=== PATIENT | female | born 1935 | race Two or more races ===

== ENCOUNTER 2019-03-02 20:02 | Inpatient (IN) | payer OTHER ==
[~2019-03-02] VITALS: Ht 157.5 cm; Wt 65.3 kg
[2019-03-02 20:02] VITALS: BP 165/82
--- NOTE | 2019-03-02 20:02 | NUR ---
ED Nurse Note: PT ARRIVED WITH RA 26 FROM HOME DUE ADBDOMINAL PAIN X 3 DAYS ACCOMPANIED WITH NAUSEA AND VOMITNG. PT PLACED IN GOWN AND CARIDAC MONITOR, BED AT LOWEST POSITION; X 2 SIDERAILS. IV LINE HAS BEEN ESTABLISHED AND BLOOD SPECIMEN SENT TO LAB.
[2019-03-02] MEDS ORDERED: Omnipaque-300 100ml vial INJ PRN (20:30)
--- NOTE | 2019-03-02 20:53 | NUR ---
ED Nurse Note: XRAY AT BEDSIDE
[2019-03-02 21:04] LABS: HEMATOCRIT 34.6 % (37.0-47.0); HEMOGLOBIN 11.9 G/DL (12.0-16.0); MEAN CORPUSCULAR VOLUME 94 FL (80-99); PLATELET COUNT 62 K/UL (150-450); RED BLOOD COUNT 3.68 M/UL (4.20-5.40); RED CELL DISTRIBUTION WIDTH 12.2 % (11.6-14.8); WHITE BLOOD COUNT 8.2 K/UL (4.8-10.8)
[2019-03-02 21:07] LABS: ANION GAP 8 mmol/L (5-15); BLOOD UREA NITROGEN 13 mg/dL (7-18); CALCIUM 8.4 MG/DL (8.5-10.1); CARBON DIOXIDE 26 MMOL/L (21-32); CHLORIDE 99 MMOL/L (98-107); CREATININE 1.1 MG/DL (0.55-1.30); INR 1.3 (0.9-1.1); POTASSIUM 3.6 MMOL/L (3.5-5.1); SODIUM 133 MMOL/L (136-145)
--- NOTE | 2019-03-02 21:16 | NUR ---
ED Nurse Note: PT TAKEN TO CT
[2019-03-02 21:20] LABS: ALANINE AMINOTRANSFERASE 18 U/L (12-78); ALBUMIN 2.5 G/DL (3.4-5.0); ALKALINE PHOSPHATASE 122 U/L (46-116); ASPARTATE AMINO TRANSFERASE 38 U/L (15-37); BILIRUBIN,TOTAL 2.9 MG/DL (0.2-1.0)
--- NOTE | 2019-03-02 21:31 | Emergency Room Report ---
History of Present Illness General Chief Complaint: Abdominal Pain Source: EMS Present Illness HPI 84-year-old female presents with generalized abdominal pain, x 3 days, no known aggravating relieving factors, severity is moderate, constant, with nausea and vomiting, she endorses a sharp ache patient denies any fevers chills chest pain shortness of breath, she denies any diarrhea Allergies: Coded Allergies: No Known Allergies (Unverified , 03/02/19) Patient History Past Medical History: see triage record Reviewed Nursing Documentation: PMH: Agreed; PSxH: Agreed Nursing Documentation-PMH Hx Hypertension: Yes Hx Diabetes: Yes Review of Systems All Other Systems: negative except mentioned in HPI Physical Exam Vital Signs Date Time Temp Pulse Resp B/P (MAP) Pulse Ox O2 Delivery O2 Flow Rate FiO2 03/02/19 19:58 98.6 86 14 230/106 (147) 97 Room Air Sp02 EP Interpretation: reviewed, normal General Appearance: well appearing, no apparent distress, alert Head: normocephalic, atraumatic Eyes: bilateral eye PERRL, bilateral eye EOMI ENT: uvula midline, dry mucus membranes Neck: supple, thyroid normal, supple/symm/no masses Respiratory: lungs clear, no respiratory distress, no retraction, no accessory muscle use Cardiovascular #1: normal peripheral pulses, regular rate, rhythm, no edema, no gallop, no murmur Gastrointestinal: soft, no guarding, no rebound, tenderness - generalized tenderness without rebound or guarding Musculoskeletal: normal inspection Neurologic: alert, oriented x3 Psychiatric: mood/affect normal Skin: no rash, warm/dry Medical Decision Making Diagnostic Impression: Primary Impression: Abdominal pain Qualified Codes: R10.84 - Generalized abdominal pain Additional Impressions: Thickening of wall of gallbladder with pericholecystic fluid UTI (urinary tract infection) Qualified Codes: N30.00 - Acute cystitis without hematuria ER Course 84-year-old female presents with generalized abdominal pain, as well as epigastric pain, differential diagnosis includes cholecystitis SBP, diverticulitis Patient found to have thickened gallbladder, patient with ascites, with pericholecystic fluid however pain is well controlled with morphine patient has no fever no white count Ultrasound is equivocal. Patient will be admitted for serial abdominal exams, IV antibiotics for UTI Admitted to Dr. Burr Laboratory Tests Test 03/02/19 20:17 03/02/19 22:06 White Blood Count 8.2 K/UL (4.8-10.8) Red Blood Count 3.68 M/UL (4.20-5.40) L Hemoglobin 11.9 G/DL (12.0-16.0) L Hematocrit 34.6 % (37.0-47.0) L Mean Corpuscular Volume 94 FL (80-99) Mean Corpuscular Hemoglobin 32.4 PG (27.0-31.0) H Mean Corpuscular Hemoglobin Concent 34.4 G/DL (32.0-36.0) Red Cell Distribution Width 12.2 % (11.6-14.8) Platelet Count 62 K/UL (150-450) L Mean Platelet Volume 7.4 FL (6.5-10.1) Neutrophils (%) (Auto) % (45.0-75.0) Lymphocytes (%) (Auto) % (20.0-45.0) Monocytes (%) (Auto) % (1.0-10.0) Eosinophils (%) (Auto) % (0.0-3.0) Basophils (%) (Auto) % (0.0-2.0) Differential Total Cells Counted 100 Neutrophils % (Manual) 85 % (45-75) H Lymphocytes % (Manual) 7 % (20-45) L Monocytes % (Manual) 7 % (1-10) Eosinophils % (Manual) 0 % (0-3) Basophils % (Manual) 0 % (0-2) Band Neutrophils 1 % (0-8) Platelet Estimate Decreased L Platelet Morphology Normal Red Blood Cell Morphology Normal Prothrombin Time 14.0 SEC (9.30-11.50) H Prothrombin Time INR 1.3 (0.9-1.1) H PTT 34 SEC (23-33) H Sodium Level 133 MMOL/L (136-145) L Potassium Level 3.6 MMOL/L (3.5-5.1) Chloride Level 99 MMOL/L (98-107) Carbon Dioxide Level 26 MMOL/L (21-32) Anion Gap 8 mmol/L (5-15) Blood Urea Nitrogen 13 mg/dL (7-18) Creatinine 1.1 MG/DL (0.55-1.30) Estimate Glomerular Filtration Rate mL/min (>60) Glucose Level 170 MG/DL (74-106) H Calcium Level 8.4 MG/DL (8.5-10.1) L Total Bilirubin 2.9 MG/DL (0.2-1.0) H Direct Bilirubin 1.3 MG/DL (0.0-0.3) H Aspartate Amino Transferase (AST) 38 U/L (15-37) H Alanine Aminotransferase (ALT) 18 U/L (12-78) Alkaline Phosphatase 122 U/L (46-116) H Troponin I 0.000 ng/mL (0.000-0.056) Total Protein 7.5 G/DL (6.4-8.2) Albumin 2.5 G/DL (3.4-5.0) L Globulin 5.0 g/dL Albumin/Globulin Ratio 0.5 (1.0-2.7) L Lipase 198 U/L (73-393) Urine Color Yellow Urine Appearance Clear Urine pH 8 (4.5-8.0) Urine Specific [place] 1.010 (1.005-1.035) Urine Protein Negative (NEGATIVE) Urine Glucose (UA) Negative (NEGATIVE) Urine Ketones Negative (NEGATIVE) Urine Blood Negative (NEGATIVE) Urine Nitrite Negative (NEGATIVE) Urine Bilirubin Negative (NEGATIVE) Urine Urobilinogen 4 MG/DL (0.0-1.0) H Urine Leukocyte Esterase 1+ (NEGATIVE) H Urine RBC 0-2 /HPF (0 - 2) Urine WBC 10-15 /HPF (0 - 2) H Urine Squamous Epithelial Cells Few /LPF (NONE/OCC) Urine Bacteria Moderate /HPF (NONE) H EKG Diagnostic Results EKG Time: 20:39 EP Interpretation: NSR, rate 81, QTc 448, no acute ST elevations, normal axis Rhythm Strip Diag. Results Rhythm Strip Time: 00:20 EP Interpretation: yes Rate: 91 Rhythm: NSR, no PVC's, no ectopy Chest X-Ray Diagnostic Results Chest X-Ray Diagnostic Results : Chest X-Ray Ordered: Yes # of Views/Limited/Complete: 1 View Indication: Other - abdominal pain EP Interpretation: Yes Interpretation: no consolidation, no effusion, no pneumothorax, no acute cardiopulmonary disease Impression: No acute disease Electronically Signed by: Jorge A Sidhu MD CT/MRI/US Diagnostic Results CT/MRI/US Diagnostic Results : Impression Preliminary Findings Only See Final Report For Complete Findings CT ABDOMEN & PELVIS With Contrast: Evidence of portal hypertension as demonstrated by cirrhosis with splenomegaly and severe ascites. There is diffuse soft tissue stranding consistent with anasarca. Portal vein is patent. No convincing liver mass. The gallbladder is severely distended with mild wall thickening. No definite stone is identified. Wall thickening may be related to liver disease, but the gallbladder is severely distended more than expected. No hydronephrosis. No bowel obstruction. Thickened ascending colon is likely due to portal colopathy. The stomach wall is thickened, correlate with gastritis. Nonspecific 3.6 cm calcified lesion in the right lower quadrant, possibly a calcified lymph node. Radiologist: Sheila Munson MD Study ready at 21:57 and initial results transmitted at 22:03 Last Vital Signs Date Time Temp Pulse Resp B/P (MAP) Pulse Ox O2 Delivery O2 Flow Rate FiO2 03/02/19 20:02 98.6 78 17 165/82 100 Room Air Disposition: ADMITTED INPATIENT Condition: Stable Jorge A Sidhu MD Mar 02, 2019 21:31
--- NOTE | 2019-03-02 21:40 | NUR ---
ED Nurse Note: PT RETURNED FROM CT; CT COMPLETED
[2019-03-02] MEDS ORDERED: Morphine Sulfate 4mg/ml Inj (IV USE ONLY) IVP ONE (21:45)
[2019-03-02 21:47] LABS: ALBUMIN/GLOBULIN RATIO 0.5 (1.0-2.7); BILIRUBIN,DIRECT 1.3 MG/DL (0.0-0.3)
[2019-03-02 21:59] VITALS: BP 127/93
--- NOTE | 2019-03-02 22:00 | NUR ---
ED Nurse Note: URINE SPECIMEN COLLECTED; SENT TO LAB
--- NOTE | 2019-03-02 22:03 | Diagnostic Imaging Report ---
Clinical Indication: Abdominal pain, nausea, vomiting Technique: No oral contrast utilized, per emergency room physician request IV administration nonionic contrast. Venous phase spiral acquisition obtained through the abdomen and pelvis. Multiplanar reconstructions were generated. Total dose length product 1704 mGycm. CTDIvol(s) 30 mGy. Dose reduction achieved using automated exposure control Comparison: none Findings: There is a moderate amount of ascites fluid. The appendix is not definitely identified, but no findings to suggest acute appendicitis are evident. No evidence of colonic diverticulosis or diverticulitis. There is a small sliding-type hiatal hernia. There is edema of the gastric wall and prominence of the rugal folds. Several proximal small bowel loops also appear somewhat edematous with prominent mucosal enhancement. The liver is markedly atrophic with marked surface nodularity. The gallbladder is massively distended. The wall is mildly thickened and enhancing. There is a small calculus within the gallbladder neck. No biliary ductal dilatation is demonstrated. The pancreas is unremarkable. The spleen is enlarged, measuring 14.5 cm long axis dimension. 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 The adrenals and kidneys are unremarkable. No retroperitoneal or mesenteric mass or adenopathy. There is enlargement of the left ovarian vein and left paraovarian varices. There is prominent enhancement of the uterine myometrium. No pelvic mass or adenopathy. There is a large eggshell calcification in the right side of the pelvis. This does not appear to relate any specific organs. The included lung bases demonstrate mild interstitial congestive changes. The bones demonstrate degenerative spondylosis changes. There is generalized edema of the subcutaneous fat as well as to the abdominal fat. There is marked congestion of the mesenteric vessels. Impression: Gallbladder neck stone. Gallbladder distention and mild gallbladder wall thickening raises possibility of acute cholecystitis. Consider hepatobiliary nuclear scan if clinically indicated for further evaluation. Evidence of hepatic cirrhosis Moderate ascites, presumably related to the above Other stigmata of portal hypertension as well, including splenomegaly, periesophageal varices, and congestion of the mesentery Other findings of anasarca, including diffuse edema of the abdominal, pelvic, and subcutaneous fat Edema of the small bowel wall, likely a manifestation of anasarca, but the possibility of enteritis should also be considered Distention of the left ovarian vein, left paraovarian varices, suspicious for ovarian vein reflux. Correlate with any clinical history of pelvic congestion syndrome Technique show calcination in the right-sided pelvis, probably postinflammatory in nature Basilar pulmonary interstitial congestive changes Other findings as noted, including small sliding-type hiatal hernia, degenerative spondylosis The gallbladder neck stone is not described in the [facility] overnight preliminary report. Dr. Acosta was notified of this at the time of interpretation and [facility] was notified by their website. Other findings are in agreement with the preliminary report. The CT scanner at [facility] is accredited by the [employer] and the scans are performed using protocols designed to limit radiation exposure to as low as reasonably achievable to attain images of sufficient resolution adequate for diagnostic evaluation.
--- NOTE | 2019-03-02 22:15 | NUR ---
ED Nurse Note: US WAS PAGEDL AWAITING FOR ARRIVAL
[2019-03-02 22:43] LABS: APPEARANCE,URINE CLEAR; BILIRUBIN, URINE NEGATIVE (NEGATIVE); COLOR,URINE YELLOW; GLUCOSE, URINE (UA) NEGATIVE (NEGATIVE); KETONES,URINE NEGATIVE (NEGATIVE); LEUKOCYTE ESTERASE ,URINE 1+ (NEGATIVE); NITRITE,URINE NEGATIVE (NEGATIVE); PH,URINE 8 (4.5-8.0); PROTEIN,URINE NEGATIVE (NEGATIVE); UROBILINOGEN,URINE 4 MG/DL (0.0-1.0)
--- NOTE | 2019-03-02 22:44 | NUR ---
ED Nurse Note: US AT BEDSIDE
[2019-03-03] VITALS (8 sets, daily range): BP systolic 122–177; BP diastolic 48–72
--- NOTE | 2019-03-03 | NUR ---
ED Nurse Note: INFORMED ERMD ABOUT PT HIGH BP, WILL AWAIT FURTHER ORDERS AND MONITOR PT.
[2019-03-03] MEDS ORDERED: cefTRIAXone 1 GM in NS 55 ML IVPB ONE (00:30)
[2019-03-03] MEDS ORDERED: UNOBMED (00:47)
--- NOTE | 2019-03-03 00:49 | NUR ---
ED Nurse Note: TELEPHONE REPORT GIVEN TO DEBBIE ANDREWS FOR CONTINUITY OF CARE
--- NOTE | 2019-03-03 01:05 | NUR ---
TRANSFER TO FLOOR: Patient transferred to [facility] as ordered, per ERMD. Report given to DEBBIE ANDREWS. Belongings GIVEN TO PT. Family informed of transfer.
--- NOTE | 2019-03-03 01:45 | NUR ---
NURSE NOTES: Received report from DEBBIE Melgar in ED at 0059. Patient arrived on the unit at 0122 via a gurney. Patient a/a/o x 3, speaking brit[place] islander only, breathing unlabored without distress, discomfort, or sob on a room air. Discomfort around the abdominal area but denies pain. Skin tears and discoloration noted on bilateral upper arm, otherwise skin intact. IV noted on right upper arm intact and patent with dry and clean dressing. Belongings noted: clothing, shoes, flip [employer] phone, a pair of Rx glasses, One $10 dollar bill, Five medications in medication bag ( Carvedilol, Metformin, ferrous sulfate, + Detox supplement, and Aspirin). Informed patient that these medications need to be stored in pharmacy. Patient was okay with RN taking the medication to store in pharmacy. Patient also verbalized and confirmed multiple times that these were the only medications that she's taking at home. Dr. Burr reached at 0131 to receive admission orders. Was not able to reach Dr. Burr at this time. Will attempt to reach Dr. Burr again. Patient oriented to the unit and room. Call light placed within reach. Will continue to monitor.
[2019-03-03] MEDS ORDERED: METFORMIN HCL1000 M1 ORAL (02:20)
[2019-03-03] MEDS ORDERED: ASPIRIN-LOW81 MG ORAL (02:20)
[2019-03-03] MEDS ORDERED: FERROUS SULFAT325 MG ORAL (02:20)
[2019-03-03] MEDS ORDERED: NKM (02:20)
[2019-03-03] MEDS ORDERED: COREG25 MG ORAL (02:20)
--- NOTE | 2019-03-03 02:29 | NUR ---
NURSE NOTES: Patient's BP running high, reading 194/88. Reached Dr. Burr again regards to BP reading and admission orders. Was not able to reach Dr. Burr at this time. Will follow up and attempt again. Patient currently sleeping. Will continue to monitor.
--- NOTE | 2019-03-03 03:16 | NUR ---
NURSE NOTES: Reached Dr. Burr again regarding patient's admission order and high blood pressure reading. Was not able to reach Dr. Burr at this time. Will follow up appropriately and continue to monitor patient.
--- NOTE | 2019-03-03 04:15 | NUR ---
NURSE NOTES: Received callback from Dr. Burr regarding patient's admission order and high blood pressure reading. Orders given as followed: code status (as patient wishes) full code, DVT ppx SCDs after performing venous duplex, CBC/ CMP, DC home medications, Amlodipine PO 5 mg daily starting from 9 am, Clonidine .1 mg Q 6hrs PRN for SBP greater than 170, NPO, Q 6hr accucheck with no sliding scale, give one amp of D50 for blood sugar less than 70 and inform MD if blood sugar is greater than 350 or less than 70, and no IV fluids at this time. said Dr. Biggs is on the case and nurse should contact Dr. Biggs for blood pressure and IV fluids in the morning. Dr. Burr made aware of UTI. Dr. Yomi Callejas will come to see the patient. Will carry out the order as given and continue to monitor patient.
[2019-03-03 06:51] LABS: HEMATOCRIT 32.4 % (37.0-47.0); HEMOGLOBIN 11.3 G/DL (12.0-16.0); MEAN CORPUSCULAR VOLUME 94 FL (80-99); PLATELET COUNT 62 K/UL (150-450); RED BLOOD COUNT 3.44 M/UL (4.20-5.40); RED CELL DISTRIBUTION WIDTH 13.2 % (11.6-14.8); WHITE BLOOD COUNT 10.2 K/UL (4.8-10.8)
[2019-03-03 07:29] LABS: ALANINE AMINOTRANSFERASE 15 U/L (12-78); ALBUMIN/GLOBULIN RATIO 0.5 (1.0-2.7); ALKALINE PHOSPHATASE 107 U/L (46-116); ANION GAP 9 mmol/L (5-15); ASPARTATE AMINO TRANSFERASE 34 U/L (15-37); BILIRUBIN,TOTAL 2.3 MG/DL (0.2-1.0); BLOOD UREA NITROGEN 14 mg/dL (7-18); CALCIUM 7.9 MG/DL (8.5-10.1); CARBON DIOXIDE 24 MMOL/L (21-32); CHLORIDE 102 MMOL/L (98-107); POTASSIUM 3.6 MMOL/L (3.5-5.1); SODIUM 135 MMOL/L (136-145)
[2019-03-03 07:30] LABS: BILIRUBIN,DIRECT 1.1 MG/DL (0.0-0.3)
--- NOTE | 2019-03-03 07:59 | NUR ---
HAND-OFF: Report given to DEBBIE Saul.
--- NOTE | 2019-03-03 08:50 | NUR ---
NURSE NOTES: Patient is awake and alert,respiration unlabored.patient receiving Venous duplex scan at this time,call light within reach,will follow up.
--- NOTE | 2019-03-03 12:18 | GI Initial Consult Note ---
History of Present Illness General Date patient seen: Mar 03, 2019 Time patient seen: 12:08 Reason for Hospitalization: Abdominal Pain Referring physician: ARTEMIO MOISE Reason for Consultation: ABDOMINAL PAIN Present Illness HPI 84-year-old female presents with generalized abdominal pain, x 3 days, no known aggravating relieving factors, severity is moderate, constant, with nausea and vomiting, she endorses a sharp ache patient denies any fevers chills chest pain shortness of breath, she denies any diarrhea. GI consulted for abdominal pain. Pt seen, awake A&Ox4 NAD with no active s/sx of N/V/D or constipation. Family at bedside. Patient had c/o of abdominal pain accompanied with emesis x 3 days. She denied any hematemesis or coffee grounds. Denies any dietary changes, recent travels. Denies any ETOH, tobacco or drug use. Abdominal Pelvis CT was performed noted the patient had [id number] of hepatic cirrhosis with portal hypertension as well as periesophageal varices. In addition, CT also noted gallbladder distention and wall thickening. Her abdomen is distended, soft, non tympanic. No pedal edema noted. Patient has no history of endoscopy or colonoscopy. Home Meds Reported Medications No Known Medications* (NKM - No Known Medications*) ., 0 ., 0 Refills 03/03/19 Ferrous Sulfate* (FERROUS SULFATE*) 325 Mg Tablet, 325 MG ORAL DAILY, #30 TAB 0 Refills 03/03/19 Metformin Hcl* (METFORMIN HCL*) 1,000 Mg Tablet, 1000 MG ORAL TWICE A DAY, TAB 03/03/19 Carvedilol (Coreg) 25 Mg Tablet, 25 MG ORAL EVERY 12 HOURS, TAB 03/03/19 Aspirin (Aspirin EC) 81 Mg Tablet.dr, 81 MG ORAL DAILY, TAB 03/03/19 Unable to Obtain Medications (UNABLE TO OBTAIN MEDS) 1 Ea Ea 03/03/19 Med list reviewed/reconciled: Yes Allergies: Coded Allergies: No Known Allergies (Unverified , 03/02/19) Patient History History Provided By: Patient, Medical Record PMH Narrative Past Medical History: see triage record Reviewed Nursing Documentation: PMH: Agreed; PSxH: Agreed Nursing Documentation-PMH Hx Hypertension: Yes Hx Diabetes: Yes Social History: Denies: smoking, alcohol use, drug use, other Review of Systems All Other Systems: limited Physical Exam Vital Signs Date Time Temp Pulse Resp B/P (MAP) Pulse Ox O2 Delivery O2 Flow Rate FiO2 03/02/19 19:58 98.6 86 14 230/106 (147) 97 Room Air Sp02 EP Interpretation: reviewed, normal Labs Laboratory Tests Test 03/02/19 20:17 03/02/19 22:06 03/03/19 05:09 White Blood Count 8.2 K/UL (4.8-10.8) 10.2 K/UL (4.8-10.8) Red Blood Count 3.68 M/UL (4.20-5.40) L 3.44 M/UL (4.20-5.40) L Hemoglobin 11.9 G/DL (12.0-16.0) L 11.3 G/DL (12.0-16.0) L Hematocrit 34.6 % (37.0-47.0) L 32.4 % (37.0-47.0) L Mean Corpuscular Volume 94 FL (80-99) 94 FL (80-99) Mean Corpuscular Hemoglobin 32.4 PG (27.0-31.0) H 32.7 PG (27.0-31.0) H Mean Corpuscular Hemoglobin Concent 34.4 G/DL (32.0-36.0) 34.8 G/DL (32.0-36.0) Red Cell Distribution Width 12.2 % (11.6-14.8) 13.2 % (11.6-14.8) Platelet Count 62 K/UL (150-450) L 62 K/UL (150-450) L Mean Platelet Volume 7.4 FL (6.5-10.1) 7.1 FL (6.5-10.1) Neutrophils (%) (Auto) % (45.0-75.0) % (45.0-75.0) Lymphocytes (%) (Auto) % (20.0-45.0) % (20.0-45.0) Monocytes (%) (Auto) % (1.0-10.0) % (1.0-10.0) Eosinophils (%) (Auto) % (0.0-3.0) % (0.0-3.0) Basophils (%) (Auto) % (0.0-2.0) % (0.0-2.0) Differential Total Cells Counted 100 100 Neutrophils % (Manual) 85 % (45-75) H 93 % (45-75) H Lymphocytes % (Manual) 7 % (20-45) L 4 % (20-45) L Monocytes % (Manual) 7 % (1-10) 3 % (1-10) Eosinophils % (Manual) 0 % (0-3) 0 % (0-3) Basophils % (Manual) 0 % (0-2) 0 % (0-2) Band Neutrophils 1 % (0-8) 0 % (0-8) Platelet Estimate Decreased L Decreased L Platelet Morphology Normal Normal Red Blood Cell Morphology Normal Prothrombin Time 14.0 SEC (9.30-11.50) H Prothromb Time International Ratio 1.3 (0.9-1.1) H Activated Partial Thromboplast Time 34 SEC (23-33) H Sodium Level 133 MMOL/L (136-145) L 135 MMOL/L (136-145) L Potassium Level 3.6 MMOL/L (3.5-5.1) 3.6 MMOL/L (3.5-5.1) Chloride Level 99 MMOL/L (98-107) 102 MMOL/L (98-107) Carbon Dioxide Level 26 MMOL/L (21-32) 24 MMOL/L (21-32) Anion Gap 8 mmol/L (5-15) 9 mmol/L (5-15) Blood Urea Nitrogen 13 mg/dL (7-18) 14 mg/dL (7-18) Creatinine 1.1 MG/DL (0.55-1.30) 1.0 MG/DL (0.55-1.30) Estimat Glomerular Filtration Rate mL/min (>60) mL/min (>60) Glucose Level 170 MG/DL (74-106) H 141 MG/DL (74-106) H Calcium Level 8.4 MG/DL (8.5-10.1) L 7.9 MG/DL (8.5-10.1) L Total Bilirubin 2.9 MG/DL (0.2-1.0) H 2.3 MG/DL (0.2-1.0) H Direct Bilirubin 1.3 MG/DL (0.0-0.3) H 1.1 MG/DL (0.0-0.3) H Aspartate Amino Transf (AST/SGOT) 38 U/L (15-37) H 34 U/L (15-37) Alanine Aminotransferase (ALT/SGPT) 18 U/L (12-78) 15 U/L (12-78) Alkaline Phosphatase 122 U/L (46-116) H 107 U/L (46-116) Troponin I 0.000 ng/mL (0.000-0.056) Total Protein 7.5 G/DL (6.4-8.2) 6.4 G/DL (6.4-8.2) Albumin 2.5 G/DL (3.4-5.0) L 2.0 G/DL (3.4-5.0) L Globulin 5.0 g/dL 4.4 g/dL Albumin/Globulin Ratio 0.5 (1.0-2.7) L 0.5 (1.0-2.7) L Lipase 198 U/L (73-393) Urine Color Yellow Urine Appearance Clear Urine pH 8 (4.5-8.0) Urine Specific [place] 1.010 (1.005-1.035) Urine Protein Negative (NEGATIVE) Urine Glucose (UA) Negative (NEGATIVE) Urine Ketones Negative (NEGATIVE) Urine Blood Negative (NEGATIVE) Urine Nitrite Negative (NEGATIVE) Urine Bilirubin Negative (NEGATIVE) Urine Urobilinogen 4 MG/DL (0.0-1.0) H Urine Leukocyte Esterase 1+ (NEGATIVE) H Urine RBC 0-2 /HPF (0 - 2) Urine WBC 10-15 /HPF (0 - 2) H Urine Squamous Epithelial Cells Few /LPF (NONE/OCC) Urine Bacteria Moderate /HPF (NONE) H General Appearance: well appearing, no apparent distress, alert Head: normocephalic EENT: PERRL/EOMI, normal ENT inspection Neck: supple Respiratory: normal breath sounds, no respiratory distress Cardiovascular: normal rate Gastrointestinal: normal inspection, non tender, soft, normal bowel sounds, non -distended Rectal: deferred Genitourinary: no CVA tenderness Musculoskeletal: normal inspection, back normal Neurologic: normal inspection, alert, oriented x3, responsive Psychiatric: normal inspection, judgement/insight normal, memory normal Skin: normal inspection, normal color, no rash, warm/dry, palpation normal, well hydrated Lymphatic: normal inspection, no adenopathy Current Medications Current Medications Medications (Trade) Dose Ordered Sig/Robe Route PRN Reason Start Time Stop Time Status Last Admin Dose Admin Amlodipine Besylate (Norvasc) 5 mg DAILY ORAL 03/03/19 09:00 04/02/19 08:59 03/03/19 10:31 Clonidine HCl (Catapres Tab) 0.1 mg EVERY 6 HOURS PRN ORAL SBP > 170 03/03/19 04:30 04/02/19 04:29 Dextrose (Dextrose 50%) 50 ml STAT PRN IV Blood Sugar < 70 mg/dl 03/03/19 08:00 04/02/19 07:59 Iohexol (OMNIPAQUE-300 100ml) 100 ml NOW PRN INJ Radiology Procedure 03/02/19 20:30 03/04/19 20:29 Piperacillin Sod/ Tazobactam Sod 3.375 gm/Sodium Chloride 110 ml @ 27.5 mls/hr EVERY 8 HOURS IVPB 03/03/19 14:00 03/08/19 13:59 UNV GI: Plan Problems: (1) Cirrhosis (2) Thickening of wall of gallbladder with pericholecystic fluid (3) Abdominal pain (4) UTI (urinary tract infection) (5) Cholecystitis Plan This is a 84 year old female patient presented with abdominal pain found on CT to have liver cirrhosis. 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 plan for EGD tomorrow given anemia, portal gastropathy, evidence of periesophageal varices obtain abdominal US paracentesis ordered clear liquid diet after paracentesis, NPO @ MN. hold all blood thinners anemia work up OB stool r/o GI bleed monitor H&H, prn transfusions bowel regimen ppi fu labs, hepatitis panel, AFP Discussed with Dr. Briceño. Thank you for this patient referral, we will follow. The patient was seen and examined at bedside and all new and available data was reviewed in the patients chart. I agree with the above findings, impression and plan. (Patient seen earlier today. Signature stamp does not reflect patient encounter time.). - MD Angelique Leong,Radha-Ashok AL[employer]IN[employer] P[employer]ER Mar 03, 2019 12:18
--- NOTE | 2019-03-03 12:29 | Diagnostic Imaging Report ---
APPROVED REPORT CPT Code: 34816 Present Symptoms Lower Extremity Pain: Bilateral Lower Extremity Edema: Bilateral BILATERAL: Imaging reveals a patent deep venous system bilaterally. There is no evidence of thrombus within the femoral, popliteal or tibial segments. The greater saphenous veins are also within normal limits. Doppler indicates normal spontaneous flow within these segments.
[2019-03-03] MEDS ORDERED: Morphine Sulfate 2mg/ml Inj(IV/IM USE ONLY) IVP SCH (13:00)
--- NOTE | 2019-03-03 13:40 | NUR ---
*-* INSURANCE *-* ALL AVAILABLE CLINICALS HAVE BEEN FAXED TO: LEEANNA MUÑOZ CM #[id number] FAX#[phone] REVIEWS/CLINICALS Addendum: 03/05/19 at 1016 by DOMONIQUE GALLEGOS CM LEEANNA GUAJARDO:ARMAND P: [phone] F: [phone]
[2019-03-03] MEDS ORDERED: Piperacillin/Tazobactam 3.375 GM in NS 110 ML IVPB SCH ×2 (14:00→17:00)
--- NOTE | 2019-03-03 14:51 | Cardiology Report ---
APPROVED REPORT EKG Measurement Heart [id number] HI [id number] Normal sinus rhythm Nonspecific ST abnormality Abnormal ECG
--- NOTE | 2019-03-03 14:59 | Consultation ---
Consult Note Consult Note Asked to eval for fluid management 84-year-old female presents with generalized abdominal pain, x 3 days, no known aggravating relieving factors, severity is moderate, constant, with nausea and vomiting, she endorses a sharp ache patient denies any fevers chills chest pain shortness of breath, she denies any diarrhea No Known Allergies (Unverified , 03/02/19) Hx Hypertension: Yes Hx Diabetes: Yes examined data reviewed . Assessment/Plan UTI Cirrhosis / Abd pain cholecystitis DM HTN Anemia HypoAlbuminemia NS IV fluids Per GI Bao Biggs MD Mar 03, 2019 14:59
--- NOTE | 2019-03-03 16:26 | Diagnostic Imaging Report ---
Indication: Right upper quadrant pain, abnormal gallbladder on recent CT scan, evaluation for stone disease Technique: Grayscale and duplex images of the gallbladder Comparison: Reference made to CT scan performed one hour earlier Findings: The gallbladder is distended. The wall is thickened, measuring 7 mm thick. The small gallbladder neck stone demonstrated on recent CT scan is not visible on sonogram. The common bile duct measures 3 mm diameter. Limited images of the liver demonstrate coarse in echogenicity and surface nodularity. There is a moderate amount of ascites fluid present. Impression: Small gallbladder neck stone demonstrated on CT scan performed one hour earlier is sonographically occult Gallbladder wall thickening. This could be a manifestation of acute cholecystitis, but could also be due to hemodynamic gradient related to hepatocellular disease Evidence of hepatic cirrhosis Ascites
--- NOTE | 2019-03-03 17:15 | Diagnostic Imaging Report ---
Indication: Chest pain Technique: One view of the chest Comparison: none Findings: The heart is enlarged. Lungs and pleural spaces are clear. The aorta is tortuous and calcified Impression: Cardiomegaly. No acute process
--- NOTE | 2019-03-03 18:00 | Consultation ---
DATE OF CONSULTATION: 03/03/2019 INFECTIOUS DISEASE CONSULTATION CONSULTING PHYSICIAN: Reji Callejas M.D. PRIMARY ATTENDING PHYSICIAN: Steve Burr M.D. REASON FOR CONSULT: Cholelithiasis and cholecystitis. HISTORY OF PRESENT ILLNESS: This is an 84-year-old female admitted today from home complaining of diffuse abdominal pain with nausea and vomiting. The patient has history of liver problem and has distention of abdomen for the past couple of months. PAST MEDICAL HISTORY: Diabetes mellitus, hypertension, and liver disease. ALLERGIES: No known drug allergies. MEDICATIONS: Getting amlodipine and clonidine. Got a dose of ceftriaxone Zofran, and morphine. SOCIAL HISTORY: Single. No history of alcohol, drug abuse, or smoking. She lives at home. REVIEW OF SYSTEMS: No fever. No chills. No coughing. No shortness of breath. No abdominal pain, has decreased appetite and abdominal distention. The patient had no problem passing urine. PHYSICAL EXAMINATION: VITAL SIGNS: Temperature 97.9, pulse 83, and blood pressure 131/61. HEAD AND NECK: Reed conjunctivae. Has dentures. HEART: Normal rate. LUNGS: Clear. ABDOMEN: Distended with ascites. EXTREMITIES: No edema. NEUROLOGIC: She is awake, alert, and oriented x3. LABORATORY AND DIAGNOSTIC DATA: WBC 10.2, hemoglobin 11.3, hematocrit 32.4, and platelets 62,000. Sodium 135, potassium 3.6, chloride 102, bicarbonate 24, BUN 14, creatinine 1, and glucose 141. Bilirubin is 2.3. Albumin is 2. CT scan of the abdomen and pelvis showed moderate ascites, gallbladder neck stone, gallbladder distention and mild gallbladder wall thickening, raises the possibility of acute cholecystitis, cirrhosis, ascites, and portal hypertension. IMPRESSION: Cholelithiasis and cholecystitis. The patient also has cirrhosis with ascites and has diabetes mellitus, hypertension, and thrombocytopenia. RECOMMENDATION: The patient will be started on Zosyn. We will order a HIDA scan to rule out cholecystitis. At the end of my exam, I thank Dr. Burr for involving me in the care of this patient. Reji Callejas M.D. DR: TOM Turner: 03/03/2019 12:11 JOB#: [id number] CC:
--- NOTE | 2019-03-03 18:14 | Diagnostic Imaging Report ---
Indications: Abdominal pain, abnormal recent imaging studies Technique: IV administration mCi 99 M technetium Choletec. Serial images obtained over the abdomen for 2 hrs . 2 mg of morphine injection IV at 2 hours (requested at one hour per the technologist note), with additional images taken for 30 minutes Comparison: None Findings: Somewhat slow tracer uptake within the liver. Extrahepatic bile ducts are seen at 19 minutes. Excretion into the duodenum demonstrated at 25 minutes. The gallbladder is never visualized Impression: Nonvisualized gallbladder. This is concerning for acute cholecystitis Patent common bile duct Dr. Briceño notified of the findings at the time of interpretation
--- NOTE | 2019-03-03 18:45 | History and Physical Report ---
DATE OF ADMISSION: 03/03/2019 HISTORY OF PRESENT ILLNESS: The patient comes with abdominal pain for x2 days associated with nausea. No vomiting. No constipation. Abdominal pain comes and goes. Denies chills. Denies cough. Denies orthopnea. Denies chest pain. PAST MEDICAL HISTORY: Significant for iron-deficiency anemia, hypertension, NIDDM. ALLERGIES: No known allergies. MEDICATIONS: Coreg, aspirin, ferrous sulfate , metformin. FAMILY HISTORY: Does have history of diabetes, hypertension. SOCIAL HISTORY: Denies history of smoking, alcohol, or illicit drugs. PAST SURGICAL HISTORY: Neck surgery, endarterectomy, and had some kind of cardiac surgery that she is not clear. REVIEW OF SYSTEMS: HEENT: Denies headaches. RESPIRATORY: Denies shortness of breath. Denies cough. CARDIOVASCULAR: Denies chest pain, orthopnea. GASTROINTESTINAL: Reports abdominal pain and nausea for two days. No vomiting. No constipation. EXTREMITIES: Denies pain in lower extremities. CENTRAL NERVOUS SYSTEM: Denies change in speech pattern. PHYSICAL EXAMINATION: VITAL SIGNS: Temperature is 98.6, pulse is 93, blood pressure is 159/55. HEENT: PERRLA. NECK: Supple. No lymphadenopathy. CHEST: Clear to auscultation. CARDIOVASCULAR: Regular rate and rhythm. No murmurs or extra sounds. GASTROINTESTINAL: Soft, nontender, and nondistended. No organomegaly. No organomegaly. EXTREMITIES: No edema. Moves all four extremities. Sensory intact to light touch. Reflexes equal on both sides. LABORATORY DATA: WBC of 8.2, hemoglobin 11.9, and platelets 162. Sodium 133, potassium 3.6, BUN of 13, creatinine 1.1, and glucose of 170, albumin of 2.9, AST of 38, ALT of 18, alkaline phosphatase 122, lipase 198. ASSESSMENT AND PLAN: 1. Electrolyte imbalance. 2. Abdominal pain. 3. Hypertension. 4. Cholecystitis. 5. Possible urinary tract infection. 6. Abdominal pain 7. Also on the report called by the radiologist, there is a gallstone in the gallbladder neck that they did not the initial CT report. For those issues, I have consulted Dr. Reyes, Dr. Reji Callejas, Dr. Biggs, Dr. Briceño to help with the management and treatment. Antibiotics per Dr. Reji Callejas. He is afebrile at this point. He is not in acute distress. Steve Burr M.D. DR: Felipe JOB#: [id number] CC:
--- NOTE | 2019-03-03 19:00 | NUR ---
NURSE NOTES: Patient resting,no complaint of pain,call light within reach.
--- NOTE | 2019-03-03 19:36 | NUR ---
HAND-OFF: Report given MINSU RN.
--- NOTE | 2019-03-03 19:45 | NUR ---
NURSE NOTES: Received report from DEBBIE Saul. Patient a/a/o x 4, speaks Moroccan only, breathing unlabored without distress, discomfort, or sob on room air. Denies pain at this time. Iv noted on the MYLES running fluid as ordered. Bed placed at the lowest with alarm, brake, and siderails up for safety. Call light placed within reach. Will continue to monitor and provide care as ordered.
--- NOTE | 2019-03-03 20:11 | NUR ---
CASE MANAGEMENT: REVIEW 84Y/FEMALE PRESENTED TO ED FROM HOME CC: ABD PAIN SI: CHOLECYSTITIS T 98.6 HR 86 RR 14 BP 230/106 SAT 97% ROOM AIR H/H 11.9/34.6 NA 133 AST 38 ALK PHOS 122 IS: ZOFRAN IV X1 MORPHINE IV X1 ROCEPHIN IV X1 NORVASC PO X1 NS IVF BOLUS X1 PATIENT ADMITTED TO MED/SURG UNIT 03/02/2019 DCP: PATIENT IS FROM HOME PLAN: GI CONSULT
--- NOTE | 2019-03-03 21:54 | Consultation ---
History of Present Illness General Date patient seen: Mar 03, 2019 Reason for Hospitalization: Abdominal Pain Present Illness HPI 84F with abdominal pain, nausea, emesis for 3 days. In ED noted to have abnormal LFT's. CT noted. US ordered. HIDA noted. Surgery called to evaluate. Allergies: Coded Allergies: No Known Allergies (Unverified , 03/02/19) Medication History Scheduled Aspirin (Aspirin EC), 81 MG ORAL DAILY, (Reported) Carvedilol (Coreg), 25 MG ORAL EVERY 12 HOURS, (Reported) Ferrous Sulfate* (Ferrous Sulfate*), 325 MG ORAL DAILY, (Reported) Metformin Hcl* (Metformin Hcl*), 1,000 MG ORAL TWICE A DAY, (Reported) No Known Medications* (NKM - No Known Medications*), 0 ., (Reported) Miscellaneous Medications Unable to Obtain Medications (Unable To Obtain Meds), (Reported) Patient History Limited by: medical condition History Provided By: Patient, Medical Record, PMD Healthcare decision maker Resuscitation status Advanced Directive on File Past Medical/Surgical History Past Medical/Surgical History: (1) UTI (urinary tract infection) (2) Abdominal pain (3) Thickening of wall of gallbladder with pericholecystic fluid (4) Cholecystitis (5) Cirrhosis (6) Thrombocytopenia Review of Systems Review of Symptoms General ROS: no weight loss or fever Psychological ROS: no depression or mood changes, no memory loss Ophthalmic ROS: no visual changes or eye irritation ENT ROS: no nasal congestion, hearing loss, dizziness Allergy and Immunology ROS: no allergic symptoms or urticaria Hematological and Lymphatic ROS: no swollen glands, unusual bleeding or bruising Endocrine ROS: no polyuria, polydipsia, weight changes, temperature intolerance Respiratory ROS: no cough, shortness of breath, or wheezing Cardiovascular ROS: no chest pain or dyspnea on exertion Gastrointestinal ROS: abdominal pain, no bright red blood in stool. Musculoskeletal ROS: no myalgias or arthralgias Neurological ROS: no TIA or stroke symptoms Dermatological ROS: no new or changing skin lesions, rashes or pruritis Physical Exam Physical Exam General appearance: alert, cooperative, no distress, appears stated age Head: Normocephalic, without obvious abnormality, atraumatic Eyes: conjunctivae/corneas clear. PERRL, EOM's intact. Fundi benign Throat: Lips, mucosa, and tongue normal. Teeth and gums normal Neck: supple, symmetrical, trachea midline, no adenopathy, thyroid: not enlarged, symmetric, no tenderness/mass/nodules, no carotid bruit and no JVD Lungs: clear to auscultation bilaterally Heart: regular rate and rhythm, S1, S2 normal, no murmur, click, rub or gallop Abdomen: soft, non-tender. Bowel sounds normal. No masses, no organomegaly Extremities: extremities normal, atraumatic, no cyanosis or edema Pulses: 2+ and symmetric Skin: Skin color, texture, turgor normal. No rashes or lesions Neurologic: Grossly normal Last 24 Hour Vital Signs Date Time Temp Pulse Resp B/P (MAP) Pulse Ox O2 Delivery O2 Flow Rate FiO2 03/03/19 16:00 98.2 20 150/72 (98) 95 03/03/19 12:00 98.2 20 150/72 (98) 96 03/03/19 10:31 83 131/61 03/03/19 10:23 83 131/61 (84) 03/03/19 09:00 Room Air 03/03/19 08:00 97.9 76 17 136/48 (77) 97 03/03/19 04:00 97.9 89 16 158/68 (98) 95 03/03/19 03:33 Room Air 03/03/19 01:14 98.6 93 23 159/55 98 Room Air 03/03/19 00:48 98.4 91 20 159/55 97 Room Air 03/03/19 00:02 98.4 91 15 177/53 100 Room Air 03/02/19 22:26 98.5 03/02/19 21:59 98.5 81 18 127/93 100 Room Air Intake and Output 03/02/19 03/03/19 19:00 07:00 Intake Total 55 ml Output Total 0 ml Balance 55 ml Intake Oral 0 ml IV Total 55 ml Output Urine Total 0 ml Laboratory Tests Test 03/02/19 22:06 03/03/19 05:09 Urine Color Yellow Urine Appearance Clear Urine pH 8 (4.5-8.0) Urine Specific [place] 1.010 (1.005-1.035) Urine Protein Negative (NEGATIVE) Urine Glucose (UA) Negative (NEGATIVE) Urine Ketones Negative (NEGATIVE) Urine Blood Negative (NEGATIVE) Urine Nitrite Negative (NEGATIVE) Urine Bilirubin Negative (NEGATIVE) Urine Urobilinogen 4 MG/DL (0.0-1.0) H Urine Leukocyte Esterase 1+ (NEGATIVE) H Urine RBC 0-2 /HPF (0 - 2) Urine WBC 10-15 /HPF (0 - 2) H Urine Squamous Epithelial Cells Few /LPF (NONE/OCC) Urine Bacteria Moderate /HPF (NONE) H White Blood Count 10.2 K/UL (4.8-10.8) Red Blood Count 3.44 M/UL (4.20-5.40) L Hemoglobin 11.3 G/DL (12.0-16.0) L Hematocrit 32.4 % (37.0-47.0) L Mean Corpuscular Volume 94 FL (80-99) Mean Corpuscular Hemoglobin 32.7 PG (27.0-31.0) H Mean Corpuscular Hemoglobin Concent 34.8 G/DL (32.0-36.0) Red Cell Distribution Width 13.2 % (11.6-14.8) Platelet Count 62 K/UL (150-450) L Mean Platelet Volume 7.1 FL (6.5-10.1) Neutrophils (%) (Auto) % (45.0-75.0) Lymphocytes (%) (Auto) % (20.0-45.0) Monocytes (%) (Auto) % (1.0-10.0) Eosinophils (%) (Auto) % (0.0-3.0) Basophils (%) (Auto) % (0.0-2.0) Differential Total Cells Counted 100 Neutrophils % (Manual) 93 % (45-75) H Lymphocytes % (Manual) 4 % (20-45) L Monocytes % (Manual) 3 % (1-10) Eosinophils % (Manual) 0 % (0-3) Basophils % (Manual) 0 % (0-2) Band Neutrophils 0 % (0-8) Platelet Estimate Decreased L Platelet Morphology Normal Sodium Level 135 MMOL/L (136-145) L Potassium Level 3.6 MMOL/L (3.5-5.1) Chloride Level 102 MMOL/L (98-107) Carbon Dioxide Level 24 MMOL/L (21-32) Anion Gap 9 mmol/L (5-15) Blood Urea Nitrogen 14 mg/dL (7-18) Creatinine 1.0 MG/DL (0.55-1.30) Estimat Glomerular Filtration Rate mL/min (>60) Glucose Level 141 MG/DL (74-106) H Calcium Level 7.9 MG/DL (8.5-10.1) L Total Bilirubin 2.3 MG/DL (0.2-1.0) H Direct Bilirubin 1.1 MG/DL (0.0-0.3) H Aspartate Amino Transf (AST/SGOT) 34 U/L (15-37) Alanine Aminotransferase (ALT/SGPT) 15 U/L (12-78) Alkaline Phosphatase 107 U/L (46-116) Total Protein 6.4 G/DL (6.4-8.2) Albumin 2.0 G/DL (3.4-5.0) L Globulin 4.4 g/dL Albumin/Globulin Ratio 0.5 (1.0-2.7) L Microbiology Date/Time Source Procedure Growth Status 03/02/19 22:06 Urine,Clean Catch Urine Culture - Preliminary NO GROWTH Resulted Height (Feet): 5 Height (Inches): 2.00 Weight (Pounds): 143 Medications Current Medications Medications (Trade) Dose Ordered Sig/Robe Route PRN Reason Start Time Stop Time Status Last Admin Dose Admin Amlodipine Besylate (Norvasc) 5 mg DAILY ORAL 03/04/19 09:00 04/02/19 08:59 Clonidine HCl (Catapres Tab) 0.1 mg EVERY 6 HOURS PRN ORAL SBP > 170 03/03/19 04:30 04/02/19 04:29 Dextrose (Dextrose 50%) 50 ml STAT PRN IV Blood Sugar < 70 mg/dl 03/03/19 08:00 04/02/19 07:59 Iohexol (OMNIPAQUE-300 100ml) 100 ml NOW PRN INJ Radiology Procedure 03/02/19 20:30 03/04/19 20:29 Morphine Sulfate (Morphine Sulfate) 2 mg ONCE IVP 03/03/19 13:00 03/04/19 23:59 03/03/19 14:21 Pantoprazole (Protonix) 40 mg EVERY 12 HOURS IVP 03/03/19 21:00 04/02/19 20:59 Piperacillin Sod/ Tazobactam Sod 3.375 gm/Sodium Chloride 110 ml @ 27.5 mls/hr Q8H IVPB 03/03/19 17:00 03/08/19 16:59 9/25/19 18:07 Sodium Chloride 1,000 ml @ 75 mls/hr [id number] IV 03/03/19 15:00 04/02/19 14:59 03/03/19 18:07 Assessment/Plan Problem List: (1) Thickening of wall of gallbladder with pericholecystic fluid Assessment & Plan: Impression: Gallbladder neck stone. Gallbladder distention and mild gallbladder wall thickening raises possibility of acute cholecystitis. Consider hepatobiliary nuclear scan if clinically indicated for further evaluation. Evidence of hepatic cirrhosis Moderate ascites, presumably related to the above Other stigmata of portal hypertension as well, including splenomegaly, periesophageal varices, and congestion of the mesentery Other findings of anasarca, including diffuse edema of the abdominal, pelvic, and subcutaneous fat Edema of the small bowel wall, likely a manifestation of anasarca, but the possibility of enteritis should also be considered Distention of the left ovarian vein, left paraovarian varices, suspicious for ovarian vein reflux. Correlate with any clinical history of pelvic congestion syndrome ICD Codes: K82.8 - Other specified diseases of gallbladder SNOMED: 865759159 (2) Abdominal pain Assessment & Plan: Will need to discuss with GI and medical team given cirrhosis high risk for surgery ? cholecystostomy tube trend labs IV abx will follow with recs thank you ICD Codes: R10.9 - Unspecified abdominal pain SNOMED: 34641322 Qualifiers: Qualified Codes: R10.84 - Generalized abdominal pain (3) Cholecystitis Assessment & Plan: Impression: Nonvisualized gallbladder. This is concerning for acute cholecystitis Patent common bile duct ICD Codes: K81.9 - Cholecystitis, unspecified SNOMED: 46560990 (4) Cirrhosis Assessment & Plan: Impression: Small gallbladder neck stone demonstrated on CT scan performed one hour earlier is sonographically occult Gallbladder wall thickening. This could be a manifestation of acute cholecystitis, but could also be due to hemodynamic gradient related to hepatocellular disease Evidence of hepatic cirrhosis Ascites ICD Codes: K74.60 - Unspecified cirrhosis of liver SNOMED: [id number] Vini Reyes Mar 03, 2019 21:54
[2019-03-03] MEDS: Pantoprazole Inj IVP SCH (22:07)
[2019-03-04] VITALS (9 sets, daily range): BP systolic 112–149; BP diastolic 47–87
--- NOTE | 2019-03-04 01:08 | NUR ---
NURSE NOTES: Zosyn scheduled 1hr earlier on eMAR than prescribed time frame. Called pipeline, confirmed with Wen to push the Zosyn due at 0100 to 0200, to meet the ordered Q8HR.
[2019-03-04] MEDS: Piperacillin/Tazobactam 3.375 GM in NS 110 ML IVPB SCH ×3 (02:09→18:30)
[2019-03-04 05:25] LABS: HEMATOCRIT 30.2 % (37.0-47.0); HEMOGLOBIN 10.2 G/DL (12.0-16.0); MEAN CORPUSCULAR VOLUME 95 FL (80-99); PLATELET COUNT 67 K/UL (150-450); RED BLOOD COUNT 3.19 M/UL (4.20-5.40); RED CELL DISTRIBUTION WIDTH 14.1 % (11.6-14.8); WHITE BLOOD COUNT 13.9 K/UL (4.8-10.8)
[2019-03-04 05:50] LABS: INR 1.5 (0.9-1.1)
[2019-03-04 06:02] LABS: % IRON SATURATION 20 % (15-50); IRON 33 ug/dL (50-175); TOTAL IRON BINDING CAPACITY 164 ug/dL (250-450)
[2019-03-04 06:05] LABS: CHOLESTEROL 107 MG/DL (< 200); HDL CHOLESTEROL 16 MG/DL (40-60); TRIGLYCERIDES 76 MG/DL (30-150)
[2019-03-04 06:09] LABS: ALANINE AMINOTRANSFERASE 13 U/L (12-78); ALBUMIN 1.8 G/DL (3.4-5.0); ALBUMIN/GLOBULIN RATIO 0.4 (1.0-2.7); ALKALINE PHOSPHATASE 90 U/L (46-116); ANION GAP 9 mmol/L (5-15); ASPARTATE AMINO TRANSFERASE 30 U/L (15-37); BLOOD UREA NITROGEN 20 mg/dL (7-18); CALCIUM 7.9 MG/DL (8.5-10.1); CARBON DIOXIDE 24 MMOL/L (21-32); CHLORIDE 102 MMOL/L (98-107); CREATININE 1.3 MG/DL (0.55-1.30); FERRITIN 103 NG/ML (8-388); POTASSIUM 3.8 MMOL/L (3.5-5.1); SODIUM 135 MMOL/L (136-145)
[2019-03-04 06:15] LABS: BILIRUBIN,DIRECT 1.1 MG/DL (0.0-0.3)
--- NOTE | 2019-03-04 06:31 | Hematology/Onc Progress Note ---
Assessment/Plan Assessment/Plan # Pancytopenia is likely due to underlying cirrhosis, splenomegaly, paraesophageal varices, portal HTN --> at this time, imaging of liver reviewed, no e/o malignancy --> obtain hepatitis panel and hiv --> AFP has been ordered as well --> smear has been reviewed, r/o schistocytes --> neupogen on prn basis --> plts as needed presurg, goal >50k if procedure --> 03/04: PLAN FOR EGD --> paracentesis on prn basis # Anemia of chronic disease --> no evidence of iron deficiency --> less of a role for iron and epogen # Thickening of wall of gallbladder with pericholecystic fluid --> as per surg primo vizcaino # UTI (urinary tract infection) # Cholecystitis # Liver cirrhosis Greatly appreciate consultation. Subjective Constitutional: Denies: no symptoms, chills, fever, malaise, weakness, other HEENT: Denies: no symptoms, eye pain, blurred vision, tearing, double vision, ear pain, ear discharge, nose pain, nose congestion, throat pain, throat swelling, mouth pain, mouth swelling, other Cardiovascular: Denies: no symptoms, chest pain, edema, irregular heart rate, lightheadedness, palpitations, syncope, other Respiratory: Denies: no symptoms, cough, shortness of breath, SOB with excertion, SOB at rest, sputum, wheezing, other Gastrointestinal/Abdominal: Denies: no symptoms, abdomen distended, abdominal pain, black stools, tarry stools, blood in stool, constipated, diarrhea, difficulty swallowing, nausea, poor appetite, poor fluid intake, rectal bleeding , vomiting, other Genitourinary: Denies: no symptoms, burning, discharge, frequency, flank pain, hematuria, incontinence, pain, urgency, other Neurologic/Psychiatric: Denies: no symptoms, anxiety, depressed, emotional problems, headache, numbness, paresthesia, pre-existing deficit, seizure, tingling, tremors, weakness, other Endocrine: Denies: no symptoms, excessive sweating, flushing, intolerance to cold, intolerance to heat, increased hunger, increased thirst, increased urine, unexplained weight gain, unexplained weight loss, other Allergies: Coded Allergies: No Known Allergies (Unverified , 03/02/19) Subjective 03/04: abd pain better, pending scan, gi/surg input, labs noted, pending hiv/hep Objective Objective Current Medications Medications (Trade) Dose Ordered Sig/Robe Route PRN Reason Start Time Stop Time Status Last Admin Dose Admin Amlodipine Besylate (Norvasc) 5 mg DAILY ORAL 03/04/19 09:00 04/02/19 08:59 Clonidine HCl (Catapres Tab) 0.1 mg EVERY 6 HOURS PRN ORAL SBP > 170 03/03/19 04:30 04/02/19 04:29 Dextrose (Dextrose 50%) 50 ml STAT PRN IV Blood Sugar < 70 mg/dl 03/03/19 08:00 04/02/19 07:59 Iohexol (OMNIPAQUE-300 100ml) 100 ml NOW PRN INJ Radiology Procedure 03/02/19 20:30 03/04/19 20:29 Morphine Sulfate (Morphine Sulfate) 2 mg ONCE IVP 03/03/19 13:00 03/04/19 23:59 03/03/19 14:21 Pantoprazole (Protonix) 40 mg EVERY 12 HOURS IVP 03/03/19 21:00 04/02/19 20:59 03/03/19 22:07 Piperacillin Sod/ Tazobactam Sod 3.375 gm/Sodium Chloride 110 ml @ 27.5 mls/hr Q8H IVPB 03/04/19 02:00 03/08/19 01:59 03/04/19 02:09 Sodium Chloride 1,000 ml @ 75 mls/hr [id number] IV 03/03/19 15:00 04/02/19 14:59 03/03/19 18:07 Last 24 Hour Vital Signs Date Time Temp Pulse Resp B/P (MAP) Pulse Ox O2 Delivery O2 Flow Rate FiO2 03/04/19 04:00 98.7 87 20 133/54 (80) 97 03/04/19 00:00 98.4 18 133/51 (78) 97 03/03/19 21:00 Room Air 03/03/19 20:00 98.5 20 122/50 (74) 95 03/03/19 16:00 98.2 20 150/72 (98) 95 03/03/19 12:00 98.2 20 150/72 (98) 96 03/03/19 10:31 83 131/61 03/03/19 10:23 83 131/61 (84) 03/03/19 09:00 Room Air 03/03/19 08:00 97.9 76 17 136/48 (77) 97 03/03/19 04:00 97.9 89 16 158/68 (98) 95 03/03/19 03:33 Room Air 03/03/19 01:14 98.6 93 23 159/55 98 Room Air 03/03/19 00:48 98.4 91 20 159/55 97 Room Air 03/03/19 00:02 98.4 91 15 177/53 100 Room Air 03/02/19 22:26 98.5 03/02/19 21:59 98.5 81 18 127/93 100 Room Air 03/02/19 20:02 98.6 78 17 165/82 100 Room Air 03/02/19 20:02 78 17 03/02/19 19:58 98.6 86 14 230/106 (147) 97 Room Air Intake and Output 03/03/19 03/04/19 18:59 06:59 Intake Total 710.0 ml Balance 710.0 ml Intake Oral 0 ml IV Total 710.0 ml # Voids 1 Labs Test 03/02/19 20:17 03/02/19 22:06 03/03/19 05:09 03/04/19 05:15 White Blood Count 8.2 K/UL (4.8-10.8) 10.2 K/UL (4.8-10.8) 13.9 K/UL (4.8-10.8) Red Blood Count 3.68 M/UL (4.20-5.40) 3.44 M/UL (4.20-5.40) 3.19 M/UL (4.20-5.40) Hemoglobin 11.9 G/DL (12.0-16.0) 11.3 G/DL (12.0-16.0) 10.2 G/DL (12.0-16.0) Hematocrit 34.6 % (37.0-47.0) 32.4 % (37.0-47.0) 30.2 % (37.0-47.0) Mean Corpuscular Volume 94 FL (80-99) 94 FL (80-99) 95 FL (80-99) Mean Corpuscular Hemoglobin 32.4 PG (27.0-31.0) 32.7 PG (27.0-31.0) 32.1 PG (27.0-31.0) Mean Corpuscular Hemoglobin Concent 34.4 G/DL (32.0-36.0) 34.8 G/DL (32.0-36.0) 33.9 G/DL (32.0-36.0) Red Cell Distribution Width 12.2 % (11.6-14.8) 13.2 % (11.6-14.8) 14.1 % (11.6-14.8) Platelet Count 62 K/UL (150-450) 62 K/UL (150-450) 67 K/UL (150-450) Mean Platelet Volume 7.4 FL (6.5-10.1) 7.1 FL (6.5-10.1) 6.3 FL (6.5-10.1) Neutrophils (%) (Auto) % (45.0-75.0) % (45.0-75.0) % (45.0-75.0) Lymphocytes (%) (Auto) % (20.0-45.0) % (20.0-45.0) % (20.0-45.0) Monocytes (%) (Auto) % (1.0-10.0) % (1.0-10.0) % (1.0-10.0) Eosinophils (%) (Auto) % (0.0-3.0) % (0.0-3.0) % (0.0-3.0) Basophils (%) (Auto) % (0.0-2.0) % (0.0-2.0) % (0.0-2.0) Differential Total Cells Counted 100 100 Neutrophils % (Manual) 85 % (45-75) 93 % (45-75) Lymphocytes % (Manual) 7 % (20-45) 4 % (20-45) Monocytes % (Manual) 7 % (1-10) 3 % (1-10) Eosinophils % (Manual) 0 % (0-3) 0 % (0-3) Basophils % (Manual) 0 % (0-2) 0 % (0-2) Band Neutrophils 1 % (0-8) 0 % (0-8) Platelet Estimate Decreased Decreased Platelet Morphology Normal Normal Red Blood Cell Morphology Normal Prothrombin Time 14.0 SEC (9.30-11.50) 15.9 SEC (9.30-11.50) Prothromb Time International Ratio 1.3 (0.9-1.1) 1.5 (0.9-1.1) Activated Partial Thromboplast Time 34 SEC (23-33) 42 SEC (23-33) Sodium Level 133 MMOL/L (136-145) 135 MMOL/L (136-145) 135 MMOL/L (136-145) Potassium Level 3.6 MMOL/L (3.5-5.1) 3.6 MMOL/L (3.5-5.1) 3.8 MMOL/L (3.5-5.1) Chloride Level 99 MMOL/L (98-107) 102 MMOL/L (98-107) 102 MMOL/L (98-107) Carbon Dioxide Level 26 MMOL/L (21-32) 24 MMOL/L (21-32) 24 MMOL/L (21-32) Anion Gap 8 mmol/L (5-15) 9 mmol/L (5-15) 9 mmol/L (5-15) Blood Urea Nitrogen 13 mg/dL (7-18) 14 mg/dL (7-18) 20 mg/dL (7-18) Creatinine 1.1 MG/DL (0.55-1.30) 1.0 MG/DL (0.55-1.30) 1.3 MG/DL (0.55-1.30) Estimat Glomerular Filtration Rate mL/min (>60) mL/min (>60) mL/min (>60) Glucose Level 170 MG/DL (74-106) 141 MG/DL (74-106) 109 MG/DL (74-106) Calcium Level 8.4 MG/DL (8.5-10.1) 7.9 MG/DL (8.5-10.1) 7.9 MG/DL (8.5-10.1) Total Bilirubin 2.9 MG/DL (0.2-1.0) 2.3 MG/DL (0.2-1.0) 2.0 MG/DL (0.2-1.0) Direct Bilirubin 1.3 MG/DL (0.0-0.3) 1.1 MG/DL (0.0-0.3) 1.1 MG/DL (0.0-0.3) Aspartate Amino Transf (AST/SGOT) 38 U/L (15-37) 34 U/L (15-37) 30 U/L (15-37) Alanine Aminotransferase (ALT/SGPT) 18 U/L (12-78) 15 U/L (12-78) 13 U/L (12-78) Alkaline Phosphatase 122 U/L (46-116) 107 U/L (46-116) 90 U/L (46-116) Troponin I 0.000 ng/mL (0.000-0.056) 0.000 ng/mL (0.000-0.056) Total Protein 7.5 G/DL (6.4-8.2) 6.4 G/DL (6.4-8.2) 6.0 G/DL (6.4-8.2) Albumin 2.5 G/DL (3.4-5.0) 2.0 G/DL (3.4-5.0) 1.8 G/DL (3.4-5.0) Globulin 5.0 g/dL 4.4 g/dL 4.2 g/dL Albumin/Globulin Ratio 0.5 (1.0-2.7) 0.5 (1.0-2.7) 0.4 (1.0-2.7) Lipase 198 U/L (73-393) Urine Color Yellow Urine Appearance Clear Urine pH 8 (4.5-8.0) Urine Specific [place] 1.010 (1.005-1.035) Urine Protein Negative (NEGATIVE) Urine Glucose (UA) Negative (NEGATIVE) Urine Ketones Negative (NEGATIVE) Urine Blood Negative (NEGATIVE) Urine Nitrite Negative (NEGATIVE) Urine Bilirubin Negative (NEGATIVE) Urine Urobilinogen 4 MG/DL (0.0-1.0) Urine Leukocyte Esterase 1+ (NEGATIVE) Urine RBC 0-2 /HPF (0 - 2) Urine WBC 10-15 /HPF (0 - 2) Urine Squamous Epithelial Cells Few /LPF (NONE/OCC) Urine Bacteria Moderate /HPF (NONE) Hemoglobin A1c 6.8 % (4.3-6.0) Uric Acid 3.2 MG/DL (2.6-7.2) Phosphorus Level 4.0 MG/DL (2.5-4.9) Magnesium Level 1.7 MG/DL (1.8-2.4) Iron Level 33 ug/dL (50-175) Total Iron Binding Capacity 164 ug/dL (250-450) Percent Iron Saturation 20 % (15-50) Unsaturated Iron Binding 131 ug/dL (112-346) Ferritin 103 NG/ML (8-388) Gamma Glutamyl Transpeptidase 64 U/L (5-85) Ammonia 35 umol/L (11-32) C-Reactive Protein, Quantitative 12.8 mg/dL (0.00-0.90) Pro-B-Type Natriuretic Peptide 1973 pg/mL (0-125) Triglycerides Level 76 MG/DL (30-150) Cholesterol Level 107 MG/DL (< 200) LDL Cholesterol 59 mg/dL (<100) HDL Cholesterol 16 MG/DL (40-60) Cholesterol/HDL Ratio 6.7 (3.3-4.4) Thyroid Stimulating Hormone (TSH) 1.299 uiU/mL (0.358-3.740) Free Thyroxine 1.36 NG/DL (0.76-1.46) Height (Feet): 5 Height (Inches): 2.00 Weight (Pounds): 143 Objective Gen: NAD Pulm: CTAB, no cwr CV: RRR, no mgr Abd: soft, nt, nd Ext: no cce Jose Antonio Zhang MD Mar 04, 2019 06:31
--- NOTE | 2019-03-04 07:34 | NUR ---
HAND-OFF: Report given to DEBBIE Saul.
--- NOTE | 2019-03-04 07:45 | NUR ---
NURSE NOTES: Patient is awake and alert,IV fluids infusing as ordere dPatient is NPO for schedule procedure today.Call light within reach.
[2019-03-04] MEDS ORDERED: DiphenhydrAMINE 50mg/ml Inj IVP PRN (08:45)
[2019-03-04] MEDS ORDERED: fentaNYL 100 mcg/2 mL IV PRN (08:45)
[2019-03-04] MEDS ORDERED: Midazolam 2mg/2ml Inj IVP PRN (08:45)
[2019-03-04] MEDS ORDERED: Atropine Inj 1mg/10ml Syr IV PRN (08:45)
--- NOTE | 2019-03-04 08:45 | Anethesia Preoperative Eval ---
Anesthesia Pre-op PMH/ROS General Date of Evaluation: Mar 04, 2019 Time of Evaluation: 08:42 Anesthesiologist: shamika ASA Score: ASA 4 Mallampati Score Class I : Soft palate, uvula, fauces, pillars visible Class II: Soft palate, uvula, fauces visible Class III: Soft palate, base of uvula visible Class IV: Only hard plate visible Mallampati Classification: Class II Surgeon: anastasiya Diagnosis: abdominal pain, cholecystitis Surgical Procedure: egd Anesthesia History: none Social History: smoking - nonsmoker Family History: no anesthesia problems Allergies: Coded Allergies: No Known Allergies (Unverified , 03/02/19) Medications: see eMAR Patient NPO?: Yes Past Medical History Cardiovascular: Reports: HTN Gastrointestinal/Genitourinary: Reports: other - cholecystitis, cirrhosis, abdominal pain, uti Endocrine: Reports: DM Hematology/Immune: Reports: anemia, other - thrombocytopenia Anesthesia Pre-op Phys. Exam Physician Exam Last Vital Signs Date Time Temp Pulse Resp B/P (MAP) Pulse Ox O2 Delivery O2 Flow Rate FiO2 03/04/19 04:00 98.7 87 20 133/54 (80) 97 03/03/19 21:00 Room Air Constitutional: NAD Neurologic: CN 2-12 intact Cardiovascular: RRR Respiratory: CTA Gastrointestinal: S/NT/ND Airway Exam Mallampati Score: Class II MO: limited Neck: flexible TMD: fb ROM: limited Teeth: missing Anesthesia Pre-op A/P Labs Hematology Test 03/04/19 05:15 White Blood Count 13.9 K/UL (4.8-10.8) H Red Blood Count 3.19 M/UL (4.20-5.40) L Hemoglobin 10.2 G/DL (12.0-16.0) L Hematocrit 30.2 % (37.0-47.0) L Mean Corpuscular Volume 95 FL (80-99) Mean Corpuscular Hemoglobin 32.1 PG (27.0-31.0) H Mean Corpuscular Hemoglobin Concent 33.9 G/DL (32.0-36.0) Red Cell Distribution Width 14.1 % (11.6-14.8) Platelet Count 67 K/UL (150-450) L Mean Platelet Volume 6.3 FL (6.5-10.1) L Neutrophils (%) (Auto) % (45.0-75.0) Lymphocytes (%) (Auto) % (20.0-45.0) Monocytes (%) (Auto) % (1.0-10.0) Eosinophils (%) (Auto) % (0.0-3.0) Basophils (%) (Auto) % (0.0-2.0) Differential Total Cells Counted 100 Neutrophils % (Manual) 71 % (45-75) Lymphocytes % (Manual) 11 % (20-45) L Monocytes % (Manual) 16 % (1-10) H Eosinophils % (Manual) 1 % (0-3) Basophils % (Manual) 1 % (0-2) Band Neutrophils 0 % (0-8) Platelet Estimate Decreased L Platelet Morphology Normal Hypochromasia 1+ Anisocytosis 1+ Reticulocyte Count Pending Coagulation Test 03/04/19 05:15 Prothrombin Time 15.9 SEC (9.30-11.50) H Prothromb Time International Ratio 1.5 (0.9-1.1) H Activated Partial Thromboplast Time 42 SEC (23-33) H Chemistry Test 03/04/19 05:15 Sodium Level 135 MMOL/L (136-145) L Potassium Level 3.8 MMOL/L (3.5-5.1) Chloride Level 102 MMOL/L (98-107) Carbon Dioxide Level 24 MMOL/L (21-32) Anion Gap 9 mmol/L (5-15) Blood Urea Nitrogen 20 mg/dL (7-18) H Creatinine 1.3 MG/DL (0.55-1.30) Estimat Glomerular Filtration Rate mL/min (>60) Glucose Level 109 MG/DL (74-106) H Hemoglobin A1c 6.8 % (4.3-6.0) H Uric Acid 3.2 MG/DL (2.6-7.2) Calcium Level 7.9 MG/DL (8.5-10.1) L Phosphorus Level 4.0 MG/DL (2.5-4.9) Magnesium Level 1.7 MG/DL (1.8-2.4) L Iron Level 33 ug/dL (50-175) L Total Iron Binding Capacity 164 ug/dL (250-450) L Percent Iron Saturation 20 % (15-50) Unsaturated Iron Binding 131 ug/dL (112-346) Ferritin 103 NG/ML (8-388) Total Bilirubin 2.0 MG/DL (0.2-1.0) H Direct Bilirubin 1.1 MG/DL (0.0-0.3) H Gamma Glutamyl Transpeptidase 64 U/L (5-85) Aspartate Amino Transf (AST/SGOT) 30 U/L (15-37) Alanine Aminotransferase (ALT/SGPT) 13 U/L (12-78) Alkaline Phosphatase 90 U/L (46-116) Ammonia 35 umol/L (11-32) H Troponin I 0.000 ng/mL (0.000-0.056) C-Reactive Protein, Quantitative 12.8 mg/dL (0.00-0.90) H Pro-B-Type Natriuretic Peptide 1973 pg/mL (0-125) H Total Protein 6.0 G/DL (6.4-8.2) L Albumin 1.8 G/DL (3.4-5.0) L Globulin 4.2 g/dL Albumin/Globulin Ratio 0.4 (1.0-2.7) L Triglycerides Level 76 MG/DL (30-150) Cholesterol Level 107 MG/DL (< 200) LDL Cholesterol 59 mg/dL (<100) HDL Cholesterol 16 MG/DL (40-60) L Cholesterol/HDL Ratio 6.7 (3.3-4.4) H Alpha Fetoprotein Pending Vitamin B12 Level 1922 PG/ML (193-986) H Folate 11.1 NG/ML (8.6-58.9) Thyroid Stimulating Hormone (TSH) 1.299 uiU/mL (0.358-3.740) Free Thyroxine 1.36 NG/DL (0.76-1.46) Risk Assessment & Plan Assessment: asa4 Plan: mac Status Change Before Surgery: No Pre-Antibiotics Drug: Talia Cortes MD Mar 04, 2019 08:44
[2019-03-04] MEDS: Pantoprazole Inj IVP SCH (10:17)
[2019-03-04] MEDS ORDERED: Propofol 200mg/20ml IV ONE (11:00)
[2019-03-04] MEDS ORDERED: Lidocaine 1% MPF 10mg/ml 5ml ONE (11:00)
[2019-03-04] MEDS ORDERED: NS 500ML IVPB ONE (11:40)
--- NOTE | 2019-03-04 11:40 | Pre-Procedure Note/Attestation ---
Pre-Procedure Note/Attestation Complete Prior to Procedure Planned Procedure: not applicable Procedure Narrative: egd Indications for Procedure Pre-Operative Diagnosis: cirrhosis Attestation I attest that I discussed the nature of the procedure; its benefits; risks and complications; and alternatives (and the risks and benefits of such alternatives ), prior to the procedure, with the patient (or the patient's legal licensing representative). I attest that, if there was a reasonable possibility of needing a blood transfusion, the patient (or the patient's legal licensing representative) was given the [facility] standardized written summary, pursuant to the [place] Blood Safety Act ([place] Health and Safety Code # 1645, as amended). I attest that I re-evaluated the patient just prior to the surgery and that there has been no change in the patient's H&P, except as documented below: Jorge Briceño MD Mar 04, 2019 11:40
--- NOTE | 2019-03-04 12:18 | Endoscopy Procedure Note ---
Endoscopy Procedure Note General Indication for Procedure: cirrhosis Procedures Performed: EGD Operative Findings/Diagnosis: gastritis Specimen: yes Pt Tolerated Procedure Well: Yes Estimated Blood Loss: none Anesthesia Anesthesiologist: armand Anesthesia: MAC Inserted Devices Implant(s) used?: No GI Core Measures 50 yrs or older w/o bx or poly: Not Applicable 10yrs. F/U recommended: Not Applicable Jorge Briceño MD Mar 04, 2019 12:18
--- NOTE | 2019-03-04 12:39 | Immediate Post-Op Evaluation ---
Immediate Post-Op Evalulation Immediate Post-Op Evalulation Procedure: egd w/bx Date of Evaluation: Mar 04, 2019 Time of Evaluation: 12:38 IV Fluids: 100ml 0.9ns Blood Products: none Estimated Blood Loss: negligible Blood Pressure Systolic: 139 Blood Pressure Diastolic: 50 Pulse Rate: 85 Respiratory Rate: 18 O2 Sat by Pulse Oximetry: 100 Temperature (Fahrenheit): 97.9 Pain Score (1-10): 0 Nausea: No Vomiting: No Complications none Patient Status: awake, reacts, patent Hydration Status: adequate Drug: Talia Cortes MD Mar 04, 2019 12:39
--- NOTE | 2019-03-04 12:40 | 48 Hour Post Anesthesia Eval ---
Post Anesthesia Evaluation Procedure: egd w/bx Date of Evaluation: Mar 04, 2019 Time of Evaluation: 12:40 Blood Pressure Systolic: 135 0: 53 Pulse Rate: 81 Respiratory Rate: 18 Temperature (Fahrenheit): 97.9 O2 Sat by Pulse Oximetry: 99 Airway: patent Nausea: No Vomiting: No Pain Intensity: 0 Hydration Status: adequate Cardiopulmonary Status: stable Mental Status/LOC: patient returned to baseline Post-Anesthesia Complications: none Follow-up care needed: N/A Talia Kaur MD Mar 04, 2019 12:40
--- NOTE | 2019-03-04 12:55 | NUR ---
NURSE NOTES: Received patient from GI lab,awake and oriented,will monitor.
--- NOTE | 2019-03-04 14:08 | Nephrology Progress Note ---
Assessment/Plan Problem List: (1) UTI (urinary tract infection) (2) Cirrhosis (3) Abdominal pain (4) Diabetes mellitus (5) HTN (hypertension) Assessment UTI Cirrhosis / Abd pain cholecystitis DM HTN Anemia HypoAlbuminemia Plan NS IV fluids Per GI start lactulose Subjective ROS Limited/Unobtainable: No Constitutional: Reports: malaise Objective Objective Last 24 Hour Vital Signs Date Time Temp Pulse Resp B/P (MAP) Pulse Ox O2 Delivery O2 Flow Rate FiO2 03/04/19 12:42 97.6 83 20 136/54 98 Room Air 03/04/19 12:40 81 18 99 03/04/19 12:39 85 18 100 03/04/19 12:35 87 22 115/87 96 Room Air 03/04/19 12:30 85 24 138/47 98 Room Air 03/04/19 12:25 97.9 83 21 139/50 100 Nasal Cannula 3 03/04/19 09:00 Room Air 03/04/19 08:00 98.5 79 18 112/78 (89) 97 03/04/19 04:00 98.7 87 20 133/54 (80) 97 03/04/19 00:00 98.4 18 133/51 (78) 97 03/03/19 21:00 Room Air 03/03/19 20:00 98.5 20 122/50 (74) 95 03/03/19 16:00 98.2 20 150/72 (98) 95 Intake and Output 03/03/19 03/04/19 19:00 07:00 Intake Total 710.0 ml Balance 710.0 ml Intake Oral 0 ml IV Total 710.0 ml # Voids 1 Laboratory Tests 03/04/19 05:15: White Blood Count 13.9H, Red Blood Count 3.19L, Hemoglobin 10.2L, Hematocrit 30.2L, Mean Corpuscular Volume 95, Mean Corpuscular Hemoglobin 32.1H, Mean Corpuscular Hemoglobin Concent 33.9, Red Cell Distribution Width 14.1, Platelet Count 67L, Mean Platelet Volume 6.3L, Neutrophils (%) (Auto) , Lymphocytes (%) ( Auto) , Monocytes (%) (Auto) , Eosinophils (%) (Auto) , Basophils (%) (Auto) , Differential Total Cells Counted 100, Neutrophils % (Manual) 71, Lymphocytes % ( Manual) 11L, Monocytes % (Manual) 16H, Eosinophils % (Manual) 1, Basophils % ( Manual) 1, Band Neutrophils 0, Platelet Estimate DecreasedL, Platelet Morphology Normal, Hypochromasia 1+, Anisocytosis 1+, Reticulocyte Count 2.9H, Prothrombin Time 15.9H, Prothromb Time International Ratio 1.5H, Activated Partial Thromboplast Time 42H, Sodium Level 135L, Potassium Level 3.8, Chloride Level 102, Carbon Dioxide Level 24, Anion Gap 9, Blood Urea Nitrogen 20H, Creatinine 1.3, Estimat Glomerular Filtration Rate , Glucose Level 109H, Hemoglobin A1c 6.8H, Uric Acid 3.2, Calcium Level 7.9L, Phosphorus Level 4.0, Magnesium Level 1.7L, Iron Level 33L, Total Iron Binding Capacity 164L, Percent Iron Saturation 20, Unsaturated Iron Binding 131, Ferritin 103, Total Bilirubin 2.0H, Direct Bilirubin 1.1H, Gamma Glutamyl Transpeptidase 64, Aspartate Amino Transf (AST/SGOT) 30, Alanine Aminotransferase (ALT/SGPT) 13, Alkaline Phosphatase 90, Ammonia 35H, Troponin I 0.000, C-Reactive Protein, Quantitative 12.8H, Pro-B-Type Natriuretic Peptide 1973H, Total Protein 6.0L, Albumin 1.8L, Globulin 4.2, Albumin/Globulin Ratio 0.4L, Triglycerides Level 76, Cholesterol Level 107, LDL Cholesterol 59, HDL Cholesterol 16L, Cholesterol/HDL Ratio 6.7H, Alpha Fetoprotein [Pending], Vitamin B12 Level 1922H, Folate 11.1, Thyroid Stimulating Hormone (TSH) 1.299, Free Thyroxine 1.36, Hepatitis A IgM Antibody [ Pending], Hepatitis B Surface Antigen [Pending], Hepatitis B Core IgM Antibody [ Pending], Hepatitis C Antibody [Pending], HIV (1&2) Antibody Rapid Negative Height (Feet): 5 Height (Inches): 2.00 Weight (Pounds): 143 General Appearance: no apparent distress Objective no change Bao Biggs MD Mar 04, 2019 14:08
--- NOTE | 2019-03-04 17:00 | Procedure Note ---
DATE OF PROCEDURE: 03/04/2019 SURGEON: Jorge Briceño M.D. REFERRING PHYSICIAN: Steve Burr M.D. PROCEDURE: Upper endoscopy with biopsy. ANESTHESIA: Per Dr. Bolivar. INSTRUMENT: Olympus adult flexible upper endoscope. INDICATIONS: 1. Cirrhosis. 2. Question of esophageal varices. REASON FOR PROCEDURE: The procedure, risks, benefits, and possible consequences, including hemorrhage, aspiration, perforation and infection, and alternative treatments, were explained to the patient/legal guardian by Dr. Jorge Briceño and the patient/legal guardian understood and accepted these risks. PROCEDURE IN DETAIL: After informed consent was obtained and the patient was adequately sedated, Olympus upper endoscope was advanced from mouth into the second portion of the duodenum and retroflexion was performed in the stomach. The patient has evidence of diffuse atrophic gastritis. Random biopsy from antrum was obtained to rule out H. pylori infection. No evidence of any esophageal nor gastric varices. At this time, the upper endoscope was retrieved and procedure was terminated. SUMMARY OF FINDINGS: 1. Atrophic gastritis, status post biopsy. 2. No obvious evidence of any esophageal nor gastric varices. RECOMMENDATIONS: Follow up biopsy results and treat accordingly. I want to thank Dr. Steve Burr for this kind referral. Jorge Briceño M.D. DR: KRISTIE JOB#: [id number] CC:
[2019-03-04] MEDS: Lactulose 20gm/30ml UDC ORAL SCH (18:29)
--- NOTE | 2019-03-04 18:30 | NUR ---
NURSE NOTES: patient awake ,visiting with family member.Call light within reach.
--- NOTE | 2019-03-04 19:29 | NUR ---
HAND-OFF: Report given to Sharon LEWIS.
--- NOTE | 2019-03-04 20:00 | NUR ---
NURSE NOTES: Received patient in bed, awake, alert, oriented, able to make her needs known, speaks Lithuanian, no acute distress noted, IV site is clean dry and intact. Call light is within reach, bed is lowered, locked, alarm is on. Will continue to monitor for comfort and safety.
--- NOTE | 2019-03-04 21:43 | General Progress Note ---
Assessment/Plan Problem List: (1) UTI (urinary tract infection) ICD Codes: N39.0 - Urinary tract infection, site not specified SNOMED: 97908467 Qualifiers: Qualified Codes: N30.00 - Acute cystitis without hematuria (2) Abdominal pain ICD Codes: R10.9 - Unspecified abdominal pain SNOMED: 32400716 Qualifiers: Qualified Codes: R10.84 - Generalized abdominal pain (3) Cholecystitis ICD Codes: K81.9 - Cholecystitis, unspecified SNOMED: 38693024 (4) Thrombocytopenia ICD Codes: D69.6 - Thrombocytopenia, unspecified SNOMED: 453839671 (5) Diabetes mellitus ICD Codes: E11.9 - Type 2 diabetes mellitus without complications SNOMED: 91284877 (6) HTN (hypertension) ICD Codes: I10 - Essential (primary) hypertension SNOMED: 00542652 Status: progressing Assessment/Plan: abdominal pain improving afebrile choyecystitis low platelt niddm reviewed chart and labs Subjective Gastrointestinal/Abdominal: Reports: abdominal pain Allergies: Coded Allergies: No Known Allergies (Unverified , 03/02/19) Objective Last 24 Hour Vital Signs Date Time Temp Pulse Resp B/P (MAP) Pulse Ox O2 Delivery O2 Flow Rate FiO2 03/04/19 21:10 Room Air 03/04/19 20:00 98.6 88 18 143/63 (89) 03/04/19 16:01 90 149/59 03/04/19 16:00 98.4 90 19 149/59 (89) 100 03/04/19 12:42 97.6 83 20 136/54 98 Room Air 03/04/19 12:40 81 18 99 03/04/19 12:39 85 18 100 03/04/19 12:35 87 22 115/87 96 Room Air 03/04/19 12:30 85 24 138/47 98 Room Air 03/04/19 12:25 97.9 83 21 139/50 100 Nasal Cannula 3 03/04/19 09:00 Room Air 03/04/19 08:00 98.5 79 18 112/78 (89) 97 03/04/19 04:00 98.7 87 20 133/54 (80) 97 03/04/19 00:00 98.4 18 133/51 (78) 97 Intake and Output 03/03/19 03/04/19 19:00 07:00 Intake Total 710.0 ml Balance 710.0 ml Intake Oral 0 ml IV Total 710.0 ml # Voids 1 Laboratory Tests 03/04/19 05:15: White Blood Count 13.9H, Red Blood Count 3.19L, Hemoglobin 10.2L, Hematocrit 30.2L, Mean Corpuscular Volume 95, Mean Corpuscular Hemoglobin 32.1H, Mean Corpuscular Hemoglobin Concent 33.9, Red Cell Distribution Width 14.1, Platelet Count 67L, Mean Platelet Volume 6.3L, Neutrophils (%) (Auto) , Lymphocytes (%) ( Auto) , Monocytes (%) (Auto) , Eosinophils (%) (Auto) , Basophils (%) (Auto) , Differential Total Cells Counted 100, Neutrophils % (Manual) 71, Lymphocytes % ( Manual) 11L, Monocytes % (Manual) 16H, Eosinophils % (Manual) 1, Basophils % ( Manual) 1, Band Neutrophils 0, Platelet Estimate DecreasedL, Platelet Morphology Normal, Hypochromasia 1+, Anisocytosis 1+, Reticulocyte Count 2.9H, Prothrombin Time 15.9H, Prothromb Time International Ratio 1.5H, Activated Partial Thromboplast Time 42H, Sodium Level 135L, Potassium Level 3.8, Chloride Level 102, Carbon Dioxide Level 24, Anion Gap 9, Blood Urea Nitrogen 20H, Creatinine 1.3, Estimat Glomerular Filtration Rate , Glucose Level 109H, Hemoglobin A1c 6.8H, Uric Acid 3.2, Calcium Level 7.9L, Phosphorus Level 4.0, Magnesium Level 1.7L, Iron Level 33L, Total Iron Binding Capacity 164L, Percent Iron Saturation 20, Unsaturated Iron Binding 131, Ferritin 103, Total Bilirubin 2.0H, Direct Bilirubin 1.1H, Gamma Glutamyl Transpeptidase 64, Aspartate Amino Transf (AST/SGOT) 30, Alanine Aminotransferase (ALT/SGPT) 13, Alkaline Phosphatase 90, Ammonia 35H, Troponin I 0.000, C-Reactive Protein, Quantitative 12.8H, Pro-B-Type Natriuretic Peptide 1973H, Total Protein 6.0L, Albumin 1.8L, Globulin 4.2, Albumin/Globulin Ratio 0.4L, Triglycerides Level 76, Cholesterol Level 107, LDL Cholesterol 59, HDL Cholesterol 16L, Cholesterol/HDL Ratio 6.7H, Alpha Fetoprotein [Pending], Vitamin B12 Level 1922H, Folate 11.1, Thyroid Stimulating Hormone (TSH) 1.299, Free Thyroxine 1.36, Hepatitis A IgM Antibody [ Pending], Hepatitis B Surface Antigen [Pending], Hepatitis B Core IgM Antibody [ Pending], Hepatitis C Antibody [Pending], HIV (1&2) Antibody Rapid Negative Height (Feet): 5 Height (Inches): 2.00 Weight (Pounds): 143 Cardiovascular: regular rhythm Respiratory/Chest: lungs clear Abdomen: tender Steve Burr MD Mar 04, 2019 21:43
--- NOTE | 2019-03-04 22:44 | Surgery Progress Note ---
Surgery Progress Note Subjective Additional Comments had egd today with findings of gastritis lft's t bili improved leukocytosis pain improving no n/v/f/c. Objective Last 24 Hour Vital Signs Date Time Temp Pulse Resp B/P (MAP) Pulse Ox O2 Delivery O2 Flow Rate FiO2 03/04/19 21:10 Room Air 03/04/19 20:00 98.6 88 18 143/63 (89) 03/04/19 16:01 90 149/59 03/04/19 16:00 98.4 90 19 149/59 (89) 100 03/04/19 12:42 97.6 83 20 136/54 98 Room Air 03/04/19 12:40 81 18 99 03/04/19 12:39 85 18 100 03/04/19 12:35 87 22 115/87 96 Room Air 03/04/19 12:30 85 24 138/47 98 Room Air 03/04/19 12:25 97.9 83 21 139/50 100 Nasal Cannula 3 03/04/19 09:00 Room Air 03/04/19 08:00 98.5 79 18 112/78 (89) 97 03/04/19 04:00 98.7 87 20 133/54 (80) 97 03/04/19 00:00 98.4 18 133/51 (78) 97 I&O Intake and Output 03/03/19 03/04/19 19:00 07:00 Intake Total 710.0 ml Balance 710.0 ml Intake Oral 0 ml IV Total 710.0 ml # Voids 1 Cardiovascular: RSR Respiratory: clear Abdomen: soft, flat, non-tender, present bowel sounds, non-distended Extremities: no tenderness, no cyanosis Laboratory Tests Test 03/04/19 05:15 White Blood Count 13.9 K/UL (4.8-10.8) H Red Blood Count 3.19 M/UL (4.20-5.40) L Hemoglobin 10.2 G/DL (12.0-16.0) L Hematocrit 30.2 % (37.0-47.0) L Mean Corpuscular Volume 95 FL (80-99) Mean Corpuscular Hemoglobin 32.1 PG (27.0-31.0) H Mean Corpuscular Hemoglobin Concent 33.9 G/DL (32.0-36.0) Red Cell Distribution Width 14.1 % (11.6-14.8) Platelet Count 67 K/UL (150-450) L Mean Platelet Volume 6.3 FL (6.5-10.1) L Neutrophils (%) (Auto) % (45.0-75.0) Lymphocytes (%) (Auto) % (20.0-45.0) Monocytes (%) (Auto) % (1.0-10.0) Eosinophils (%) (Auto) % (0.0-3.0) Basophils (%) (Auto) % (0.0-2.0) Differential Total Cells Counted 100 Neutrophils % (Manual) 71 % (45-75) Lymphocytes % (Manual) 11 % (20-45) L Monocytes % (Manual) 16 % (1-10) H Eosinophils % (Manual) 1 % (0-3) Basophils % (Manual) 1 % (0-2) Band Neutrophils 0 % (0-8) Platelet Estimate Decreased L Platelet Morphology Normal Hypochromasia 1+ Anisocytosis 1+ Reticulocyte Count 2.9 % (0.5-2.0) H Prothrombin Time 15.9 SEC (9.30-11.50) H Prothromb Time International Ratio 1.5 (0.9-1.1) H Activated Partial Thromboplast Time 42 SEC (23-33) H Sodium Level 135 MMOL/L (136-145) L Potassium Level 3.8 MMOL/L (3.5-5.1) Chloride Level 102 MMOL/L (98-107) Carbon Dioxide Level 24 MMOL/L (21-32) Anion Gap 9 mmol/L (5-15) Blood Urea Nitrogen 20 mg/dL (7-18) H Creatinine 1.3 MG/DL (0.55-1.30) Estimat Glomerular Filtration Rate mL/min (>60) Glucose Level 109 MG/DL (74-106) H Hemoglobin A1c 6.8 % (4.3-6.0) H Uric Acid 3.2 MG/DL (2.6-7.2) Calcium Level 7.9 MG/DL (8.5-10.1) L Phosphorus Level 4.0 MG/DL (2.5-4.9) Magnesium Level 1.7 MG/DL (1.8-2.4) L Iron Level 33 ug/dL (50-175) L Total Iron Binding Capacity 164 ug/dL (250-450) L Percent Iron Saturation 20 % (15-50) Unsaturated Iron Binding 131 ug/dL (112-346) Ferritin 103 NG/ML (8-388) Total Bilirubin 2.0 MG/DL (0.2-1.0) H Direct Bilirubin 1.1 MG/DL (0.0-0.3) H Gamma Glutamyl Transpeptidase 64 U/L (5-85) Aspartate Amino Transf (AST/SGOT) 30 U/L (15-37) Alanine Aminotransferase (ALT/SGPT) 13 U/L (12-78) Alkaline Phosphatase 90 U/L (46-116) Ammonia 35 umol/L (11-32) H Troponin I 0.000 ng/mL (0.000-0.056) C-Reactive Protein, Quantitative 12.8 mg/dL (0.00-0.90) H Pro-B-Type Natriuretic Peptide 1973 pg/mL (0-125) H Total Protein 6.0 G/DL (6.4-8.2) L Albumin 1.8 G/DL (3.4-5.0) L Globulin 4.2 g/dL Albumin/Globulin Ratio 0.4 (1.0-2.7) L Triglycerides Level 76 MG/DL (30-150) Cholesterol Level 107 MG/DL (< 200) LDL Cholesterol 59 mg/dL (<100) HDL Cholesterol 16 MG/DL (40-60) L Cholesterol/HDL Ratio 6.7 (3.3-4.4) H Alpha Fetoprotein Pending Vitamin B12 Level 1922 PG/ML (193-986) H Folate 11.1 NG/ML (8.6-58.9) Thyroid Stimulating Hormone (TSH) 1.299 uiU/mL (0.358-3.740) Free Thyroxine 1.36 NG/DL (0.76-1.46) Hepatitis A IgM Antibody Pending Hepatitis B Surface Antigen Pending Hepatitis B Core IgM Antibody Pending Hepatitis C Antibody Pending HIV (1&2) Antibody Rapid Negative (NEGATIVE) Plan Problems: (1) Thickening of wall of gallbladder with pericholecystic fluid Assessment & Plan: Impression: Gallbladder neck stone. Gallbladder distention and mild gallbladder wall thickening raises possibility of acute cholecystitis. Consider hepatobiliary nuclear scan if clinically indicated for further evaluation. Evidence of hepatic cirrhosis Moderate ascites, presumably related to the above Other stigmata of portal hypertension as well, including splenomegaly, periesophageal varices, and congestion of the mesentery Other findings of anasarca, including diffuse edema of the abdominal, pelvic, and subcutaneous fat Edema of the small bowel wall, likely a manifestation of anasarca, but the possibility of enteritis should also be considered Distention of the left ovarian vein, left paraovarian varices, suspicious for ovarian vein reflux. Correlate with any clinical history of pelvic congestion syndrome (2) Abdominal pain Assessment & Plan: discussed with GI and medical team given cirrhosis high risk for surgery improving will hold on cholecystostomy tube trend labs IV abx will follow with recs thank you (3) Cholecystitis Assessment & Plan: Impression: Nonvisualized gallbladder. This is concerning for acute cholecystitis Patent common bile duct (4) Cirrhosis Assessment & Plan: Impression: Small gallbladder neck stone demonstrated on CT scan performed one hour earlier is sonographically occult Gallbladder wall thickening. This could be a manifestation of acute cholecystitis, but could also be due to hemodynamic gradient related to hepatocellular disease Evidence of hepatic cirrhosis Ascites Vini Reyes Mar 04, 2019 22:44
[2019-03-05] VITALS (8 sets, daily range): BP systolic 120–161; BP diastolic 54–84
[2019-03-05] MEDS: Piperacillin/Tazobactam 3.375 GM in NS 110 ML IVPB SCH ×2 (02:45→10:27)
[2019-03-05 06:40] LABS: HEMATOCRIT 27.3 % (37.0-47.0); HEMOGLOBIN 9.3 G/DL (12.0-16.0); MEAN CORPUSCULAR VOLUME 95 FL (80-99); PLATELET COUNT 58 K/UL (150-450); RED BLOOD COUNT 2.87 M/UL (4.20-5.40); RED CELL DISTRIBUTION WIDTH 13.9 % (11.6-14.8); WHITE BLOOD COUNT 9.3 K/UL (4.8-10.8)
--- NOTE | 2019-03-05 07:12 | NUR ---
HAND-OFF: Report given to Tere WELLS.
[2019-03-05 07:21] LABS: ALANINE AMINOTRANSFERASE 11 U/L (12-78); ALBUMIN 1.7 G/DL (3.4-5.0); ALBUMIN/GLOBULIN RATIO 0.4 (1.0-2.7); ALKALINE PHOSPHATASE 82 U/L (46-116); ANION GAP 9 mmol/L (5-15); ASPARTATE AMINO TRANSFERASE 32 U/L (15-37); BILIRUBIN,TOTAL 2.1 MG/DL (0.2-1.0); BLOOD UREA NITROGEN 26 mg/dL (7-18); CALCIUM 7.7 MG/DL (8.5-10.1); CARBON DIOXIDE 23 MMOL/L (21-32); CHLORIDE 104 MMOL/L (98-107); CREATININE 1.3 MG/DL (0.55-1.30); POTASSIUM 3.5 MMOL/L (3.5-5.1); SODIUM 136 MMOL/L (136-145)
[2019-03-05 07:22] LABS: BILIRUBIN,DIRECT 1.3 MG/DL (0.0-0.3)
--- NOTE | 2019-03-05 07:40 | NUR ---
NURSE NOTES: Received patient in bed, awake, alert, oriented x2, able to make her needs known, speaks [place]ian, no acute distress noted, NPO for procedure. IV site is clean, patent, dry and intact. Call light is within reach, bed is lowered, locked, alarm is on. Will continue to monitor for comfort and safety.
[2019-03-05] MEDS: Lactulose 20gm/30ml UDC ORAL SCH ×2 (08:36→17:13)
--- NOTE | 2019-03-05 10:03 | Hematology/Onc Progress Note ---
Assessment/Plan Assessment/Plan # Pancytopenia is likely due to underlying cirrhosis, splenomegaly, paraesophageal varices, portal HTN --> at this time, imaging of liver reviewed, no e/o malignancy --> hepatitis panel and hiv are both negative --> plt trend: 58 --> AFP has been ordered as well --> smear has been reviewed, r/o schistocytes --> neupogen on prn basis --> plts as needed presurg, goal >50k if procedure --> 03/04: PLAN FOR EGD --> paracentesis on prn basis # Anemia of chronic disease --> no evidence of iron deficiency --> hgb goal >7, transfuse prn --> less of a role for iron and epogen --> hgb trend: 9.3 # Thickening of wall of gallbladder with pericholecystic fluid --> as per surg eval, hida # UTI (urinary tract infection) # Cholecystitis # Liver cirrhosis Greatly appreciate consultation. Subjective Allergies: Coded Allergies: No Known Allergies (Unverified , 03/02/19) Subjective 03/04: abd pain better, pending scan, gi/surg input, labs noted, pending hiv/hep 03/05: awake and alert, no acute events, hiv negative, on piper/tazo Objective Objective Current Medications Medications (Trade) Dose Ordered Sig/Robe Route PRN Reason Start Time Stop Time Status Last Admin Dose Admin Amlodipine Besylate (Norvasc) 5 mg DAILY ORAL 03/04/19 09:00 04/02/19 08:59 03/04/19 16:01 Clonidine HCl (Catapres Tab) 0.1 mg EVERY 6 HOURS PRN ORAL SBP > 170 03/03/19 04:30 04/02/19 04:29 Dextrose (Dextrose 50%) 50 ml STAT PRN IV Blood Sugar < 70 mg/dl 03/03/19 08:00 04/02/19 07:59 Lactulose (Cephulac) 20 gm BID ORAL 03/04/19 18:00 04/03/19 17:59 03/04/19 18:29 Pantoprazole (Protonix) 40 mg EVERY 12 HOURS ORAL 03/04/19 21:00 04/03/19 20:59 03/04/19 20:29 Piperacillin Sod/ Tazobactam Sod 3.375 gm/Sodium Chloride 110 ml @ 27.5 mls/hr Q8H IVPB 03/04/19 02:00 03/08/19 01:59 03/05/19 02:45 Sodium Chloride 1,000 ml @ 50 mls/hr Q20H IV 03/04/19 13:57 04/03/19 13:56 03/05/19 08:40 Last 24 Hour Vital Signs Date Time Temp Pulse Resp B/P (MAP) Pulse Ox O2 Delivery O2 Flow Rate FiO2 03/05/19 08:36 80 130/76 03/05/19 08:02 97.9 80 18 130/76 (94) 97 03/05/19 04:00 98.4 84 18 120/55 (76) 03/05/19 00:11 98.6 88 18 125/60 (81) 03/04/19 21:10 Room Air 03/04/19 20:00 98.6 88 18 143/63 (89) 03/04/19 16:01 90 149/59 03/04/19 16:00 98.4 90 19 149/59 (89) 100 03/04/19 12:42 97.6 83 20 136/54 98 Room Air 03/04/19 12:40 81 18 99 03/04/19 12:39 85 18 100 03/04/19 12:35 87 22 115/87 96 Room Air 03/04/19 12:30 85 24 138/47 98 Room Air 03/04/19 12:25 97.9 83 21 139/50 100 Nasal Cannula 3 03/04/19 09:00 Room Air 03/04/19 08:00 98.5 79 18 112/78 (89) 97 03/04/19 04:00 98.7 87 20 133/54 (80) 97 03/04/19 00:00 98.4 18 133/51 (78) 97 03/03/19 21:00 Room Air 03/03/19 20:00 98.5 20 122/50 (74) 95 03/03/19 16:00 98.2 20 150/72 (98) 95 03/03/19 12:00 98.2 20 150/72 (98) 96 03/03/19 10:31 83 131/61 03/03/19 10:23 83 131/61 (84) Intake and Output 03/04/19 03/05/19 18:59 06:59 Intake Total 830 ml Output Total 0 ml Balance 830 ml Intake Oral 480 ml IV Total 350 ml Estimated Blood Loss 0 ml # Voids 2 3 Labs Test 03/02/19 20:17 03/02/19 22:06 03/03/19 05:09 03/04/19 05:15 White Blood Count 8.2 K/UL (4.8-10.8) 10.2 K/UL (4.8-10.8) 13.9 K/UL (4.8-10.8) Red Blood Count 3.68 M/UL (4.20-5.40) 3.44 M/UL (4.20-5.40) 3.19 M/UL (4.20-5.40) Hemoglobin 11.9 G/DL (12.0-16.0) 11.3 G/DL (12.0-16.0) 10.2 G/DL (12.0-16.0) Hematocrit 34.6 % (37.0-47.0) 32.4 % (37.0-47.0) 30.2 % (37.0-47.0) Mean Corpuscular Volume 94 FL (80-99) 94 FL (80-99) 95 FL (80-99) Mean Corpuscular Hemoglobin 32.4 PG (27.0-31.0) 32.7 PG (27.0-31.0) 32.1 PG (27.0-31.0) Mean Corpuscular Hemoglobin Concent 34.4 G/DL (32.0-36.0) 34.8 G/DL (32.0-36.0) 33.9 G/DL (32.0-36.0) Red Cell Distribution Width 12.2 % (11.6-14.8) 13.2 % (11.6-14.8) 14.1 % (11.6-14.8) Platelet Count 62 K/UL (150-450) 62 K/UL (150-450) 67 K/UL (150-450) Mean Platelet Volume 7.4 FL (6.5-10.1) 7.1 FL (6.5-10.1) 6.3 FL (6.5-10.1) Neutrophils (%) (Auto) % (45.0-75.0) % (45.0-75.0) % (45.0-75.0) Lymphocytes (%) (Auto) % (20.0-45.0) % (20.0-45.0) % (20.0-45.0) Monocytes (%) (Auto) % (1.0-10.0) % (1.0-10.0) % (1.0-10.0) Eosinophils (%) (Auto) % (0.0-3.0) % (0.0-3.0) % (0.0-3.0) Basophils (%) (Auto) % (0.0-2.0) % (0.0-2.0) % (0.0-2.0) Differential Total Cells Counted 100 100 100 Neutrophils % (Manual) 85 % (45-75) 93 % (45-75) 71 % (45-75) Lymphocytes % (Manual) 7 % (20-45) 4 % (20-45) 11 % (20-45) Monocytes % (Manual) 7 % (1-10) 3 % (1-10) 16 % (1-10) Eosinophils % (Manual) 0 % (0-3) 0 % (0-3) 1 % (0-3) Basophils % (Manual) 0 % (0-2) 0 % (0-2) 1 % (0-2) Band Neutrophils 1 % (0-8) 0 % (0-8) 0 % (0-8) Platelet Estimate Decreased Decreased Decreased Platelet Morphology Normal Normal Normal Red Blood Cell Morphology Normal Prothrombin Time 14.0 SEC (9.30-11.50) 15.9 SEC (9.30-11.50) Prothromb Time International Ratio 1.3 (0.9-1.1) 1.5 (0.9-1.1) Activated Partial Thromboplast Time 34 SEC (23-33) 42 SEC (23-33) Sodium Level 133 MMOL/L (136-145) 135 MMOL/L (136-145) 135 MMOL/L (136-145) Potassium Level 3.6 MMOL/L (3.5-5.1) 3.6 MMOL/L (3.5-5.1) 3.8 MMOL/L (3.5-5.1) Chloride Level 99 MMOL/L (98-107) 102 MMOL/L (98-107) 102 MMOL/L (98-107) Carbon Dioxide Level 26 MMOL/L (21-32) 24 MMOL/L (21-32) 24 MMOL/L (21-32) Anion Gap 8 mmol/L (5-15) 9 mmol/L (5-15) 9 mmol/L (5-15) Blood Urea Nitrogen 13 mg/dL (7-18) 14 mg/dL (7-18) 20 mg/dL (7-18) Creatinine 1.1 MG/DL (0.55-1.30) 1.0 MG/DL (0.55-1.30) 1.3 MG/DL (0.55-1.30) Estimat Glomerular Filtration Rate mL/min (>60) mL/min (>60) mL/min (>60) Glucose Level 170 MG/DL (74-106) 141 MG/DL (74-106) 109 MG/DL (74-106) Calcium Level 8.4 MG/DL (8.5-10.1) 7.9 MG/DL (8.5-10.1) 7.9 MG/DL (8.5-10.1) Total Bilirubin 2.9 MG/DL (0.2-1.0) 2.3 MG/DL (0.2-1.0) 2.0 MG/DL (0.2-1.0) Direct Bilirubin 1.3 MG/DL (0.0-0.3) 1.1 MG/DL (0.0-0.3) 1.1 MG/DL (0.0-0.3) Aspartate Amino Transf (AST/SGOT) 38 U/L (15-37) 34 U/L (15-37) 30 U/L (15-37) Alanine Aminotransferase (ALT/SGPT) 18 U/L (12-78) 15 U/L (12-78) 13 U/L (12-78) Alkaline Phosphatase 122 U/L (46-116) 107 U/L (46-116) 90 U/L (46-116) Troponin I 0.000 ng/mL (0.000-0.056) 0.000 ng/mL (0.000-0.056) Total Protein 7.5 G/DL (6.4-8.2) 6.4 G/DL (6.4-8.2) 6.0 G/DL (6.4-8.2) Albumin 2.5 G/DL (3.4-5.0) 2.0 G/DL (3.4-5.0) 1.8 G/DL (3.4-5.0) Globulin 5.0 g/dL 4.4 g/dL 4.2 g/dL Albumin/Globulin Ratio 0.5 (1.0-2.7) 0.5 (1.0-2.7) 0.4 (1.0-2.7) Lipase 198 U/L (73-393) Urine Color Yellow Urine Appearance Clear Urine pH 8 (4.5-8.0) Urine Specific [place] 1.010 (1.005-1.035) Urine Protein Negative (NEGATIVE) Urine Glucose (UA) Negative (NEGATIVE) Urine Ketones Negative (NEGATIVE) Urine Blood Negative (NEGATIVE) Urine Nitrite Negative (NEGATIVE) Urine Bilirubin Negative (NEGATIVE) Urine Urobilinogen 4 MG/DL (0.0-1.0) Urine Leukocyte Esterase 1+ (NEGATIVE) Urine RBC 0-2 /HPF (0 - 2) Urine WBC 10-15 /HPF (0 - 2) Urine Squamous Epithelial Cells Few /LPF (NONE/OCC) Urine Bacteria Moderate /HPF (NONE) Hypochromasia 1+ Anisocytosis 1+ Reticulocyte Count 2.9 % (0.5-2.0) Hemoglobin A1c 6.8 % (4.3-6.0) Uric Acid 3.2 MG/DL (2.6-7.2) Phosphorus Level 4.0 MG/DL (2.5-4.9) Magnesium Level 1.7 MG/DL (1.8-2.4) Iron Level 33 ug/dL (50-175) Total Iron Binding Capacity 164 ug/dL (250-450) Percent Iron Saturation 20 % (15-50) Unsaturated Iron Binding 131 ug/dL (112-346) Ferritin 103 NG/ML (8-388) Gamma Glutamyl Transpeptidase 64 U/L (5-85) Ammonia 35 umol/L (11-32) C-Reactive Protein, Quantitative 12.8 mg/dL (0.00-0.90) Pro-B-Type Natriuretic Peptide 1973 pg/mL (0-125) Triglycerides Level 76 MG/DL (30-150) Cholesterol Level 107 MG/DL (< 200) LDL Cholesterol 59 mg/dL (<100) HDL Cholesterol 16 MG/DL (40-60) Cholesterol/HDL Ratio 6.7 (3.3-4.4) Vitamin B12 Level 1922 PG/ML (193-986) Folate 11.1 NG/ML (8.6-58.9) Thyroid Stimulating Hormone (TSH) 1.299 uiU/mL (0.358-3.740) Free Thyroxine 1.36 NG/DL (0.76-1.46) Hepatitis A IgM Antibody Negative (Negative) Hepatitis B Surface Antigen Negative (Negative) Hepatitis B Core IgM Antibody Negative (Negative) Hepatitis C Antibody 0.3 s/co ratio (0.0-0.9) HIV (1&2) Antibody Rapid Negative (NEGATIVE) Test 03/05/19 05:45 White Blood Count 9.3 K/UL (4.8-10.8) Red Blood Count 2.87 M/UL (4.20-5.40) Hemoglobin 9.3 G/DL (12.0-16.0) Hematocrit 27.3 % (37.0-47.0) Mean Corpuscular Volume 95 FL (80-99) Mean Corpuscular Hemoglobin 32.3 PG (27.0-31.0) Mean Corpuscular Hemoglobin Concent 34.0 G/DL (32.0-36.0) Red Cell Distribution Width 13.9 % (11.6-14.8) Platelet Count 58 K/UL (150-450) Mean Platelet Volume 6.5 FL (6.5-10.1) Neutrophils (%) (Auto) % (45.0-75.0) Lymphocytes (%) (Auto) % (20.0-45.0) Monocytes (%) (Auto) % (1.0-10.0) Eosinophils (%) (Auto) % (0.0-3.0) Basophils (%) (Auto) % (0.0-2.0) Sodium Level 136 MMOL/L (136-145) Potassium Level 3.5 MMOL/L (3.5-5.1) Chloride Level 104 MMOL/L (98-107) Carbon Dioxide Level 23 MMOL/L (21-32) Anion Gap 9 mmol/L (5-15) Blood Urea Nitrogen 26 mg/dL (7-18) Creatinine 1.3 MG/DL (0.55-1.30) Estimat Glomerular Filtration Rate mL/min (>60) Glucose Level 97 MG/DL (74-106) Calcium Level 7.7 MG/DL (8.5-10.1) Total Bilirubin 2.1 MG/DL (0.2-1.0) Direct Bilirubin 1.3 MG/DL (0.0-0.3) Aspartate Amino Transf (AST/SGOT) 32 U/L (15-37) Alanine Aminotransferase (ALT/SGPT) 11 U/L (12-78) Alkaline Phosphatase 82 U/L (46-116) Total Protein 5.5 G/DL (6.4-8.2) Albumin 1.7 G/DL (3.4-5.0) Globulin 3.8 g/dL Albumin/Globulin Ratio 0.4 (1.0-2.7) Height (Feet): 5 Height (Inches): 2.00 Weight (Pounds): 143 Objective Gen: NAD Pulm: CTAB, no cwr CV: RRR, no mgr Abd: soft, nt, nd Ext: no cce Jose Antonio Zhang MD Mar 05, 2019 10:03
--- NOTE | 2019-03-05 10:44 | GI Progress Note ---
Assessment/Plan Problems: (1) Cirrhosis ICD Codes: K74.60 - Unspecified cirrhosis of liver SNOMED: 98543858 (2) Thickening of wall of gallbladder with pericholecystic fluid ICD Codes: K82.8 - Other specified diseases of gallbladder SNOMED: 620493424 (3) Abdominal pain ICD Codes: R10.9 - Unspecified abdominal pain SNOMED: 64653089 Qualifiers: Qualified Codes: R10.84 - Generalized abdominal pain (4) Cholecystitis ICD Codes: K81.9 - Cholecystitis, unspecified SNOMED: 91292584 Status: stable, unchanged Status Narrative Discussed with Dr. Briceño. Assessment/Plan This is a 84 year old female patient presented with abdominal pain found on CT to have liver cirrhosis. 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 hepatitis panel, negative. s/p EGD SUMMARY OF FINDINGS: 1. Atrophic gastritis, status post biopsy. 2. No obvious evidence of any esophageal nor gastric varices. paracentesis ordered monitor H&H, prn transfusions bowel regimen ppi fu labs, hepatitis panel, AFP advance diet as tolerated follow up biopsy results and treat accordingly. The patient was seen and examined at bedside and all new and available data was reviewed in the patients chart. I agree with the above findings, impression and plan. (Patient seen earlier today. Signature stamp does not reflect patient encounter time.). - Jorge Briceño MD Subjective Gastrointestinal/Abdominal: Reports: no symptoms Objective Last 24 Hour Vital Signs Date Time Temp Pulse Resp B/P (MAP) Pulse Ox O2 Delivery O2 Flow Rate FiO2 03/05/19 08:36 80 130/76 03/05/19 08:02 97.9 80 18 130/76 (94) 97 03/05/19 04:00 98.4 84 18 120/55 (76) 03/05/19 00:11 98.6 88 18 125/60 (81) 03/04/19 21:10 Room Air 03/04/19 20:00 98.6 88 18 143/63 (89) 03/04/19 16:01 90 149/59 03/04/19 16:00 98.4 90 19 149/59 (89) 100 03/04/19 12:42 97.6 83 20 136/54 98 Room Air 03/04/19 12:40 81 18 99 03/04/19 12:39 85 18 100 03/04/19 12:35 87 22 115/87 96 Room Air 03/04/19 12:30 85 24 138/47 98 Room Air 03/04/19 12:25 97.9 83 21 139/50 100 Nasal Cannula 3 Intake and Output 03/04/19 03/05/19 18:59 06:59 Intake Total 830 ml Output Total 0 ml Balance 830 ml Intake Oral 480 ml IV Total 350 ml Estimated Blood Loss 0 ml # Voids 2 3 Laboratory Tests Test 03/05/19 05:45 White Blood Count 9.3 K/UL (4.8-10.8) Red Blood Count 2.87 M/UL (4.20-5.40) L Hemoglobin 9.3 G/DL (12.0-16.0) L Hematocrit 27.3 % (37.0-47.0) L Mean Corpuscular Volume 95 FL (80-99) Mean Corpuscular Hemoglobin 32.3 PG (27.0-31.0) H Mean Corpuscular Hemoglobin Concent 34.0 G/DL (32.0-36.0) Red Cell Distribution Width 13.9 % (11.6-14.8) Platelet Count 58 K/UL (150-450) L Mean Platelet Volume 6.5 FL (6.5-10.1) Neutrophils (%) (Auto) % (45.0-75.0) Lymphocytes (%) (Auto) % (20.0-45.0) Monocytes (%) (Auto) % (1.0-10.0) Eosinophils (%) (Auto) % (0.0-3.0) Basophils (%) (Auto) % (0.0-2.0) Differential Total Cells Counted 100 Neutrophils % (Manual) 71 % (45-75) Lymphocytes % (Manual) 17 % (20-45) L Monocytes % (Manual) 9 % (1-10) Eosinophils % (Manual) 3 % (0-3) Basophils % (Manual) 0 % (0-2) Band Neutrophils 0 % (0-8) Platelet Estimate Decreased L Platelet Morphology Normal Hypochromasia 1+ Sodium Level 136 MMOL/L (136-145) Potassium Level 3.5 MMOL/L (3.5-5.1) Chloride Level 104 MMOL/L (98-107) Carbon Dioxide Level 23 MMOL/L (21-32) Anion Gap 9 mmol/L (5-15) Blood Urea Nitrogen 26 mg/dL (7-18) H Creatinine 1.3 MG/DL (0.55-1.30) Estimat Glomerular Filtration Rate mL/min (>60) Glucose Level 97 MG/DL (74-106) Calcium Level 7.7 MG/DL (8.5-10.1) L Total Bilirubin 2.1 MG/DL (0.2-1.0) H Direct Bilirubin 1.3 MG/DL (0.0-0.3) H Aspartate Amino Transf (AST/SGOT) 32 U/L (15-37) Alanine Aminotransferase (ALT/SGPT) 11 U/L (12-78) L Alkaline Phosphatase 82 U/L (46-116) Total Protein 5.5 G/DL (6.4-8.2) L Albumin 1.7 G/DL (3.4-5.0) L Globulin 3.8 g/dL Albumin/Globulin Ratio 0.4 (1.0-2.7) L Height (Feet): 5 Height (Inches): 2.00 Weight (Pounds): 143 General Appearance: no apparent distress Cardiovascular: normal rate Respiratory/Chest: normal breath sounds, no respiratory distress Abdominal Exam: normal bowel sounds, non tender, soft, ascites Extremities: non-tender Lani Merino [employer] DIPLOMAT Mar 05, 2019 10:44
--- NOTE | 2019-03-05 12:12 | Nephrology Progress Note ---
Assessment/Plan Problem List: (1) UTI (urinary tract infection) (2) Cirrhosis (3) Abdominal pain (4) Diabetes mellitus (5) HTN (hypertension) Assessment UTI Cirrhosis / Abd pain cholecystitis DM HTN Anemia HypoAlbuminemia Plan NS IV fluids Per GI start lactulose Subjective ROS Limited/Unobtainable: No Objective Objective Last 24 Hour Vital Signs Date Time Temp Pulse Resp B/P (MAP) Pulse Ox O2 Delivery O2 Flow Rate FiO2 03/05/19 09:00 Room Air 03/05/19 08:36 80 130/76 03/05/19 08:02 97.9 80 18 130/76 (94) 97 03/05/19 04:00 98.4 84 18 120/55 (76) 03/05/19 00:11 98.6 88 18 125/60 (81) 03/04/19 21:10 Room Air 03/04/19 20:00 98.6 88 18 143/63 (89) 03/04/19 16:01 90 149/59 03/04/19 16:00 98.4 90 19 149/59 (89) 100 03/04/19 12:42 97.6 83 20 136/54 98 Room Air 03/04/19 12:40 81 18 99 03/04/19 12:39 85 18 100 03/04/19 12:35 87 22 115/87 96 Room Air 03/04/19 12:30 85 24 138/47 98 Room Air 03/04/19 12:25 97.9 83 21 139/50 100 Nasal Cannula 3 Intake and Output 03/04/19 03/05/19 18:59 06:59 Intake Total 830 ml Output Total 0 ml Balance 830 ml Intake Oral 480 ml IV Total 350 ml Estimated Blood Loss 0 ml # Voids 2 3 Laboratory Tests 03/05/19 05:45: White Blood Count 9.3, Red Blood Count 2.87L, Hemoglobin 9.3L, Hematocrit 27.3L , Mean Corpuscular Volume 95, Mean Corpuscular Hemoglobin 32.3H, Mean Corpuscular Hemoglobin Concent 34.0, Red Cell Distribution Width 13.9, Platelet Count 58L, Mean Platelet Volume 6.5, Neutrophils (%) (Auto) , Lymphocytes (%) ( Auto) , Monocytes (%) (Auto) , Eosinophils (%) (Auto) , Basophils (%) (Auto) , Differential Total Cells Counted 100, Neutrophils % (Manual) 71, Lymphocytes % ( Manual) 17L, Monocytes % (Manual) 9, Eosinophils % (Manual) 3, Basophils % ( Manual) 0, Band Neutrophils 0, Platelet Estimate DecreasedL, Platelet Morphology Normal, Hypochromasia 1+, Sodium Level 136, Potassium Level 3.5, Chloride Level 104, Carbon Dioxide Level 23, Anion Gap 9, Blood Urea Nitrogen 26H, Creatinine 1.3, Estimat Glomerular Filtration Rate , Glucose Level 97, Calcium Level 7.7L, Total Bilirubin 2.1H, Direct Bilirubin 1.3H, Aspartate Amino Transf (AST/SGOT) 32, Alanine Aminotransferase (ALT/SGPT) 11L, Alkaline Phosphatase 82, Total Protein 5.5L, Albumin 1.7L, Globulin 3.8, Albumin/ Globulin Ratio 0.4L Height (Feet): 5 Height (Inches): 2.00 Weight (Pounds): 143 General Appearance: no apparent distress Cardiovascular: normal rate Respiratory/Chest: decreased breath sounds Abdomen: distended Objective no change Bao Biggs MD Mar 05, 2019 12:12
--- NOTE | 2019-03-05 12:28 | General Progress Note ---
Assessment/Plan Problem List: (1) UTI (urinary tract infection) ICD Codes: N39.0 - Urinary tract infection, site not specified SNOMED: 81647073 Qualifiers: Qualified Codes: N30.00 - Acute cystitis without hematuria (2) Abdominal pain ICD Codes: R10.9 - Unspecified abdominal pain SNOMED: 91651230 Qualifiers: Qualified Codes: R10.84 - Generalized abdominal pain (3) Cholecystitis ICD Codes: K81.9 - Cholecystitis, unspecified SNOMED: 55907049 (4) Thrombocytopenia ICD Codes: D69.6 - Thrombocytopenia, unspecified SNOMED: 173893269 (5) Diabetes mellitus ICD Codes: E11.9 - Type 2 diabetes mellitus without complications SNOMED: 63266434 (6) HTN (hypertension) ICD Codes: I10 - Essential (primary) hypertension SNOMED: 13215234 Status: stable, unchanged Assessment/Plan: abdominal pain improving afebrile choyecystitis niddm ascites scheduled for paracentesis htn abx per id Subjective ROS Limited/Unobtainable: Yes Allergies: Coded Allergies: No Known Allergies (Unverified , 03/02/19) Objective Last 24 Hour Vital Signs Date Time Temp Pulse Resp B/P (MAP) Pulse Ox O2 Delivery O2 Flow Rate FiO2 03/05/19 09:00 Room Air 03/05/19 08:36 80 130/76 03/05/19 08:02 97.9 80 18 130/76 (94) 97 03/05/19 04:00 98.4 84 18 120/55 (76) 03/05/19 00:11 98.6 88 18 125/60 (81) 03/04/19 21:10 Room Air 03/04/19 20:00 98.6 88 18 143/63 (89) 03/04/19 16:01 90 149/59 03/04/19 16:00 98.4 90 19 149/59 (89) 100 03/04/19 12:42 97.6 83 20 136/54 98 Room Air 03/04/19 12:40 81 18 99 03/04/19 12:39 85 18 100 03/04/19 12:35 87 22 115/87 96 Room Air 03/04/19 12:30 85 24 138/47 98 Room Air Intake and Output 9/26/19 9/27/19 18:59 06:59 Intake Total 830 ml Output Total 0 ml Balance 830 ml Intake Oral 480 ml IV Total 350 ml Estimated Blood Loss 0 ml # Voids 2 3 Laboratory Tests 03/05/19 05:45: White Blood Count 9.3, Red Blood Count 2.87L, Hemoglobin 9.3L, Hematocrit 27.3L , Mean Corpuscular Volume 95, Mean Corpuscular Hemoglobin 32.3H, Mean Corpuscular Hemoglobin Concent 34.0, Red Cell Distribution Width 13.9, Platelet Count 58L, Mean Platelet Volume 6.5, Neutrophils (%) (Auto) , Lymphocytes (%) ( Auto) , Monocytes (%) (Auto) , Eosinophils (%) (Auto) , Basophils (%) (Auto) , Differential Total Cells Counted 100, Neutrophils % (Manual) 71, Lymphocytes % ( Manual) 17L, Monocytes % (Manual) 9, Eosinophils % (Manual) 3, Basophils % ( Manual) 0, Band Neutrophils 0, Platelet Estimate DecreasedL, Platelet Morphology Normal, Hypochromasia 1+, Sodium Level 136, Potassium Level 3.5, Chloride Level 104, Carbon Dioxide Level 23, Anion Gap 9, Blood Urea Nitrogen 26H, Creatinine 1.3, Estimat Glomerular Filtration Rate , Glucose Level 97, Calcium Level 7.7L, Total Bilirubin 2.1H, Direct Bilirubin 1.3H, Aspartate Amino Transf (AST/SGOT) 32, Alanine Aminotransferase (ALT/SGPT) 11L, Alkaline Phosphatase 82, Total Protein 5.5L, Albumin 1.7L, Globulin 3.8, Albumin/ Globulin Ratio 0.4L Height (Feet): 5 Height (Inches): 2.00 Weight (Pounds): 143 Respiratory/Chest: lungs clear Abdomen: soft, tender Steve Burr MD Mar 05, 2019 12:28
--- NOTE | 2019-03-05 14:00 | NUR ---
NURSE NOTES: hand off done with Esequiel. out off unit.
--- NOTE | 2019-03-05 15:21 | NUR ---
NURSE NOTES: came back from Paracentesis. LLQ site dry and clean. V/S taken and recorded. A/A/O, micronesian speaking. call light is within reach. siderails are up x3. bed lock and alarm activated.
--- NOTE | 2019-03-05 15:30 | Diagnostic Imaging Report ---
Indications: Ascites Procedure: Informed consent obtained. Ultrasound used to localize optimal puncture site. Sterile prepping and draping over the optimum site. Local anesthesia with 1% lidocaine. Under real-time ultrasound guidance, puncture of the peritoneal space performed using paracentesis needle. Digital image was saved and archived. Stylet removed. Catheter placed to vacuum bottle suction. Fluid was aspirated. Patient tolerated procedure well, without immediate complication. Diagnostic paracentesis with fluid sent for several studies including cytology as requested. Findings: Followup sonography demonstrates complete resolution of peritoneal fluid Impression: Successful ultrasound-guided paracentesis, yielding 2.7 liters of fluid
--- NOTE | 2019-03-05 15:46 | NUR ---
*-* INSURANCE *-* ALL AVAILABLE CLINICALS HAVE BEEN FAXED TO: LEEANNA GUAJARDO:ARMAND P: [phone] F: [phone]
--- NOTE | 2019-03-05 16:20 | Infectious Diseases Prog Note ---
Assessment/Plan Assessment/Plan IMPRESSION: Cholelithiasis and cholecystitis UTI with strep Bovis cirrhosis with ascites diabetes mellitus, hypertension, thrombocytopenia. RECOMMENDATION: Continue Rocephin Subjective ROS Limited/Unobtainable: Yes Constitutional: Reports: other Gastrointestinal/Abdominal: Reports: other - had pracentesis & EGD; Denies: nausea, vomiting Genitourinary: Reports: no symptoms Allergies: Coded Allergies: No Known Allergies (Unverified , 03/02/19) Objective Vital Signs Last 24 Hour Vital Signs Date Time Temp Pulse Resp B/P (MAP) Pulse Ox O2 Delivery O2 Flow Rate FiO2 03/05/19 16:00 97.8 73 20 137/84 (101) 96 03/05/19 15:24 97.0 78 18 147/54 (85) 99 03/05/19 12:00 97.2 78 18 138/59 (85) 99 03/05/19 09:00 Room Air 03/05/19 08:36 80 130/76 03/05/19 08:02 97.9 80 18 130/76 (94) 97 03/05/19 04:00 98.4 84 18 120/55 (76) 03/05/19 00:11 98.6 88 18 125/60 (81) 03/04/19 21:10 Room Air 03/04/19 20:00 98.6 88 18 143/63 (89) Height (Feet): 5 Height (Inches): 2.00 Weight (Pounds): 143 HEENT: mucous membranes moist Respiratory/Chest: lungs clear Cardiovascular: normal rate Abdomen: soft, non tender, distended Extremities: no edema Neurologic/Psychiatric: alert, responsive Microbiology Date/Time Source Procedure Growth Status 03/02/19 22:06 Urine,Clean Catch Urine Culture - Preliminary Streptococcus Bovis Resulted Laboratory Tests Test 03/05/19 05:45 White Blood Count 9.3 K/UL (4.8-10.8) Red Blood Count 2.87 M/UL (4.20-5.40) L Hemoglobin 9.3 G/DL (12.0-16.0) L Hematocrit 27.3 % (37.0-47.0) L Mean Corpuscular Volume 95 FL (80-99) Mean Corpuscular Hemoglobin 32.3 PG (27.0-31.0) H Mean Corpuscular Hemoglobin Concent 34.0 G/DL (32.0-36.0) Red Cell Distribution Width 13.9 % (11.6-14.8) Platelet Count 58 K/UL (150-450) L Mean Platelet Volume 6.5 FL (6.5-10.1) Neutrophils (%) (Auto) % (45.0-75.0) Lymphocytes (%) (Auto) % (20.0-45.0) Monocytes (%) (Auto) % (1.0-10.0) Eosinophils (%) (Auto) % (0.0-3.0) Basophils (%) (Auto) % (0.0-2.0) Differential Total Cells Counted 100 Neutrophils % (Manual) 71 % (45-75) Lymphocytes % (Manual) 17 % (20-45) L Monocytes % (Manual) 9 % (1-10) Eosinophils % (Manual) 3 % (0-3) Basophils % (Manual) 0 % (0-2) Band Neutrophils 0 % (0-8) Platelet Estimate Decreased L Platelet Morphology Normal Hypochromasia 1+ Sodium Level 136 MMOL/L (136-145) Potassium Level 3.5 MMOL/L (3.5-5.1) Chloride Level 104 MMOL/L (98-107) Carbon Dioxide Level 23 MMOL/L (21-32) Anion Gap 9 mmol/L (5-15) Blood Urea Nitrogen 26 mg/dL (7-18) H Creatinine 1.3 MG/DL (0.55-1.30) Estimat Glomerular Filtration Rate mL/min (>60) Glucose Level 97 MG/DL (74-106) Calcium Level 7.7 MG/DL (8.5-10.1) L Total Bilirubin 2.1 MG/DL (0.2-1.0) H Direct Bilirubin 1.3 MG/DL (0.0-0.3) H Aspartate Amino Transf (AST/SGOT) 32 U/L (15-37) Alanine Aminotransferase (ALT/SGPT) 11 U/L (12-78) L Alkaline Phosphatase 82 U/L (46-116) Total Protein 5.5 G/DL (6.4-8.2) L Albumin 1.7 G/DL (3.4-5.0) L Globulin 3.8 g/dL Albumin/Globulin Ratio 0.4 (1.0-2.7) L Current Medications Medications (Trade) Dose Ordered Sig/Robe Route PRN Reason Start Time Stop Time Status Last Admin Dose Admin Amlodipine Besylate (Norvasc) 5 mg DAILY ORAL 03/04/19 09:00 04/02/19 08:59 03/04/19 16:01 Ceftriaxone Sodium 1 gm/ Dextrose 55 ml @ 110 mls/hr Q24H IVPB 03/05/19 21:00 03/12/19 20:59 Clonidine HCl (Catapres Tab) 0.1 mg EVERY 6 HOURS PRN ORAL SBP > 170 03/03/19 04:30 04/02/19 04:29 Dextrose (Dextrose 50%) 50 ml STAT PRN IV Blood Sugar < 70 mg/dl 03/03/19 08:00 04/02/19 07:59 Lactulose (Cephulac) 20 gm BID ORAL 03/04/19 18:00 04/03/19 17:59 03/04/19 18:29 Pantoprazole (Protonix) 40 mg EVERY 12 HOURS ORAL 03/04/19 21:00 04/03/19 20:59 03/04/19 20:29 Sodium Chloride 1,000 ml @ 50 mls/hr Q20H IV 03/04/19 13:57 04/03/19 13:56 03/05/19 08:40 Reji Callejas MD Mar 05, 2019 16:20
--- NOTE | 2019-03-05 17:23 | Surgery Progress Note ---
Surgery Progress Note Subjective Additional Comments no acute events comfortable labs noted exam stable Objective Last 24 Hour Vital Signs Date Time Temp Pulse Resp B/P (MAP) Pulse Ox O2 Delivery O2 Flow Rate FiO2 03/05/19 16:19 97.4 80 18 155/64 (94) 99 03/05/19 16:00 97.8 73 20 137/84 (101) 96 03/05/19 15:24 97.0 78 18 147/54 (85) 99 03/05/19 12:00 97.2 78 18 138/59 (85) 99 03/05/19 09:00 Room Air 03/05/19 08:36 80 130/76 03/05/19 08:02 97.9 80 18 130/76 (94) 97 03/05/19 04:00 98.4 84 18 120/55 (76) 03/05/19 00:11 98.6 88 18 125/60 (81) 03/04/19 21:10 Room Air 03/04/19 20:00 98.6 88 18 143/63 (89) I&O Intake and Output 03/04/19 03/05/19 19:00 07:00 Intake Total 830 ml 50 ml Output Total 0 ml Balance 830 ml 50 ml Intake Oral 480 ml IV Total 350 ml 50 ml Estimated Blood Loss 0 ml # Voids 2 3 Cardiovascular: RSR Respiratory: clear Abdomen: soft, flat, non-tender, present bowel sounds, non-distended Extremities: no cyanosis, other Laboratory Tests Test 03/05/19 05:45 03/05/19 14:50 White Blood Count 9.3 K/UL (4.8-10.8) Red Blood Count 2.87 M/UL (4.20-5.40) L Hemoglobin 9.3 G/DL (12.0-16.0) L Hematocrit 27.3 % (37.0-47.0) L Mean Corpuscular Volume 95 FL (80-99) Mean Corpuscular Hemoglobin 32.3 PG (27.0-31.0) H Mean Corpuscular Hemoglobin Concent 34.0 G/DL (32.0-36.0) Red Cell Distribution Width 13.9 % (11.6-14.8) Platelet Count 58 K/UL (150-450) L Mean Platelet Volume 6.5 FL (6.5-10.1) Neutrophils (%) (Auto) % (45.0-75.0) Lymphocytes (%) (Auto) % (20.0-45.0) Monocytes (%) (Auto) % (1.0-10.0) Eosinophils (%) (Auto) % (0.0-3.0) Basophils (%) (Auto) % (0.0-2.0) Differential Total Cells Counted 100 Neutrophils % (Manual) 71 % (45-75) Lymphocytes % (Manual) 17 % (20-45) L Monocytes % (Manual) 9 % (1-10) Eosinophils % (Manual) 3 % (0-3) Basophils % (Manual) 0 % (0-2) Band Neutrophils 0 % (0-8) Platelet Estimate Decreased L Platelet Morphology Normal Hypochromasia 1+ Sodium Level 136 MMOL/L (136-145) Potassium Level 3.5 MMOL/L (3.5-5.1) Chloride Level 104 MMOL/L (98-107) Carbon Dioxide Level 23 MMOL/L (21-32) Anion Gap 9 mmol/L (5-15) Blood Urea Nitrogen 26 mg/dL (7-18) H Creatinine 1.3 MG/DL (0.55-1.30) Estimat Glomerular Filtration Rate mL/min (>60) Glucose Level 97 MG/DL (74-106) Calcium Level 7.7 MG/DL (8.5-10.1) L Total Bilirubin 2.1 MG/DL (0.2-1.0) H Direct Bilirubin 1.3 MG/DL (0.0-0.3) H Aspartate Amino Transf (AST/SGOT) 32 U/L (15-37) Alanine Aminotransferase (ALT/SGPT) 11 U/L (12-78) L Alkaline Phosphatase 82 U/L (46-116) Total Protein 5.5 G/DL (6.4-8.2) L Albumin 1.7 G/DL (3.4-5.0) L Globulin 3.8 g/dL Albumin/Globulin Ratio 0.4 (1.0-2.7) L Body Fluid Source Pending Body Fluid Volume Pending Body Fluid Appearance Pending Body Fluid RBC Pending Body Fluid Total Nucleated Cells Pending Body Fluid Polynuclear WBCs (%) Pending Body Fluid Mononuclear WBCs (%) Pending Body Fluid Mesothelial Cells (%) Pending Body Fluid Albumin Pending Plan Problems: (1) Thickening of wall of gallbladder with pericholecystic fluid Assessment & Plan: Impression: Gallbladder neck stone. Gallbladder distention and mild gallbladder wall thickening raises possibility of acute cholecystitis. Consider hepatobiliary nuclear scan if clinically indicated for further evaluation. Evidence of hepatic cirrhosis Moderate ascites, presumably related to the above Other stigmata of portal hypertension as well, including splenomegaly, periesophageal varices, and congestion of the mesentery Other findings of anasarca, including diffuse edema of the abdominal, pelvic, and subcutaneous fat Edema of the small bowel wall, likely a manifestation of anasarca, but the possibility of enteritis should also be considered Distention of the left ovarian vein, left paraovarian varices, suspicious for ovarian vein reflux. Correlate with any clinical history of pelvic congestion syndrome (2) Abdominal pain Assessment & Plan: discussed with GI and medical team given cirrhosis high risk for surgery improving will hold on cholecystostomy tube trend labs IV abx will follow with recs thank you (3) Cholecystitis Assessment & Plan: Impression: Nonvisualized gallbladder. This is concerning for acute cholecystitis Patent common bile duct (4) Cirrhosis Assessment & Plan: Impression: Small gallbladder neck stone demonstrated on CT scan performed one hour earlier is sonographically occult Gallbladder wall thickening. This could be a manifestation of acute cholecystitis, but could also be due to hemodynamic gradient related to hepatocellular disease Evidence of hepatic cirrhosis Ascites Vini Reyes Mar 05, 2019 17:23
--- NOTE | 2019-03-05 19:03 | NUR ---
HAND-OFF: Report given to Jennifer.
--- NOTE | 2019-03-05 19:13 | NUR ---
CASE MANAGEMENT: REVIEW SI: CHOLECYSTITIS . HEPATIC CIRRHOSIS T 97.4 HR 80 RR 18 BP 155/64 SAT 99% ROOM AIR H/H 9.3/27.3 IS: CEFTRIAXONE IV Q24HR PROTONIX PO Q12HR LACTULOSE PO BID NS IVF @ 50ML/HR NORVASC PO QD MED/SURG STATUS DCP: PATIENT IS FROM HOME
--- NOTE | 2019-03-05 20:00 | NUR ---
NURSE NOTES: RECEIVED PATIENT LYING IN BED, AWAKE, ALERT/ORIENTED X3, VERBALLY RESPONSIVE/CITIZEN OF [place], DENIES PAIN, NO SIGNS AND SYMPTOMS OF ACUTE CARDIO RESPIRATORY DISTRESS/SHORTNESS OF BREATH, DENIES CHEST PAIN. S/P PARACENTESIS, ABDOMEN ROUND, BOWEL SOUNDS AUDIBLE, PATIENT DENIES ABDOMINAL PAIN. CONTINENT OF B/B, NO BM SINCE 03/04, LACTULOSE THERAPY ONGOING. SIDE RAILS UP X3/BED IN LOWEST POSITION FOR SAFETY, CALL LIGHT WITHIN REACH AT ALL TIMES. FREQUENT ROUNDS FOR SAFETY/NEEDS. NAD.
[2019-03-05] MEDS: cefTRIAXone 1gm/D5W 55ml IVPB SCH ×2 (21:08)
[2019-03-06] VITALS: BP 160/63
[2019-03-06 04:00] VITALS: BP 126/53
--- NOTE | 2019-03-06 05:52 | NUR ---
NURSE NOTES: RESTED WELL, NO SIGNIFICANT CHANGE OF CONDITION NOTED THROUGHOUT THE NIGHT. SAFETY MAINTAINED. NAD,.
--- NOTE | 2019-03-06 07:15 | NUR ---
NURSE NOTES: Received patient in bed, awake, alert, oriented x2, able to make her needs known, speaks Maltese, no acute distress noted, tolerating food intake well. IV access patent, dry and intact. IVF infusing well. s/p paracentesis site is clean and dry. Call light is within reach, bed is lowered, locked, alarm is on. Will continue to monitor for comfort and safety.
[2019-03-06 08:00] VITALS: BP 146/63
[2019-03-06 08:08] LABS: HEMATOCRIT 30.7 % (37.0-47.0); HEMOGLOBIN 10.3 G/DL (12.0-16.0); MEAN CORPUSCULAR VOLUME 96 FL (80-99); PLATELET COUNT 75 K/UL (150-450); RED BLOOD COUNT 3.21 M/UL (4.20-5.40); RED CELL DISTRIBUTION WIDTH 14.3 % (11.6-14.8)
[2019-03-06 08:39] LABS: ALANINE AMINOTRANSFERASE 9 U/L (12-78); ALBUMIN 1.7 G/DL (3.4-5.0); ALBUMIN/GLOBULIN RATIO 0.4 (1.0-2.7); ALKALINE PHOSPHATASE 93 U/L (46-116); ANION GAP 9 mmol/L (5-15); ASPARTATE AMINO TRANSFERASE 35 U/L (15-37); BILIRUBIN,TOTAL 1.8 MG/DL (0.2-1.0); BLOOD UREA NITROGEN 24 mg/dL (7-18); CALCIUM 7.7 MG/DL (8.5-10.1); CARBON DIOXIDE 23 MMOL/L (21-32); CHLORIDE 105 MMOL/L (98-107); CREATININE 1.2 MG/DL (0.55-1.30); POTASSIUM 3.3 MMOL/L (3.5-5.1); SODIUM 137 MMOL/L (136-145)
[2019-03-06] MEDS: Lactulose 20gm/30ml UDC ORAL SCH ×2 (08:46→17:35)
[2019-03-06 08:58] LABS: PHOSPHORUS 2.7 MG/DL (2.5-4.9)
--- NOTE | 2019-03-06 09:36 | Nephrology Progress Note ---
Assessment/Plan Problem List: (1) UTI (urinary tract infection) (2) Cirrhosis (3) Abdominal pain (4) Diabetes mellitus (5) HTN (hypertension) Assessment UTI Cirrhosis / Abd pain cholecystitis DM HTN Anemia HypoAlbuminemia Plan stop NS IV fluids Per GI start lactulose K supplement Subjective ROS Limited/Unobtainable: No Constitutional: Reports: malaise, weakness Objective Objective Last 24 Hour Vital Signs Date Time Temp Pulse Resp B/P (MAP) Pulse Ox O2 Delivery O2 Flow Rate FiO2 03/06/19 08:46 80 146/63 03/06/19 08:00 98.2 80 20 146/63 (90) 95 03/06/19 04:00 98.0 79 18 126/53 (77) 99 03/06/19 00:00 97.4 85 18 160/63 (95) 95 03/05/19 21:00 Room Air 03/05/19 20:00 98.1 77 19 161/73 (102) 98 03/05/19 16:19 97.4 80 18 155/64 (94) 99 03/05/19 16:00 97.8 73 20 137/84 (101) 96 03/05/19 15:24 97.0 78 18 147/54 (85) 99 03/05/19 12:00 97.2 78 18 138/59 (85) 99 Intake and Output 03/05/19 03/06/19 19:00 07:00 Intake Total 700.0 ml 745 ml Balance 700.0 ml 745 ml Intake Oral 240 ml 240 ml IV Total 460.0 ml 505 ml # Voids 1 2 Laboratory Tests 03/05/19 14:50: Body Fluid Source Paracentesis, Body Fluid Volume 24, Body Fluid Appearance Hazy , Body Fluid RBC 282, Body Fluid Total Nucleated Cells 172, Body Fluid Polynuclear WBCs (%) 21, Body Fluid Mononuclear WBCs (%) 77, Body Fluid Mesothelial Cells (%) 2, Body Fluid Albumin [Pending] 03/06/19 06:36: White Blood Count 7.0, Red Blood Count 3.21L, Hemoglobin 10.3L, Hematocrit 30.7L , Mean Corpuscular Volume 96, Mean Corpuscular Hemoglobin 31.9H, Mean Corpuscular Hemoglobin Concent 33.4, Red Cell Distribution Width 14.3, Platelet Count 75L, Mean Platelet Volume 6.7, Neutrophils (%) (Auto) , Lymphocytes (%) ( Auto) , Monocytes (%) (Auto) , Eosinophils (%) (Auto) , Basophils (%) (Auto) , Neutrophils % (Manual) [Pending], Lymphocytes % (Manual) [Pending], Platelet Estimate [Pending], Platelet Morphology [Pending], Sodium Level 137, Potassium Level 3.3L, Chloride Level 105, Carbon Dioxide Level 23, Anion Gap 9, Blood Urea Nitrogen 24H, Creatinine 1.2, Estimat Glomerular Filtration Rate , Glucose Level 132H, Uric Acid 3.4, Calcium Level 7.7L, Phosphorus Level 2.7, Magnesium Level 1.8, Total Bilirubin 1.8H, Direct Bilirubin 1.0H, Aspartate Amino Transf ( AST/SGOT) 35, Alanine Aminotransferase (ALT/SGPT) 9L, Alkaline Phosphatase 93, Ammonia 45H, Total Protein 5.7L, Albumin 1.7L, Globulin 4.0, Albumin/Globulin Ratio 0.4L Height (Feet): 5 Height (Inches): 2.00 Weight (Pounds): 143 General Appearance: no apparent distress Objective no change Bao Biggs MD Mar 06, 2019 09:36
[2019-03-06 12:00] VITALS: BP 107/67
--- NOTE | 2019-03-06 12:37 | Surgery Progress Note ---
Surgery Progress Note Subjective Symptoms: improved, tolerating diet, voiding well, passing flatus Objective Last 24 Hour Vital Signs Date Time Temp Pulse Resp B/P (MAP) Pulse Ox O2 Delivery O2 Flow Rate FiO2 03/06/19 12:00 97.6 79 18 107/67 (80) 95 03/06/19 09:00 Room Air 03/06/19 08:46 80 146/63 03/06/19 08:00 98.2 80 20 146/63 (90) 95 03/06/19 04:00 98.0 79 18 126/53 (77) 99 03/06/19 00:00 97.4 85 18 160/63 (95) 95 03/05/19 21:00 Room Air 03/05/19 20:00 98.1 77 19 161/73 (102) 98 03/05/19 16:19 97.4 80 18 155/64 (94) 99 03/05/19 16:00 97.8 73 20 137/84 (101) 96 03/05/19 15:24 97.0 78 18 147/54 (85) 99 I&O Intake and Output 03/05/19 03/06/19 18:59 06:59 Intake Total 750.0 ml 745 ml Balance 750.0 ml 745 ml Intake Oral 240 ml 240 ml IV Total 510.0 ml 505 ml # Voids 1 2 Cardiovascular: RSR Respiratory: clear Abdomen: soft, non-tender, present bowel sounds, decreased bowel sounds Extremities: no cyanosis Laboratory Tests Test 03/05/19 14:50 03/06/19 06:36 Body Fluid Source Paracentesis Body Fluid Volume 24 mL Body Fluid Appearance Hazy (Clear) Body Fluid RBC 282 /CUMM Body Fluid Total Nucleated Cells 172 /CUMM Body Fluid Polynuclear WBCs (%) 21 % Body Fluid Mononuclear WBCs (%) 77 % Body Fluid Mesothelial Cells (%) 2 % Body Fluid Albumin 0.4 g/dL (.) White Blood Count 7.0 K/UL (4.8-10.8) Red Blood Count 3.21 M/UL (4.20-5.40) L Hemoglobin 10.3 G/DL (12.0-16.0) L Hematocrit 30.7 % (37.0-47.0) L Mean Corpuscular Volume 96 FL (80-99) Mean Corpuscular Hemoglobin 31.9 PG (27.0-31.0) H Mean Corpuscular Hemoglobin Concent 33.4 G/DL (32.0-36.0) Red Cell Distribution Width 14.3 % (11.6-14.8) Platelet Count 75 K/UL (150-450) L Mean Platelet Volume 6.7 FL (6.5-10.1) Neutrophils (%) (Auto) % (45.0-75.0) Lymphocytes (%) (Auto) % (20.0-45.0) Monocytes (%) (Auto) % (1.0-10.0) Eosinophils (%) (Auto) % (0.0-3.0) Basophils (%) (Auto) % (0.0-2.0) Differential Total Cells Counted 100 Neutrophils % (Manual) 64 % (45-75) Lymphocytes % (Manual) 18 % (20-45) L Monocytes % (Manual) 12 % (1-10) H Eosinophils % (Manual) 5 % (0-3) H Basophils % (Manual) 1 % (0-2) Band Neutrophils 0 % (0-8) Platelet Estimate Decreased L Platelet Morphology Normal Hypochromasia 1+ Sodium Level 137 MMOL/L (136-145) Potassium Level 3.3 MMOL/L (3.5-5.1) L Chloride Level 105 MMOL/L (98-107) Carbon Dioxide Level 23 MMOL/L (21-32) Anion Gap 9 mmol/L (5-15) Blood Urea Nitrogen 24 mg/dL (7-18) H Creatinine 1.2 MG/DL (0.55-1.30) Estimat Glomerular Filtration Rate mL/min (>60) Glucose Level 132 MG/DL (74-106) H Uric Acid 3.4 MG/DL (2.6-7.2) Calcium Level 7.7 MG/DL (8.5-10.1) L Phosphorus Level 2.7 MG/DL (2.5-4.9) Magnesium Level 1.8 MG/DL (1.8-2.4) Total Bilirubin 1.8 MG/DL (0.2-1.0) H Direct Bilirubin 1.0 MG/DL (0.0-0.3) H Aspartate Amino Transf (AST/SGOT) 35 U/L (15-37) Alanine Aminotransferase (ALT/SGPT) 9 U/L (12-78) L Alkaline Phosphatase 93 U/L (46-116) Ammonia 45 umol/L (11-32) H Total Protein 5.7 G/DL (6.4-8.2) L Albumin 1.7 G/DL (3.4-5.0) L Globulin 4.0 g/dL Albumin/Globulin Ratio 0.4 (1.0-2.7) L Plan Problems: (1) Thickening of wall of gallbladder with pericholecystic fluid Assessment & Plan: Impression: Gallbladder neck stone. Gallbladder distention and mild gallbladder wall thickening raises possibility of acute cholecystitis. Consider hepatobiliary nuclear scan if clinically indicated for further evaluation. Evidence of hepatic cirrhosis Moderate ascites, presumably related to the above Other stigmata of portal hypertension as well, including splenomegaly, periesophageal varices, and congestion of the mesentery Other findings of anasarca, including diffuse edema of the abdominal, pelvic, and subcutaneous fat Edema of the small bowel wall, likely a manifestation of anasarca, but the possibility of enteritis should also be considered Distention of the left ovarian vein, left paraovarian varices, suspicious for ovarian vein reflux. Correlate with any clinical history of pelvic congestion syndrome (2) Abdominal pain Assessment & Plan: discussed with GI and medical team given cirrhosis high risk for surgery improving will hold on cholecystostomy tube trend labs IV abx will follow with recs thank you (3) Cholecystitis Assessment & Plan: Impression: Nonvisualized gallbladder. This is concerning for acute cholecystitis Patent common bile duct (4) Cirrhosis Assessment & Plan: Impression: Small gallbladder neck stone demonstrated on CT scan performed one hour earlier is sonographically occult Gallbladder wall thickening. This could be a manifestation of acute cholecystitis, but could also be due to hemodynamic gradient related to hepatocellular disease Evidence of hepatic cirrhosis Ascites Vini Reyes Mar 06, 2019 12:37
--- NOTE | 2019-03-06 13:26 | General Progress Note ---
Assessment/Plan Status: stable, unchanged Assessment/Plan: (1) Cirrhosis ICD Codes: K74.60 - Unspecified cirrhosis of liver SNOMED: 51881730 (2) Thickening of wall of gallbladder with pericholecystic fluid ICD Codes: K82.8 - Other specified diseases of gallbladder SNOMED: 368018792 (3) Abdominal pain ICD Codes: R10.9 - Unspecified abdominal pain SNOMED: 65584713 Qualifiers: Qualified Codes: R10.84 - Generalized abdominal pain (4) Cholecystitis ICD Codes: K81.9 - Cholecystitis, unspecified Assessment/Plan This is a 84 year old female patient presented with abdominal pain found on CT to have liver cirrhosis. 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 hepatitis panel, negative. s/p EGD SUMMARY OF FINDINGS: 1. Atrophic gastritis, status post biopsy. 2. No obvious evidence of any esophageal nor gastric varices. paracentesis prn monitor H&H, prn transfusions bowel regimen ppi fu labs, hepatitis panel>>>> neg follow up biopsy results and treat accordingly fu surg recs. Subjective Allergies: Coded Allergies: No Known Allergies (Unverified , 03/02/19) Objective Last 24 Hour Vital Signs Date Time Temp Pulse Resp B/P (MAP) Pulse Ox O2 Delivery O2 Flow Rate FiO2 03/06/19 12:00 97.6 79 18 107/67 (80) 95 03/06/19 09:00 Room Air 03/06/19 08:46 80 146/63 03/06/19 08:00 98.2 80 20 146/63 (90) 95 03/06/19 04:00 98.0 79 18 126/53 (77) 99 03/06/19 00:00 97.4 85 18 160/63 (95) 95 03/05/19 21:00 Room Air 03/05/19 20:00 98.1 77 19 161/73 (102) 98 03/05/19 16:19 97.4 80 18 155/64 (94) 99 03/05/19 16:00 97.8 73 20 137/84 (101) 96 03/05/19 15:24 97.0 78 18 147/54 (85) 99 Intake and Output 03/05/19 03/06/19 18:59 06:59 Intake Total 750.0 ml 745 ml Balance 750.0 ml 745 ml Intake Oral 240 ml 240 ml IV Total 510.0 ml 505 ml # Voids 1 2 Laboratory Tests 03/05/19 14:50: Body Fluid Source Paracentesis, Body Fluid Volume 24, Body Fluid Appearance Hazy , Body Fluid RBC 282, Body Fluid Total Nucleated Cells 172, Body Fluid Polynuclear WBCs (%) 21, Body Fluid Mononuclear WBCs (%) 77, Body Fluid Mesothelial Cells (%) 2, Body Fluid Albumin 0.4 03/06/19 06:36: White Blood Count 7.0, Red Blood Count 3.21L, Hemoglobin 10.3L, Hematocrit 30.7L , Mean Corpuscular Volume 96, Mean Corpuscular Hemoglobin 31.9H, Mean Corpuscular Hemoglobin Concent 33.4, Red Cell Distribution Width 14.3, Platelet Count 75L, Mean Platelet Volume 6.7, Neutrophils (%) (Auto) , Lymphocytes (%) ( Auto) , Monocytes (%) (Auto) , Eosinophils (%) (Auto) , Basophils (%) (Auto) , Differential Total Cells Counted 100, Neutrophils % (Manual) 64, Lymphocytes % ( Manual) 18L, Monocytes % (Manual) 12H, Eosinophils % (Manual) 5H, Basophils % ( Manual) 1, Band Neutrophils 0, Platelet Estimate DecreasedL, Platelet Morphology Normal, Hypochromasia 1+, Sodium Level 137, Potassium Level 3.3L, Chloride Level 105, Carbon Dioxide Level 23, Anion Gap 9, Blood Urea Nitrogen 24H, Creatinine 1.2, Estimat Glomerular Filtration Rate , Glucose Level 132H, Uric Acid 3.4, Calcium Level 7.7L, Phosphorus Level 2.7, Magnesium Level 1.8, Total Bilirubin 1.8H, Direct Bilirubin 1.0H, Aspartate Amino Transf (AST/SGOT) 35, Alanine Aminotransferase (ALT/SGPT) 9L, Alkaline Phosphatase 93, Ammonia 45H , Total Protein 5.7L, Albumin 1.7L, Globulin 4.0, Albumin/Globulin Ratio 0.4L Height (Feet): 5 Height (Inches): 2.00 Weight (Pounds): 143 General Appearance: no apparent distress EENT: normal ENT inspection Neck: supple Cardiovascular: normal rate Respiratory/Chest: decreased breath sounds Abdomen: normal bowel sounds, non tender, soft Extremities: non-tender Jorge Briceño MD Mar 06, 2019 13:26
--- NOTE | 2019-03-06 14:10 | Infectious Diseases Prog Note ---
Assessment/Plan Assessment/Plan IMPRESSION: Cholelithiasis and cholecystitis UTI with strep Bovis cirrhosis with ascites diabetes mellitus, hypertension, thrombocytopenia. RECOMMENDATION: Continue Rocephin Subjective ROS Limited/Unobtainable: Yes Respiratory: Reports: no symptoms Gastrointestinal/Abdominal: Reports: no symptoms Genitourinary: Reports: no symptoms Allergies: Coded Allergies: No Known Allergies (Unverified , 03/02/19) Objective Vital Signs Last 24 Hour Vital Signs Date Time Temp Pulse Resp B/P (MAP) Pulse Ox O2 Delivery O2 Flow Rate FiO2 03/06/19 12:00 97.6 79 18 107/67 (80) 95 03/06/19 09:00 Room Air 03/06/19 08:46 80 146/63 03/06/19 08:00 98.2 80 20 146/63 (90) 95 03/06/19 04:00 98.0 79 18 126/53 (77) 99 03/06/19 00:00 97.4 85 18 160/63 (95) 95 03/05/19 21:00 Room Air 03/05/19 20:00 98.1 77 19 161/73 (102) 98 03/05/19 16:19 97.4 80 18 155/64 (94) 99 03/05/19 16:00 97.8 73 20 137/84 (101) 96 03/05/19 15:24 97.0 78 18 147/54 (85) 99 Height (Feet): 5 Height (Inches): 2.00 Weight (Pounds): 143 General Appearance: no acute distress HEENT: mucous membranes moist Respiratory/Chest: lungs clear Cardiovascular: normal rate Abdomen: soft, non tender, distended Extremities: no edema Neurologic/Psychiatric: alert, responsive Laboratory Tests Test 03/05/19 14:50 03/06/19 06:36 Body Fluid Source Paracentesis Body Fluid Volume 24 mL Body Fluid Appearance Hazy (Clear) Body Fluid RBC 282 /CUMM Body Fluid Total Nucleated Cells 172 /CUMM Body Fluid Polynuclear WBCs (%) 21 % Body Fluid Mononuclear WBCs (%) 77 % Body Fluid Mesothelial Cells (%) 2 % Body Fluid Albumin 0.4 g/dL (.) White Blood Count 7.0 K/UL (4.8-10.8) Red Blood Count 3.21 M/UL (4.20-5.40) L Hemoglobin 10.3 G/DL (12.0-16.0) L Hematocrit 30.7 % (37.0-47.0) L Mean Corpuscular Volume 96 FL (80-99) Mean Corpuscular Hemoglobin 31.9 PG (27.0-31.0) H Mean Corpuscular Hemoglobin Concent 33.4 G/DL (32.0-36.0) Red Cell Distribution Width 14.3 % (11.6-14.8) Platelet Count 75 K/UL (150-450) L Mean Platelet Volume 6.7 FL (6.5-10.1) Neutrophils (%) (Auto) % (45.0-75.0) Lymphocytes (%) (Auto) % (20.0-45.0) Monocytes (%) (Auto) % (1.0-10.0) Eosinophils (%) (Auto) % (0.0-3.0) Basophils (%) (Auto) % (0.0-2.0) Differential Total Cells Counted 100 Neutrophils % (Manual) 64 % (45-75) Lymphocytes % (Manual) 18 % (20-45) L Monocytes % (Manual) 12 % (1-10) H Eosinophils % (Manual) 5 % (0-3) H Basophils % (Manual) 1 % (0-2) Band Neutrophils 0 % (0-8) Platelet Estimate Decreased L Platelet Morphology Normal Hypochromasia 1+ Sodium Level 137 MMOL/L (136-145) Potassium Level 3.3 MMOL/L (3.5-5.1) L Chloride Level 105 MMOL/L (98-107) Carbon Dioxide Level 23 MMOL/L (21-32) Anion Gap 9 mmol/L (5-15) Blood Urea Nitrogen 24 mg/dL (7-18) H Creatinine 1.2 MG/DL (0.55-1.30) Estimat Glomerular Filtration Rate mL/min (>60) Glucose Level 132 MG/DL (74-106) H Uric Acid 3.4 MG/DL (2.6-7.2) Calcium Level 7.7 MG/DL (8.5-10.1) L Phosphorus Level 2.7 MG/DL (2.5-4.9) Magnesium Level 1.8 MG/DL (1.8-2.4) Total Bilirubin 1.8 MG/DL (0.2-1.0) H Direct Bilirubin 1.0 MG/DL (0.0-0.3) H Aspartate Amino Transf (AST/SGOT) 35 U/L (15-37) Alanine Aminotransferase (ALT/SGPT) 9 U/L (12-78) L Alkaline Phosphatase 93 U/L (46-116) Ammonia 45 umol/L (11-32) H Total Protein 5.7 G/DL (6.4-8.2) L Albumin 1.7 G/DL (3.4-5.0) L Globulin 4.0 g/dL Albumin/Globulin Ratio 0.4 (1.0-2.7) L Current Medications Medications (Trade) Dose Ordered Sig/Robe Route PRN Reason Start Time Stop Time Status Last Admin Dose Admin Amlodipine Besylate (Norvasc) 5 mg DAILY ORAL 03/04/19 09:00 04/02/19 08:59 03/06/19 08:46 Ceftriaxone Sodium 1 gm/ Dextrose 55 ml @ 110 mls/hr Q24H IVPB 03/05/19 21:00 03/12/19 20:59 03/05/19 21:08 Clonidine HCl (Catapres Tab) 0.1 mg EVERY 6 HOURS PRN ORAL SBP > 170 03/03/19 04:30 04/02/19 04:29 Dextrose (Dextrose 50%) 50 ml STAT PRN IV Blood Sugar < 70 mg/dl 03/03/19 08:00 04/02/19 07:59 Lactulose (Cephulac) 20 gm BID ORAL 03/04/19 18:00 04/03/19 17:59 03/06/19 08:46 Pantoprazole (Protonix) 40 mg EVERY 12 HOURS ORAL 03/04/19 21:00 04/03/19 20:59 03/06/19 08:46 Reji Callejas MD Mar 06, 2019 14:10
[2019-03-06] MEDS ORDERED: Tubing IV Secondary IV ONE (14:41)
[2019-03-06 16:05] VITALS: BP 143/64
--- NOTE | 2019-03-06 16:58 | Hematology/Onc Progress Note ---
Assessment/Plan Assessment/Plan # Pancytopenia is likely due to underlying cirrhosis, splenomegaly, paraesophageal varices, portal HTN --> at this time, imaging of liver reviewed, no e/o malignancy --> hepatitis panel and hiv are both negative --> plt trend: 58-->75k --> AFP is 2.5 --> smear has been reviewed, r/o schistocytes --> neupogen on prn basis --> plts as needed presurg, goal >50k if procedure --> 03/04: PLAN FOR EGD--> atrophic gastritis noted --> paracentesis on prn basis # Anemia of chronic disease --> no evidence of iron deficiency --> hgb goal >7, transfuse prn --> less of a role for iron and epogen --> hgb trend: 9.3-->10.3 # Thickening of wall of gallbladder with pericholecystic fluid --> as per surg eval, hida # UTI (urinary tract infection) # Cholecystitis # Liver cirrhosis Greatly appreciate consultation. Subjective Constitutional: Denies: no symptoms, chills, fever, malaise, weakness, other Cardiovascular: Denies: no symptoms, chest pain, edema, irregular heart rate, lightheadedness, palpitations, syncope, other Respiratory: Denies: no symptoms, cough, shortness of breath, SOB with excertion, SOB at rest, sputum, wheezing, other Genitourinary: Denies: no symptoms, burning, discharge, frequency, flank pain, hematuria, incontinence, pain, urgency, other Neurologic/Psychiatric: Denies: no symptoms, anxiety, depressed, emotional problems, headache, numbness, paresthesia, pre-existing deficit, seizure, tingling, tremors, weakness, other Allergies: Coded Allergies: No Known Allergies (Unverified , 03/02/19) Subjective 03/04: abd pain better, pending scan, gi/surg input, labs noted, pending hiv/hep 03/05: awake and alert, no acute events, hiv negative, on piper/tazo 03/06: no events, on abx, no bleeding, labs noted, no f/c Objective Objective Current Medications Medications (Trade) Dose Ordered Sig/Robe Route PRN Reason Start Time Stop Time Status Last Admin Dose Admin Amlodipine Besylate (Norvasc) 5 mg DAILY ORAL 03/04/19 09:00 04/02/19 08:59 03/06/19 08:46 Ceftriaxone Sodium 1 gm/ Dextrose 55 ml @ 110 mls/hr Q24H IVPB 03/05/19 21:00 03/12/19 20:59 03/05/19 21:08 Clonidine HCl (Catapres Tab) 0.1 mg EVERY 6 HOURS PRN ORAL SBP > 170 03/03/19 04:30 04/02/19 04:29 Dextrose (Dextrose 50%) 50 ml STAT PRN IV Blood Sugar < 70 mg/dl 03/03/19 08:00 04/02/19 07:59 Lactulose (Cephulac) 20 gm BID ORAL 03/04/19 18:00 04/03/19 17:59 03/06/19 08:46 Pantoprazole (Protonix) 40 mg EVERY 12 HOURS ORAL 03/04/19 21:00 04/03/19 20:59 03/06/19 08:46 Last 24 Hour Vital Signs Date Time Temp Pulse Resp B/P (MAP) Pulse Ox O2 Delivery O2 Flow Rate FiO2 03/06/19 16:05 98.2 77 19 143/64 (90) 95 03/06/19 12:00 97.6 79 18 107/67 (80) 95 03/06/19 09:00 Room Air 03/06/19 08:46 80 146/63 03/06/19 08:00 98.2 80 20 146/63 (90) 95 03/06/19 04:00 98.0 79 18 126/53 (77) 99 03/06/19 00:00 97.4 85 18 160/63 (95) 95 03/05/19 21:00 Room Air 03/05/19 20:00 98.1 77 19 161/73 (102) 98 03/05/19 16:19 97.4 80 18 155/64 (94) 99 03/05/19 16:00 97.8 73 20 137/84 (101) 96 03/05/19 15:24 97.0 78 18 147/54 (85) 99 03/05/19 12:00 97.2 78 18 138/59 (85) 99 03/05/19 09:00 Room Air 03/05/19 08:36 80 130/76 03/05/19 08:02 97.9 80 18 130/76 (94) 97 03/05/19 04:00 98.4 84 18 120/55 (76) 03/05/19 00:11 98.6 88 18 125/60 (81) 03/04/19 21:10 Room Air 03/04/19 20:00 98.6 88 18 143/63 (89) Intake and Output 03/05/19 03/06/19 19:00 07:00 Intake Total 700.0 ml 745 ml Balance 700.0 ml 745 ml Intake Oral 240 ml 240 ml IV Total 460.0 ml 505 ml # Voids 1 2 Labs Test 03/04/19 05:15 03/05/19 05:45 03/05/19 14:50 03/06/19 06:36 White Blood Count 13.9 K/UL (4.8-10.8) 9.3 K/UL (4.8-10.8) 7.0 K/UL (4.8-10.8) Red Blood Count 3.19 M/UL (4.20-5.40) 2.87 M/UL (4.20-5.40) 3.21 M/UL (4.20-5.40) Hemoglobin 10.2 G/DL (12.0-16.0) 9.3 G/DL (12.0-16.0) 10.3 G/DL (12.0-16.0) Hematocrit 30.2 % (37.0-47.0) 27.3 % (37.0-47.0) 30.7 % (37.0-47.0) Mean Corpuscular Volume 95 FL (80-99) 95 FL (80-99) 96 FL (80-99) Mean Corpuscular Hemoglobin 32.1 PG (27.0-31.0) 32.3 PG (27.0-31.0) 31.9 PG (27.0-31.0) Mean Corpuscular Hemoglobin Concent 33.9 G/DL (32.0-36.0) 34.0 G/DL (32.0-36.0) 33.4 G/DL (32.0-36.0) Red Cell Distribution Width 14.1 % (11.6-14.8) 13.9 % (11.6-14.8) 14.3 % (11.6-14.8) Platelet Count 67 K/UL (150-450) 58 K/UL (150-450) 75 K/UL (150-450) Mean Platelet Volume 6.3 FL (6.5-10.1) 6.5 FL (6.5-10.1) 6.7 FL (6.5-10.1) Neutrophils (%) (Auto) % (45.0-75.0) % (45.0-75.0) % (45.0-75.0) Lymphocytes (%) (Auto) % (20.0-45.0) % (20.0-45.0) % (20.0-45.0) Monocytes (%) (Auto) % (1.0-10.0) % (1.0-10.0) % (1.0-10.0) Eosinophils (%) (Auto) % (0.0-3.0) % (0.0-3.0) % (0.0-3.0) Basophils (%) (Auto) % (0.0-2.0) % (0.0-2.0) % (0.0-2.0) Differential Total Cells Counted 100 100 100 Neutrophils % (Manual) 71 % (45-75) 71 % (45-75) 64 % (45-75) Lymphocytes % (Manual) 11 % (20-45) 17 % (20-45) 18 % (20-45) Monocytes % (Manual) 16 % (1-10) 9 % (1-10) 12 % (1-10) Eosinophils % (Manual) 1 % (0-3) 3 % (0-3) 5 % (0-3) Basophils % (Manual) 1 % (0-2) 0 % (0-2) 1 % (0-2) Band Neutrophils 0 % (0-8) 0 % (0-8) 0 % (0-8) Platelet Estimate Decreased Decreased Decreased Platelet Morphology Normal Normal Normal Hypochromasia 1+ 1+ 1+ Anisocytosis 1+ Reticulocyte Count 2.9 % (0.5-2.0) Prothrombin Time 15.9 SEC (9.30-11.50) Prothromb Time International Ratio 1.5 (0.9-1.1) Activated Partial Thromboplast Time 42 SEC (23-33) Sodium Level 135 MMOL/L (136-145) 136 MMOL/L (136-145) 137 MMOL/L (136-145) Potassium Level 3.8 MMOL/L (3.5-5.1) 3.5 MMOL/L (3.5-5.1) 3.3 MMOL/L (3.5-5.1) Chloride Level 102 MMOL/L (98-107) 104 MMOL/L (98-107) 105 MMOL/L (98-107) Carbon Dioxide Level 24 MMOL/L (21-32) 23 MMOL/L (21-32) 23 MMOL/L (21-32) Anion Gap 9 mmol/L (5-15) 9 mmol/L (5-15) 9 mmol/L (5-15) Blood Urea Nitrogen 20 mg/dL (7-18) 26 mg/dL (7-18) 24 mg/dL (7-18) Creatinine 1.3 MG/DL (0.55-1.30) 1.3 MG/DL (0.55-1.30) 1.2 MG/DL (0.55-1.30) Estimat Glomerular Filtration Rate mL/min (>60) mL/min (>60) mL/min (>60) Glucose Level 109 MG/DL (74-106) 97 MG/DL (74-106) 132 MG/DL (74-106) Hemoglobin A1c 6.8 % (4.3-6.0) Uric Acid 3.2 MG/DL (2.6-7.2) 3.4 MG/DL (2.6-7.2) Calcium Level 7.9 MG/DL (8.5-10.1) 7.7 MG/DL (8.5-10.1) 7.7 MG/DL (8.5-10.1) Phosphorus Level 4.0 MG/DL (2.5-4.9) 2.7 MG/DL (2.5-4.9) Magnesium Level 1.7 MG/DL (1.8-2.4) 1.8 MG/DL (1.8-2.4) Iron Level 33 ug/dL (50-175) Total Iron Binding Capacity 164 ug/dL (250-450) Percent Iron Saturation 20 % (15-50) Unsaturated Iron Binding 131 ug/dL (112-346) Ferritin 103 NG/ML (8-388) Total Bilirubin 2.0 MG/DL (0.2-1.0) 2.1 MG/DL (0.2-1.0) 1.8 MG/DL (0.2-1.0) Direct Bilirubin 1.1 MG/DL (0.0-0.3) 1.3 MG/DL (0.0-0.3) 1.0 MG/DL (0.0-0.3) Gamma Glutamyl Transpeptidase 64 U/L (5-85) Aspartate Amino Transf (AST/SGOT) 30 U/L (15-37) 32 U/L (15-37) 35 U/L (15-37) Alanine Aminotransferase (ALT/SGPT) 13 U/L (12-78) 11 U/L (12-78) 9 U/L (12-78) Alkaline Phosphatase 90 U/L (46-116) 82 U/L (46-116) 93 U/L (46-116) Ammonia 35 umol/L (11-32) 45 umol/L (11-32) Troponin I 0.000 ng/mL (0.000-0.056) C-Reactive Protein, Quantitative 12.8 mg/dL (0.00-0.90) Pro-B-Type Natriuretic Peptide 1973 pg/mL (0-125) Total Protein 6.0 G/DL (6.4-8.2) 5.5 G/DL (6.4-8.2) 5.7 G/DL (6.4-8.2) Albumin 1.8 G/DL (3.4-5.0) 1.7 G/DL (3.4-5.0) 1.7 G/DL (3.4-5.0) Globulin 4.2 g/dL 3.8 g/dL 4.0 g/dL Albumin/Globulin Ratio 0.4 (1.0-2.7) 0.4 (1.0-2.7) 0.4 (1.0-2.7) Triglycerides Level 76 MG/DL (30-150) Cholesterol Level 107 MG/DL (< 200) LDL Cholesterol 59 mg/dL (<100) HDL Cholesterol 16 MG/DL (40-60) Cholesterol/HDL Ratio 6.7 (3.3-4.4) Alpha Fetoprotein 2.5 ng/mL (0.0-8.3) Vitamin B12 Level 1922 PG/ML (193-986) Folate 11.1 NG/ML (8.6-58.9) Thyroid Stimulating Hormone (TSH) 1.299 uiU/mL (0.358-3.740) Free Thyroxine 1.36 NG/DL (0.76-1.46) Hepatitis A IgM Antibody Negative (Negative) Hepatitis B Surface Antigen Negative (Negative) Hepatitis B Core IgM Antibody Negative (Negative) Hepatitis C Antibody 0.3 s/co ratio (0.0-0.9) HIV (1&2) Antibody Rapid Negative (NEGATIVE) Body Fluid Source Paracentesis Body Fluid Volume 24 mL Body Fluid Appearance Hazy (Clear) Body Fluid RBC 282 /CUMM Body Fluid Total Nucleated Cells 172 /CUMM Body Fluid Polynuclear WBCs (%) 21 % Body Fluid Mononuclear WBCs (%) 77 % Body Fluid Mesothelial Cells (%) 2 % Body Fluid Albumin 0.4 g/dL (.) Height (Feet): 5 Height (Inches): 2.00 Weight (Pounds): 143 Objective Gen: NAD Pulm: CTAB, no cwr CV: RRR, no mgr Abd: soft, nt, nd Ext: no cce Jose Antonio Zhang MD Mar 06, 2019 16:58
--- NOTE | 2019-03-06 17:45 | General Progress Note ---
Assessment/Plan Problem List: (1) UTI (urinary tract infection) ICD Codes: N39.0 - Urinary tract infection, site not specified SNOMED: 97023625 Qualifiers: Qualified Codes: N30.00 - Acute cystitis without hematuria (2) Abdominal pain ICD Codes: R10.9 - Unspecified abdominal pain SNOMED: 85448051 Qualifiers: Qualified Codes: R10.84 - Generalized abdominal pain (3) Cholecystitis ICD Codes: K81.9 - Cholecystitis, unspecified SNOMED: 79836626 (4) Thrombocytopenia ICD Codes: D69.6 - Thrombocytopenia, unspecified SNOMED: 875538071 (5) Diabetes mellitus ICD Codes: E11.9 - Type 2 diabetes mellitus without complications SNOMED: 29495007 (6) HTN (hypertension) ICD Codes: I10 - Essential (primary) hypertension SNOMED: 47390026 Status: stable, progressing, unchanged Assessment/Plan: s/p paracentesis abdominal pain improving niddm ascites scheduled for paracentesis htn abx per id Subjective ROS Limited/Unobtainable: Yes Allergies: Coded Allergies: No Known Allergies (Unverified , 03/02/19) Objective Last 24 Hour Vital Signs Date Time Temp Pulse Resp B/P (MAP) Pulse Ox O2 Delivery O2 Flow Rate FiO2 03/06/19 16:05 98.2 77 19 143/64 (90) 95 03/06/19 12:00 97.6 79 18 107/67 (80) 95 03/06/19 09:00 Room Air 03/06/19 08:46 80 146/63 03/06/19 08:00 98.2 80 20 146/63 (90) 95 03/06/19 04:00 98.0 79 18 126/53 (77) 99 03/06/19 00:00 97.4 85 18 160/63 (95) 95 03/05/19 21:00 Room Air 03/05/19 20:00 98.1 77 19 161/73 (102) 98 Intake and Output 03/05/19 03/06/19 19:00 07:00 Intake Total 700.0 ml 745 ml Balance 700.0 ml 745 ml Intake Oral 240 ml 240 ml IV Total 460.0 ml 505 ml # Voids 1 2 Laboratory Tests 03/06/19 06:36: White Blood Count 7.0, Red Blood Count 3.21L, Hemoglobin 10.3L, Hematocrit 30.7L , Mean Corpuscular Volume 96, Mean Corpuscular Hemoglobin 31.9H, Mean Corpuscular Hemoglobin Concent 33.4, Red Cell Distribution Width 14.3, Platelet Count 75L, Mean Platelet Volume 6.7, Neutrophils (%) (Auto) , Lymphocytes (%) ( Auto) , Monocytes (%) (Auto) , Eosinophils (%) (Auto) , Basophils (%) (Auto) , Differential Total Cells Counted 100, Neutrophils % (Manual) 64, Lymphocytes % ( Manual) 18L, Monocytes % (Manual) 12H, Eosinophils % (Manual) 5H, Basophils % ( Manual) 1, Band Neutrophils 0, Platelet Estimate DecreasedL, Platelet Morphology Normal, Hypochromasia 1+, Sodium Level 137, Potassium Level 3.3L, Chloride Level 105, Carbon Dioxide Level 23, Anion Gap 9, Blood Urea Nitrogen 24H, Creatinine 1.2, Estimat Glomerular Filtration Rate , Glucose Level 132H, Uric Acid 3.4, Calcium Level 7.7L, Phosphorus Level 2.7, Magnesium Level 1.8, Total Bilirubin 1.8H, Direct Bilirubin 1.0H, Aspartate Amino Transf (AST/SGOT) 35, Alanine Aminotransferase (ALT/SGPT) 9L, Alkaline Phosphatase 93, Ammonia 45H , Total Protein 5.7L, Albumin 1.7L, Globulin 4.0, Albumin/Globulin Ratio 0.4L Height (Feet): 5 Height (Inches): 2.00 Weight (Pounds): 143 Respiratory/Chest: lungs clear Abdomen: soft Steve Burr MD Mar 06, 2019 17:45
--- NOTE | 2019-03-06 18:36 | NUR ---
NURSE NOTES: patient was up and about to the bathroom with assistance. no apparent distress noted. K+ IVPB given and completed by Audie TORIBIO for K+3.3. tolerated food intake well. will cont to monitor.
--- NOTE | 2019-03-06 19:02 | NUR ---
HAND-OFF: Report given to
--- NOTE | 2019-03-06 19:15 | NUR ---
NURSE NOTES: Received patient in bed, awake, alert, oriented x2, able to make needs known, speaks Tristanian, no acute distress noted. IV access patent, dry and intact (L hand 24 gauge). Call light is within reach, bed in lowest position, locked, side rails x2, bed alarm on. Will continue to monitor for comfort and safety.
[2019-03-06 20:00] VITALS: BP 149/77
[2019-03-06] MEDS: cefTRIAXone 1gm/D5W 55ml IVPB SCH ×2 (20:33)
--- NOTE | 2019-03-06 20:52 | NUR ---
NURSE NOTES: Had to remove a second dose of protonix as patient dropped it on the floor. Protonix that fell was discarded and other one given to patient.
[2019-03-07] VITALS (7 sets, daily range): BP systolic 106–160; BP diastolic 53–71
--- NOTE | 2019-03-07 07:22 | General Progress Note ---
Assessment/Plan Status: stable, progressing, unchanged Assessment/Plan: (1) Cirrhosis ICD Codes: K74.60 - Unspecified cirrhosis of liver SNOMED: 82442031 (2) Thickening of wall of gallbladder with pericholecystic fluid ICD Codes: K82.8 - Other specified diseases of gallbladder SNOMED: 649377250 (3) Abdominal pain ICD Codes: R10.9 - Unspecified abdominal pain SNOMED: 53397504 Qualifiers: Qualified Codes: R10.84 - Generalized abdominal pain (4) Cholecystitis ICD Codes: K81.9 - Cholecystitis, unspecified Assessment/Plan This is a 84 year old female patient presented with abdominal pain found on CT to have liver cirrhosis. 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 hepatitis panel, negative. s/p EGD SUMMARY OF FINDINGS: 1. Atrophic gastritis, status post biopsy. 2. No obvious evidence of any esophageal nor gastric varices. paracentesis prn monitor H&H, prn transfusions bowel regimen ppi fu labs, hepatitis panel>>>> neg follow up biopsy results and treat accordingly fu surg recs. Subjective ROS Limited/Unobtainable: Yes Allergies: Coded Allergies: No Known Allergies (Unverified , 03/02/19) Objective Last 24 Hour Vital Signs Date Time Temp Pulse Resp B/P (MAP) Pulse Ox O2 Delivery O2 Flow Rate FiO2 03/07/19 04:00 97.0 84 18 147/65 (92) 97 03/07/19 00:00 97.8 82 18 128/58 (81) 97 03/06/19 21:00 Room Air 03/06/19 20:00 97.7 82 18 149/77 (101) 97 03/06/19 16:05 98.2 77 19 143/64 (90) 95 03/06/19 12:00 97.6 79 18 107/67 (80) 95 03/06/19 09:00 Room Air 03/06/19 08:46 80 146/63 03/06/19 08:00 98.2 80 20 146/63 (90) 95 Intake and Output 03/06/19 03/07/19 19:00 07:00 Intake Total 760 ml 145 ml Output Total 0 ml Balance 760 ml 145 ml Intake Oral 360 ml 120 ml IV Total 400 ml 25 ml Output Urine Total 0 ml Estimated Blood Loss 0 ml # Voids 3 3 # Bowel Movements 2 2 Height (Feet): 5 Height (Inches): 2.00 Weight (Pounds): 143 General Appearance: alert EENT: normal ENT inspection Neck: supple Cardiovascular: normal rate Respiratory/Chest: decreased breath sounds Abdomen: normal bowel sounds, non tender, soft Extremities: non-tender Jorge Briceño MD Mar 07, 2019 07:22
--- NOTE | 2019-03-07 07:50 | NUR ---
HAND-OFF: Report given to RUSSELL Carranza.
[2019-03-07] MEDS: Lactulose 20gm/30ml UDC ORAL SCH ×2 (08:18→17:30)
--- NOTE | 2019-03-07 10:31 | Infectious Diseases Prog Note ---
Assessment/Plan Assessment/Plan IMPRESSION: Cholelithiasis and cholecystitis UTI with strep Bovis cirrhosis with ascites diabetes mellitus, hypertension, thrombocytopenia. RECOMMENDATION: Continue Rocephin Subjective ROS Limited/Unobtainable: Yes Respiratory: Reports: no symptoms Gastrointestinal/Abdominal: Reports: no symptoms Genitourinary: Reports: no symptoms Allergies: Coded Allergies: No Known Allergies (Unverified , 03/02/19) Objective Vital Signs Last 24 Hour Vital Signs Date Time Temp Pulse Resp B/P (MAP) Pulse Ox O2 Delivery O2 Flow Rate FiO2 03/07/19 08:18 83 138/71 03/07/19 08:00 98.6 83 20 138/71 (93) 96 03/07/19 07:58 Room Air 03/07/19 04:00 97.0 84 18 147/65 (92) 97 03/07/19 00:00 97.8 82 18 128/58 (81) 97 03/06/19 21:00 Room Air 03/06/19 20:00 97.7 82 18 149/77 (101) 97 03/06/19 16:05 98.2 77 19 143/64 (90) 95 03/06/19 12:00 97.6 79 18 107/67 (80) 95 Height (Feet): 5 Height (Inches): 2.00 Weight (Pounds): 143 General Appearance: no acute distress HEENT: mucous membranes moist Respiratory/Chest: lungs clear Cardiovascular: normal rate Abdomen: soft, non tender, distended Extremities: no edema Neurologic/Psychiatric: alert, responsive Musculoskeletal: atrophy Current Medications Medications (Trade) Dose Ordered Sig/Robe Route PRN Reason Start Time Stop Time Status Last Admin Dose Admin Amlodipine Besylate (Norvasc) 5 mg DAILY ORAL 03/04/19 09:00 04/02/19 08:59 03/07/19 08:18 Ceftriaxone Sodium 1 gm/ Dextrose 55 ml @ 110 mls/hr Q24H IVPB 03/05/19 21:00 03/12/19 20:59 03/06/19 20:33 Clonidine HCl (Catapres Tab) 0.1 mg EVERY 6 HOURS PRN ORAL SBP > 170 03/03/19 04:30 04/02/19 04:29 Dextrose (Dextrose 50%) 50 ml STAT PRN IV Blood Sugar < 70 mg/dl 9/25/19 08:00 04/02/19 07:59 Lactulose (Cephulac) 20 gm BID ORAL 03/04/19 18:00 04/03/19 17:59 03/06/19 17:35 Pantoprazole (Protonix) 40 mg EVERY 12 HOURS ORAL 03/04/19 21:00 04/03/19 20:59 03/07/19 08:18 Reji Callejas MD Mar 07, 2019 10:31
--- NOTE | 2019-03-07 14:35 | Nephrology Progress Note ---
Assessment/Plan Problem List: (1) UTI (urinary tract infection) (2) Cirrhosis (3) Abdominal pain (4) Diabetes mellitus (5) HTN (hypertension) Assessment UTI Cirrhosis / Abd pain cholecystitis DM HTN Anemia HypoAlbuminemia Plan check labs in am stop NS IV fluids Per GI start lactulose K supplement Subjective ROS Limited/Unobtainable: No Constitutional: Reports: malaise Objective Objective Last 24 Hour Vital Signs Date Time Temp Pulse Resp B/P (MAP) Pulse Ox O2 Delivery O2 Flow Rate FiO2 03/07/19 11:44 98.0 79 20 142/59 (86) 98 03/07/19 08:18 83 138/71 03/07/19 08:00 98.6 83 20 138/71 (93) 96 03/07/19 07:58 Room Air 03/07/19 04:00 97.0 84 18 147/65 (92) 97 03/07/19 00:00 97.8 82 18 128/58 (81) 97 03/06/19 21:00 Room Air 03/06/19 20:00 97.7 82 18 149/77 (101) 97 03/06/19 16:05 98.2 77 19 143/64 (90) 95 Intake and Output 03/06/19 03/07/19 19:00 07:00 Intake Total 760 ml 145 ml Output Total 0 ml Balance 760 ml 145 ml Intake Oral 360 ml 120 ml IV Total 400 ml 25 ml Output Urine Total 0 ml Estimated Blood Loss 0 ml # Voids 3 3 # Bowel Movements 2 2 Height (Feet): 5 Height (Inches): 2.00 Weight (Pounds): 143 General Appearance: no apparent distress Respiratory/Chest: decreased breath sounds Abdomen: distended Objective no change Bao Biggs MD Mar 07, 2019 14:35
[2019-03-07] MEDS: Spironolactone 25mg tab ORAL SCH (15:16)
--- NOTE | 2019-03-07 15:36 | General Progress Note ---
Assessment/Plan Problem List: (1) UTI (urinary tract infection) ICD Codes: N39.0 - Urinary tract infection, site not specified SNOMED: 47737169 Qualifiers: Qualified Codes: N30.00 - Acute cystitis without hematuria (2) Abdominal pain ICD Codes: R10.9 - Unspecified abdominal pain SNOMED: 73772884 Qualifiers: Qualified Codes: R10.84 - Generalized abdominal pain (3) Cholecystitis ICD Codes: K81.9 - Cholecystitis, unspecified SNOMED: 65430290 (4) Thrombocytopenia ICD Codes: D69.6 - Thrombocytopenia, unspecified SNOMED: 821897832 (5) Diabetes mellitus ICD Codes: E11.9 - Type 2 diabetes mellitus without complications SNOMED: 43087979 (6) HTN (hypertension) ICD Codes: I10 - Essential (primary) hypertension SNOMED: 59494224 Status: stable, progressing, unchanged Assessment/Plan: s/p paracentesis abdominal pain improving niddm ascites uti afebrile no acute events Subjective ROS Limited/Unobtainable: Yes Allergies: Coded Allergies: No Known Allergies (Unverified , 03/02/19) Objective Last 24 Hour Vital Signs Date Time Temp Pulse Resp B/P (MAP) Pulse Ox O2 Delivery O2 Flow Rate FiO2 03/07/19 15:16 84 160/59 (92) 03/07/19 11:44 98.0 79 20 142/59 (86) 98 03/07/19 08:18 83 138/71 03/07/19 08:00 98.6 83 20 138/71 (93) 96 03/07/19 07:58 Room Air 03/07/19 04:00 97.0 84 18 147/65 (92) 97 03/07/19 00:00 97.8 82 18 128/58 (81) 97 03/06/19 21:00 Room Air 03/06/19 20:00 97.7 82 18 149/77 (101) 97 03/06/19 16:05 98.2 77 19 143/64 (90) 95 Intake and Output 03/06/19 03/07/19 19:00 07:00 Intake Total 760 ml 145 ml Output Total 0 ml Balance 760 ml 145 ml Intake Oral 360 ml 120 ml IV Total 400 ml 25 ml Output Urine Total 0 ml Estimated Blood Loss 0 ml # Voids 3 3 # Bowel Movements 2 2 Height (Feet): 5 Height (Inches): 2.00 Weight (Pounds): 143 Neck: supple Cardiovascular: normal rate Respiratory/Chest: lungs clear Abdomen: soft Steve Burr MD Mar 07, 2019 15:36
[2019-03-07] MEDS ORDERED: Tubing IV Secondary IV ONE (15:37)
--- NOTE | 2019-03-07 15:51 | Surgery Progress Note ---
Surgery Progress Note Subjective Additional Comments No acute events. Tolerating diet. Family at bedside. No complaints. Well- appearing today smiling and waving Objective Last 24 Hour Vital Signs Date Time Temp Pulse Resp B/P (MAP) Pulse Ox O2 Delivery O2 Flow Rate FiO2 03/07/19 15:16 84 160/59 (92) 03/07/19 11:44 98.0 79 20 142/59 (86) 98 03/07/19 08:18 83 138/71 03/07/19 08:00 98.6 83 20 138/71 (93) 96 03/07/19 07:58 Room Air 03/07/19 04:00 97.0 84 18 147/65 (92) 97 03/07/19 00:00 97.8 82 18 128/58 (81) 97 03/06/19 21:00 Room Air 03/06/19 20:00 97.7 82 18 149/77 (101) 97 03/06/19 16:05 98.2 77 19 143/64 (90) 95 I&O Intake and Output 03/06/19 03/07/19 19:00 07:00 Intake Total 760 ml 145 ml Output Total 0 ml Balance 760 ml 145 ml Intake Oral 360 ml 120 ml IV Total 400 ml 25 ml Output Urine Total 0 ml Estimated Blood Loss 0 ml # Voids 3 3 # Bowel Movements 2 2 Cardiovascular: RSR Respiratory: clear Abdomen: soft, flat, non-tender, present bowel sounds Extremities: no tenderness, no cyanosis Plan Problems: (1) Thickening of wall of gallbladder with pericholecystic fluid Assessment & Plan: Impression: Gallbladder neck stone. Gallbladder distention and mild gallbladder wall thickening raises possibility of acute cholecystitis. Consider hepatobiliary nuclear scan if clinically indicated for further evaluation. Evidence of hepatic cirrhosis Moderate ascites, presumably related to the above Other stigmata of portal hypertension as well, including splenomegaly, periesophageal varices, and congestion of the mesentery Other findings of anasarca, including diffuse edema of the abdominal, pelvic, and subcutaneous fat Edema of the small bowel wall, likely a manifestation of anasarca, but the possibility of enteritis should also be considered Distention of the left ovarian vein, left paraovarian varices, suspicious for ovarian vein reflux. Correlate with any clinical history of pelvic congestion syndrome (2) Abdominal pain Assessment & Plan: discussed with GI and medical team given cirrhosis high risk for surgery improving will hold on cholecystostomy tube trend labs IV abx will follow with recs thank you (3) Cholecystitis Assessment & Plan: Impression: Nonvisualized gallbladder. This is concerning for acute cholecystitis Patent common bile duct (4) Cirrhosis Assessment & Plan: Impression: Small gallbladder neck stone demonstrated on CT scan performed one hour earlier is sonographically occult Gallbladder wall thickening. This could be a manifestation of acute cholecystitis, but could also be due to hemodynamic gradient related to hepatocellular disease Evidence of hepatic cirrhosis Ascites Vini Reyes Mar 07, 2019 15:50
--- NOTE | 2019-03-07 19:07 | NUR ---
HAND-OFF: Report given to Jennifer.
--- NOTE | 2019-03-07 20:00 | NUR ---
NURSE NOTES: RECEIVED PATIENT LYING IN BED, AWAKE, ALERT/ORIENTED X3, ROMANIAN SPEAKING, DENIES PAIN. ECCHYMOSIS NOTED TO BILATERAL UPPER EXTREMITIES. NO SIGNS AND SYSTEMS OF ACUTE CARDIO RESPIRATORY DISTRESS/SHORTNESS OF BREATH, DENIES CHEST PAIN, NO PERIPHERAL EDEMA NOTED. S/P PARACENTESES/2LITERS REMOVED - ABDOMEN ROUND/SOFT/BOWEL SOUNDS AUDIBLE IN ALL QUADRANTS. NO COMPLAINTS OF N/V/D, BATHROOM PRIVILEGES WITH ASSIST SECONDARY TO WEAKNESS. COMFORT CARE PROVIDED. SIDE RAILS UP X3/BED IN LOWEST POSITION FOR SAFETY. ENCOURAGED PATIENT TO UTILIZE CALL LIGHT FOR ASSISTANCE. BED ALARM ACTIVATED. NAD.
[2019-03-07] MEDS: cefTRIAXone 1gm/D5W 55ml IVPB SCH ×2 (20:41)
[2019-03-08] VITALS: BP 156/78
--- NOTE | 2019-03-08 02:33 | NUR ---
NURSE NOTES: RESTING WELL, NAD.
[2019-03-08 04:00] VITALS: BP 139/72
--- NOTE | 2019-03-08 06:34 | NUR ---
NURSE NOTES: RESTED WELL, NO SIGNIFICANT CHANGE OF CONDITION NOTED THROUGHOUT THE NIGHT. SAFETY MAINTAINED. NAD.
[2019-03-08 06:59] LABS: HEMATOCRIT 29.3 % (37.0-47.0); MEAN CORPUSCULAR VOLUME 94 FL (80-99); PLATELET COUNT 67 K/UL (150-450); RED BLOOD COUNT 3.11 M/UL (4.20-5.40); RED CELL DISTRIBUTION WIDTH 13.9 % (11.6-14.8); WHITE BLOOD COUNT 5.2 K/UL (4.8-10.8)
[2019-03-08 07:28] LABS: ALANINE AMINOTRANSFERASE 10 U/L (12-78); ALBUMIN 1.7 G/DL (3.4-5.0); ALBUMIN/GLOBULIN RATIO 0.4 (1.0-2.7); ALKALINE PHOSPHATASE 111 U/L (46-116); ANION GAP 8 mmol/L (5-15); ASPARTATE AMINO TRANSFERASE 42 U/L (15-37); BILIRUBIN,TOTAL 1.5 MG/DL (0.2-1.0); BLOOD UREA NITROGEN 17 mg/dL (7-18); CALCIUM 7.9 MG/DL (8.5-10.1); CARBON DIOXIDE 23 MMOL/L (21-32); CHLORIDE 108 MMOL/L (98-107); CREATININE 1.2 MG/DL (0.55-1.30); POTASSIUM 3.8 MMOL/L (3.5-5.1); SODIUM 139 MMOL/L (136-145)
[2019-03-08 07:31] LABS: BILIRUBIN,DIRECT 0.8 MG/DL (0.0-0.3)
[2019-03-08 07:36] LABS: PHOSPHORUS 2.4 MG/DL (2.5-4.9)
--- NOTE | 2019-03-08 07:38 | NUR ---
HAND-OFF: Report given to marilyn de la o.
[2019-03-08 08:00] VITALS: BP 137/70
[2019-03-08] MEDS: Lactulose 20gm/30ml UDC ORAL SCH ×2 (09:00→09:21)
[2019-03-08 09:21] VITALS: BP 137/70
[2019-03-08] MEDS: Spironolactone 25mg tab ORAL SCH (09:21)
--- NOTE | 2019-03-08 11:09 | NUR ---
NURSE NOTES: Patient received from RUSSELL Rodriguez this AM. Patient is alert and oriented. NO reports of pain or discomfort. Side rails upx2, bed locked, in lowest position, and call light within reach. Will continue to monitor.
--- NOTE | 2019-03-08 11:15 | Infectious Diseases Prog Note ---
Assessment/Plan Assessment/Plan antibiotics : ceftriaxone A 1. acute cholecystitis 1. streptococcus bovis UTI 3. leucocytosis resolved 4. cirrhosis 5. diabetes mellitus 6. hypertension 7. thrombocytopenia P 1. d/c ceftriaxone 2. start and continue po levoquin 4 days 3. will follow up Subjective Constitutional: Denies: fever, chills Respiratory: Denies: shortness of breath, dry cough Gastrointestinal/Abdominal: Denies: nausea, vomiting, diarrhea Musculoskeletal: Denies: pain Allergies: Coded Allergies: No Known Allergies (Unverified , 03/02/19) Objective Vital Signs Last 24 Hour Vital Signs Date Time Temp Pulse Resp B/P (MAP) Pulse Ox O2 Delivery O2 Flow Rate FiO2 03/08/19 09:21 85 137/70 03/08/19 08:15 Room Air 03/08/19 08:00 98.1 85 18 137/70 (92) 100 03/08/19 04:00 97.5 85 18 139/72 (94) 96 03/08/19 00:00 97.9 72 18 156/78 (104) 96 03/07/19 21:00 Room Air 03/07/19 20:00 98.6 79 18 106/68 (81) 97 03/07/19 16:00 98.0 84 16 143/53 (83) 95 03/07/19 15:16 84 160/59 (92) 03/07/19 11:44 98.0 79 20 142/59 (86) 98 Height (Feet): 5 Height (Inches): 2.00 Weight (Pounds): 143 Respiratory/Chest: lungs clear Cardiovascular: normal rate, regular rhythm, no gallop/murmur Abdomen: soft, non tender Extremities: no edema Laboratory Tests Test 03/08/19 05:40 White Blood Count 5.2 K/UL (4.8-10.8) Red Blood Count 3.11 M/UL (4.20-5.40) L Hemoglobin 10.0 G/DL (12.0-16.0) L Hematocrit 29.3 % (37.0-47.0) L Mean Corpuscular Volume 94 FL (80-99) Mean Corpuscular Hemoglobin 32.2 PG (27.0-31.0) H Mean Corpuscular Hemoglobin Concent 34.2 G/DL (32.0-36.0) Red Cell Distribution Width 13.9 % (11.6-14.8) Platelet Count 67 K/UL (150-450) L Mean Platelet Volume 7.1 FL (6.5-10.1) Neutrophils (%) (Auto) % (45.0-75.0) Lymphocytes (%) (Auto) % (20.0-45.0) Monocytes (%) (Auto) % (1.0-10.0) Eosinophils (%) (Auto) % (0.0-3.0) Basophils (%) (Auto) % (0.0-2.0) Differential Total Cells Counted 100 Neutrophils % (Manual) 64 % (45-75) Lymphocytes % (Manual) 27 % (20-45) Monocytes % (Manual) 5 % (1-10) Eosinophils % (Manual) 4 % (0-3) H Basophils % (Manual) 0 % (0-2) Band Neutrophils 0 % (0-8) Platelet Estimate Decreased L Platelet Morphology Normal Sodium Level 139 MMOL/L (136-145) Potassium Level 3.8 MMOL/L (3.5-5.1) Chloride Level 108 MMOL/L (98-107) H Carbon Dioxide Level 23 MMOL/L (21-32) Anion Gap 8 mmol/L (5-15) Blood Urea Nitrogen 17 mg/dL (7-18) Creatinine 1.2 MG/DL (0.55-1.30) Estimat Glomerular Filtration Rate mL/min (>60) Glucose Level 119 MG/DL (74-106) H Calcium Level 7.9 MG/DL (8.5-10.1) L Phosphorus Level 2.4 MG/DL (2.5-4.9) L Magnesium Level 1.9 MG/DL (1.8-2.4) Total Bilirubin 1.5 MG/DL (0.2-1.0) H Direct Bilirubin 0.8 MG/DL (0.0-0.3) H Aspartate Amino Transf (AST/SGOT) 42 U/L (15-37) H Alanine Aminotransferase (ALT/SGPT) 10 U/L (12-78) L Alkaline Phosphatase 111 U/L (46-116) Ammonia 199 umol/L (11-32) H Total Protein 5.9 G/DL (6.4-8.2) L Albumin 1.7 G/DL (3.4-5.0) L Globulin 4.2 g/dL Albumin/Globulin Ratio 0.4 (1.0-2.7) L Current Medications Medications (Trade) Dose Ordered Sig/Robe Route PRN Reason Start Time Stop Time Status Last Admin Dose Admin Amlodipine Besylate (Norvasc) 5 mg DAILY ORAL 03/04/19 09:00 04/02/19 08:59 03/08/19 09:21 Ceftriaxone Sodium 1 gm/ Dextrose 55 ml @ 110 mls/hr Q24H IVPB 03/05/19 21:00 03/12/19 20:59 03/07/19 20:41 Clonidine HCl (Catapres Tab) 0.1 mg EVERY 6 HOURS PRN ORAL SBP > 170 03/03/19 04:30 04/02/19 04:29 Dextrose (Dextrose 50%) 50 ml STAT PRN IV Blood Sugar < 70 mg/dl 03/03/19 08:00 04/02/19 07:59 Lactulose (Cephulac) 20 gm BID ORAL 03/04/19 18:00 04/03/19 17:59 03/07/19 17:30 Pantoprazole (Protonix) 40 mg EVERY 12 HOURS ORAL 03/04/19 21:00 04/03/19 20:59 03/08/19 09:21 Spironolactone (Aldactone) 25 mg DAILY ORAL 03/07/19 14:45 04/06/19 14:44 03/08/19 09:21 Jose Tse MD Mar 08, 2019 11:15
--- NOTE | 2019-03-08 11:43 | GI Progress Note ---
Assessment/Plan Problems: (1) Cirrhosis ICD Codes: K74.60 - Unspecified cirrhosis of liver SNOMED: 12912720 (2) Thickening of wall of gallbladder with pericholecystic fluid ICD Codes: K82.8 - Other specified diseases of gallbladder SNOMED: 393007613 (3) Abdominal pain ICD Codes: R10.9 - Unspecified abdominal pain SNOMED: 72821727 Qualifiers: Qualified Codes: R10.84 - Generalized abdominal pain (4) Cholecystitis ICD Codes: K81.9 - Cholecystitis, unspecified SNOMED: 07070165 Status: stable Status Narrative Discussed with Dr. Briceño. Assessment/Plan This is a 84 year old female patient presented with abdominal pain found on CT to have liver cirrhosis. 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 hepatitis panel, negative. s/p paracentesis s/p EGD SUMMARY OF FINDINGS: 1. Atrophic gastritis, status post biopsy. 2. No obvious evidence of any esophageal nor gastric varices. advance diet monitor H&H, prn transfusions bowel regimen ppi fu labs, hepatitis panel>>>> neg follow up biopsy results and treat accordingly fu surg recs. dc planning The patient was seen and examined at bedside and all new and available data was reviewed in the patients chart. I agree with the above findings, impression and plan. (Patient seen earlier today. Signature stamp does not reflect patient encounter time.). - Jorge Briceño MD Subjective Gastrointestinal/Abdominal: Reports: no symptoms Objective Last 24 Hour Vital Signs Date Time Temp Pulse Resp B/P (MAP) Pulse Ox O2 Delivery O2 Flow Rate FiO2 03/08/19 09:21 85 137/70 03/08/19 08:15 Room Air 03/08/19 08:00 98.1 85 18 137/70 (92) 100 03/08/19 04:00 97.5 85 18 139/72 (94) 96 03/08/19 00:00 97.9 72 18 156/78 (104) 96 03/07/19 21:00 Room Air 03/07/19 20:00 98.6 79 18 106/68 (81) 97 03/07/19 16:00 98.0 84 16 143/53 (83) 95 03/07/19 15:16 84 160/59 (92) 03/07/19 11:44 98.0 79 20 142/59 (86) 98 Intake and Output 03/07/19 03/08/19 19:00 07:00 Intake Total 355 ml Balance 355 ml Intake Oral 300 ml IV Total 55 ml # Voids 3 3 Laboratory Tests Test 03/08/19 05:40 White Blood Count 5.2 K/UL (4.8-10.8) Red Blood Count 3.11 M/UL (4.20-5.40) L Hemoglobin 10.0 G/DL (12.0-16.0) L Hematocrit 29.3 % (37.0-47.0) L Mean Corpuscular Volume 94 FL (80-99) Mean Corpuscular Hemoglobin 32.2 PG (27.0-31.0) H Mean Corpuscular Hemoglobin Concent 34.2 G/DL (32.0-36.0) Red Cell Distribution Width 13.9 % (11.6-14.8) Platelet Count 67 K/UL (150-450) L Mean Platelet Volume 7.1 FL (6.5-10.1) Neutrophils (%) (Auto) % (45.0-75.0) Lymphocytes (%) (Auto) % (20.0-45.0) Monocytes (%) (Auto) % (1.0-10.0) Eosinophils (%) (Auto) % (0.0-3.0) Basophils (%) (Auto) % (0.0-2.0) Differential Total Cells Counted 100 Neutrophils % (Manual) 64 % (45-75) Lymphocytes % (Manual) 27 % (20-45) Monocytes % (Manual) 5 % (1-10) Eosinophils % (Manual) 4 % (0-3) H Basophils % (Manual) 0 % (0-2) Band Neutrophils 0 % (0-8) Platelet Estimate Decreased L Platelet Morphology Normal Sodium Level 139 MMOL/L (136-145) Potassium Level 3.8 MMOL/L (3.5-5.1) Chloride Level 108 MMOL/L (98-107) H Carbon Dioxide Level 23 MMOL/L (21-32) Anion Gap 8 mmol/L (5-15) Blood Urea Nitrogen 17 mg/dL (7-18) Creatinine 1.2 MG/DL (0.55-1.30) Estimat Glomerular Filtration Rate mL/min (>60) Glucose Level 119 MG/DL (74-106) H Calcium Level 7.9 MG/DL (8.5-10.1) L Phosphorus Level 2.4 MG/DL (2.5-4.9) L Magnesium Level 1.9 MG/DL (1.8-2.4) Total Bilirubin 1.5 MG/DL (0.2-1.0) H Direct Bilirubin 0.8 MG/DL (0.0-0.3) H Aspartate Amino Transf (AST/SGOT) 42 U/L (15-37) H Alanine Aminotransferase (ALT/SGPT) 10 U/L (12-78) L Alkaline Phosphatase 111 U/L (46-116) Ammonia 199 umol/L (11-32) H Total Protein 5.9 G/DL (6.4-8.2) L Albumin 1.7 G/DL (3.4-5.0) L Globulin 4.2 g/dL Albumin/Globulin Ratio 0.4 (1.0-2.7) L Height (Feet): 5 Height (Inches): 2.00 Weight (Pounds): 143 General Appearance: WD/WN, no apparent distress, alert Cardiovascular: normal rate Respiratory/Chest: normal breath sounds, no respiratory distress Abdominal Exam: normal bowel sounds, non tender, soft Extremities: non-tender Lani Merino [employer] Mar 08, 2019 11:43
[2019-03-08] MEDS ORDERED: LEVAQUIN500 MG ORAL (11:46)
[2019-03-08] MEDS ORDERED: LACTULOSE10 GM/155 PO (11:48)
[2019-03-08] MEDS ORDERED: Levofloxacin 500mg tab ORAL SCH (12:00)
--- NOTE | 2019-03-08 12:56 | Nephrology Progress Note ---
Assessment/Plan Problem List: (1) UTI (urinary tract infection) (2) Cirrhosis (3) Abdominal pain (4) Diabetes mellitus (5) HTN (hypertension) Assessment UTI Cirrhosis / Abd pain high [place] cholecystitis DM HTN Anemia HypoAlbuminemia Plan check labs stop NS IV fluids Per GI on lactulose K supplement Subjective ROS Limited/Unobtainable: No Constitutional: Reports: malaise, weakness Objective Objective Last 24 Hour Vital Signs Date Time Temp Pulse Resp B/P (MAP) Pulse Ox O2 Delivery O2 Flow Rate FiO2 03/08/19 09:21 85 137/70 03/08/19 08:15 Room Air 03/08/19 08:00 98.1 85 18 137/70 (92) 100 03/08/19 04:00 97.5 85 18 139/72 (94) 96 03/08/19 00:00 97.9 72 18 156/78 (104) 96 03/07/19 21:00 Room Air 03/07/19 20:00 98.6 79 18 106/68 (81) 97 03/07/19 16:00 98.0 84 16 143/53 (83) 95 03/07/19 15:16 84 160/59 (92) Intake and Output 03/07/19 03/08/19 19:00 07:00 Intake Total 355 ml Balance 355 ml Intake Oral 300 ml IV Total 55 ml # Voids 3 3 Laboratory Tests 03/08/19 05:40: White Blood Count 5.2, Red Blood Count 3.11L, Hemoglobin 10.0L, Hematocrit 29.3L , Mean Corpuscular Volume 94, Mean Corpuscular Hemoglobin 32.2H, Mean Corpuscular Hemoglobin Concent 34.2, Red Cell Distribution Width 13.9, Platelet Count 67L, Mean Platelet Volume 7.1, Neutrophils (%) (Auto) , Lymphocytes (%) ( Auto) , Monocytes (%) (Auto) , Eosinophils (%) (Auto) , Basophils (%) (Auto) , Differential Total Cells Counted 100, Neutrophils % (Manual) 64, Lymphocytes % ( Manual) 27, Monocytes % (Manual) 5, Eosinophils % (Manual) 4H, Basophils % ( Manual) 0, Band Neutrophils 0, Platelet Estimate DecreasedL, Platelet Morphology Normal, Sodium Level 139, Potassium Level 3.8, Chloride Level 108H, Carbon Dioxide Level 23, Anion Gap 8, Blood Urea Nitrogen 17, Creatinine 1.2, Estimat Glomerular Filtration Rate , Glucose Level 119H, Calcium Level 7.9L, Phosphorus Level 2.4L, Magnesium Level 1.9, Total Bilirubin 1.5H, Direct Bilirubin 0.8H, Aspartate Amino Transf (AST/SGOT) 42H, Alanine Aminotransferase (ALT/SGPT) 10L, Alkaline Phosphatase 111, Ammonia 199H, Total Protein 5.9L, Albumin 1.7L, Globulin 4.2, Albumin/Globulin Ratio 0.4L Height (Feet): 5 Height (Inches): 2.00 Weight (Pounds): 143 Objective no change Bao Biggs MD Mar 08, 2019 12:56
[2019-03-08] MEDS ORDERED: Lactulose 20gm/30ml UDC ORAL SCH (13:00)
--- NOTE | 2019-03-08 13:42 | NUR ---
NURSE NOTES: Patient discharged Home via taxi. Taxi voucher given to patient. Discharge instructions with prescriptions given to patient. IV removed. ID bracelet removed. Patient stable upon discharge.
--- NOTE | 2019-03-08 13:49 | Hematology/Onc Progress Note ---
Assessment/Plan Assessment/Plan # Pancytopenia is likely due to underlying cirrhosis, splenomegaly, paraesophageal varices, portal HTN --> at this time, imaging of liver reviewed, no e/o malignancy --> hepatitis panel and hiv are both negative --> plt trend: 58-->75k-->67k --> AFP is 2.5 --> smear has been reviewed, r/o schistocytes --> neupogen on prn basis --> plts as needed presurg, goal >50k if procedure --> 03/04: EGD--> atrophic gastritis noted --> ppi as needed --> paracentesis on prn basis # Anemia of chronic disease --> no evidence of iron deficiency --> hgb goal >7, transfuse prn --> less of a role for iron and epogen --> hgb trend: 9.3-->10.3 # Thickening of wall of gallbladder with pericholecystic fluid --> as per surg primo vizcaino # UTI (urinary tract infection) # Cholecystitis # Liver cirrhosis Greatly appreciate consultation. Subjective Constitutional: Denies: no symptoms, chills, fever, malaise, weakness, other HEENT: Denies: no symptoms, eye pain, blurred vision, tearing, double vision, ear pain, ear discharge, nose pain, nose congestion, throat pain, throat swelling, mouth pain, mouth swelling, other Cardiovascular: Denies: no symptoms, chest pain, edema, irregular heart rate, lightheadedness, palpitations, syncope, other Respiratory: Denies: no symptoms, cough, shortness of breath, SOB with excertion, SOB at rest, sputum, wheezing, other Genitourinary: Denies: no symptoms, burning, discharge, frequency, flank pain, hematuria, incontinence, pain, urgency, other Neurologic/Psychiatric: Denies: no symptoms, anxiety, depressed, emotional problems, headache, numbness, paresthesia, pre-existing deficit, seizure, tingling, tremors, weakness, other Allergies: Coded Allergies: No Known Allergies (Unverified , 03/02/19) Subjective 03/04: abd pain better, pending scan, gi/surg input, labs noted, pending hiv/hep 03/05: awake and alert, no acute events, hiv negative, on piper/tazo 03/06: no events, on abx, no bleeding, labs noted, no f/c 03/08: dc home today, no bleeding, labs reviewed Objective Objective Last 24 Hour Vital Signs Date Time Temp Pulse Resp B/P (MAP) Pulse Ox O2 Delivery O2 Flow Rate FiO2 03/08/19 09:21 85 137/70 03/08/19 08:15 Room Air 03/08/19 08:00 98.1 85 18 137/70 (92) 100 03/08/19 04:00 97.5 85 18 139/72 (94) 96 03/08/19 00:00 97.9 72 18 156/78 (104) 96 03/07/19 21:00 Room Air 03/07/19 20:00 98.6 79 18 106/68 (81) 97 03/07/19 16:00 98.0 84 16 143/53 (83) 95 03/07/19 15:16 84 160/59 (92) 03/07/19 11:44 98.0 79 20 142/59 (86) 98 03/07/19 08:18 83 138/71 03/07/19 08:00 98.6 83 20 138/71 (93) 96 03/07/19 07:58 Room Air 03/07/19 04:00 97.0 84 18 147/65 (92) 97 03/07/19 00:00 97.8 82 18 128/58 (81) 97 03/06/19 21:00 Room Air 03/06/19 20:00 97.7 82 18 149/77 (101) 97 03/06/19 16:05 98.2 77 19 143/64 (90) 95 Intake and Output 03/07/19 03/08/19 19:00 07:00 Intake Total 355 ml Balance 355 ml Intake Oral 300 ml IV Total 55 ml # Voids 3 3 Labs Test 03/05/19 14:50 03/06/19 06:36 03/08/19 05:40 Body Fluid Source Paracentesis Body Fluid Volume 24 mL Body Fluid Appearance Hazy (Clear) Body Fluid RBC 282 /CUMM Body Fluid Total Nucleated Cells 172 /CUMM Body Fluid Polynuclear WBCs (%) 21 % Body Fluid Mononuclear WBCs (%) 77 % Body Fluid Mesothelial Cells (%) 2 % Body Fluid Albumin 0.4 g/dL (.) White Blood Count 7.0 K/UL (4.8-10.8) 5.2 K/UL (4.8-10.8) Red Blood Count 3.21 M/UL (4.20-5.40) 3.11 M/UL (4.20-5.40) Hemoglobin 10.3 G/DL (12.0-16.0) 10.0 G/DL (12.0-16.0) Hematocrit 30.7 % (37.0-47.0) 29.3 % (37.0-47.0) Mean Corpuscular Volume 96 FL (80-99) 94 FL (80-99) Mean Corpuscular Hemoglobin 31.9 PG (27.0-31.0) 32.2 PG (27.0-31.0) Mean Corpuscular Hemoglobin Concent 33.4 G/DL (32.0-36.0) 34.2 G/DL (32.0-36.0) Red Cell Distribution Width 14.3 % (11.6-14.8) 13.9 % (11.6-14.8) Platelet Count 75 K/UL (150-450) 67 K/UL (150-450) Mean Platelet Volume 6.7 FL (6.5-10.1) 7.1 FL (6.5-10.1) Neutrophils (%) (Auto) % (45.0-75.0) % (45.0-75.0) Lymphocytes (%) (Auto) % (20.0-45.0) % (20.0-45.0) Monocytes (%) (Auto) % (1.0-10.0) % (1.0-10.0) Eosinophils (%) (Auto) % (0.0-3.0) % (0.0-3.0) Basophils (%) (Auto) % (0.0-2.0) % (0.0-2.0) Differential Total Cells Counted 100 100 Neutrophils % (Manual) 64 % (45-75) 64 % (45-75) Lymphocytes % (Manual) 18 % (20-45) 27 % (20-45) Monocytes % (Manual) 12 % (1-10) 5 % (1-10) Eosinophils % (Manual) 5 % (0-3) 4 % (0-3) Basophils % (Manual) 1 % (0-2) 0 % (0-2) Band Neutrophils 0 % (0-8) 0 % (0-8) Platelet Estimate Decreased Decreased Platelet Morphology Normal Normal Hypochromasia 1+ Sodium Level 137 MMOL/L (136-145) 139 MMOL/L (136-145) Potassium Level 3.3 MMOL/L (3.5-5.1) 3.8 MMOL/L (3.5-5.1) Chloride Level 105 MMOL/L (98-107) 108 MMOL/L (98-107) Carbon Dioxide Level 23 MMOL/L (21-32) 23 MMOL/L (21-32) Anion Gap 9 mmol/L (5-15) 8 mmol/L (5-15) Blood Urea Nitrogen 24 mg/dL (7-18) 17 mg/dL (7-18) Creatinine 1.2 MG/DL (0.55-1.30) 1.2 MG/DL (0.55-1.30) Estimat Glomerular Filtration Rate mL/min (>60) mL/min (>60) Glucose Level 132 MG/DL (74-106) 119 MG/DL (74-106) Uric Acid 3.4 MG/DL (2.6-7.2) Calcium Level 7.7 MG/DL (8.5-10.1) 7.9 MG/DL (8.5-10.1) Phosphorus Level 2.7 MG/DL (2.5-4.9) 2.4 MG/DL (2.5-4.9) Magnesium Level 1.8 MG/DL (1.8-2.4) 1.9 MG/DL (1.8-2.4) Total Bilirubin 1.8 MG/DL (0.2-1.0) 1.5 MG/DL (0.2-1.0) Direct Bilirubin 1.0 MG/DL (0.0-0.3) 0.8 MG/DL (0.0-0.3) Aspartate Amino Transf (AST/SGOT) 35 U/L (15-37) 42 U/L (15-37) Alanine Aminotransferase (ALT/SGPT) 9 U/L (12-78) 10 U/L (12-78) Alkaline Phosphatase 93 U/L (46-116) 111 U/L (46-116) Ammonia 45 umol/L (11-32) 199 umol/L (11-32) Total Protein 5.7 G/DL (6.4-8.2) 5.9 G/DL (6.4-8.2) Albumin 1.7 G/DL (3.4-5.0) 1.7 G/DL (3.4-5.0) Globulin 4.0 g/dL 4.2 g/dL Albumin/Globulin Ratio 0.4 (1.0-2.7) 0.4 (1.0-2.7) Height (Feet): 5 Height (Inches): 2.00 Weight (Pounds): 143 Objective Gen: NAD Pulm: CTAB, no cwr CV: RRR, no mgr Abd: soft, nt, nd Ext: no cce Jose Antonio Zhang MD Mar 08, 2019 13:49
--- NOTE | 2019-03-08 16:14 | NUR ---
*-* INSURANCE *-* UPDATED CLINICALS, REVIEW AND DISCHARGE SUMMARY HAS BEEN FAXED TO: LEEANNA GUAJARDO:ARMAND P: [phone] F: [phone]
--- NOTE | 2019-03-09 08:10 | Discharge Summary ---
Discharge Summary Discharge Summary _ DATE OF ADMISSION: 03/03/2019 DATE OF DISCHARGE: 03/08/2019 DISCHARGED BY: REASON FOR ADMISSION: 84 years old female with past medical history of hypertension, diabetes mellitus , presented with generalized abdominal pain for 3 days. Pain described as moderate, constant with associated nausea and vomiting , sharp and aching. She denied fever and chills. She denied chest pain or shortness of breath. She denied diarrhea. Upon evaluation vital signs revealed elevated blood pressure 230/106 . Laboratory work-up revealed no leukocytosis, hemoglobin 11.9 , hematocrit 34.6 with MCV of 94. Platelet count 62. Sodium 133 , stable other electrolytes. Glucose 170. Total bilirubin 2.9, direct bilirubin 1.3. AST 38 , ALT 18, lipase 198. Troponin negative. ECG revealed normal sinus rhythm, no acute ischemic changes. Urinalysis revealed pyuria , +1 leukocyte esterase, and moderate bacteria. Chest x-ray demonstrated no acute cardiopulmonary pathology. Cardiomegaly noted. CT of the abdomen and pelvis revealed gallbladder neck stone. Gallbladder distention and mild gallbladder wall thickening with high concern for acute cholecystitis. Hepatic cirrhosis. Moderate ascites. Stigmata of portal hypertension, including splenomegaly, periesophageal bvarices and congestion of the mesentery. Anasarca with diffuse edema of the abdominal , pelvic and subcutaneous fat. Edema of the small bowel, likely a manifestation of anasarca, but possibility of enteritis should be considered. In emergency department patient started on empiric antibiotics, pancultured , provided with analgesia and admitted for further management CONSULTANTS: ID specialist Dr. Oneill GI specialist Dr. Briceño rn community Dr. Biggs dust collector/oncologist Dr. [facility]SE: Patient admitted and started on the IV fluids with normal saline and empiric antibiotics. Patient was kept n.p.o. initially. Abdominal ultrasound demonstrated small gallbladder neck stone , earlier demonstrated on CT scan. Gallbladder wall thickening. Evidence of hepatic cirrhosis. Ascites. Subsequently HIDA scan was done, which showed non-visualized gallbladder , concerning for acute cholecystitis. Patent common bile duct. Patient also undergone ultrasound-guided paracentesis , yielding 2.70 L of ascitic fluid. Fluid analysis revealed no evidence of infection. Surgeon seen and evaluated patient . Per surgeon , given cirrhosis , patient had a high high surgical risk. Surgeon initially planned for possible cholecystostomy tube placement. Patient was continued on empiric antibiotic , as per ID recommendation; labs were closely monitored. Patient undergone on 03/04 upper endoscopy with biopsy, due to the cirrhosis and questionable esophageal varices. During the study was found atrophic gastritis, status post biopsy ; no obvious evidence of any esophageal or gastric varices. Biopsy of antrum revealed chronic and focal active gastritis. Equivocal for Helicobacter by immunohistochemical stains. No evidence of intestinal metaplasia, dysplasia or malignancy. LFT and bili were improving. Urine culture revealed Strep bovis. Patient had leukocytosis for 1 day , which resolved , no fever. Ascitic fluid revealed no evidence of infection. HIV test was nonreactive. Hepatitis panel was negative. Bilirubin improved : upon discharge total bilirubin 1.5 from initial 2.9 and direct bilirubin 0.8 from initial 1.3. Stable AST and ALT. Patient showed elevated ammonia, and was on lactulose . Alpha-fetoprotein was within normal limits. Diet was advanced as tolerated. Bowel regimen instituted. Patient started on PPI. Patient will need to follow-up with GI as outpatient to check Helicobacter infection by breath test or by serum. Cirrhosis was nonalcoholic, as per GI specialist. Pain management was addressed. Symptomatic care provided, Since LFT were improving, and patient had a high surgical risk , given cirrhosis , surgeon recommended hold on cholecystostomy tube. Patient was initially on IV antibiotic, which changed to oral Levaquin to complete the course at home, as per ID specialist recommendation. Blood pressure was closely monitored. Patient was on calcium channel faith and clonidine on as needed basis. Spironolactone continued. Blood pressure stabilized. Pulse oximetry was stable on room air. No evidence of respiratory distress. Venous duplex bilateral lower extremity revealed no evidence of acute DVT. DVT prophylaxis with SCD provided. Renal parameters and electrolytes were closely monitored. Electrolytes corrected as needed , and nephrotoxins were avoided. Blood sugar was managed with sliding scale of insulin. Hemoglobin A1c 6.8. Mechanical Supervisor seen the patient due to thrombocytopenia and anemia. Anemia work-up was consistent with anemia of chronic disease. No evidence of iron deficiency Hemoglobin and hematocrit were closely monitored with goal to keep hemoglobin above 7. Prior to discharge hemoglobin 10 , hematocrit 29.3. Platelet count was closely monitored, remains at baseline. Thrombocytopenia was most likely due to underlying cirrhosis , splenomegaly and portal hypertension. As mentioned above , hepatitis panel was negative, and HIV was nonreactive. FINAL DIAGNOSIS Acute cholecystitis Streptococci bovis UTI Cirrhosis Abdominal pain , likely due to acute cholecystitis as well as cirrhosis Ascites, s/p paracentesis Status post EGD Atrophic gastritis Diabetes mellitus Hypertension uncontrolled Portal hypertension Thrombocytopenia High ammonia /hepatic encephalopathy Anemia of chronic disease Diabetes mellitus Hypoalbuminemia DISCHARGE MEDICATIONS: See Medication Reconciliation list. DISCHARGE INSTRUCTIONS: Patient was discharged home delete. Follow up with primary care provider in one week. I have been assigned to dictate discharge summary for this account. I was not involved in the patient's management. Rima Lopez NP Mar 09, 2019 08:10
== END 2019-03-08 13:36 | disposition home or self-care (01) | DRG 445 ==
LOC: EDBD 20:02 → EMR 20:38 → 4E 03-03 00:10 → EDBEDREQ 03-03 00:43
PROC: 0W9G3ZZ Drainage of Peritoneal Cavity, Percutaneous Approach (ICD-10-PCS; 2019-03-03)
PROC: 0DB78ZX Excision of Stomach, Pylorus, Via Natural or Artificial Opening Endoscopic, Diagnostic (ICD-10-PCS; principal; 2019-03-04 12:11)
DX: K80.00 Calculus of gallbladder with acute cholecystitis without obstruction (principal); N39.0 Urinary tract infection, site not specified; I85.00 Esophageal varices without bleeding; D61.818 Other pancytopenia; R18.8 Other ascites; K76.6 Portal hypertension; K72.90 Hepatic failure, unspecified without coma; K74.60 Unspecified cirrhosis of liver; K82.8 Other specified diseases of gallbladder; E88.09 Other disorders of plasma-protein metabolism, not elsewhere classified; D63.8 Anemia in other chronic diseases classified elsewhere; K29.40 Chronic atrophic gastritis without bleeding; Z79.84 Long term (current) use of oral hypoglycemic drugs; Z79.82 Long term (current) use of aspirin; I10 Essential (primary) hypertension; E11.9 Type 2 diabetes mellitus without complications; B95.4 Other streptococcus as the cause of diseases classified elsewhere; D69.6 Thrombocytopenia, unspecified
CPT/HCPCS: 36415; 71045; 74177; 76705; 76942; 78266; 80053; 80061; 81003; 82105; 82140; 82248; 82607; 82728; 82746; 82962; 82977; 83036; 83540; 83550; 83690; 83735; 83880; 84100; 84439; 84443; 84484; 84550; 85007; 85025; 85044; 85610; 85730; 86140; 86703; 86705; 86709; 86803; 87086; 87181; 87340; 89051; 93005; 93970; 94003; 94150; 96361; 96365; 96375; 99285; J2405

== ENCOUNTER 2019-04-06 21:34 | Inpatient (IN) | payer OTHER ==
[~2019-04-06] VITALS: Ht 154.9 cm; Wt 72.8 kg
--- NOTE | 2019-04-06 21:25 | NUR ---
ED Nurse Note: pt was brought in by the ambulance for C/O ABD pain x 1 month accompanied by her son. per son, pt has hx of cirrhosis. pt abd is distended and large, pt is alert x4.
[~2019-04-06 21:34] MED LIST: ASPIRIN-LOW81 MG ORAL; COREG25 MG ORAL; FERROUS SULFAT325 MG ORAL; LACTULOSE10 GM/155 PO; LEVAQUIN500 MG ORAL; METFORMIN HCL1000 M1 ORAL; NKM; UNOBMED
[2019-04-06 21:35] VITALS: BP 180/80
[2019-04-06] MEDS ORDERED: Omnipaque-300 100ml vial INJ PRN (21:45)
--- NOTE | 2019-04-06 21:45 | NUR ---
ED Nurse Note: Blood sample sent down to lab. pt unable to provide urine at this time. pt is aware urine is needed and stated she will call staff when she is ready to provide urine.
--- NOTE | 2019-04-06 22:00 | NUR ---
ED Nurse Note: CXR was done at bedside.
[2019-04-06 22:05] LABS: HEMATOCRIT 31.9 % (37.0-47.0); HEMOGLOBIN 11.2 G/DL (12.0-16.0); MEAN CORPUSCULAR VOLUME 94 FL (80-99); PLATELET COUNT 61 K/UL (150-450); RED CELL DISTRIBUTION WIDTH 13.3 % (11.6-14.8); WHITE BLOOD COUNT 9.1 K/UL (4.8-10.8)
[2019-04-06 22:12] LABS: INR 1.3 (0.9-1.1)
[2019-04-06 22:26] LABS: AMMONIA 26 umol/L (11-32)
[2019-04-06 22:43] LABS: ALANINE AMINOTRANSFERASE 29 U/L (12-78); ALBUMIN 1.9 G/DL (3.4-5.0); ALBUMIN/GLOBULIN RATIO 0.3 (1.0-2.7); ALKALINE PHOSPHATASE 158 U/L (46-116); ANION GAP 6 mmol/L (5-15); ASPARTATE AMINO TRANSFERASE 87 U/L (15-37); BLOOD UREA NITROGEN 15 mg/dL (7-18); CALCIUM 8.2 MG/DL (8.5-10.1); CARBON DIOXIDE 26 MMOL/L (21-32); CHLORIDE 102 MMOL/L (98-107); CKMB 0.7 NG/ML (0.0-3.6); CREATINE KINASE 187 U/L (26-308); CREATININE 1.1 MG/DL (0.55-1.30); PHOSPHORUS 3.3 MG/DL (2.5-4.9); SODIUM 134 MMOL/L (136-145)
[2019-04-06 22:47] LABS: BILIRUBIN,DIRECT 0.5 MG/DL (0.0-0.3); POTASSIUM 5.8 MMOL/L (3.5-5.1)
[2019-04-06] MEDS ORDERED: Cefepime HCl 2 GM in NS 110 ML IV SCH (23:00)
[2019-04-06] MEDS ORDERED: Vancomycin 1 GM in NS 275 ML IV ONE (23:00)
--- NOTE | 2019-04-06 23:08 | NUR ---
ED Nurse Note: pt was taken to CT via W/C.
--- NOTE | 2019-04-06 23:26 | NUR ---
ED Nurse Note: back from ct
--- NOTE | 2019-04-07 00:38 | Emergency Room Report ---
History of Present Illness General Chief Complaint: Abdominal Pain Source: Patient, EMS Present Illness HPI 84-year-old female history of cirrhosis presents with generalized abdominal pain patient reports that her abdomen has been getting grossly enlarged, she endorses some shortness of breath generalized ache, no fevers no chills no cough no congestion no diarrhea, she states that she was drained in the past, which tends to help her abdominal pain severity is moderate, constant patient presents for evaluation via EMS Allergies: Coded Allergies: No Known Allergies (Unverified , 03/02/19) Patient History Past Medical History: see triage record Reviewed Nursing Documentation: PMH: Agreed; PSxH: Agreed Nursing Documentation-PMH Hx Hypertension: Yes Hx Diabetes: Yes Hx Cancer: No Hx Gastrointestinal Problems: Yes Hx Neurological Problems: No Review of Systems All Other Systems: negative except mentioned in HPI Physical Exam Vital Signs Date Time Temp Pulse Resp B/P (MAP) Pulse Ox O2 Delivery O2 Flow Rate FiO2 04/06/19 21:21 100.8 96 18 182/74 (110) 98 Room Air 04/06/19 21:35 98 Sp02 EP Interpretation: reviewed, normal General Appearance: well appearing, no apparent distress, alert Head: normocephalic, atraumatic Eyes: bilateral eye PERRL, bilateral eye EOMI ENT: uvula midline, moist mucus membranes Neck: supple, thyroid normal, supple/symm/no masses Respiratory: lungs clear, no respiratory distress, no retraction, no accessory muscle use Cardiovascular #1: normal peripheral pulses, regular rate, rhythm, no edema, no gallop, no murmur Gastrointestinal: non tender, no guarding, no rebound, distended Musculoskeletal: normal inspection Neurologic: alert, oriented x3 Psychiatric: mood/affect normal Skin: no rash, warm/dry Medical Decision Making Diagnostic Impression: Primary Impression: Cirrhosis Qualified Codes: K74.60 - Unspecified cirrhosis of liver; R18.8 - Other ascites Additional Impressions: Ascites Qualified Codes: R18.8 - Other ascites Abdominal pain Qualified Codes: R10.84 - Generalized abdominal pain ER Course 84-year-old female presents with enlarged abdomen, tense ascites, causing her some shortness of breath, differential diagnosis includes SBP, generalized abdominal pain, diverticulitis, tense ascites Will admit patient for drainage Broad-spectrum antibiotic started Resuscitation started Patient admitted to Dr. Burr Laboratory Tests Test 04/06/19 21:42 White Blood Count 9.1 K/UL (4.8-10.8) Red Blood Count 3.40 M/UL (4.20-5.40) L Hemoglobin 11.2 G/DL (12.0-16.0) L Hematocrit 31.9 % (37.0-47.0) L Mean Corpuscular Volume 94 FL (80-99) Mean Corpuscular Hemoglobin 32.9 PG (27.0-31.0) H Mean Corpuscular Hemoglobin Concent 35.0 G/DL (32.0-36.0) Red Cell Distribution Width 13.3 % (11.6-14.8) Platelet Count 61 K/UL (150-450) L Mean Platelet Volume 9.4 FL (6.5-10.1) Neutrophils (%) (Auto) % (45.0-75.0) Lymphocytes (%) (Auto) % (20.0-45.0) Monocytes (%) (Auto) % (1.0-10.0) Eosinophils (%) (Auto) % (0.0-3.0) Basophils (%) (Auto) % (0.0-2.0) Differential Total Cells Counted 100 Neutrophils % (Manual) 73 % (45-75) Lymphocytes % (Manual) 16 % (20-45) L Monocytes % (Manual) 9 % (1-10) Eosinophils % (Manual) 2 % (0-3) Basophils % (Manual) 0 % (0-2) Band Neutrophils 0 % (0-8) Platelet Estimate Decreased L Platelet Morphology Normal Red Blood Cell Morphology Normal Prothrombin Time 14.1 SEC (9.30-11.50) H Prothrombin Time INR 1.3 (0.9-1.1) H PTT 33 SEC (23-33) Sodium Level 134 MMOL/L (136-145) L Potassium Level 5.8 MMOL/L (3.5-5.1) H Chloride Level 102 MMOL/L (98-107) Carbon Dioxide Level 26 MMOL/L (21-32) Anion Gap 6 mmol/L (5-15) Blood Urea Nitrogen 15 mg/dL (7-18) Creatinine 1.1 MG/DL (0.55-1.30) Estimate Glomerular Filtration Rate mL/min (>60) Glucose Level 144 MG/DL (74-106) H Lactic Acid Level 2.10 mmol/L (0.4-2.0) H Calcium Level 8.2 MG/DL (8.5-10.1) L Phosphorus Level 3.3 MG/DL (2.5-4.9) Magnesium Level 1.7 MG/DL (1.8-2.4) L Total Bilirubin 3.0 MG/DL (0.2-1.0) H Direct Bilirubin 0.5 MG/DL (0.0-0.3) H Aspartate Amino Transferase (AST) 87 U/L (15-37) H Alanine Aminotransferase (ALT) 29 U/L (12-78) Alkaline Phosphatase 158 U/L (46-116) H Ammonia 26 umol/L (11-32) Total Creatine Kinase 187 U/L (26-308) Creatine Kinase MB 0.7 NG/ML (0.0-3.6) Creatine Kinase MB Relative Index 0.3 Troponin I 0.000 ng/mL (0.000-0.056) Pro-B-Type Natriuretic Peptide 1308 pg/mL (0-125) H Total Protein 7.4 G/DL (6.4-8.2) Albumin 1.9 G/DL (3.4-5.0) L Globulin 5.5 g/dL Albumin/Globulin Ratio 0.3 (1.0-2.7) L Lipase 227 U/L (73-393) EKG Diagnostic Results EKG Time: 21:41 EP Interpretation: NSR, rate 92, QTc 400, no acute ST elevations, normal axis Rhythm Strip Diag. Results Rhythm Strip Time: 00:34 EP Interpretation: yes Rate: 98 Rhythm: NSR, no PVC's, no ectopy Chest X-Ray Diagnostic Results Chest X-Ray Diagnostic Results : Chest X-Ray Ordered: Yes # of Views/Limited/Complete: 1 View Indication: Shortness of Breath EP Interpretation: Yes Interpretation: no consolidation, no effusion, no pneumothorax, no acute cardiopulmonary disease Impression: No acute disease Electronically Signed by: Jorge A Sidhu MD CT/MRI/US Diagnostic Results CT/MRI/US Diagnostic Results : Impression Preliminary Findings Only See Final Report For Complete Findings CT ABDOMEN & PELVIS With Contrast: Redemonstration of severe portal hypertension as evidenced by cirrhosis, splenomegaly, severe ascites. No definite hepatic mass. Portal vein appears to be patent. No bowel obstruction. Thickening of the ascending colon is likely due to portal colopathy. Colonic diverticulosis. Large calcified structure in the right lower quadrant, unchanged. No hydronephrosis. Moderate bladder wall thickening, correlate with cystitis versus underdistention. Radiologist: Sheila Munson MD Study ready at 23:54 and initial results transmitted at 00:05 Last Vital Signs Date Time Temp Pulse Resp B/P (MAP) Pulse Ox O2 Delivery O2 Flow Rate FiO2 04/06/19 21:35 100.3 93 18 180/80 98 Room Air 04/06/19 21:35 98 Disposition: ADMITTED INPATIENT Condition: Stable Referrals: NON PHYSICIAN (PCP) Jorge A Sidhu MD Apr 07, 2019 00:38
[2019-04-07] MEDS ORDERED: ASPIR 8181 MG ORAL (01:01)
[2019-04-07] MEDS ORDERED: COREG25 MG ORAL (01:01)
[2019-04-07] MEDS ORDERED: METFORMIN HCL1000 M1 ORAL (01:01)
--- NOTE | 2019-04-07 01:01 | NUR ---
ED Nurse Note: pt still unable to provide urine. EMILYD made aware.
--- NOTE | 2019-04-07 01:15 | NUR ---
ED Nurse Note: pt was brought up to room 402 (M/S) accompanied by research laboratory technician. in stable condition. belonging list signed. report given to DEBBIE Lauren.
[2019-04-07] MEDS ORDERED: Morphine Sulfate 2mg/ml Inj(IV/IM USE ONLY) IVP PRN (01:30)
--- NOTE | 2019-04-07 01:30 | NUR ---
NURSE NOTES: Received report from DEBBIE Stephenson from ER. Patient arrived in a gurney and transferred to the unit bed in room 404-2. Patient awake, alert, and verbally responsive. Speaks Urdu. Breathing unlabored on room air without distress or sob. IV noted on MYLES 22g intact and patent with dry clean dressing and LUCIE 22g intact and patent with dry clean dressing. Skin is intact. Bilateral lower legs swollen and abdominal distended due to ascites. Belongings confirmed with patient, cellphone LG and tooler placed into pt's purse per patient request. Patient prefers to wear her clothing right now and change to gown later. Medications were sent to pharmacy in the ER. VS: 127/66 HR 96 99.5F 100%. Oriented to the unit and room. Call light placed within reach. Will continue to monitor and provide care as ordered.
--- NOTE | 2019-04-07 01:35 | NUR ---
NURSE NOTES: Patient informed about the NPO order. Verbalized understanding.
[2019-04-07 01:49] LABS: ALANINE AMINOTRANSFERASE 21 U/L (12-78); ALBUMIN 1.7 G/DL (3.4-5.0); ALBUMIN/GLOBULIN RATIO 0.4 (1.0-2.7); ALKALINE PHOSPHATASE 127 U/L (46-116); ANION GAP 5 mmol/L (5-15); ASPARTATE AMINO TRANSFERASE 48 U/L (15-37); BILIRUBIN,TOTAL 2.7 MG/DL (0.2-1.0); BLOOD UREA NITROGEN 13 mg/dL (7-18); CALCIUM 7.5 MG/DL (8.5-10.1); CARBON DIOXIDE 26 MMOL/L (21-32); CHLORIDE 105 MMOL/L (98-107); CREATININE 1.2 MG/DL (0.55-1.30); POTASSIUM 4.7 MMOL/L (3.5-5.1); SODIUM 135 MMOL/L (136-145)
--- NOTE | 2019-04-07 01:51 | NUR ---
NURSE NOTES: Was not able to review the medication reconciliation because medication brought in was sent to pharmacy and patient was not able to provide list of rest of her home medications. Attempted confirming with the patient's son, but patient's son doesn't know either. Will let the dayshift know.
--- NOTE | 2019-04-07 01:54 | NUR ---
NURSE NOTES: Dr. Burr ordered code status per patient request. Patient wants full code status.
[2019-04-07 02:14] VITALS: BP 127/66
[2019-04-07 02:26] LABS: BILIRUBIN,DIRECT 0.9 MG/DL (0.0-0.3)
[2019-04-07 04:00] VITALS: BP 110/51
[2019-04-07 04:10] LABS: HEMATOCRIT 28.6 % (37.0-47.0); HEMOGLOBIN 9.8 G/DL (12.0-16.0); MEAN CORPUSCULAR VOLUME 95 FL (80-99); PLATELET COUNT 50 K/UL (150-450); RED BLOOD COUNT 3.01 M/UL (4.20-5.40); RED CELL DISTRIBUTION WIDTH 14.1 % (11.6-14.8); WHITE BLOOD COUNT 9.1 K/UL (4.8-10.8)
--- NOTE | 2019-04-07 04:57 | NUR ---
NURSE NOTES: Patient sleeping well. No discomfort/pain verbalized. Will continue to monitor.
--- NOTE | 2019-04-07 06:10 | NUR ---
NURSE NOTES: Given order to place MD consult under Dr. Burr by Dr. Zhang. Carry out the order as given. Dr. Zhang aware of the plt level, no new orders given at this time. Will continue to monitor patient.
--- NOTE | 2019-04-07 07:04 | NUR ---
NURSE NOTES: ordered to venous duplex to r/o dvt before placing scds. will carry out the order as given.
--- NOTE | 2019-04-07 07:04 | NUR ---
NURSE NOTES: Informed that Dr. Zhang is aware of the plt level. Addendum: 04/07/19 at 0740 by Lul Sorensen RN Also informed Dr. Burr that patient medication reconciliation was not done. Patient was unable to provide the home medication information. Dr. Burr ordered medication can be inputted when patient is able to provide the information.
--- NOTE | 2019-04-07 07:45 | NUR ---
HAND-OFF: Report given to DEBBIE Johnson.
--- NOTE | 2019-04-07 07:52 | NUR ---
NURSE NOTES: Received pt from MINSU RN. Pt is alert and orient x4. pt is in RA, no SOB or acute respiratory distress noted. pt has intact iv access MYLES 22g SL. Pt is NPO. Dr PEDRO called and ordered use o2 to keep SPO2 90-96 and use IS, noted and carried out. all needs attended, bed is locked and is in the lowest position, call light within easy reach. will continue to monitor.
--- NOTE | 2019-04-07 08:10 | NUR ---
NURSE NOTES: frank duplex neg so SCD applied as order and IS is on bed side. will continue to monitor.
[2019-04-07 08:17] VITALS: BP 117/56
--- NOTE | 2019-04-07 09:55 | Diagnostic Imaging Report ---
Indication: Abdominal pain Technique: Continuous helical transaxial imaging of the abdomen and pelvis was obtained from the lung bases to the pubic symphysis during intravenous contrast administration. Coronal 2-D reformats were also obtained. Study obtained in a Siemens sensation [address] Automatic Exposure Control was utilized. Total Dose length Product (DLP): [address] Dose Index Volume (CTDIvol): 16.9 mGy Comparison: 03/02/2019 Findings: There is moderate to severe ascites. There is nodularity of the liver which appears heterogeneous. Anasarca noted. Spleen measures 14 cm. Moderate calcification of aorta demonstrated. There is a large calcification demonstrated within the right lower quadrant measuring approximately 3.6 cm in diameter. Atrophic uterus is noted. Bowel gas pattern is nonobstructive. The appendix is not seen. There is no hydronephrosis. Gallbladder is grossly unremarkable. No gross anomalies of either kidneys, adrenal glands identified. Hiatal hernia is present. There are portosystemic varices present in the upper abdomen. There is narrowing of intervertebral discs and accompanying endplate osteophyte formation. Hypertrophied facet joints also demonstrated. IMPRESSION: Chronic liver disease/cirrhosis with's signs of portal hypertension including moderate to severe ascites, portosystemic varices and splenomegaly. Atherosclerotic vascular disease moderate in degree. 3.6 cm calcific focus in the right lower quadrant nonspecific. Anasarca. Degenerative changes of the spine. [facility] has communicated the preliminary results to the Emergency Department. Their findings are largely concordant with this report. The CT scanner at [facility] is accredited by the [employer] and the scans are performed using dose optimization techniques as appropriate to a performed exam including Automatic Exposure control.
--- NOTE | 2019-04-07 10:47 | General Progress Note ---
Assessment/Plan Assessment/Plan: GI CONSULT Patient seen. Full note to follow. Thank you Negrita Clancy MD Subjective Allergies: Coded Allergies: No Known Allergies (Unverified , 03/02/19) Objective Last 24 Hour Vital Signs Date Time Temp Pulse Resp B/P (MAP) Pulse Ox O2 Delivery O2 Flow Rate FiO2 04/07/19 08:17 98.2 80 20 117/56 (76) 100 04/07/19 04:00 98.1 85 20 110/51 (70) 99 04/07/19 02:14 99.5 96 22 127/66 (86) 100 04/07/19 01:55 Room Air 04/07/19 01:15 99.4 86 19 148/84 98 Room Air 04/06/19 21:35 100.3 93 18 180/80 98 Room Air 04/06/19 21:35 93 18 Room Air 98 04/06/19 21:21 100.8 96 18 182/74 (110) 98 Room Air Intake and Output 04/06/19 04/07/19 18:59 06:59 Intake Total 2485.0 ml Output Total 0 ml Balance 2485.0 ml Intake Oral 0 ml IV Total 2485.0 ml Output Urine Total 0 ml Laboratory Tests 04/06/19 21:42: White Blood Count 9.1, Red Blood Count 3.40L, Hemoglobin 11.2L, Hematocrit 31.9L , Mean Corpuscular Volume 94, Mean Corpuscular Hemoglobin 32.9H, Mean Corpuscular Hemoglobin Concent 35.0, Red Cell Distribution Width 13.3, Platelet Count 61L, Mean Platelet Volume 9.4, Neutrophils (%) (Auto) , Lymphocytes (%) ( Auto) , Monocytes (%) (Auto) , Eosinophils (%) (Auto) , Basophils (%) (Auto) , Differential Total Cells Counted 100, Neutrophils % (Manual) 73, Lymphocytes % ( Manual) 16L, Monocytes % (Manual) 9, Eosinophils % (Manual) 2, Basophils % ( Manual) 0, Band Neutrophils 0, Platelet Estimate DecreasedL, Platelet Morphology Normal, Red Blood Cell Morphology Normal, Prothrombin Time 14.1H, Prothromb Time International Ratio 1.3H, Activated Partial Thromboplast Time 33 , Sodium Level 134L, Potassium Level 5.8H, Chloride Level 102, Carbon Dioxide Level 26, Anion Gap 6, Blood Urea Nitrogen 15, Creatinine 1.1, Estimat Glomerular Filtration Rate , Glucose Level 144H, Lactic Acid Level 2.10H, Calcium Level 8.2L, Phosphorus Level 3.3, Magnesium Level 1.7L, Total Bilirubin 3.0H, Direct Bilirubin 0.5H, Aspartate Amino Transf (AST/SGOT) 87H, Alanine Aminotransferase (ALT/SGPT) 29, Alkaline Phosphatase 158H, Ammonia 26, Total Creatine Kinase 187, Creatine Kinase MB 0.7, Creatine Kinase MB Relative Index 0.3, Troponin I 0.000, Pro-B-Type Natriuretic Peptide 1308H, Total Protein 7.4, Albumin 1.9L, Globulin 5.5, Albumin/Globulin Ratio 0.3L, Lipase 227 04/07/19 01:18: White Blood Count 9.1, Red Blood Count 3.01L, Hemoglobin 9.8L, Hematocrit 28.6L , Mean Corpuscular Volume 95, Mean Corpuscular Hemoglobin 32.7H, Mean Corpuscular Hemoglobin Concent 34.4, Red Cell Distribution Width 14.1, Platelet Count 50L, Mean Platelet Volume 7.5, Neutrophils (%) (Auto) , Lymphocytes (%) ( Auto) , Monocytes (%) (Auto) , Eosinophils (%) (Auto) , Basophils (%) (Auto) , Differential Total Cells Counted 100, Neutrophils % (Manual) 81H, Lymphocytes % (Manual) 11L, Monocytes % (Manual) 6, Eosinophils % (Manual) 2, Basophils % ( Manual) 0, Band Neutrophils 0, Platelet Estimate DecreasedL, Platelet Morphology Normal, Sodium Level 135L, Potassium Level 4.7, Chloride Level 105, Carbon Dioxide Level 26, Anion Gap 5, Blood Urea Nitrogen 13, Creatinine 1.2, Estimat Glomerular Filtration Rate , Glucose Level 168H, Lactic Acid Level 1.60 , Calcium Level 7.5L, Total Bilirubin 2.7H, Direct Bilirubin 0.9H, Aspartate Amino Transf (AST/SGOT) 48H, Alanine Aminotransferase (ALT/SGPT) 21, Alkaline Phosphatase 127H, Total Protein 6.1L, Albumin 1.7L, Globulin 4.4, Albumin/ Globulin Ratio 0.4L, Anisocytosis 1+ Height (Feet): 5 Height (Inches): 1.00 Weight (Pounds): 158 Negrita Clancy MD Apr 07, 2019 10:47
--- NOTE | 2019-04-07 11:11 | NUR ---
*-* NO INSURANCE INFORMATION IN THE BAR UNABLE TO SEND CLINICALS OR REVIEWS *-*
[2019-04-07 12:00] VITALS: BP 129/57
--- NOTE | 2019-04-07 12:46 | Consultation ---
Consult Note Consult Note asked to eval at the request of dr macdonald 84-year-old female history of cirrhosis presents with generalized abdominal pain patient reports that her abdomen has been getting grossly enlarged, she endorses some shortness of breath generalized ache, no fevers no chills no cough no congestion no diarrhea, she states that she was drained in the past, which tends to help her abdominal pain severity is moderate, constant patient presents for evaluation via EMS Allergies: No Known Allergies (Unverified , 03/02/19) Hx Hypertension: Yes Hx Diabetes: Yes Hx Gastrointestinal Problems: Yes examined data reviewed Assessment/Plan Chronic Liver Disease / Cirrhosis / Ascitis Low Na Anemia Low Albumin Caceres NPO Protonix GI eval Monitor lytes per orders Chronic liver disease/cirrhosis with's signs of portal hypertension including moderate to severe ascites, portosystemic varices and splenomegaly. Atherosclerotic vascular disease moderate in degree. 3.6 cm calcific focus in the right lower quadrant nonspecific. Anasarca. Degenerative changes of the spine. Bao Biggs MD Apr 07, 2019 12:46
--- NOTE | 2019-04-07 12:48 | Diagnostic Imaging Report ---
Indication: Dyspnea Comparison: 03/02/2019 A single view chest radiograph was obtained. Findings: Cardiac silhouette is a normal. Lungs are clear. Bones are slightly osteopenic. The aorta is calcified. IMPRESSION: No acute disease
--- NOTE | 2019-04-07 13:00 | NUR ---
NURSE NOTES: Caceres cath 16f inserted as order and pt tolerate well. will continue to monitor.
[2019-04-07] MEDS: D5NS 1,000 ML IV SCH (13:21)
[2019-04-07] MEDS: Pantoprazole Inj IVP SCH (13:21)
[2019-04-07] MEDS: Docusate 100mg cap ORAL SCH ×2 (13:21→17:33)
[2019-04-07] MEDS: Lactulose 10gm/15ml UDC ORAL SCH ×2 (13:21→17:33)
--- NOTE | 2019-04-07 14:47 | Hematology/Onc Progress Note ---
Assessment/Plan Assessment/Plan # Pancytopenia is likely due to underlying cirrhosis, splenomegaly, paraesophageal varices, portal HTN. Well known to me from prior admission, she generally requires occasional drainage --> at this time, imaging of liver reviewed, no e/o malignancy --> hepatitis panel and hiv are both negative --> plt trend: 58-->75k-->67k-->50k --> AFP is 2.5 --> given age, cea ordered --> smear has been reviewed, r/o schistocytes --> neupogen on prn basis --> plts as needed presurg, goal >50k if procedure --> 03/04: EGD--> atrophic gastritis noted --> ppi as needed --> paracentesis on prn basis # Anemia of chronic disease --> no evidence of iron deficiency --> hgb goal >7, transfuse prn --> less of a role for iron and epogen --> hgb trend: 9.3-->10.3-->9.8 # Thickening of wall of gallbladder with pericholecystic fluid --> hida neg before # hx UTI (urinary tract infection) --> history of, sp treatment # Liver cirrhosis --> distended ab, r/o sbp --> on abx # Dvt ppx scds Greatly appreciate consultation and dw RN Subjective Constitutional: Denies: no symptoms, chills, fever, malaise, weakness, other HEENT: Denies: no symptoms, eye pain, blurred vision, tearing, double vision, ear pain, ear discharge, nose pain, nose congestion, throat pain, throat swelling, mouth pain, mouth swelling, other Cardiovascular: Denies: no symptoms, chest pain, edema, irregular heart rate, lightheadedness, palpitations, syncope, other Respiratory: Denies: no symptoms, cough, shortness of breath, SOB with excertion, SOB at rest, sputum, wheezing, other Gastrointestinal/Abdominal: Denies: no symptoms, abdomen distended, abdominal pain, black stools, tarry stools, blood in stool, constipated, diarrhea, difficulty swallowing, nausea, poor appetite, poor fluid intake, rectal bleeding , vomiting, other Genitourinary: Denies: no symptoms, burning, discharge, frequency, flank pain, hematuria, incontinence, pain, urgency, other Neurologic/Psychiatric: Denies: no symptoms, anxiety, depressed, emotional problems, headache, numbness, paresthesia, pre-existing deficit, seizure, tingling, tremors, weakness, other Endocrine: Denies: no symptoms, excessive sweating, flushing, intolerance to cold, intolerance to heat, increased hunger, increased thirst, increased urine, unexplained weight gain, unexplained weight loss, other Allergies: Coded Allergies: No Known Allergies (Unverified , 03/02/19) Subjective 04/07: no major changes, for para, plt 50k, will review inr/ptt preprocedure, gi aware Objective Objective Current Medications Medications (Trade) Dose Ordered Sig/Robe Route PRN Reason Start Time Stop Time Status Last Admin Dose Admin Aspirin (Ecotrin) 81 mg DAILY ORAL 04/08/19 09:00 05/08/19 08:59 Dextrose/Sodium Chloride 1,000 ml @ 50 mls/hr Q20H IV 04/07/19 12:41 05/07/19 12:40 04/07/19 13:21 Docusate Sodium (Colace) 100 mg THREE TIMES A DAY ORAL 04/07/19 13:00 05/07/19 12:59 04/07/19 13:21 Lactulose (Cephulac) 15 gm TID ORAL 04/07/19 13:00 05/07/19 12:59 04/07/19 13:21 Pantoprazole (Protonix) 40 mg DAILY IVP 04/07/19 12:45 05/07/19 12:44 04/07/19 13:21 Last 24 Hour Vital Signs Date Time Temp Pulse Resp B/P (MAP) Pulse Ox O2 Delivery O2 Flow Rate FiO2 04/07/19 12:00 97.7 76 18 129/57 (81) 100 04/07/19 09:00 Room Air 04/07/19 08:17 98.2 80 20 117/56 (76) 100 04/07/19 04:00 98.1 85 20 110/51 (70) 99 04/07/19 02:14 99.5 96 22 127/66 (86) 100 04/07/19 01:55 Room Air 04/07/19 01:15 99.4 86 19 148/84 98 Room Air 04/06/19 21:35 100.3 93 18 180/80 98 Room Air 04/06/19 21:35 93 18 Room Air 98 04/06/19 21:21 100.8 96 18 182/74 (110) 98 Room Air Intake and Output 04/06/19 04/07/19 19:00 07:00 Intake Total 2485.0 ml Output Total 0 ml Balance 2485.0 ml Intake Oral 0 ml IV Total 2485.0 ml Output Urine Total 0 ml Labs Test 04/06/19 21:42 04/07/19 01:18 White Blood Count 9.1 K/UL (4.8-10.8) 9.1 K/UL (4.8-10.8) Red Blood Count 3.40 M/UL (4.20-5.40) 3.01 M/UL (4.20-5.40) Hemoglobin 11.2 G/DL (12.0-16.0) 9.8 G/DL (12.0-16.0) Hematocrit 31.9 % (37.0-47.0) 28.6 % (37.0-47.0) Mean Corpuscular Volume 94 FL (80-99) 95 FL (80-99) Mean Corpuscular Hemoglobin 32.9 PG (27.0-31.0) 32.7 PG (27.0-31.0) Mean Corpuscular Hemoglobin Concent 35.0 G/DL (32.0-36.0) 34.4 G/DL (32.0-36.0) Red Cell Distribution Width 13.3 % (11.6-14.8) 14.1 % (11.6-14.8) Platelet Count 61 K/UL (150-450) 50 K/UL (150-450) Mean Platelet Volume 9.4 FL (6.5-10.1) 7.5 FL (6.5-10.1) Neutrophils (%) (Auto) % (45.0-75.0) % (45.0-75.0) Lymphocytes (%) (Auto) % (20.0-45.0) % (20.0-45.0) Monocytes (%) (Auto) % (1.0-10.0) % (1.0-10.0) Eosinophils (%) (Auto) % (0.0-3.0) % (0.0-3.0) Basophils (%) (Auto) % (0.0-2.0) % (0.0-2.0) Differential Total Cells Counted 100 100 Neutrophils % (Manual) 73 % (45-75) 81 % (45-75) Lymphocytes % (Manual) 16 % (20-45) 11 % (20-45) Monocytes % (Manual) 9 % (1-10) 6 % (1-10) Eosinophils % (Manual) 2 % (0-3) 2 % (0-3) Basophils % (Manual) 0 % (0-2) 0 % (0-2) Band Neutrophils 0 % (0-8) 0 % (0-8) Platelet Estimate Decreased Decreased Platelet Morphology Normal Normal Red Blood Cell Morphology Normal Prothrombin Time 14.1 SEC (9.30-11.50) Prothromb Time International Ratio 1.3 (0.9-1.1) Activated Partial Thromboplast Time 33 SEC (23-33) Sodium Level 134 MMOL/L (136-145) 135 MMOL/L (136-145) Potassium Level 5.8 MMOL/L (3.5-5.1) 4.7 MMOL/L (3.5-5.1) Chloride Level 102 MMOL/L (98-107) 105 MMOL/L (98-107) Carbon Dioxide Level 26 MMOL/L (21-32) 26 MMOL/L (21-32) Anion Gap 6 mmol/L (5-15) 5 mmol/L (5-15) Blood Urea Nitrogen 15 mg/dL (7-18) 13 mg/dL (7-18) Creatinine 1.1 MG/DL (0.55-1.30) 1.2 MG/DL (0.55-1.30) Estimat Glomerular Filtration Rate mL/min (>60) mL/min (>60) Glucose Level 144 MG/DL (74-106) 168 MG/DL (74-106) Lactic Acid Level 2.10 mmol/L (0.4-2.0) 1.60 mmol/L (0.66-2.22) Calcium Level 8.2 MG/DL (8.5-10.1) 7.5 MG/DL (8.5-10.1) Phosphorus Level 3.3 MG/DL (2.5-4.9) Magnesium Level 1.7 MG/DL (1.8-2.4) Total Bilirubin 3.0 MG/DL (0.2-1.0) 2.7 MG/DL (0.2-1.0) Direct Bilirubin 0.5 MG/DL (0.0-0.3) 0.9 MG/DL (0.0-0.3) Aspartate Amino Transf (AST/SGOT) 87 U/L (15-37) 48 U/L (15-37) Alanine Aminotransferase (ALT/SGPT) 29 U/L (12-78) 21 U/L (12-78) Alkaline Phosphatase 158 U/L (46-116) 127 U/L (46-116) Ammonia 26 umol/L (11-32) Total Creatine Kinase 187 U/L (26-308) Creatine Kinase MB 0.7 NG/ML (0.0-3.6) Creatine Kinase MB Relative Index 0.3 Troponin I 0.000 ng/mL (0.000-0.056) Pro-B-Type Natriuretic Peptide 1308 pg/mL (0-125) Total Protein 7.4 G/DL (6.4-8.2) 6.1 G/DL (6.4-8.2) Albumin 1.9 G/DL (3.4-5.0) 1.7 G/DL (3.4-5.0) Globulin 5.5 g/dL 4.4 g/dL Albumin/Globulin Ratio 0.3 (1.0-2.7) 0.4 (1.0-2.7) Lipase 227 U/L (73-393) Anisocytosis 1+ Height (Feet): 5 Height (Inches): 1.00 Weight (Pounds): 158 General Appearance: alert Neck: normal alignment Cardiovascular: regular rhythm Respiratory/Chest: no respiratory distress Abdomen: soft, distended Extremities: non-tender Neurologic: alert Jose Antonio Zhang MD Apr 07, 2019 14:47
--- NOTE | 2019-04-07 15:21 | NUR ---
NURSE NOTES: Urin specimen collected as order and sent to lab, waiting for result.
[2019-04-07 15:46] LABS: BILIRUBIN, URINE NEGATIVE (NEGATIVE); GLUCOSE, URINE (UA) NEGATIVE (NEGATIVE); KETONES,URINE NEGATIVE (NEGATIVE); LEUKOCYTE ESTERASE ,URINE 1+ (NEGATIVE); NITRITE,URINE NEGATIVE (NEGATIVE); PH,URINE 7 (4.5-8.0); PROTEIN,URINE 2+ (NEGATIVE); UROBILINOGEN,URINE 1 MG/DL (0.0-1.0)
[2019-04-07 15:51] LABS: APPEARANCE,URINE SLIGHTLY CLOUDY; COLOR,URINE YELLOW
[2019-04-07 16:00] VITALS: BP 117/73
--- NOTE | 2019-04-07 16:28 | Pulmonology Progress Note ---
Assessment/Plan Assessment/Plan Pulmonary Consultation HPI Patient is an 84 year woman with past history of cirrhosis admitted with generalized abdominal pain and distension, she endorses some shortness of breath , generalized discomfort. Denies fevers, no chills no cough no congestion no diarrhea. Allergies: No Known Allergies Past Medical History: Cirrhosis, Portal Hypertension, Hypersplenism with thrombocytopenia, Varices, Diabetes, Hypertension Reviewed Nursing Documentation: PMH: Agreed; PSxH: Agreed All Other Systems: negative except mentioned in HPI Physical Exam Vital Signs Noted Date Time Temp Pulse Resp B/P (MAP) Pulse Ox O2 Delivery O2 Flow Rate FiO2 04/06/19 21:21 100.8 96 18 182/74 (110) 98 Room Air 04/06/19 21:35 98 General Appearance: chronically ill appearing, no apparent distress, alert, mild jaundice Head: NCAT Eyes: bilateral eye PERRL, bilateral eye EOMI ENT: moist mucus membranes Neck: supple, thyroid normal, supple/symm/no masses Respiratory: lungs clear to auscultation bilaterally Cardiovascular: normal peripheral pulses, regular rate, rhythm, HS1, HS2 normal Gastrointestinal: non tender, no guarding, no rebound, distended with ascites Musculoskeletal: normal inspection Neurologic: alert, oriented x3 Skin: no rash, warm/dry, mild edema Impression: Cirrhosis Ascites Abdominal pain Portal Hypertension Hypersplenism with thrombocytopenia Varices Diabetes Plan: Paracentesis FIRE [employer] CHIEF medications O2 PRN Incentive spirometer Hematology following for thrombocutopenia PPX Laboratory Tests Test 04/06/19 21:42 White Blood Count 9.1 K/UL (4.8-10.8) Red Blood Count 3.40 M/UL (4.20-5.40) L Hemoglobin 11.2 G/DL (12.0-16.0) L Hematocrit 31.9 % (37.0-47.0) L Mean Corpuscular Volume 94 FL (80-99) Mean Corpuscular Hemoglobin 32.9 PG (27.0-31.0) H Mean Corpuscular Hemoglobin Concent 35.0 G/DL (32.0-36.0) Red Cell Distribution Width 13.3 % (11.6-14.8) Platelet Count 61 K/UL (150-450) L Mean Platelet Volume 9.4 FL (6.5-10.1) Neutrophils (%) (Auto) % (45.0-75.0) Lymphocytes (%) (Auto) % (20.0-45.0) Monocytes (%) (Auto) % (1.0-10.0) Eosinophils (%) (Auto) % (0.0-3.0) Basophils (%) (Auto) % (0.0-2.0) Differential Total Cells Counted 100 Neutrophils % (Manual) 73 % (45-75) Lymphocytes % (Manual) 16 % (20-45) L Monocytes % (Manual) 9 % (1-10) Eosinophils % (Manual) 2 % (0-3) Basophils % (Manual) 0 % (0-2) Band Neutrophils 0 % (0-8) Platelet Estimate Decreased L Platelet Morphology Normal Red Blood Cell Morphology Normal Prothrombin Time 14.1 SEC (9.30-11.50) H Prothrombin Time INR 1.3 (0.9-1.1) H PTT 33 SEC (23-33) Sodium Level 134 MMOL/L (136-145) L Potassium Level 5.8 MMOL/L (3.5-5.1) H Chloride Level 102 MMOL/L (98-107) Carbon Dioxide Level 26 MMOL/L (21-32) Anion Gap 6 mmol/L (5-15) Blood Urea Nitrogen 15 mg/dL (7-18) Creatinine 1.1 MG/DL (0.55-1.30) Estimate Glomerular Filtration Rate mL/min (>60) Glucose Level 144 MG/DL (74-106) H Lactic Acid Level 2.10 mmol/L (0.4-2.0) H Calcium Level 8.2 MG/DL (8.5-10.1) L Phosphorus Level 3.3 MG/DL (2.5-4.9) Magnesium Level 1.7 MG/DL (1.8-2.4) L Total Bilirubin 3.0 MG/DL (0.2-1.0) H Direct Bilirubin 0.5 MG/DL (0.0-0.3) H Aspartate Amino Transferase (AST) 87 U/L (15-37) H Alanine Aminotransferase (ALT) 29 U/L (12-78) Alkaline Phosphatase 158 U/L (46-116) H Ammonia 26 umol/L (11-32) Total Creatine Kinase 187 U/L (26-308) Creatine Kinase MB 0.7 NG/ML (0.0-3.6) Creatine Kinase MB Relative Index 0.3 Troponin I 0.000 ng/mL (0.000-0.056) Pro-B-Type Natriuretic Peptide 1308 pg/mL (0-125) H Total Protein 7.4 G/DL (6.4-8.2) Albumin 1.9 G/DL (3.4-5.0) L Globulin 5.5 g/dL Albumin/Globulin Ratio 0.3 (1.0-2.7) L Lipase 227 U/L (73-393) EKG: NSR, rate 92, QTc 400, no acute ST elevations, normal axis Chest X-Ray: no consolidation, no effusion, no pneumothorax, no acute cardiopulmonary disease CT Abdomen Liver cirrhosis, severe portal hypertension as evidenced by splenomegaly, severe ascites. No definite hepatic mass. Portal vein appears to be patent. No bowel obstruction. Thickening of the ascending colon is likely due to portal colopathy. Colonic diverticulosis. Large calcified structure in the right lower quadrant, unchanged. No hydronephrosis. Moderate bladder wall thickening, correlate with cystitis versus underdistention. Subjective ROS Limited/Unobtainable: No Respiratory: Reports: shortness of breath Gastrointestinal/Abdominal: Reports: other Allergies: Coded Allergies: No Known Allergies (Unverified , 03/02/19) Objective Last 24 Hour Vital Signs Date Time Temp Pulse Resp B/P (MAP) Pulse Ox O2 Delivery O2 Flow Rate FiO2 04/07/19 16:00 98.2 76 18 117/73 (88) 99 04/07/19 13:00 Room Air 04/07/19 12:00 97.7 76 18 129/57 (81) 100 04/07/19 09:00 Room Air 04/07/19 08:17 98.2 80 20 117/56 (76) 100 04/07/19 04:00 98.1 85 20 110/51 (70) 99 04/07/19 02:14 99.5 96 22 127/66 (86) 100 04/07/19 01:55 Room Air 04/07/19 01:15 99.4 86 19 148/84 98 Room Air 04/06/19 21:35 100.3 93 18 180/80 98 Room Air 04/06/19 21:35 93 18 Room Air 98 04/06/19 21:21 100.8 96 18 182/74 (110) 98 Room Air Intake and Output 04/06/19 04/07/19 19:00 07:00 Intake Total 2485.0 ml Output Total 0 ml Balance 2485.0 ml Intake Oral 0 ml IV Total 2485.0 ml Output Urine Total 0 ml Laboratory Tests 04/06/19 21:42: White Blood Count 9.1, Red Blood Count 3.40L, Hemoglobin 11.2L, Hematocrit 31.9L , Mean Corpuscular Volume 94, Mean Corpuscular Hemoglobin 32.9H, Mean Corpuscular Hemoglobin Concent 35.0, Red Cell Distribution Width 13.3, Platelet Count 61L, Mean Platelet Volume 9.4, Neutrophils (%) (Auto) , Lymphocytes (%) ( Auto) , Monocytes (%) (Auto) , Eosinophils (%) (Auto) , Basophils (%) (Auto) , Differential Total Cells Counted 100, Neutrophils % (Manual) 73, Lymphocytes % ( Manual) 16L, Monocytes % (Manual) 9, Eosinophils % (Manual) 2, Basophils % ( Manual) 0, Band Neutrophils 0, Platelet Estimate DecreasedL, Platelet Morphology Normal, Red Blood Cell Morphology Normal, Prothrombin Time 14.1H, Prothromb Time International Ratio 1.3H, Activated Partial Thromboplast Time 33 , Sodium Level 134L, Potassium Level 5.8H, Chloride Level 102, Carbon Dioxide Level 26, Anion Gap 6, Blood Urea Nitrogen 15, Creatinine 1.1, Estimat Glomerular Filtration Rate , Glucose Level 144H, Lactic Acid Level 2.10H, Calcium Level 8.2L, Phosphorus Level 3.3, Magnesium Level 1.7L, Total Bilirubin 3.0H, Direct Bilirubin 0.5H, Aspartate Amino Transf (AST/SGOT) 87H, Alanine Aminotransferase (ALT/SGPT) 29, Alkaline Phosphatase 158H, Ammonia 26, Total Creatine Kinase 187, Creatine Kinase MB 0.7, Creatine Kinase MB Relative Index 0.3, Troponin I 0.000, Pro-B-Type Natriuretic Peptide 1308H, Total Protein 7.4, Albumin 1.9L, Globulin 5.5, Albumin/Globulin Ratio 0.3L, Lipase 227 04/07/19 01:18: White Blood Count 9.1, Red Blood Count 3.01L, Hemoglobin 9.8L, Hematocrit 28.6L , Mean Corpuscular Volume 95, Mean Corpuscular Hemoglobin 32.7H, Mean Corpuscular Hemoglobin Concent 34.4, Red Cell Distribution Width 14.1, Platelet Count 50L, Mean Platelet Volume 7.5, Neutrophils (%) (Auto) , Lymphocytes (%) ( Auto) , Monocytes (%) (Auto) , Eosinophils (%) (Auto) , Basophils (%) (Auto) , Differential Total Cells Counted 100, Neutrophils % (Manual) 81H, Lymphocytes % (Manual) 11L, Monocytes % (Manual) 6, Eosinophils % (Manual) 2, Basophils % ( Manual) 0, Band Neutrophils 0, Platelet Estimate DecreasedL, Platelet Morphology Normal, Sodium Level 135L, Potassium Level 4.7, Chloride Level 105, Carbon Dioxide Level 26, Anion Gap 5, Blood Urea Nitrogen 13, Creatinine 1.2, Estimat Glomerular Filtration Rate , Glucose Level 168H, Lactic Acid Level 1.60 , Calcium Level 7.5L, Total Bilirubin 2.7H, Direct Bilirubin 0.9H, Aspartate Amino Transf (AST/SGOT) 48H, Alanine Aminotransferase (ALT/SGPT) 21, Alkaline Phosphatase 127H, Total Protein 6.1L, Albumin 1.7L, Globulin 4.4, Albumin/ Globulin Ratio 0.4L, Anisocytosis 1+, Carcinoembryonic Antigen [Pending] 04/07/19 15:15: Urine Color Yellow, Urine Appearance Slightly cloudy, Urine pH 7, Urine Specific [place] 1.010, Urine Protein 2+H, Urine Glucose (UA) Negative, Urine Ketones Negative, Urine Blood Negative, Urine Nitrite Negative, Urine Bilirubin Negative, Urine Urobilinogen 1H, Urine Leukocyte Esterase 1+H, Urine RBC 0-2, Urine WBC 10-15H, Urine Squamous Epithelial Cells ManyH, Urine Bacteria ModerateH, Urine Osmolality 615H, Urine Random Sodium 35 Current Medications Medications (Trade) Dose Ordered Sig/Robe Route PRN Reason Start Time Stop Time Status Last Admin Dose Admin Aspirin (Ecotrin) 81 mg DAILY ORAL 04/08/19 09:00 05/08/19 08:59 Dextrose/Sodium Chloride 1,000 ml @ 50 mls/hr Q20H IV 04/07/19 12:41 05/07/19 12:40 04/07/19 13:21 Docusate Sodium (Colace) 100 mg THREE TIMES A DAY ORAL 04/07/19 13:00 05/07/19 12:59 04/07/19 13:21 Lactulose (Cephulac) 15 gm TID ORAL 04/07/19 13:00 05/07/19 12:59 04/07/19 13:21 Pantoprazole (Protonix) 40 mg DAILY IVP 04/07/19 12:45 05/07/19 12:44 04/07/19 13:21 Audie Wilkins MD Apr 07, 2019 16:28
--- NOTE | 2019-04-07 19:23 | NUR ---
HAND-OFF: Report given to MICA SCOTT RN. Pt is awake and stable. Endorsed to monitor I&O.
--- NOTE | 2019-04-07 19:42 | NUR ---
NURSE NOTES: Pt is in bed, awake, alert and verbal. pt is breathing on RA, no SOB or acute respiratory distress noted. IV site on L wrist 22g intact. F/C is draining yellow urine. Bed is locked and is in the lowest position. Call light within easy reach. will continue to monitor.
[2019-04-07 20:00] VITALS: BP 148/88
[2019-04-08] VITALS: BP 132/50
[2019-04-08 04:00] VITALS: BP 106/87
[2019-04-08 05:18] LABS: HEMATOCRIT 28.9 % (37.0-47.0); HEMOGLOBIN 9.9 G/DL (12.0-16.0); MEAN CORPUSCULAR VOLUME 97 FL (80-99); PLATELET COUNT 46 K/UL (150-450); RED BLOOD COUNT 2.97 M/UL (4.20-5.40); RED CELL DISTRIBUTION WIDTH 14.2 % (11.6-14.8); WHITE BLOOD COUNT 6.4 K/UL (4.8-10.8)
--- NOTE | 2019-04-08 05:31 | Consultation ---
DATE OF CONSULTATION: 04/07/2019 GASTROENTEROLOGY CONSULTATION CONSULTING PHYSICIAN: Negrita Clancy M.D. CHIEF COMPLAINT: I was asked to see this patient by Dr. Steve Burr for evaluation of liver cirrhosis. HISTORY OF PRESENT ILLNESS: The patient is a pleasant, unfortunate 84-year-old woman, who was readmitted to the hospital because of distended abdomen. She was recently admitted about a month ago and on that admission was noted to have cirrhosis and had paracentesis with high-grade ascites. She does not have esophageal varices with endoscopy done recently. The patient denies any alcohol use and the cause of the liver disease is not clear, but it appears to be advanced based on CT findings and laboratory tests. The patient now complains of recurrent distention of the abdomen for several days. She denies pain and has had no nausea, vomiting, diarrhea, or constipation. PAST MEDICAL HISTORY: Remarkable for history of cirrhosis, history of portal hypertension, history of diabetes. FAMILY HISTORY: Noncontributory. SOCIAL HISTORY: The patient does not smoke or drink alcohol. REVIEW OF SYSTEMS: Otherwise negative. PHYSICAL EXAMINATION: GENERAL: Pleasant woman, seen in her room. HEENT: Normocephalic and atraumatic. Sclerae are anicteric. Oropharynx is clear. NECK: Supple. CHEST: Coarse breath sounds. CARDIAC: Revealed a regular rate. ABDOMEN: Very distended with ascites. There is no obvious tenderness. EXTREMITIES: Revealed no edema. LABORATORY DATA: Noted. ASSESSMENT: This patient presents with abnormal liver tests and elevated amount of ascites, which can be seen also on imaging studies. She should undergo paracentesis to provide some relief of pressure in abdomen. Given that the patient has negative autoimmune markers this can be checked as the cause of the patient's cirrhosis. RECOMMENDATIONS: 1. Order paracentesis tomorrow. 2. Check autoimmune markers. 3. PO as tolerated. Thank you for asking me to participate in the care of this patient. Negrita Clancy M.D. DR: Leonardo JOB#: [id number] CC: RAMAKRISHNA
[2019-04-08 05:42] LABS: AMMONIA 23 umol/L (11-32)
[2019-04-08 05:56] LABS: ALANINE AMINOTRANSFERASE 22 U/L (12-78); ALBUMIN 1.6 G/DL (3.4-5.0); ALBUMIN/GLOBULIN RATIO 0.4 (1.0-2.7); ALKALINE PHOSPHATASE 117 U/L (46-116); ANION GAP 8 mmol/L (5-15); ASPARTATE AMINO TRANSFERASE 45 U/L (15-37); BILIRUBIN,TOTAL 3.4 MG/DL (0.2-1.0); BLOOD UREA NITROGEN 14 mg/dL (7-18); CALCIUM 7.7 MG/DL (8.5-10.1); CARBON DIOXIDE 22 MMOL/L (21-32); CHLORIDE 108 MMOL/L (98-107); CHOLESTEROL 95 MG/DL (< 200); CREATINE KINASE 72 U/L (26-308); CREATININE 1.2 MG/DL (0.55-1.30); FERRITIN 155 NG/ML (8-388); GAMMA GLUTAMYL TRANSPEPTIDASE 76 U/L (5-85); HDL CHOLESTEROL 24 MG/DL (40-60); PHOSPHORUS 2.9 MG/DL (2.5-4.9); POTASSIUM 4.2 MMOL/L (3.5-5.1); SODIUM 138 MMOL/L (136-145); TRIGLYCERIDES 58 MG/DL (30-150)
[2019-04-08] MEDS ORDERED: Albumin Human 25% 100ml IV ONE (06:00)
[2019-04-08 06:14] LABS: % IRON SATURATION 74 % (15-50); IRON 118 ug/dL (50-175); TOTAL IRON BINDING CAPACITY 159 ug/dL (250-450)
[2019-04-08] MEDS: D5NS 1,000 ML IV SCH (06:17)
[2019-04-08 06:52] LABS: BILIRUBIN,DIRECT 1.2 MG/DL (0.0-0.3)
--- NOTE | 2019-04-08 07:39 | NUR ---
HAND-OFF: Report given to Audie LEWIS.
--- NOTE | 2019-04-08 07:50 | NUR ---
NURSE NOTES: Received patient on bed, asleep. IV site intact and patent. Bed in low and locked position, call light in reach. No signs of respiratory distress or pain. Room board updated, will continue to monitor.
[2019-04-08 08:00] VITALS: BP 138/90
[2019-04-08] MEDS: Docusate 100mg cap ORAL SCH ×4 (09:00→18:34)
[2019-04-08] MEDS: Aspirin EC 81mg tab ORAL SCH (09:00)
[2019-04-08] MEDS: Lactulose 10gm/15ml UDC ORAL SCH ×4 (09:00→18:34)
[2019-04-08] MEDS: Pantoprazole Inj IVP SCH (09:40)
--- NOTE | 2019-04-08 11:43 | NUR ---
NURSE NOTES: Patient off floor for paracentesis.
--- NOTE | 2019-04-08 12:12 | Nephrology Progress Note ---
Assessment/Plan Problem List: (1) Cirrhosis (2) Abdominal pain (3) Anemia (4) Electrolyte abnormality Assessment Chronic Liver Disease / Cirrhosis / Ascitis Low Na Anemia Low Albumin Plan Caceres NPO Protonix GI eval Monitor lytes per orders Subjective ROS Limited/Unobtainable: No Constitutional: Reports: malaise, weakness Objective Objective Last 24 Hour Vital Signs Date Time Temp Pulse Resp B/P (MAP) Pulse Ox O2 Delivery O2 Flow Rate FiO2 04/08/19 09:00 Room Air 04/08/19 08:00 97.7 20 138/90 (106) 97 04/08/19 04:00 97.4 81 19 106/87 (93) 98 04/08/19 00:00 98.0 84 20 132/50 (77) 96 04/07/19 21:00 Room Air 04/07/19 20:00 96.4 77 19 148/88 (108) 98 04/07/19 16:00 98.2 76 18 117/73 (88) 99 04/07/19 13:00 Room Air Intake and Output 04/07/19 04/08/19 18:59 06:59 Intake Total 250 ml 1550 ml Output Total 200 ml 120 ml Balance 50 ml 1430 ml Intake Oral 0 ml IV Total 250 ml 1550 ml Output Urine Total 200 ml 120 ml # Voids 2 1 Laboratory Tests 04/07/19 15:15: Urine Color Yellow, Urine Appearance Slightly cloudy, Urine pH 7, Urine Specific [place] 1.010, Urine Protein 2+H, Urine Glucose (UA) Negative, Urine Ketones Negative, Urine Blood Negative, Urine Nitrite Negative, Urine Bilirubin Negative, Urine Urobilinogen 1H, Urine Leukocyte Esterase 1+H, Urine RBC 0-2, Urine WBC 10-15H, Urine Squamous Epithelial Cells ManyH, Urine Bacteria ModerateH, Urine Osmolality 615H, Urine Random Sodium 35 04/07/19 16:30: Carcinoembryonic Antigen 6.3H 04/08/19 05:00: White Blood Count 6.4, Red Blood Count 2.97L, Hemoglobin 9.9L, Hematocrit 28.9L , Mean Corpuscular Volume 97, Mean Corpuscular Hemoglobin 33.2H, Mean Corpuscular Hemoglobin Concent 34.2, Red Cell Distribution Width 14.2, Platelet Count 46L, Mean Platelet Volume 8.7, Neutrophils (%) (Auto) , Lymphocytes (%) ( Auto) , Monocytes (%) (Auto) , Eosinophils (%) (Auto) , Basophils (%) (Auto) , Differential Total Cells Counted 100, Neutrophils % (Manual) 58, Lymphocytes % ( Manual) 20, Monocytes % (Manual) 14H, Eosinophils % (Manual) 7H, Basophils % ( Manual) 1, Band Neutrophils 0, Platelet Estimate DecreasedL, Platelet Morphology Normal, Hypochromasia 2+, Spherocytes 2+, Sodium Level 138, Potassium Level 4.2, Chloride Level 108H, Carbon Dioxide Level 22, Anion Gap 8, Blood Urea Nitrogen 14, Creatinine 1.2, Estimat Glomerular Filtration Rate , Glucose Level 135H, Hemoglobin A1c 1.2L, Uric Acid 5.2, Calcium Level 7.7L, Phosphorus Level 2.9, Magnesium Level 1.6L, Iron Level 118, Total Iron Binding Capacity 159L, Percent Iron Saturation 74H, Unsaturated Iron Binding 41L, Ferritin 155, Total Bilirubin 3.4H, Direct Bilirubin 1.2H, Gamma Glutamyl Transpeptidase 76, Aspartate Amino Transf (AST/SGOT) 45H, Alanine Aminotransferase (ALT/SGPT) 22, Alkaline Phosphatase 117H, Ammonia 23, Total Creatine Kinase 72, C-Reactive Protein, Quantitative 7.2H, Pro-B-Type Natriuretic Peptide 2521H, Total Protein 6.1L, Albumin 1.6L, Globulin 4.5, Albumin/Globulin Ratio 0.4L, Triglycerides Level 58, Cholesterol Level 95, LDL Cholesterol 56, HDL Cholesterol 24L, Cholesterol/HDL Ratio 4.0, Vitamin B12 Level 1729H, Folate 8.8, Thyroid Stimulating Hormone (TSH) 2.265 Height (Feet): 5 Height (Inches): 1.00 Weight (Pounds): 158 General Appearance: no apparent distress Cardiovascular: normal rate Respiratory/Chest: decreased breath sounds Abdomen: distended Bao Biggs MD Apr 08, 2019 12:12
--- NOTE | 2019-04-08 12:16 | General Progress Note ---
Assessment/Plan Assessment/Plan: Assessment - Cirrhosis, ? etiology - No esophageal varicies, per recent EGD - Ascites Recommendations - paracentesis today - check auto-immune markers - IV albumin to support paracentesis - Poor prognosis Subjective Allergies: Coded Allergies: No Known Allergies (Unverified , 03/02/19) Subjective feels same d/w family at bedside plans for paracentesis outlined Objective Last 24 Hour Vital Signs Date Time Temp Pulse Resp B/P (MAP) Pulse Ox O2 Delivery O2 Flow Rate FiO2 04/08/19 09:00 Room Air 04/08/19 08:00 97.7 20 138/90 (106) 97 04/08/19 04:00 97.4 81 19 106/87 (93) 98 04/08/19 00:00 98.0 84 20 132/50 (77) 96 04/07/19 21:00 Room Air 04/07/19 20:00 96.4 77 19 148/88 (108) 98 04/07/19 16:00 98.2 76 18 117/73 (88) 99 04/07/19 13:00 Room Air Intake and Output 04/07/19 04/08/19 18:59 06:59 Intake Total 250 ml 1550 ml Output Total 200 ml 120 ml Balance 50 ml 1430 ml Intake Oral 0 ml IV Total 250 ml 1550 ml Output Urine Total 200 ml 120 ml # Voids 2 1 Laboratory Tests 04/07/19 15:15: Urine Color Yellow, Urine Appearance Slightly cloudy, Urine pH 7, Urine Specific [place] 1.010, Urine Protein 2+H, Urine Glucose (UA) Negative, Urine Ketones Negative, Urine Blood Negative, Urine Nitrite Negative, Urine Bilirubin Negative, Urine Urobilinogen 1H, Urine Leukocyte Esterase 1+H, Urine RBC 0-2, Urine WBC 10-15H, Urine Squamous Epithelial Cells ManyH, Urine Bacteria ModerateH, Urine Osmolality 615H, Urine Random Sodium 35 04/07/19 16:30: Carcinoembryonic Antigen 6.3H 04/08/19 05:00: White Blood Count 6.4, Red Blood Count 2.97L, Hemoglobin 9.9L, Hematocrit 28.9L , Mean Corpuscular Volume 97, Mean Corpuscular Hemoglobin 33.2H, Mean Corpuscular Hemoglobin Concent 34.2, Red Cell Distribution Width 14.2, Platelet Count 46L, Mean Platelet Volume 8.7, Neutrophils (%) (Auto) , Lymphocytes (%) ( Auto) , Monocytes (%) (Auto) , Eosinophils (%) (Auto) , Basophils (%) (Auto) , Differential Total Cells Counted 100, Neutrophils % (Manual) 58, Lymphocytes % ( Manual) 20, Monocytes % (Manual) 14H, Eosinophils % (Manual) 7H, Basophils % ( Manual) 1, Band Neutrophils 0, Platelet Estimate DecreasedL, Platelet Morphology Normal, Hypochromasia 2+, Spherocytes 2+, Sodium Level 138, Potassium Level 4.2, Chloride Level 108H, Carbon Dioxide Level 22, Anion Gap 8, Blood Urea Nitrogen 14, Creatinine 1.2, Estimat Glomerular Filtration Rate , Glucose Level 135H, Hemoglobin A1c 1.2L, Uric Acid 5.2, Calcium Level 7.7L, Phosphorus Level 2.9, Magnesium Level 1.6L, Iron Level 118, Total Iron Binding Capacity 159L, Percent Iron Saturation 74H, Unsaturated Iron Binding 41L, Ferritin 155, Total Bilirubin 3.4H, Direct Bilirubin 1.2H, Gamma Glutamyl Transpeptidase 76, Aspartate Amino Transf (AST/SGOT) 45H, Alanine Aminotransferase (ALT/SGPT) 22, Alkaline Phosphatase 117H, Ammonia 23, Total Creatine Kinase 72, C-Reactive Protein, Quantitative 7.2H, Pro-B-Type Natriuretic Peptide 2521H, Total Protein 6.1L, Albumin 1.6L, Globulin 4.5, Albumin/Globulin Ratio 0.4L, Triglycerides Level 58, Cholesterol Level 95, LDL Cholesterol 56, HDL Cholesterol 24L, Cholesterol/HDL Ratio 4.0, Vitamin B12 Level 1729H, Folate 8.8, Thyroid Stimulating Hormone (TSH) 2.265 Height (Feet): 5 Height (Inches): 1.00 Weight (Pounds): 158 Objective Thin, frail woman NCAT supple CTA RR abd soft distended (+) Ascites trace edema Negrita Clancy MD Apr 08, 2019 12:16
--- NOTE | 2019-04-08 14:24 | Diagnostic Imaging Report ---
APPROVED REPORT CPT Code: 70902 Present Symptoms Lower Extremity Pain: Bilateral Lower Extremity Edema: Bilateral BILATERAL: Imaging reveals a patent deep venous system bilaterally. There is no evidence of thrombus within the femoral, popliteal or tibial segments. The greater saphenous veins are also within normal limits. Doppler indicates normal spontaneous flow within these segments.
--- NOTE | 2019-04-08 14:42 | NUR ---
*-* INSURANCE /*-* ALL CLINICALS HAVE BEEN FAXED TO: [facility] Coordinator: Ev Hutchinson#[phone] fax#[phone]
--- NOTE | 2019-04-08 15:25 | Hematology/Onc Progress Note ---
Assessment/Plan Assessment/Plan # Pancytopenia is likely due to underlying cirrhosis, splenomegaly, paraesophageal varices, portal HTN. Well known to me from prior admission, she generally requires occasional drainage --> at this time, imaging of liver reviewed, no e/o malignancy --> hepatitis panel and hiv are both negative --> plt trend: 58-->75k-->67k-->50k --> AFP is 2.5 --> given age, cea is 6.3, as per gi recs --> smear has been reviewed, r/o schistocytes --> neupogen on prn basis --> plts as needed presurg, goal >50k if procedure --> 03/04: EGD--> atrophic gastritis noted --> ppi as needed --> paracentesis on prn basis # Anemia of chronic disease --> no evidence of iron deficiency --> hgb goal >7, transfuse prn --> less of a role for iron and epogen --> hgb trend: 9.3-->10.3-->9.8 # Coagulopathy is related to liver disease --> preprocedure GIVE vit K # Thickening of wall of gallbladder with pericholecystic fluid --> hida neg before # hx UTI (urinary tract infection) --> history of, sp treatment # Liver cirrhosis --> distended ab, r/o sbp --> on abx # Dvt ppx scds Greatly appreciate consultation and juan manuel RN Subjective HEENT: Denies: no symptoms, eye pain, blurred vision, tearing, double vision, ear pain, ear discharge, nose pain, nose congestion, throat pain, throat swelling, mouth pain, mouth swelling, other Cardiovascular: Denies: no symptoms, chest pain, edema, irregular heart rate, lightheadedness, palpitations, syncope, other Respiratory: Denies: no symptoms, cough, shortness of breath, SOB with excertion, SOB at rest, sputum, wheezing, other Gastrointestinal/Abdominal: Denies: no symptoms, abdomen distended, abdominal pain, black stools, tarry stools, blood in stool, constipated, diarrhea, difficulty swallowing, nausea, poor appetite, poor fluid intake, rectal bleeding , vomiting, other Genitourinary: Denies: no symptoms, burning, discharge, frequency, flank pain, hematuria, incontinence, pain, urgency, other Neurologic/Psychiatric: Denies: no symptoms, anxiety, depressed, emotional problems, headache, numbness, paresthesia, pre-existing deficit, seizure, tingling, tremors, weakness, other Endocrine: Denies: no symptoms, excessive sweating, flushing, intolerance to cold, intolerance to heat, increased hunger, increased thirst, increased urine, unexplained weight gain, unexplained weight loss, other Hematologic/Lymphatic: Denies: no symptoms, anemia, easy bleeding, easy bruising, adenopathy, other Allergies: Coded Allergies: No Known Allergies (Unverified , 03/02/19) Subjective 04/07: no major changes, for para, plt 50k, will review inr/ptt preprocedure, gi aware 04/08: no bleeding or chills, no night sweats, no major changes, for para Objective Objective Current Medications Medications (Trade) Dose Ordered Sig/Robe Route PRN Reason Start Time Stop Time Status Last Admin Dose Admin Albumin Human 100 ml @ 100 mls/hr ONCE PRN IV SOIL CONSERVATIONIST TO PARACENTESIS 04/08/19 12:15 04/09/19 12:14 Aspirin (Ecotrin) 81 mg DAILY ORAL 04/08/19 09:00 05/08/19 08:59 Dextrose/Sodium Chloride 1,000 ml @ 50 mls/hr Q20H IV 04/07/19 12:41 05/07/19 12:40 04/08/19 06:17 Docusate Sodium (Colace) 100 mg THREE TIMES A DAY ORAL 04/07/19 13:00 05/07/19 12:59 04/08/19 14:08 Lactulose (Cephulac) 15 gm TID ORAL 04/07/19 13:00 05/07/19 12:59 04/08/19 14:08 Pantoprazole (Protonix) 40 mg DAILY IVP 04/07/19 12:45 05/07/19 12:44 04/08/19 09:40 Last 24 Hour Vital Signs Date Time Temp Pulse Resp B/P (MAP) Pulse Ox O2 Delivery O2 Flow Rate FiO2 04/08/19 09:00 Room Air 04/08/19 08:00 97.7 20 138/90 (106) 97 04/08/19 04:00 97.4 81 19 106/87 (93) 98 04/08/19 00:00 98.0 84 20 132/50 (77) 96 04/07/19 21:00 Room Air 04/07/19 20:00 96.4 77 19 148/88 (108) 98 04/07/19 16:00 98.2 76 18 117/73 (88) 99 04/07/19 13:00 Room Air 04/07/19 12:00 97.7 76 18 129/57 (81) 100 04/07/19 09:00 Room Air 04/07/19 08:17 98.2 80 20 117/56 (76) 100 04/07/19 04:00 98.1 85 20 110/51 (70) 99 04/07/19 02:14 99.5 96 22 127/66 (86) 100 04/07/19 01:55 Room Air 04/07/19 01:15 99.4 86 19 148/84 98 Room Air 04/06/19 21:35 100.3 93 18 180/80 98 Room Air 04/06/19 21:35 93 18 Room Air 98 04/06/19 21:21 100.8 96 18 182/74 (110) 98 Room Air Intake and Output 04/07/19 04/08/19 18:59 06:59 Intake Total 250 ml 1550 ml Output Total 200 ml 120 ml Balance 50 ml 1430 ml Intake Oral 0 ml IV Total 250 ml 1550 ml Output Urine Total 200 ml 120 ml # Voids 2 1 Labs Test 04/06/19 21:42 04/07/19 01:18 04/07/19 15:15 04/07/19 16:30 White Blood Count 9.1 K/UL (4.8-10.8) 9.1 K/UL (4.8-10.8) Red Blood Count 3.40 M/UL (4.20-5.40) 3.01 M/UL (4.20-5.40) Hemoglobin 11.2 G/DL (12.0-16.0) 9.8 G/DL (12.0-16.0) Hematocrit 31.9 % (37.0-47.0) 28.6 % (37.0-47.0) Mean Corpuscular Volume 94 FL (80-99) 95 FL (80-99) Mean Corpuscular Hemoglobin 32.9 PG (27.0-31.0) 32.7 PG (27.0-31.0) Mean Corpuscular Hemoglobin Concent 35.0 G/DL (32.0-36.0) 34.4 G/DL (32.0-36.0) Red Cell Distribution Width 13.3 % (11.6-14.8) 14.1 % (11.6-14.8) Platelet Count 61 K/UL (150-450) 50 K/UL (150-450) Mean Platelet Volume 9.4 FL (6.5-10.1) 7.5 FL (6.5-10.1) Neutrophils (%) (Auto) % (45.0-75.0) % (45.0-75.0) Lymphocytes (%) (Auto) % (20.0-45.0) % (20.0-45.0) Monocytes (%) (Auto) % (1.0-10.0) % (1.0-10.0) Eosinophils (%) (Auto) % (0.0-3.0) % (0.0-3.0) Basophils (%) (Auto) % (0.0-2.0) % (0.0-2.0) Differential Total Cells Counted 100 100 Neutrophils % (Manual) 73 % (45-75) 81 % (45-75) Lymphocytes % (Manual) 16 % (20-45) 11 % (20-45) Monocytes % (Manual) 9 % (1-10) 6 % (1-10) Eosinophils % (Manual) 2 % (0-3) 2 % (0-3) Basophils % (Manual) 0 % (0-2) 0 % (0-2) Band Neutrophils 0 % (0-8) 0 % (0-8) Platelet Estimate Decreased Decreased Platelet Morphology Normal Normal Red Blood Cell Morphology Normal Prothrombin Time 14.1 SEC (9.30-11.50) Prothromb Time International Ratio 1.3 (0.9-1.1) Activated Partial Thromboplast Time 33 SEC (23-33) Sodium Level 134 MMOL/L (136-145) 135 MMOL/L (136-145) Potassium Level 5.8 MMOL/L (3.5-5.1) 4.7 MMOL/L (3.5-5.1) Chloride Level 102 MMOL/L (98-107) 105 MMOL/L (98-107) Carbon Dioxide Level 26 MMOL/L (21-32) 26 MMOL/L (21-32) Anion Gap 6 mmol/L (5-15) 5 mmol/L (5-15) Blood Urea Nitrogen 15 mg/dL (7-18) 13 mg/dL (7-18) Creatinine 1.1 MG/DL (0.55-1.30) 1.2 MG/DL (0.55-1.30) Estimat Glomerular Filtration Rate mL/min (>60) mL/min (>60) Glucose Level 144 MG/DL (74-106) 168 MG/DL (74-106) Lactic Acid Level 2.10 mmol/L (0.4-2.0) 1.60 mmol/L (0.66-2.22) Calcium Level 8.2 MG/DL (8.5-10.1) 7.5 MG/DL (8.5-10.1) Phosphorus Level 3.3 MG/DL (2.5-4.9) Magnesium Level 1.7 MG/DL (1.8-2.4) Total Bilirubin 3.0 MG/DL (0.2-1.0) 2.7 MG/DL (0.2-1.0) Direct Bilirubin 0.5 MG/DL (0.0-0.3) 0.9 MG/DL (0.0-0.3) Aspartate Amino Transf (AST/SGOT) 87 U/L (15-37) 48 U/L (15-37) Alanine Aminotransferase (ALT/SGPT) 29 U/L (12-78) 21 U/L (12-78) Alkaline Phosphatase 158 U/L (46-116) 127 U/L (46-116) Ammonia 26 umol/L (11-32) Total Creatine Kinase 187 U/L (26-308) Creatine Kinase MB 0.7 NG/ML (0.0-3.6) Creatine Kinase MB Relative Index 0.3 Troponin I 0.000 ng/mL (0.000-0.056) Pro-B-Type Natriuretic Peptide 1308 pg/mL (0-125) Total Protein 7.4 G/DL (6.4-8.2) 6.1 G/DL (6.4-8.2) Albumin 1.9 G/DL (3.4-5.0) 1.7 G/DL (3.4-5.0) Globulin 5.5 g/dL 4.4 g/dL Albumin/Globulin Ratio 0.3 (1.0-2.7) 0.4 (1.0-2.7) Lipase 227 U/L (73-393) Anisocytosis 1+ Urine Color Yellow Urine Appearance Slightly cloudy Urine pH 7 (4.5-8.0) Urine Specific [place] 1.010 (1.005-1.035) Urine Protein 2+ (NEGATIVE) Urine Glucose (UA) Negative (NEGATIVE) Urine Ketones Negative (NEGATIVE) Urine Blood Negative (NEGATIVE) Urine Nitrite Negative (NEGATIVE) Urine Bilirubin Negative (NEGATIVE) Urine Urobilinogen 1 MG/DL (0.0-1.0) Urine Leukocyte Esterase 1+ (NEGATIVE) Urine RBC 0-2 /HPF (0 - 2) Urine WBC 10-15 /HPF (0 - 2) Urine Squamous Epithelial Cells Many /LPF (NONE/OCC) Urine Bacteria Moderate /HPF (NONE) Urine Osmolality 615 mOsm/kg (429-449) Urine Random Sodium 35 mmol/L (20-110) Carcinoembryonic Antigen 6.3 ng/mL (0.0-4.7) Test 04/08/19 05:00 White Blood Count 6.4 K/UL (4.8-10.8) Red Blood Count 2.97 M/UL (4.20-5.40) Hemoglobin 9.9 G/DL (12.0-16.0) Hematocrit 28.9 % (37.0-47.0) Mean Corpuscular Volume 97 FL (80-99) Mean Corpuscular Hemoglobin 33.2 PG (27.0-31.0) Mean Corpuscular Hemoglobin Concent 34.2 G/DL (32.0-36.0) Red Cell Distribution Width 14.2 % (11.6-14.8) Platelet Count 46 K/UL (150-450) Mean Platelet Volume 8.7 FL (6.5-10.1) Neutrophils (%) (Auto) % (45.0-75.0) Lymphocytes (%) (Auto) % (20.0-45.0) Monocytes (%) (Auto) % (1.0-10.0) Eosinophils (%) (Auto) % (0.0-3.0) Basophils (%) (Auto) % (0.0-2.0) Differential Total Cells Counted 100 Neutrophils % (Manual) 58 % (45-75) Lymphocytes % (Manual) 20 % (20-45) Monocytes % (Manual) 14 % (1-10) Eosinophils % (Manual) 7 % (0-3) Basophils % (Manual) 1 % (0-2) Band Neutrophils 0 % (0-8) Platelet Estimate Decreased Platelet Morphology Normal Hypochromasia 2+ Spherocytes 2+ Sodium Level 138 MMOL/L (136-145) Potassium Level 4.2 MMOL/L (3.5-5.1) Chloride Level 108 MMOL/L (98-107) Carbon Dioxide Level 22 MMOL/L (21-32) Anion Gap 8 mmol/L (5-15) Blood Urea Nitrogen 14 mg/dL (7-18) Creatinine 1.2 MG/DL (0.55-1.30) Estimat Glomerular Filtration Rate mL/min (>60) Glucose Level 135 MG/DL (74-106) Hemoglobin A1c 1.2 % (4.3-6.0) Uric Acid 5.2 MG/DL (2.6-7.2) Calcium Level 7.7 MG/DL (8.5-10.1) Phosphorus Level 2.9 MG/DL (2.5-4.9) Magnesium Level 1.6 MG/DL (1.8-2.4) Iron Level 118 ug/dL (50-175) Total Iron Binding Capacity 159 ug/dL (250-450) Percent Iron Saturation 74 % (15-50) Unsaturated Iron Binding 41 ug/dL (112-346) Ferritin 155 NG/ML (8-388) Total Bilirubin 3.4 MG/DL (0.2-1.0) Direct Bilirubin 1.2 MG/DL (0.0-0.3) Gamma Glutamyl Transpeptidase 76 U/L (5-85) Aspartate Amino Transf (AST/SGOT) 45 U/L (15-37) Alanine Aminotransferase (ALT/SGPT) 22 U/L (12-78) Alkaline Phosphatase 117 U/L (46-116) Ammonia 23 umol/L (11-32) Total Creatine Kinase 72 U/L (26-308) C-Reactive Protein, Quantitative 7.2 mg/dL (0.00-0.90) Pro-B-Type Natriuretic Peptide 2521 pg/mL (0-125) Total Protein 6.1 G/DL (6.4-8.2) Albumin 1.6 G/DL (3.4-5.0) Globulin 4.5 g/dL Albumin/Globulin Ratio 0.4 (1.0-2.7) Triglycerides Level 58 MG/DL (30-150) Cholesterol Level 95 MG/DL (< 200) LDL Cholesterol 56 mg/dL (<100) HDL Cholesterol 24 MG/DL (40-60) Cholesterol/HDL Ratio 4.0 (3.3-4.4) Vitamin B12 Level 1729 PG/ML (193-986) Folate 8.8 NG/ML (8.6-58.9) Thyroid Stimulating Hormone (TSH) 2.265 uiU/mL (0.358-3.740) Height (Feet): 5 Height (Inches): 1.00 Weight (Pounds): 158 Objective GeN: NAd Pulm: ctab, some crackles at base CV: Rrr, no mgr Abd: distended but soft, nt Ext: 1+edema Jose Antonio Zhang MD Apr 08, 2019 15:24
--- NOTE | 2019-04-08 15:26 | Diagnostic Imaging Report ---
Indications: Ascites Procedure: Informed consent obtained. Ultrasound used to localize optimal puncture site. Sterile prepping and draping over the optimum site. Local anesthesia with 1% lidocaine. Under real-time ultrasound guidance, puncture of the peritoneal space performed using paracentesis needle. Digital image was saved and archived. Stylet removed. Catheter placed to vacuum bottle suction. Fluid was aspirated. Patient tolerated procedure well, without immediate complication. Findings: Followup sonography demonstrates complete resolution of peritoneal fluid Impression: Successful ultrasound-guided paracentesis, yielding 5.2 liters of fluid
--- NOTE | 2019-04-08 15:55 | NUR ---
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
[2019-04-08 16:00] VITALS: BP 130/50
--- NOTE | 2019-04-08 18:35 | NUR ---
NURSE NOTES: Patient refused scheduled colace and cephulac doses. Risks versus benefits explained.
--- NOTE | 2019-04-08 18:57 | NUR ---
NURSE NOTES: Colostomy bag placed over parecentesis site per MD Clancy's order.
--- NOTE | 2019-04-08 19:51 | NUR ---
HAND-OFF: Report given to DEBBIE Christianson.
[2019-04-08 20:00] VITALS: BP 146/53
--- NOTE | 2019-04-08 20:00 | NUR ---
NURSE NOTES: received pt. in bed.Colostomy bag placed over parecentesis site. no acute distress present. no c/o pain. call light within reach. the bed is lowest position. will continue to provide plan of care.
--- NOTE | 2019-04-08 21:21 | General Progress Note ---
Assessment/Plan Problem List: (1) Diabetes mellitus ICD Codes: E11.9 - Type 2 diabetes mellitus without complications SNOMED: 92292861 (2) HTN (hypertension) ICD Codes: I10 - Essential (primary) hypertension SNOMED: 72367533 (3) Cholecystitis ICD Codes: K81.9 - Cholecystitis, unspecified SNOMED: 11742809 (4) Cirrhosis ICD Codes: K74.60 - Unspecified cirrhosis of liver SNOMED: 92698663 Qualifiers: Qualified Codes: K74.60 - Unspecified cirrhosis of liver; R18.8 - Other ascites (5) Ascites ICD Codes: R18.8 - Other ascites SNOMED: 303867985 Qualifiers: Qualified Codes: R18.8 - Other ascites (6) Abdominal pain ICD Codes: R10.9 - Unspecified abdominal pain SNOMED: 91222590 Qualifiers: Qualified Codes: R10.84 - Generalized abdominal pain (7) Anemia ICD Codes: D64.9 - Anemia, unspecified SNOMED: 357335961 (8) Electrolyte abnormality ICD Codes: E87.8 - Other disorders of electrolyte and fluid balance, not elsewhere classified SNOMED: 833485278 Status: progressing Assessment/Plan: cirohsis abdominal pain check lytes no bleeding afebrile reviewed chart and labs Subjective ROS Limited/Unobtainable: Yes Allergies: Coded Allergies: No Known Allergies (Unverified , 03/02/19) Objective Last 24 Hour Vital Signs Date Time Temp Pulse Resp B/P (MAP) Pulse Ox O2 Delivery O2 Flow Rate FiO2 04/08/19 16:00 97.6 79 20 130/50 (76) 99 04/08/19 09:00 Room Air 04/08/19 08:00 97.7 20 138/90 (106) 97 04/08/19 04:00 97.4 81 19 106/87 (93) 98 04/08/19 00:00 98.0 84 20 132/50 (77) 96 Intake and Output 04/07/19 04/08/19 19:00 07:00 Intake Total 250 ml 1550 ml Output Total 200 ml 120 ml Balance 50 ml 1430 ml Intake Oral 0 ml IV Total 250 ml 1550 ml Output Urine Total 200 ml 120 ml # Voids 2 1 Laboratory Tests 04/08/19 05:00: White Blood Count 6.4, Red Blood Count 2.97L, Hemoglobin 9.9L, Hematocrit 28.9L , Mean Corpuscular Volume 97, Mean Corpuscular Hemoglobin 33.2H, Mean Corpuscular Hemoglobin Concent 34.2, Red Cell Distribution Width 14.2, Platelet Count 46L, Mean Platelet Volume 8.7, Neutrophils (%) (Auto) , Lymphocytes (%) ( Auto) , Monocytes (%) (Auto) , Eosinophils (%) (Auto) , Basophils (%) (Auto) , Differential Total Cells Counted 100, Neutrophils % (Manual) 58, Lymphocytes % ( Manual) 20, Monocytes % (Manual) 14H, Eosinophils % (Manual) 7H, Basophils % ( Manual) 1, Band Neutrophils 0, Platelet Estimate DecreasedL, Platelet Morphology Normal, Hypochromasia 2+, Spherocytes 2+, Sodium Level 138, Potassium Level 4.2, Chloride Level 108H, Carbon Dioxide Level 22, Anion Gap 8, Blood Urea Nitrogen 14, Creatinine 1.2, Estimat Glomerular Filtration Rate , Glucose Level 135H, Hemoglobin A1c 1.2L, Uric Acid 5.2, Calcium Level 7.7L, Phosphorus Level 2.9, Magnesium Level 1.6L, Iron Level 118, Total Iron Binding Capacity 159L, Percent Iron Saturation 74H, Unsaturated Iron Binding 41L, Ferritin 155, Total Bilirubin 3.4H, Direct Bilirubin 1.2H, Gamma Glutamyl Transpeptidase 76, Aspartate Amino Transf (AST/SGOT) 45H, Alanine Aminotransferase (ALT/SGPT) 22, Alkaline Phosphatase 117H, Ammonia 23, Total Creatine Kinase 72, C-Reactive Protein, Quantitative 7.2H, Pro-B-Type Natriuretic Peptide 2521H, Total Protein 6.1L, Albumin 1.6L, Globulin 4.5, Albumin/Globulin Ratio 0.4L, Triglycerides Level 58, Cholesterol Level 95, LDL Cholesterol 56, HDL Cholesterol 24L, Cholesterol/HDL Ratio 4.0, Vitamin B12 Level 1729H, Folate 8.8, Thyroid Stimulating Hormone (TSH) 2.265 04/08/19 11:00: Body Fluid Source Paracentesis, Body Fluid Volume 24, Body Fluid Appearance Hazy , Body Fluid RBC 1950, Body Fluid Total Nucleated Cells 35, Body Fluid Polynuclear WBCs (%) 34, Body Fluid Mononuclear WBCs (%) 52, Body Fluid Mesothelial Cells (%) 14, Body Fluid Albumin [Pending] Height (Feet): 5 Height (Inches): 1.00 Weight (Pounds): 158 Neck: supple Cardiovascular: normal rate Respiratory/Chest: lungs clear Abdomen: non tender Steve Burr MD Apr 08, 2019 21:21
--- NOTE | 2019-04-08 22:53 | Pulmonology Progress Note ---
Assessment/Plan Assessment/Plan Pulmonary Progress Note HPI Patient is an 84 year woman with past history of cirrhosis admitted with generalized abdominal pain and distension, she endorses some shortness of breath , generalized discomfort. Denies fevers, no chills no cough no congestion no diarrhea. Allergies: No Known Allergies Past Medical History: Cirrhosis, Portal Hypertension, Hypersplenism with thrombocytopenia, Varices, Diabetes, Hypertension Improved s/p paracentesis - no current SOB, LE dupplex negative for DVT Physical Exam Vital Signs Noted General Appearance: chronically ill appearing, no apparent distress, alert, mild jaundice Head: NCAT Eyes: bilateral eye PERRL, bilateral eye EOMI ENT: moist mucus membranes Neck: supple, thyroid normal, supple/symm/no masses Respiratory: lungs clear to auscultation bilaterally Cardiovascular: normal peripheral pulses, regular rate, rhythm, HS1, HS2 normal Gastrointestinal: non tender, no guarding, no rebound, less distended Musculoskeletal: normal inspection Neurologic: alert, oriented x3 Skin: no rash, warm/dry, mild edema Impression: Cirrhosis Ascites Abdominal pain 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 No definite hepatic mass. Portal vein appears to be patent. No bowel obstruction. Thickening of the ascending colon is likely due to portal colopathy. Colonic diverticulosis. Large calcified structure in the right lower quadrant, unchanged. No hydronephrosis. Moderate bladder wall thickening, correlate with cystitis versus underdistention. Subjective ROS Limited/Unobtainable: No Allergies: Coded Allergies: No Known Allergies (Unverified , 03/02/19) Objective Last 24 Hour Vital Signs Date Time Temp Pulse Resp B/P (MAP) Pulse Ox O2 Delivery O2 Flow Rate FiO2 04/08/19 16:00 97.6 79 20 130/50 (76) 99 04/08/19 09:00 Room Air 04/08/19 08:00 97.7 20 138/90 (106) 97 04/08/19 04:00 97.4 81 19 106/87 (93) 98 04/08/19 00:00 98.0 84 20 132/50 (77) 96 Intake and Output 04/07/19 04/08/19 19:00 07:00 Intake Total 250 ml 1550 ml Output Total 200 ml 120 ml Balance 50 ml 1430 ml Intake Oral 0 ml IV Total 250 ml 1550 ml Output Urine Total 200 ml 120 ml # Voids 2 1 Microbiology Date/Time Source Procedure Growth Status 04/06/19 21:42 Blood Blood Culture - Preliminary NO GROWTH AFTER 24 HOURS Resulted 04/06/19 21:21 Blood Blood Culture - Preliminary NO GROWTH AFTER 24 HOURS Resulted 04/07/19 15:15 Urine,Clean Catch Urine Culture - Preliminary NO GROWTH Resulted Laboratory Tests 04/08/19 05:00: White Blood Count 6.4, Red Blood Count 2.97L, Hemoglobin 9.9L, Hematocrit 28.9L , Mean Corpuscular Volume 97, Mean Corpuscular Hemoglobin 33.2H, Mean Corpuscular Hemoglobin Concent 34.2, Red Cell Distribution Width 14.2, Platelet Count 46L, Mean Platelet Volume 8.7, Neutrophils (%) (Auto) , Lymphocytes (%) ( Auto) , Monocytes (%) (Auto) , Eosinophils (%) (Auto) , Basophils (%) (Auto) , Differential Total Cells Counted 100, Neutrophils % (Manual) 58, Lymphocytes % ( Manual) 20, Monocytes % (Manual) 14H, Eosinophils % (Manual) 7H, Basophils % ( Manual) 1, Band Neutrophils 0, Platelet Estimate DecreasedL, Platelet Morphology Normal, Hypochromasia 2+, Spherocytes 2+, Sodium Level 138, Potassium Level 4.2, Chloride Level 108H, Carbon Dioxide Level 22, Anion Gap 8, Blood Urea Nitrogen 14, Creatinine 1.2, Estimat Glomerular Filtration Rate , Glucose Level 135H, Hemoglobin A1c 1.2L, Uric Acid 5.2, Calcium Level 7.7L, Phosphorus Level 2.9, Magnesium Level 1.6L, Iron Level 118, Total Iron Binding Capacity 159L, Percent Iron Saturation 74H, Unsaturated Iron Binding 41L, Ferritin 155, Total Bilirubin 3.4H, Direct Bilirubin 1.2H, Gamma Glutamyl Transpeptidase 76, Aspartate Amino Transf (AST/SGOT) 45H, Alanine Aminotransferase (ALT/SGPT) 22, Alkaline Phosphatase 117H, Ammonia 23, Total Creatine Kinase 72, C-Reactive Protein, Quantitative 7.2H, Pro-B-Type Natriuretic Peptide 2521H, Total Protein 6.1L, Albumin 1.6L, Globulin 4.5, Albumin/Globulin Ratio 0.4L, Triglycerides Level 58, Cholesterol Level 95, LDL Cholesterol 56, HDL Cholesterol 24L, Cholesterol/HDL Ratio 4.0, Vitamin B12 Level 1729H, Folate 8.8, Thyroid Stimulating Hormone (TSH) 2.265 04/08/19 11:00: Body Fluid Source Paracentesis, Body Fluid Volume 24, Body Fluid Appearance Hazy , Body Fluid RBC 1950, Body Fluid Total Nucleated Cells 35, Body Fluid Polynuclear WBCs (%) 34, Body Fluid Mononuclear WBCs (%) 52, Body Fluid Mesothelial Cells (%) 14, Body Fluid Albumin [Pending] Current Medications Medications (Trade) Dose Ordered Sig/Robe Route PRN Reason Start Time Stop Time Status Last Admin Dose Admin Albumin Human 300 ml @ 100 mls/hr ONCE IV 04/08/19 18:30 04/08/19 23:59 04/08/19 18:21 Aspirin (Ecotrin) 81 mg DAILY ORAL 04/08/19 09:00 05/08/19 08:59 Dextrose/Sodium Chloride 1,000 ml @ 50 mls/hr Q20H IV 04/07/19 12:41 05/07/19 12:40 04/08/19 06:17 Docusate Sodium (Colace) 100 mg THREE TIMES A DAY ORAL 04/07/19 13:00 05/07/19 12:59 04/08/19 14:08 Lactulose (Cephulac) 15 gm TID ORAL 04/07/19 13:00 05/07/19 12:59 04/08/19 14:08 Pantoprazole (Protonix) 40 mg DAILY IVP 04/07/19 12:45 05/07/19 12:44 04/08/19 09:40 Audie Wilkins MD Apr 08, 2019 22:53
[2019-04-09 02:55] VITALS: BP 154/91
[2019-04-09 04:00] VITALS: BP 144/77
[2019-04-09] MEDS: D5NS 1,000 ML IV SCH (05:12)
--- NOTE | 2019-04-09 07:15 | Consultation ---
DATE OF CONSULTATION: 04/08/2019 CONSULTING PHYSICIAN: Bibi Mijares M.D. HISTORY OF PRESENT ILLNESS: This is an 84-year-old female with a history of multiple medical issues, who has been admitted to the hospital for medical stabilization, , hypertension, diabetes. The patient is Welsh speaking. The patient is oriented to person, place, and month and year. The patient is having episodes of anxiety and agitation. Cognition is improved since admission. PAST MEDICAL HISTORY: As above. ALLERGIES: No known drug allergies. SUBSTANCE ABUSE HISTORY: No known history of illicit drug use or alcohol. MENTAL STATUS EXAMINATION: Alert and oriented x2 to 3. Mood is neutral, anxious. Affect is flat. Thought process is concrete. Thought content, no suicidal or homicidal ideation. Cognition is impaired. ASSESSMENT: Acute encephalopathy, improved. PLAN: 1. We will start the patient on risperidone as needed. 2. Provide the patient with reality orientation and supportive therapy. Bibi Mijares M.D. DR: NIRAV JOB#: [id number] CC:
[2019-04-09 07:30] LABS: HEMATOCRIT 23.8 % (37.0-47.0); HEMOGLOBIN 8.1 G/DL (12.0-16.0); MEAN CORPUSCULAR VOLUME 97 FL (80-99); PLATELET COUNT 38 K/UL (150-450); RED BLOOD COUNT 2.47 M/UL (4.20-5.40); RED CELL DISTRIBUTION WIDTH 14.4 % (11.6-14.8); WHITE BLOOD COUNT 3.4 K/UL (4.8-10.8)
--- NOTE | 2019-04-09 07:35 | NUR ---
HAND-OFF: Report given to Audie LEWIS.
[2019-04-09 07:38] LABS: ALANINE AMINOTRANSFERASE 17 U/L (12-78); ALBUMIN 2.9 G/DL (3.4-5.0); ALBUMIN/GLOBULIN RATIO 0.9 (1.0-2.7); ALKALINE PHOSPHATASE 99 U/L (46-116); ANION GAP 7 mmol/L (5-15); ASPARTATE AMINO TRANSFERASE 30 U/L (15-37); BILIRUBIN,TOTAL 2.6 MG/DL (0.2-1.0); BLOOD UREA NITROGEN 12 mg/dL (7-18); CALCIUM 7.9 MG/DL (8.5-10.1); CARBON DIOXIDE 24 MMOL/L (21-32); CHLORIDE 110 MMOL/L (98-107); CREATININE 1.2 MG/DL (0.55-1.30); GAMMA GLUTAMYL TRANSPEPTIDASE 57 U/L (5-85); PHOSPHORUS 2.3 MG/DL (2.5-4.9); POTASSIUM 3.8 MMOL/L (3.5-5.1); SODIUM 141 MMOL/L (136-145)
[2019-04-09 07:40] LABS: BILIRUBIN,DIRECT 0.8 MG/DL (0.0-0.3)
--- NOTE | 2019-04-09 07:40 | NUR ---
NURSE NOTES: Received patient on bed, awake. IV site intact and patent. Colostomy bag in place over paracentesis site. Caceres catheter intact, patent and draining. Bed in low and locked position, call light in reach. Room board updated, will continue to monitor.
[2019-04-09 08:00] VITALS: BP 141/63
[2019-04-09] MEDS: Docusate 100mg cap ORAL SCH ×3 (09:00→18:00)
[2019-04-09] MEDS: Pantoprazole Inj IVP SCH (09:27)
[2019-04-09] MEDS: Aspirin EC 81mg tab ORAL SCH (09:27)
[2019-04-09] MEDS: Lactulose 10gm/15ml UDC ORAL SCH ×3 (09:29→18:00)
[2019-04-09] MEDS: Phospha 250 Neutral tab ORAL SCH ×2 (10:00→15:48)
--- NOTE | 2019-04-09 11:05 | Hematology/Onc Progress Note ---
Assessment/Plan Assessment/Plan # Pancytopenia is likely due to underlying cirrhosis, splenomegaly, paraesophageal varices, portal HTN. Well known to me from prior admission, she generally requires occasional drainage. AT BASELINE LIKELY IS 30-60k --> at this time, imaging of liver reviewed, no e/o malignancy --> hepatitis panel and hiv are both negative --> plt trend: 58-->75k-->67k-->50k-->38k --> AFP is 2.5 --> given age, cea is 6.3, as per gi recs --> smear has been reviewed, r/o schistocytes --> neupogen on prn basis --> plts as needed presurg, goal >50k if procedure --> 03/04: EGD--> atrophic gastritis noted --> ppi as needed --> paracentesis on prn basis # Anemia of chronic disease --> no evidence of iron deficiency --> hgb goal >7, transfuse prn --> less of a role for iron and epogen --> hgb trend: 9.3-->10.3-->9.8 # Coagulopathy is related to liver disease --> preprocedure GIVE vit K --> improved # Thickening of wall of gallbladder with pericholecystic fluid --> hida neg before # hx UTI (urinary tract infection) --> history of, sp treatment # Liver cirrhosis --> distended ab, r/o sbp --> on abx --> 5.2L removed 04/08 # Dvt ppx scds Greatly appreciate consultation and juan manuel RN Subjective Constitutional: Denies: no symptoms, chills, fever, malaise, weakness, other HEENT: Denies: no symptoms, eye pain, blurred vision, tearing, double vision, ear pain, ear discharge, nose pain, nose congestion, throat pain, throat swelling, mouth pain, mouth swelling, other Gastrointestinal/Abdominal: Denies: no symptoms, abdomen distended, abdominal pain, black stools, tarry stools, blood in stool, constipated, diarrhea, difficulty swallowing, nausea, poor appetite, poor fluid intake, rectal bleeding , vomiting, other Genitourinary: Denies: no symptoms, burning, discharge, frequency, flank pain, hematuria, incontinence, pain, urgency, other Neurologic/Psychiatric: Denies: no symptoms, anxiety, depressed, emotional problems, headache, numbness, paresthesia, pre-existing deficit, seizure, tingling, tremors, weakness, other Allergies: Coded Allergies: No Known Allergies (Unverified , 03/02/19) Subjective 04/07: no major changes, for para, plt 50k, will review inr/ptt preprocedure, gi aware 04/08: no bleeding or chills, no night sweats, no major changes, for para 04/09: no major changes, no bleeding or chills, plt is lower, still with abd pain Objective Objective Current Medications Medications (Trade) Dose Ordered Sig/Robe Route PRN Reason Start Time Stop Time Status Last Admin Dose Admin Aspirin (Ecotrin) 81 mg DAILY ORAL 04/08/19 09:00 05/08/19 08:59 04/09/19 09:27 Docusate Sodium (Colace) 100 mg THREE TIMES A DAY ORAL 04/07/19 13:00 05/07/19 12:59 04/08/19 14:08 Lactulose (Cephulac) 15 gm TID ORAL 04/07/19 13:00 05/07/19 12:59 04/09/19 09:29 Magnesium Sulfate 100 ml @ 100 mls/hr Q1H IVPB 04/09/19 10:00 04/09/19 11:59 Pantoprazole (Protonix) 40 mg EVERY 12 HOURS ORAL 04/09/19 21:00 05/09/19 20:59 Risperidone (RisperDAL) 1 mg BEDTIME PRN ORAL agitation 04/09/19 00:30 05/09/19 00:29 Last 24 Hour Vital Signs Date Time Temp Pulse Resp B/P (MAP) Pulse Ox O2 Delivery O2 Flow Rate FiO2 04/09/19 08:00 98.3 78 19 141/63 (89) 100 04/09/19 04:00 98.1 95 19 144/77 (99) 100 04/08/19 21:00 Room Air 04/08/19 20:00 98.3 85 19 146/53 (84) 100 04/08/19 16:00 97.6 79 20 130/50 (76) 99 04/08/19 09:00 Room Air 04/08/19 08:00 97.7 20 138/90 (106) 97 04/08/19 04:00 97.4 81 19 106/87 (93) 98 04/08/19 00:00 98.0 84 20 132/50 (77) 96 04/07/19 21:00 Room Air 04/07/19 20:00 96.4 77 19 148/88 (108) 98 04/07/19 16:00 98.2 76 18 117/73 (88) 99 04/07/19 13:00 Room Air 04/07/19 12:00 97.7 76 18 129/57 (81) 100 Intake and Output 04/08/19 04/09/19 19:00 07:00 Intake Total 240 ml 800 ml Output Total 300 ml 30 ml Balance -60 ml 770 ml Intake Oral 240 ml IV Total 800 ml Output Urine Total 300 ml Other 30 ml # Bowel Movements 3 Labs Test 04/06/19 21:42 04/07/19 01:18 04/07/19 15:15 04/07/19 16:30 White Blood Count 9.1 K/UL (4.8-10.8) 9.1 K/UL (4.8-10.8) Red Blood Count 3.40 M/UL (4.20-5.40) 3.01 M/UL (4.20-5.40) Hemoglobin 11.2 G/DL (12.0-16.0) 9.8 G/DL (12.0-16.0) Hematocrit 31.9 % (37.0-47.0) 28.6 % (37.0-47.0) Mean Corpuscular Volume 94 FL (80-99) 95 FL (80-99) Mean Corpuscular Hemoglobin 32.9 PG (27.0-31.0) 32.7 PG (27.0-31.0) Mean Corpuscular Hemoglobin Concent 35.0 G/DL (32.0-36.0) 34.4 G/DL (32.0-36.0) Red Cell Distribution Width 13.3 % (11.6-14.8) 14.1 % (11.6-14.8) Platelet Count 61 K/UL (150-450) 50 K/UL (150-450) Mean Platelet Volume 9.4 FL (6.5-10.1) 7.5 FL (6.5-10.1) Neutrophils (%) (Auto) % (45.0-75.0) % (45.0-75.0) Lymphocytes (%) (Auto) % (20.0-45.0) % (20.0-45.0) Monocytes (%) (Auto) % (1.0-10.0) % (1.0-10.0) Eosinophils (%) (Auto) % (0.0-3.0) % (0.0-3.0) Basophils (%) (Auto) % (0.0-2.0) % (0.0-2.0) Differential Total Cells Counted 100 100 Neutrophils % (Manual) 73 % (45-75) 81 % (45-75) Lymphocytes % (Manual) 16 % (20-45) 11 % (20-45) Monocytes % (Manual) 9 % (1-10) 6 % (1-10) Eosinophils % (Manual) 2 % (0-3) 2 % (0-3) Basophils % (Manual) 0 % (0-2) 0 % (0-2) Band Neutrophils 0 % (0-8) 0 % (0-8) Platelet Estimate Decreased Decreased Platelet Morphology Normal Normal Red Blood Cell Morphology Normal Prothrombin Time 14.1 SEC (9.30-11.50) Prothromb Time International Ratio 1.3 (0.9-1.1) Activated Partial Thromboplast Time 33 SEC (23-33) Sodium Level 134 MMOL/L (136-145) 135 MMOL/L (136-145) Potassium Level 5.8 MMOL/L (3.5-5.1) 4.7 MMOL/L (3.5-5.1) Chloride Level 102 MMOL/L (98-107) 105 MMOL/L (98-107) Carbon Dioxide Level 26 MMOL/L (21-32) 26 MMOL/L (21-32) Anion Gap 6 mmol/L (5-15) 5 mmol/L (5-15) Blood Urea Nitrogen 15 mg/dL (7-18) 13 mg/dL (7-18) Creatinine 1.1 MG/DL (0.55-1.30) 1.2 MG/DL (0.55-1.30) Estimat Glomerular Filtration Rate mL/min (>60) mL/min (>60) Glucose Level 144 MG/DL (74-106) 168 MG/DL (74-106) Lactic Acid Level 2.10 mmol/L (0.4-2.0) 1.60 mmol/L (0.66-2.22) Calcium Level 8.2 MG/DL (8.5-10.1) 7.5 MG/DL (8.5-10.1) Phosphorus Level 3.3 MG/DL (2.5-4.9) Magnesium Level 1.7 MG/DL (1.8-2.4) Total Bilirubin 3.0 MG/DL (0.2-1.0) 2.7 MG/DL (0.2-1.0) Direct Bilirubin 0.5 MG/DL (0.0-0.3) 0.9 MG/DL (0.0-0.3) Aspartate Amino Transf (AST/SGOT) 87 U/L (15-37) 48 U/L (15-37) Alanine Aminotransferase (ALT/SGPT) 29 U/L (12-78) 21 U/L (12-78) Alkaline Phosphatase 158 U/L (46-116) 127 U/L (46-116) Ammonia 26 umol/L (11-32) Total Creatine Kinase 187 U/L (26-308) Creatine Kinase MB 0.7 NG/ML (0.0-3.6) Creatine Kinase MB Relative Index 0.3 Troponin I 0.000 ng/mL (0.000-0.056) Pro-B-Type Natriuretic Peptide 1308 pg/mL (0-125) Total Protein 7.4 G/DL (6.4-8.2) 6.1 G/DL (6.4-8.2) Albumin 1.9 G/DL (3.4-5.0) 1.7 G/DL (3.4-5.0) Globulin 5.5 g/dL 4.4 g/dL Albumin/Globulin Ratio 0.3 (1.0-2.7) 0.4 (1.0-2.7) Lipase 227 U/L (73-393) Anisocytosis 1+ Urine Color Yellow Urine Appearance Slightly cloudy Urine pH 7 (4.5-8.0) Urine Specific Davidson 1.010 (1.005-1.035) Urine Protein 2+ (NEGATIVE) Urine Glucose (UA) Negative (NEGATIVE) Urine Ketones Negative (NEGATIVE) Urine Blood Negative (NEGATIVE) Urine Nitrite Negative (NEGATIVE) Urine Bilirubin Negative (NEGATIVE) Urine Urobilinogen 1 MG/DL (0.0-1.0) Urine Leukocyte Esterase 1+ (NEGATIVE) Urine RBC 0-2 /HPF (0 - 2) Urine WBC 10-15 /HPF (0 - 2) Urine Squamous Epithelial Cells Many /LPF (NONE/OCC) Urine Bacteria Moderate /HPF (NONE) Urine Osmolality 615 mOsm/kg (429-449) Urine Random Sodium 35 mmol/L (20-110) Carcinoembryonic Antigen 6.3 ng/mL (0.0-4.7) Test 04/08/19 05:00 04/08/19 11:00 04/09/19 05:14 White Blood Count 6.4 K/UL (4.8-10.8) 3.4 K/UL (4.8-10.8) Red Blood Count 2.97 M/UL (4.20-5.40) 2.47 M/UL (4.20-5.40) Hemoglobin 9.9 G/DL (12.0-16.0) 8.1 G/DL (12.0-16.0) Hematocrit 28.9 % (37.0-47.0) 23.8 % (37.0-47.0) Mean Corpuscular Volume 97 FL (80-99) 97 FL (80-99) Mean Corpuscular Hemoglobin 33.2 PG (27.0-31.0) 32.8 PG (27.0-31.0) Mean Corpuscular Hemoglobin Concent 34.2 G/DL (32.0-36.0) 34.0 G/DL (32.0-36.0) Red Cell Distribution Width 14.2 % (11.6-14.8) 14.4 % (11.6-14.8) Platelet Count 46 K/UL (150-450) 38 K/UL (150-450) Mean Platelet Volume 8.7 FL (6.5-10.1) 7.6 FL (6.5-10.1) Neutrophils (%) (Auto) % (45.0-75.0) % (45.0-75.0) Lymphocytes (%) (Auto) % (20.0-45.0) % (20.0-45.0) Monocytes (%) (Auto) % (1.0-10.0) % (1.0-10.0) Eosinophils (%) (Auto) % (0.0-3.0) % (0.0-3.0) Basophils (%) (Auto) % (0.0-2.0) % (0.0-2.0) Differential Total Cells Counted 100 100 Neutrophils % (Manual) 58 % (45-75) 57 % (45-75) Lymphocytes % (Manual) 20 % (20-45) 28 % (20-45) Monocytes % (Manual) 14 % (1-10) 12 % (1-10) Eosinophils % (Manual) 7 % (0-3) 3 % (0-3) Basophils % (Manual) 1 % (0-2) 0 % (0-2) Band Neutrophils 0 % (0-8) 0 % (0-8) Platelet Estimate Decreased Decreased Platelet Morphology Normal Normal Hypochromasia 2+ Spherocytes 2+ Sodium Level 138 MMOL/L (136-145) 141 MMOL/L (136-145) Potassium Level 4.2 MMOL/L (3.5-5.1) 3.8 MMOL/L (3.5-5.1) Chloride Level 108 MMOL/L (98-107) 110 MMOL/L (98-107) Carbon Dioxide Level 22 MMOL/L (21-32) 24 MMOL/L (21-32) Anion Gap 8 mmol/L (5-15) 7 mmol/L (5-15) Blood Urea Nitrogen 14 mg/dL (7-18) 12 mg/dL (7-18) Creatinine 1.2 MG/DL (0.55-1.30) 1.2 MG/DL (0.55-1.30) Estimat Glomerular Filtration Rate mL/min (>60) mL/min (>60) Glucose Level 135 MG/DL (74-106) 131 MG/DL (74-106) Hemoglobin A1c 1.2 % (4.3-6.0) 6.2 % (4.3-6.0) Uric Acid 5.2 MG/DL (2.6-7.2) Calcium Level 7.7 MG/DL (8.5-10.1) 7.9 MG/DL (8.5-10.1) Phosphorus Level 2.9 MG/DL (2.5-4.9) 2.3 MG/DL (2.5-4.9) Magnesium Level 1.6 MG/DL (1.8-2.4) 1.6 MG/DL (1.8-2.4) Iron Level 118 ug/dL (50-175) Total Iron Binding Capacity 159 ug/dL (250-450) Percent Iron Saturation 74 % (15-50) Unsaturated Iron Binding 41 ug/dL (112-346) Ferritin 155 NG/ML (8-388) Total Bilirubin 3.4 MG/DL (0.2-1.0) 2.6 MG/DL (0.2-1.0) Direct Bilirubin 1.2 MG/DL (0.0-0.3) 0.8 MG/DL (0.0-0.3) Gamma Glutamyl Transpeptidase 76 U/L (5-85) 57 U/L (5-85) Aspartate Amino Transf (AST/SGOT) 45 U/L (15-37) 30 U/L (15-37) Alanine Aminotransferase (ALT/SGPT) 22 U/L (12-78) 17 U/L (12-78) Alkaline Phosphatase 117 U/L (46-116) 99 U/L (46-116) Ammonia 23 umol/L (11-32) Total Creatine Kinase 72 U/L (26-308) C-Reactive Protein, Quantitative 7.2 mg/dL (0.00-0.90) Pro-B-Type Natriuretic Peptide 2521 pg/mL (0-125) Total Protein 6.1 G/DL (6.4-8.2) 6.2 G/DL (6.4-8.2) Albumin 1.6 G/DL (3.4-5.0) 2.9 G/DL (3.4-5.0) Globulin 4.5 g/dL 3.3 g/dL Albumin/Globulin Ratio 0.4 (1.0-2.7) 0.9 (1.0-2.7) Triglycerides Level 58 MG/DL (30-150) Cholesterol Level 95 MG/DL (< 200) LDL Cholesterol 56 mg/dL (<100) HDL Cholesterol 24 MG/DL (40-60) Cholesterol/HDL Ratio 4.0 (3.3-4.4) Vitamin B12 Level 1729 PG/ML (193-986) Folate 8.8 NG/ML (8.6-58.9) Thyroid Stimulating Hormone (TSH) 2.265 uiU/mL (0.358-3.740) Body Fluid Source Paracentesis Body Fluid Volume 24 mL Body Fluid Appearance Hazy (Clear) Body Fluid RBC 1950 /CUMM Body Fluid Total Nucleated Cells 35 /CUMM Body Fluid Polynuclear WBCs (%) 34 % Body Fluid Mononuclear WBCs (%) 52 % Body Fluid Mesothelial Cells (%) 14 % Anisocytosis 1+ Height (Feet): 5 Height (Inches): 1.00 Weight (Pounds): 158 Objective GeN: NAd Pulm: ctab, some crackles at base CV: Rrr, no mgr Abd: distended but soft, nt Ext: 1+edema Jose Antonio Zhang MD Apr 09, 2019 11:05
--- NOTE | 2019-04-09 11:31 | NUR ---
*-* INSURANCE /*-* ALL CLINICALS HAVE BEEN FAXED TO: [facility] Coordinator: Ev Hutchinson#[phone] fax#[phone] Addendum: 04/09/19 at 1137 by DOMONIQUE GALLEGOS CM EV [id number]
--- NOTE | 2019-04-09 11:31 | Nephrology Progress Note ---
Assessment/Plan Problem List: (1) Cirrhosis (2) Abdominal pain (3) Anemia (4) Electrolyte abnormality Assessment Chronic Liver Disease / Cirrhosis / Ascitis Low Na Anemia Low Albumin Plan Caceres NPO Protonix GI eval Monitor lytes per orders Subjective ROS Limited/Unobtainable: No Constitutional: Reports: malaise Objective Objective Last 24 Hour Vital Signs Date Time Temp Pulse Resp B/P (MAP) Pulse Ox O2 Delivery O2 Flow Rate FiO2 04/09/19 08:00 98.3 78 19 141/63 (89) 100 04/09/19 04:00 98.1 95 19 144/77 (99) 100 04/08/19 21:00 Room Air 04/08/19 20:00 98.3 85 19 146/53 (84) 100 04/08/19 16:00 97.6 79 20 130/50 (76) 99 Intake and Output 04/08/19 04/09/19 19:00 07:00 Intake Total 240 ml 800 ml Output Total 300 ml 30 ml Balance -60 ml 770 ml Intake Oral 240 ml IV Total 800 ml Output Urine Total 300 ml Other 30 ml # Bowel Movements 3 Laboratory Tests 04/09/19 05:14: White Blood Count 3.4L, Red Blood Count 2.47L, Hemoglobin 8.1L, Hematocrit 23.8L , Mean Corpuscular Volume 97, Mean Corpuscular Hemoglobin 32.8H, Mean Corpuscular Hemoglobin Concent 34.0, Red Cell Distribution Width 14.4, Platelet Count 38L, Mean Platelet Volume 7.6, Neutrophils (%) (Auto) , Lymphocytes (%) ( Auto) , Monocytes (%) (Auto) , Eosinophils (%) (Auto) , Basophils (%) (Auto) , Differential Total Cells Counted 100, Neutrophils % (Manual) 57, Lymphocytes % ( Manual) 28, Monocytes % (Manual) 12H, Eosinophils % (Manual) 3, Basophils % ( Manual) 0, Band Neutrophils 0, Platelet Estimate DecreasedL, Platelet Morphology Normal, Anisocytosis 1+, Sodium Level 141, Potassium Level 3.8, Chloride Level 110H, Carbon Dioxide Level 24, Anion Gap 7, Blood Urea Nitrogen 12, Creatinine 1.2, Estimat Glomerular Filtration Rate , Glucose Level 131H, Hemoglobin A1c 6.2H, Calcium Level 7.9L, Phosphorus Level 2.3L, Magnesium Level 1.6L, Total Bilirubin 2.6H, Direct Bilirubin 0.8H, Gamma Glutamyl Transpeptidase 57, Aspartate Amino Transf (AST/SGOT) 30, Alanine Aminotransferase (ALT/SGPT) 17, Alkaline Phosphatase 99, Total Protein 6.2L, Albumin 2.9L, Globulin 3.3, Albumin/Globulin Ratio 0.9L Height (Feet): 5 Height (Inches): 1.00 Weight (Pounds): 158 General Appearance: no apparent distress Cardiovascular: normal rate Respiratory/Chest: decreased breath sounds Abdomen: distended Bao Biggs MD Apr 09, 2019 11:31
[2019-04-09 12:00] VITALS: BP 149/57
--- NOTE | 2019-04-09 15:30 | NUR ---
NURSE NOTES: Left message for MD Mad[place] in regards to bladder scan results with is office. PT has 203 mL. Message left with Allison from his office.
[2019-04-09] MEDS ORDERED: Phospha 250 Neutral tab ORAL SCH (15:45)
--- NOTE | 2019-04-09 15:58 | NUR ---
SALON SHAMPOO ASSISTANTPRIZER HAND SI: ABDOMINAL DISTENSION/ ASCITES S/P PARACENTESIS T. 98.3 HR 85 RR 19 B/P 146/83 PARACENTESIS= 5.2 LITERS REMOVED IS: MAGNESIUM IV PROTONIX PO MED/SURG STATUS
[2019-04-09 16:00] VITALS: BP 136/61
--- NOTE | 2019-04-09 16:05 | Pulmonology Progress Note ---
Assessment/Plan Assessment/Plan Pulmonary Progress Note HPI Patient is an 84 year woman with past history of cirrhosis admitted with generalized abdominal pain and distension, she endorses some shortness of breath , generalized discomfort. Denies fevers, no chills no cough no congestion no diarrhea. Some drainage at paracentesis site Allergies: No Known Allergies Past Medical History: Cirrhosis, Portal Hypertension, Hypersplenism with thrombocytopenia, Varices, Diabetes, Hypertension Improved s/p paracentesis - no current SOB, LE dupplex negative for DVT Physical Exam Vital Signs Noted General Appearance: chronically ill appearing, no apparent distress, alert, mild jaundice Head: NCAT Eyes: bilateral eye PERRL, bilateral eye EOMI ENT: moist mucus membranes Neck: supple, thyroid normal, supple/symm/no masses Respiratory: lungs clear to auscultation bilaterally Cardiovascular: normal peripheral pulses, regular rate, rhythm, HS1, HS2 normal Gastrointestinal: non tender, no guarding, no rebound, less distended Musculoskeletal: normal inspection Neurologic: alert, oriented x3 Skin: no rash, warm/dry, mild edema Impression: Cirrhosis Ascites Abdominal pain 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 No definite hepatic mass. Portal vein appears to be patent. No bowel obstruction. Thickening of the ascending colon is likely due to portal colopathy. Colonic diverticulosis. Large calcified structure in the right lower quadrant, unchanged. No hydronephrosis. Moderate bladder wall thickening, correlate with cystitis versus underdistention. Subjective ROS Limited/Unobtainable: No Allergies: Coded Allergies: No Known Allergies (Unverified , 03/02/19) Objective Last 24 Hour Vital Signs Date Time Temp Pulse Resp B/P (MAP) Pulse Ox O2 Delivery O2 Flow Rate FiO2 04/09/19 09:00 Room Air 04/09/19 08:00 98.3 78 19 141/63 (89) 100 04/09/19 04:00 98.1 95 19 144/77 (99) 100 04/08/19 21:00 Room Air 04/08/19 20:00 98.3 85 19 146/53 (84) 100 Intake and Output 04/08/19 04/09/19 18:59 06:59 Intake Total 240 ml 800 ml Output Total 300 ml 30 ml Balance -60 ml 770 ml Intake Oral 240 ml IV Total 800 ml Output Urine Total 300 ml Other 30 ml # Bowel Movements 3 Microbiology Date/Time Source Procedure Growth Status 04/06/19 21:42 Blood Blood Culture - Preliminary NO GROWTH AFTER 48 HOURS Resulted 04/06/19 21:21 Blood Blood Culture - Preliminary NO GROWTH AFTER 48 HOURS Resulted 04/07/19 15:15 Urine,Clean Catch Urine Culture - Preliminary NO GROWTH AFTER 24 HOURS Resulted 04/08/19 11:00 Abdominal Fluid Gram Stain - Final Resulted 04/08/19 11:00 Abdominal Fluid Body Fluid Culture - Preliminary NO GROWTH Resulted Laboratory Tests 04/09/19 05:14: White Blood Count 3.4L, Red Blood Count 2.47L, Hemoglobin 8.1L, Hematocrit 23.8L , Mean Corpuscular Volume 97, Mean Corpuscular Hemoglobin 32.8H, Mean Corpuscular Hemoglobin Concent 34.0, Red Cell Distribution Width 14.4, Platelet Count 38L, Mean Platelet Volume 7.6, Neutrophils (%) (Auto) , Lymphocytes (%) ( Auto) , Monocytes (%) (Auto) , Eosinophils (%) (Auto) , Basophils (%) (Auto) , Differential Total Cells Counted 100, Neutrophils % (Manual) 57, Lymphocytes % ( Manual) 28, Monocytes % (Manual) 12H, Eosinophils % (Manual) 3, Basophils % ( Manual) 0, Band Neutrophils 0, Platelet Estimate DecreasedL, Platelet Morphology Normal, Anisocytosis 1+, Sodium Level 141, Potassium Level 3.8, Chloride Level 110H, Carbon Dioxide Level 24, Anion Gap 7, Blood Urea Nitrogen 12, Creatinine 1.2, Estimat Glomerular Filtration Rate , Glucose Level 131H, Hemoglobin A1c 6.2H, Calcium Level 7.9L, Phosphorus Level 2.3L, Magnesium Level 1.6L, Total Bilirubin 2.6H, Direct Bilirubin 0.8H, Gamma Glutamyl Transpeptidase 57, Aspartate Amino Transf (AST/SGOT) 30, Alanine Aminotransferase (ALT/SGPT) 17, Alkaline Phosphatase 99, Total Protein 6.2L, Albumin 2.9L, Globulin 3.3, Albumin/Globulin Ratio 0.9L Current Medications Medications (Trade) Dose Ordered Sig/Robe Route PRN Reason Start Time Stop Time Status Last Admin Dose Admin Aspirin (Ecotrin) 81 mg DAILY ORAL 04/08/19 09:00 05/08/19 08:59 04/09/19 09:27 Docusate Sodium (Colace) 100 mg THREE TIMES A DAY ORAL 04/07/19 13:00 05/07/19 12:59 04/08/19 14:08 Lactulose (Cephulac) 15 gm TID ORAL 04/07/19 13:00 05/07/19 12:59 04/09/19 09:29 Magnesium Sulfate 100 ml @ 100 mls/hr Q1H IVPB 04/09/19 15:45 04/09/19 17:44 04/09/19 15:50 Pantoprazole (Protonix) 40 mg EVERY 12 HOURS ORAL 04/09/19 21:00 05/09/19 20:59 Phosphorus (Phospha 250 Neutral) 500 mg ONCE ORAL 04/09/19 15:45 04/09/19 16:45 04/09/19 15:50 Risperidone (RisperDAL) 1 mg BEDTIME PRN ORAL agitation 04/09/19 00:30 05/09/19 00:29 Audie Wilkins MD Apr 09, 2019 16:05
--- NOTE | 2019-04-09 18:25 | NUR ---
NURSE NOTES: Patient refused scheduled colace dose. Risks versus benefits explained.
[2019-04-09 20:00] VITALS: BP 156/60
--- NOTE | 2019-04-09 20:10 | NUR ---
NURSE NOTES: Patient in bed, awake, alert and verbally responsive. Swedish speaking. Able to make needs known. Respiration is even and unlabored. No complaint of pain or discomfort noted. NO iv noted, will reinsert. Skin is warm and dry to touch. Right lower quadrant noted with colostomy bag for drainage. Noted with Caceres catheter. Call light is at bedside. Will continue plan of care.
--- NOTE | 2019-04-09 21:05 | General Progress Note ---
Assessment/Plan Problem List: (1) Diabetes mellitus ICD Codes: E11.9 - Type 2 diabetes mellitus without complications SNOMED: 72604182 (2) HTN (hypertension) ICD Codes: I10 - Essential (primary) hypertension SNOMED: 12796443 (3) Cholecystitis ICD Codes: K81.9 - Cholecystitis, unspecified SNOMED: 10676945 (4) Cirrhosis ICD Codes: K74.60 - Unspecified cirrhosis of liver SNOMED: 33420242 Qualifiers: Qualified Codes: K74.60 - Unspecified cirrhosis of liver; R18.8 - Other ascites (5) Ascites ICD Codes: R18.8 - Other ascites SNOMED: 035358555 Qualifiers: Qualified Codes: R18.8 - Other ascites (6) Abdominal pain ICD Codes: R10.9 - Unspecified abdominal pain SNOMED: 26102318 Qualifiers: Qualified Codes: R10.84 - Generalized abdominal pain (7) Anemia ICD Codes: D64.9 - Anemia, unspecified SNOMED: 148898747 (8) Electrolyte abnormality ICD Codes: E87.8 - Other disorders of electrolyte and fluid balance, not elsewhere classified SNOMED: 973815157 Status: progressing Assessment/Plan: cirohsis abdominal pain still present moniter for gi bleeding check lytes anemia Subjective ROS Limited/Unobtainable: Yes Constitutional: Reports: no symptoms Allergies: Coded Allergies: No Known Allergies (Unverified , 03/02/19) Objective Last 24 Hour Vital Signs Date Time Temp Pulse Resp B/P (MAP) Pulse Ox O2 Delivery O2 Flow Rate FiO2 04/09/19 20:00 98.7 81 20 156/60 (92) 100 04/09/19 16:00 98.1 78 19 136/61 (86) 100 04/09/19 12:00 97.9 77 20 149/57 (87) 98 04/09/19 09:00 Room Air 04/09/19 08:00 98.3 78 19 141/63 (89) 100 04/09/19 04:00 98.1 95 19 144/77 (99) 100 Intake and Output 04/08/19 04/09/19 19:00 07:00 Intake Total 240 ml 800 ml Output Total 300 ml 30 ml Balance -60 ml 770 ml Intake Oral 240 ml IV Total 800 ml Output Urine Total 300 ml Other 30 ml # Bowel Movements 3 Laboratory Tests 04/09/19 05:14: White Blood Count 3.4L, Red Blood Count 2.47L, Hemoglobin 8.1L, Hematocrit 23.8L , Mean Corpuscular Volume 97, Mean Corpuscular Hemoglobin 32.8H, Mean Corpuscular Hemoglobin Concent 34.0, Red Cell Distribution Width 14.4, Platelet Count 38L, Mean Platelet Volume 7.6, Neutrophils (%) (Auto) , Lymphocytes (%) ( Auto) , Monocytes (%) (Auto) , Eosinophils (%) (Auto) , Basophils (%) (Auto) , Differential Total Cells Counted 100, Neutrophils % (Manual) 57, Lymphocytes % ( Manual) 28, Monocytes % (Manual) 12H, Eosinophils % (Manual) 3, Basophils % ( Manual) 0, Band Neutrophils 0, Platelet Estimate DecreasedL, Platelet Morphology Normal, Anisocytosis 1+, Sodium Level 141, Potassium Level 3.8, Chloride Level 110H, Carbon Dioxide Level 24, Anion Gap 7, Blood Urea Nitrogen 12, Creatinine 1.2, Estimat Glomerular Filtration Rate , Glucose Level 131H, Hemoglobin A1c 6.2H, Calcium Level 7.9L, Phosphorus Level 2.3L, Magnesium Level 1.6L, Total Bilirubin 2.6H, Direct Bilirubin 0.8H, Gamma Glutamyl Transpeptidase 57, Aspartate Amino Transf (AST/SGOT) 30, Alanine Aminotransferase (ALT/SGPT) 17, Alkaline Phosphatase 99, Total Protein 6.2L, Albumin 2.9L, Globulin 3.3, Albumin/Globulin Ratio 0.9L Height (Feet): 5 Height (Inches): 1.00 Weight (Pounds): 158 Cardiovascular: regular rhythm Respiratory/Chest: lungs clear Steve Burr MD Apr 09, 2019 21:05
--- NOTE | 2019-04-09 22:46 | General Progress Note ---
Assessment/Plan Status: progressing Assessment/Plan: Assessment - Cirrhosis, ? etiology - No esophageal varicies, per recent EGD - Ascites - s/p 5 liter tap - paracentesis site leak Recommendations - paracentesis PRN - diuretics - reduce PPI qd - check AFP - check auto-immune markers - Poor prognosis Subjective Allergies: Coded Allergies: No Known Allergies (Unverified , 03/02/19) Subjective s/p 5 liter paracentesis some post paracentesis leak ostomy placed Objective Last 24 Hour Vital Signs Date Time Temp Pulse Resp B/P (MAP) Pulse Ox O2 Delivery O2 Flow Rate FiO2 04/09/19 21:00 Room Air 04/09/19 20:00 98.7 81 20 156/60 (92) 100 04/09/19 16:00 98.1 78 19 136/61 (86) 100 04/09/19 12:00 97.9 77 20 149/57 (87) 98 04/09/19 09:00 Room Air 04/09/19 08:00 98.3 78 19 141/63 (89) 100 04/09/19 04:00 98.1 95 19 144/77 (99) 100 Intake and Output 04/08/19 04/09/19 19:00 07:00 Intake Total 240 ml 800 ml Output Total 300 ml 30 ml Balance -60 ml 770 ml Intake Oral 240 ml IV Total 800 ml Output Urine Total 300 ml Other 30 ml # Bowel Movements 3 Laboratory Tests 04/09/19 05:14: White Blood Count 3.4L, Red Blood Count 2.47L, Hemoglobin 8.1L, Hematocrit 23.8L , Mean Corpuscular Volume 97, Mean Corpuscular Hemoglobin 32.8H, Mean Corpuscular Hemoglobin Concent 34.0, Red Cell Distribution Width 14.4, Platelet Count 38L, Mean Platelet Volume 7.6, Neutrophils (%) (Auto) , Lymphocytes (%) ( Auto) , Monocytes (%) (Auto) , Eosinophils (%) (Auto) , Basophils (%) (Auto) , Differential Total Cells Counted 100, Neutrophils % (Manual) 57, Lymphocytes % ( Manual) 28, Monocytes % (Manual) 12H, Eosinophils % (Manual) 3, Basophils % ( Manual) 0, Band Neutrophils 0, Platelet Estimate DecreasedL, Platelet Morphology Normal, Anisocytosis 1+, Sodium Level 141, Potassium Level 3.8, Chloride Level 110H, Carbon Dioxide Level 24, Anion Gap 7, Blood Urea Nitrogen 12, Creatinine 1.2, Estimat Glomerular Filtration Rate , Glucose Level 131H, Hemoglobin A1c 6.2H, Calcium Level 7.9L, Phosphorus Level 2.3L, Magnesium Level 1.6L, Total Bilirubin 2.6H, Direct Bilirubin 0.8H, Gamma Glutamyl Transpeptidase 57, Aspartate Amino Transf (AST/SGOT) 30, Alanine Aminotransferase (ALT/SGPT) 17, Alkaline Phosphatase 99, Total Protein 6.2L, Albumin 2.9L, Globulin 3.3, Albumin/Globulin Ratio 0.9L Height (Feet): 5 Height (Inches): 1.00 Weight (Pounds): 158 Objective Thin, frail woman NCAT supple CTA RR abd soft distended (+) Ascites trace edema Negrita Clancy MD Apr 09, 2019 22:46
[2019-04-10] VITALS: BP 139/72
--- NOTE | 2019-04-10 02:45 | Progress Note ---
DATE: 04/10/2019 SUBJECTIVE: The patient is lying in bed, Albanian speaking, calm, pleasant, able to answer the questions. Complaining of depression and anxiety. MENTAL STATUS EXAMINATION: Alert and oriented times self, place, situation, and date. Mood is neutral. Affect is constricted, congruent with mood. Thought process, linear and goal oriented. Thought content, no suicidal or homicidal ideation. ASSESSMENT: Anxiety and depression. PLAN: 1. We will continue the risperidone for agitation. 2. The patient has capacity to make decisions. 3. Provide the patient with reality orientation and supportive therapy. Bibi Mijares M.D. DR: DARIN JOB#: [id number] CC:
[2019-04-10 04:00] VITALS: BP 147/62
--- NOTE | 2019-04-10 07:14 | NUR ---
HAND-OFF: Report given to DEBBIE Woods.
--- NOTE | 2019-04-10 07:40 | NUR ---
NURSE NOTES: Received patient on bed, awake. IV site intact and patent. Colostomy bag on right abdomen over paracentesis site intact. Bed in low and locked position, call light in reach. No signs of respiratory distress, patient denies pain. Room board updated, will continue to monitor.
[2019-04-10 08:00] VITALS: BP 153/64
[2019-04-10 08:04] LABS: HEMATOCRIT 25.5 % (37.0-47.0); HEMOGLOBIN 8.7 G/DL (12.0-16.0); MEAN CORPUSCULAR VOLUME 98 FL (80-99); PLATELET COUNT 37 K/UL (150-450); RED BLOOD COUNT 2.62 M/UL (4.20-5.40); RED CELL DISTRIBUTION WIDTH 14.5 % (11.6-14.8)
[2019-04-10 08:25] LABS: ALANINE AMINOTRANSFERASE 16 U/L (12-78); ALBUMIN 2.4 G/DL (3.4-5.0); ALBUMIN/GLOBULIN RATIO 0.7 (1.0-2.7); ALKALINE PHOSPHATASE 91 U/L (46-116); ANION GAP 7 mmol/L (5-15); ASPARTATE AMINO TRANSFERASE 38 U/L (15-37); BILIRUBIN,TOTAL 2.2 MG/DL (0.2-1.0); BLOOD UREA NITROGEN 10 mg/dL (7-18); CALCIUM 8.1 MG/DL (8.5-10.1); CARBON DIOXIDE 24 MMOL/L (21-32); CHLORIDE 112 MMOL/L (98-107); SODIUM 143 MMOL/L (136-145)
[2019-04-10 08:49] LABS: BILIRUBIN,DIRECT 0.7 MG/DL (0.0-0.3)
[2019-04-10] MEDS: Lactulose 10gm/15ml UDC ORAL SCH ×3 (09:00→18:16)
[2019-04-10] MEDS: Docusate 100mg cap ORAL SCH ×3 (09:00→18:16)
[2019-04-10] MEDS: Aspirin EC 81mg tab ORAL SCH (09:23)
[2019-04-10] MEDS: Spironolactone 50mg tab ORAL SCH (09:23)
--- NOTE | 2019-04-10 10:24 | Nephrology Progress Note ---
Assessment/Plan Problem List: (1) Cirrhosis (2) Abdominal pain (3) Anemia (4) Electrolyte abnormality Assessment Chronic Liver Disease / Cirrhosis / Ascitis Low Na Anemia Low Albumin Plan refusing some of meds: lactulose on low Na diet Protonix GI eval Monitor lytes per orders ? Dc planning Subjective ROS Limited/Unobtainable: No Constitutional: Reports: malaise Objective Objective Last 24 Hour Vital Signs Date Time Temp Pulse Resp B/P (MAP) Pulse Ox O2 Delivery O2 Flow Rate FiO2 04/10/19 08:00 98.4 78 18 153/64 (93) 97 04/10/19 04:00 98.6 80 20 147/62 (90) 100 04/10/19 00:00 98.0 79 20 139/72 (94) 99 04/09/19 21:00 Room Air 04/09/19 20:00 98.7 81 20 156/60 (92) 100 04/09/19 16:00 98.1 78 19 136/61 (86) 100 04/09/19 12:00 97.9 77 20 149/57 (87) 98 Intake and Output 04/09/19 04/10/19 19:00 07:00 Intake Total 620 ml Output Total 515 ml 350 ml Balance 105 ml -350 ml Intake Oral 420 ml IV Total 200 ml Output Urine Total 500 ml 350 ml Gastric Drainage Total 15 ml Laboratory Tests 04/10/19 06:03: White Blood Count 4.0L, Red Blood Count 2.62L, Hemoglobin 8.7L, Hematocrit 25.5L , Mean Corpuscular Volume 98, Mean Corpuscular Hemoglobin 33.4H, Mean Corpuscular Hemoglobin Concent 34.2, Red Cell Distribution Width 14.5, Platelet Count 37L, Mean Platelet Volume 7.1, Neutrophils (%) (Auto) , Lymphocytes (%) ( Auto) , Monocytes (%) (Auto) , Eosinophils (%) (Auto) , Basophils (%) (Auto) , Differential Total Cells Counted 100, Neutrophils % (Manual) 46, Lymphocytes % ( Manual) 40, Monocytes % (Manual) 8, Eosinophils % (Manual) 6H, Basophils % ( Manual) 0, Band Neutrophils 0, Platelet Estimate DecreasedL, Platelet Morphology Normal, Anisocytosis 1+, Sodium Level 143, Potassium Level 4.0, Chloride Level 112H, Carbon Dioxide Level 24, Anion Gap 7, Blood Urea Nitrogen 10, Creatinine 1.0, Estimat Glomerular Filtration Rate , Glucose Level 107H, Calcium Level 8.1L, Total Bilirubin 2.2H, Direct Bilirubin 0.7H, Aspartate Amino Transf (AST/SGOT) 38H, Alanine Aminotransferase (ALT/SGPT) 16, Alkaline Phosphatase 91, Total Protein 5.8L, Albumin 2.4L, Globulin 3.4, Albumin/ Globulin Ratio 0.7L, Alpha Fetoprotein [Pending] Height (Feet): 5 Height (Inches): 1.00 Weight (Pounds): 158 General Appearance: no apparent distress Objective no change Bao Biggs MD Apr 10, 2019 10:24
--- NOTE | 2019-04-10 10:30 | NUR ---
NURSE NOTES: 20mL fluid emptied from colostomy bag over paracentesis site.
[2019-04-10 12:00] VITALS: BP 145/62
--- NOTE | 2019-04-10 12:51 | NUR ---
TRANSPORTATION PLANNING ENGINEER: REVIEW SI: ABDOMINAL DISTENSION . ASCITES . CIRRHOSIS PARACENTESIS 04/08 T 97.3 HR 90 RR 18 BP 145/62 SAT 100% ROOM AIR WBC 4.0 H/H 8.7/25.5 IS: LASIX PO QD ALDACTONE PO QD PROTONIX PO Q12HR LACTULOSE PO TID MED/SURG STATUS DCP: PATIENT IS FROM HOME
--- NOTE | 2019-04-10 14:58 | General Progress Note ---
Assessment/Plan Problem List: (1) Diabetes mellitus ICD Codes: E11.9 - Type 2 diabetes mellitus without complications SNOMED: 10600231 (2) HTN (hypertension) ICD Codes: I10 - Essential (primary) hypertension SNOMED: 60939316 (3) Cholecystitis ICD Codes: K81.9 - Cholecystitis, unspecified SNOMED: 29471600 (4) Cirrhosis ICD Codes: K74.60 - Unspecified cirrhosis of liver SNOMED: 14341111 Qualifiers: Qualified Codes: K74.60 - Unspecified cirrhosis of liver; R18.8 - Other ascites (5) Ascites ICD Codes: R18.8 - Other ascites SNOMED: 421974683 Qualifiers: Qualified Codes: R18.8 - Other ascites (6) Abdominal pain ICD Codes: R10.9 - Unspecified abdominal pain SNOMED: 66037066 Qualifiers: Qualified Codes: R10.84 - Generalized abdominal pain (7) Anemia ICD Codes: D64.9 - Anemia, unspecified SNOMED: 669878746 (8) Electrolyte abnormality ICD Codes: E87.8 - Other disorders of electrolyte and fluid balance, not elsewhere classified SNOMED: 789799656 Status: progressing Assessment/Plan: cirohsis abdominal pain still present moniter for gi bleeding anemia reviewed chart and labs no acute events Subjective ROS Limited/Unobtainable: Yes Allergies: Coded Allergies: No Known Allergies (Unverified , 03/02/19) Objective Last 24 Hour Vital Signs Date Time Temp Pulse Resp B/P (MAP) Pulse Ox O2 Delivery O2 Flow Rate FiO2 04/10/19 12:00 97.3 90 18 145/62 (89) 100 04/10/19 09:00 Room Air 04/10/19 08:00 98.4 78 18 153/64 (93) 97 04/10/19 04:00 98.6 80 20 147/62 (90) 100 04/10/19 00:00 98.0 79 20 139/72 (94) 99 04/09/19 21:00 Room Air 04/09/19 20:00 98.7 81 20 156/60 (92) 100 04/09/19 16:00 98.1 78 19 136/61 (86) 100 Intake and Output 04/09/19 04/10/19 19:00 07:00 Intake Total 620 ml Output Total 515 ml 350 ml Balance 105 ml -350 ml Intake Oral 420 ml IV Total 200 ml Output Urine Total 500 ml 350 ml Gastric Drainage Total 15 ml Laboratory Tests 04/10/19 06:03: White Blood Count 4.0L, Red Blood Count 2.62L, Hemoglobin 8.7L, Hematocrit 25.5L , Mean Corpuscular Volume 98, Mean Corpuscular Hemoglobin 33.4H, Mean Corpuscular Hemoglobin Concent 34.2, Red Cell Distribution Width 14.5, Platelet Count 37L, Mean Platelet Volume 7.1, Neutrophils (%) (Auto) , Lymphocytes (%) ( Auto) , Monocytes (%) (Auto) , Eosinophils (%) (Auto) , Basophils (%) (Auto) , Differential Total Cells Counted 100, Neutrophils % (Manual) 46, Lymphocytes % ( Manual) 40, Monocytes % (Manual) 8, Eosinophils % (Manual) 6H, Basophils % ( Manual) 0, Band Neutrophils 0, Platelet Estimate DecreasedL, Platelet Morphology Normal, Anisocytosis 1+, Sodium Level 143, Potassium Level 4.0, Chloride Level 112H, Carbon Dioxide Level 24, Anion Gap 7, Blood Urea Nitrogen 10, Creatinine 1.0, Estimat Glomerular Filtration Rate , Glucose Level 107H, Calcium Level 8.1L, Total Bilirubin 2.2H, Direct Bilirubin 0.7H, Aspartate Amino Transf (AST/SGOT) 38H, Alanine Aminotransferase (ALT/SGPT) 16, Alkaline Phosphatase 91, Total Protein 5.8L, Albumin 2.4L, Globulin 3.4, Albumin/ Globulin Ratio 0.7L, Alpha Fetoprotein [Pending] Height (Feet): 5 Height (Inches): 1.00 Weight (Pounds): 158 Cardiovascular: regular rhythm Abdomen: soft Steve Burr MD Apr 10, 2019 14:58
[2019-04-10 16:00] VITALS: BP 148/70
--- NOTE | 2019-04-10 16:54 | General Progress Note ---
Assessment/Plan Status: progressing Assessment/Plan: Assessment - Cirrhosis, ? etiology - No esophageal varicies, per recent EGD - Ascites - s/p 5 liter tap - paracentesis site leak Recommendations - paracentesis PRN - surgical consult for suture closure of leak site - diuretics - reduce PPI qd - check AFP - check auto-immune markers - Poor prognosis Subjective Allergies: Coded Allergies: No Known Allergies (Unverified , 03/02/19) Subjective feels OK still with some post paracentesis leak ostomy placed Objective Last 24 Hour Vital Signs Date Time Temp Pulse Resp B/P (MAP) Pulse Ox O2 Delivery O2 Flow Rate FiO2 04/10/19 12:00 97.3 90 18 145/62 (89) 100 04/10/19 09:00 Room Air 04/10/19 08:00 98.4 78 18 153/64 (93) 97 04/10/19 04:00 98.6 80 20 147/62 (90) 100 04/10/19 00:00 98.0 79 20 139/72 (94) 99 04/09/19 21:00 Room Air 04/09/19 20:00 98.7 81 20 156/60 (92) 100 Intake and Output 04/09/19 04/10/19 18:59 06:59 Intake Total 620 ml Output Total 515 ml 350 ml Balance 105 ml -350 ml Intake Oral 420 ml IV Total 200 ml Output Urine Total 500 ml 350 ml Gastric Drainage Total 15 ml Laboratory Tests 04/10/19 06:03: White Blood Count 4.0L, Red Blood Count 2.62L, Hemoglobin 8.7L, Hematocrit 25.5L , Mean Corpuscular Volume 98, Mean Corpuscular Hemoglobin 33.4H, Mean Corpuscular Hemoglobin Concent 34.2, Red Cell Distribution Width 14.5, Platelet Count 37L, Mean Platelet Volume 7.1, Neutrophils (%) (Auto) , Lymphocytes (%) ( Auto) , Monocytes (%) (Auto) , Eosinophils (%) (Auto) , Basophils (%) (Auto) , Differential Total Cells Counted 100, Neutrophils % (Manual) 46, Lymphocytes % ( Manual) 40, Monocytes % (Manual) 8, Eosinophils % (Manual) 6H, Basophils % ( Manual) 0, Band Neutrophils 0, Platelet Estimate DecreasedL, Platelet Morphology Normal, Anisocytosis 1+, Sodium Level 143, Potassium Level 4.0, Chloride Level 112H, Carbon Dioxide Level 24, Anion Gap 7, Blood Urea Nitrogen 10, Creatinine 1.0, Estimat Glomerular Filtration Rate , Glucose Level 107H, Calcium Level 8.1L, Total Bilirubin 2.2H, Direct Bilirubin 0.7H, Aspartate Amino Transf (AST/SGOT) 38H, Alanine Aminotransferase (ALT/SGPT) 16, Alkaline Phosphatase 91, Total Protein 5.8L, Albumin 2.4L, Globulin 3.4, Albumin/ Globulin Ratio 0.7L, Alpha Fetoprotein [Pending] Height (Feet): 5 Height (Inches): 1.00 Weight (Pounds): 158 Objective Thin, frail woman NCAT supple CTA RR abd soft distended (+) Ascites trace edema Negrita Clancy MD Apr 10, 2019 16:54
--- NOTE | 2019-04-10 17:21 | Pulmonology Progress Note ---
Assessment/Plan Assessment/Plan Pulmonary Progress Note HPI Patient is an 84 year woman with past history of cirrhosis admitted with generalized abdominal pain and distension, she endorses some shortness of breath , generalized discomfort. Denies fevers, no chills no cough no congestion no diarrhea. No new complaints Some drainage at paracentesis site Allergies: No Known Allergies Past Medical History: Cirrhosis, Portal Hypertension, Hypersplenism with thrombocytopenia, Varices, Diabetes, Hypertension Improved s/p paracentesis - no current SOB, LE dupplex negative for DVT Physical Exam Vital Signs Noted General Appearance: chronically ill appearing, no apparent distress, alert, mild jaundice Head: NCAT Eyes: bilateral eye PERRL, bilateral eye EOMI ENT: moist mucus membranes Neck: supple, thyroid normal, supple/symm/no masses Respiratory: lungs clear to auscultation bilaterally Cardiovascular: normal peripheral pulses, regular rate, rhythm, HS1, HS2 normal Gastrointestinal: non tender, no guarding, no rebound, less distended Musculoskeletal: normal inspection Neurologic: alert, oriented x3 Skin: no rash, warm/dry, mild edema Impression: Cirrhosis Ascites Abdominal pain Portal Hypertension Hypersplenism with thrombocytopenia Varices Diabetes Plan: [employer] medications O2 PRN Incentive 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 No definite hepatic mass. Portal vein appears to be patent. No bowel obstruction. Thickening of the ascending colon is likely due to portal colopathy. Colonic diverticulosis. Large calcified structure in the right lower quadrant, unchanged. No hydronephrosis. Moderate bladder wall thickening, correlate with cystitis versus underdistention. Subjective ROS Limited/Unobtainable: No Allergies: Coded Allergies: No Known Allergies (Unverified , 03/02/19) Objective Last 24 Hour Vital Signs Date Time Temp Pulse Resp B/P (MAP) Pulse Ox O2 Delivery O2 Flow Rate FiO2 04/10/19 16:00 98.4 73 18 148/70 (96) 98 04/10/19 12:00 97.3 90 18 145/62 (89) 100 04/10/19 09:00 Room Air 04/10/19 08:00 98.4 78 18 153/64 (93) 97 04/10/19 04:00 98.6 80 20 147/62 (90) 100 04/10/19 00:00 98.0 79 20 139/72 (94) 99 04/09/19 21:00 Room Air 04/09/19 20:00 98.7 81 20 156/60 (92) 100 Intake and Output 04/09/19 04/10/19 18:59 06:59 Intake Total 620 ml Output Total 515 ml 350 ml Balance 105 ml -350 ml Intake Oral 420 ml IV Total 200 ml Output Urine Total 500 ml 350 ml Gastric Drainage Total 15 ml Microbiology Date/Time Source Procedure Growth Status 04/08/19 11:00 Abdominal Fluid Gram Stain - Final Resulted 04/08/19 11:00 Abdominal Fluid Body Fluid Culture - Preliminary NO GROWTH AFTER 24 HOURS Resulted Laboratory Tests 04/10/19 06:03: White Blood Count 4.0L, Red Blood Count 2.62L, Hemoglobin 8.7L, Hematocrit 25.5L , Mean Corpuscular Volume 98, Mean Corpuscular Hemoglobin 33.4H, Mean Corpuscular Hemoglobin Concent 34.2, Red Cell Distribution Width 14.5, Platelet Count 37L, Mean Platelet Volume 7.1, Neutrophils (%) (Auto) , Lymphocytes (%) ( Auto) , Monocytes (%) (Auto) , Eosinophils (%) (Auto) , Basophils (%) (Auto) , Differential Total Cells Counted 100, Neutrophils % (Manual) 46, Lymphocytes % ( Manual) 40, Monocytes % (Manual) 8, Eosinophils % (Manual) 6H, Basophils % ( Manual) 0, Band Neutrophils 0, Platelet Estimate DecreasedL, Platelet Morphology Normal, Anisocytosis 1+, Sodium Level 143, Potassium Level 4.0, Chloride Level 112H, Carbon Dioxide Level 24, Anion Gap 7, Blood Urea Nitrogen 10, Creatinine 1.0, Estimat Glomerular Filtration Rate , Glucose Level 107H, Calcium Level 8.1L, Total Bilirubin 2.2H, Direct Bilirubin 0.7H, Aspartate Amino Transf (AST/SGOT) 38H, Alanine Aminotransferase (ALT/SGPT) 16, Alkaline Phosphatase 91, Total Protein 5.8L, Albumin 2.4L, Globulin 3.4, Albumin/ Globulin Ratio 0.7L, Alpha Fetoprotein [Pending] Current Medications Medications (Trade) Dose Ordered Sig/Robe Route PRN Reason Start Time Stop Time Status Last Admin Dose Admin Aspirin (Ecotrin) 81 mg DAILY ORAL 04/08/19 09:00 05/08/19 08:59 04/10/19 09:23 Docusate Sodium (Colace) 100 mg THREE TIMES A DAY ORAL 04/07/19 13:00 05/07/19 12:59 04/08/19 14:08 Furosemide (Lasix) 20 mg DAILY ORAL 04/10/19 09:00 05/10/19 08:59 04/10/19 09:23 Lactulose (Cephulac) 15 gm TID ORAL 04/07/19 13:00 05/07/19 12:59 04/09/19 09:29 Pantoprazole (Protonix) 40 mg EVERY 12 HOURS ORAL 04/09/19 21:00 05/09/19 20:59 04/10/19 09:23 Risperidone (RisperDAL) 1 mg BEDTIME PRN ORAL agitation 04/09/19 00:30 05/09/19 00:29 Spironolactone (Aldactone) 50 mg DAILY ORAL 04/10/19 09:00 05/10/19 08:59 04/10/19 09:23 Audie Wilkins MD Apr 10, 2019 17:21
--- NOTE | 2019-04-10 19:21 | NUR ---
HAND-OFF: Report given to DEBBIE Herrera.
--- NOTE | 2019-04-10 19:49 | NUR ---
NURSE NOTES: Received patient in bed, awake, alert, oriented, speaks Greenlandic , ambulatory with steady gate, able to make her needs known. Caceres catheter is in place, draining well, IV site is clean dry and intact. Call light is within reach, bed is in low position, locked and alarm is on. Will continue to monitor for comfort and safety.
[2019-04-10 20:00] VITALS: BP 133/85
[2019-04-11] VITALS: BP 137/56
[2019-04-11 04:21] VITALS: BP 132/76
--- NOTE | 2019-04-11 07:16 | NUR ---
HAND-OFF: Report given to Aleta LEWIS.
--- NOTE | 2019-04-11 07:25 | NUR ---
NURSE NOTES: Received report from DEBBIE Herrera. Patient A&Ox4, mostly Thai speaking. On room air, no signs of distress or labored breathing. IV intact, patent, and saline locked. Caceres intact, patent, and draining urine. Side rails up x2. Bed in lwoest positron with call light in reach. Will continue with plan of care.
[2019-04-11 08:00] VITALS: BP 125/44
[2019-04-11] MEDS ORDERED: D5NS 1000ml IV ONE (08:29)
[2019-04-11] MEDS: Aspirin EC 81mg tab ORAL SCH (09:22)
[2019-04-11] MEDS: Docusate 100mg cap ORAL SCH ×3 (09:23→17:53)
[2019-04-11] MEDS: Lactulose 10gm/15ml UDC ORAL SCH ×3 (09:23→17:53)
[2019-04-11] MEDS: Spironolactone 50mg tab ORAL SCH (09:23)
--- NOTE | 2019-04-11 11:50 | General Progress Note ---
Assessment/Plan Problem List: (1) Diabetes mellitus ICD Codes: E11.9 - Type 2 diabetes mellitus without complications SNOMED: 47629534 (2) HTN (hypertension) ICD Codes: I10 - Essential (primary) hypertension SNOMED: 43766013 (3) Cholecystitis ICD Codes: K81.9 - Cholecystitis, unspecified SNOMED: 85009265 (4) Cirrhosis ICD Codes: K74.60 - Unspecified cirrhosis of liver SNOMED: 99832401 Qualifiers: Qualified Codes: K74.60 - Unspecified cirrhosis of liver; R18.8 - Other ascites (5) Ascites ICD Codes: R18.8 - Other ascites SNOMED: 005940842 Qualifiers: Qualified Codes: R18.8 - Other ascites (6) Abdominal pain ICD Codes: R10.9 - Unspecified abdominal pain SNOMED: 02360047 Qualifiers: Qualified Codes: R10.84 - Generalized abdominal pain (7) Anemia ICD Codes: D64.9 - Anemia, unspecified SNOMED: 999726130 (8) Electrolyte abnormality ICD Codes: E87.8 - Other disorders of electrolyte and fluid balance, not elsewhere classified SNOMED: 786161514 Status: progressing Assessment/Plan: cirohsis abdominal pain still present moniter for gi bleeding anemia distended abdomin no fever no acute events Subjective Gastrointestinal/Abdominal: Reports: abdomen distended, abdominal pain Allergies: Coded Allergies: No Known Allergies (Unverified , 03/02/19) Objective Last 24 Hour Vital Signs Date Time Temp Pulse Resp B/P (MAP) Pulse Ox O2 Delivery O2 Flow Rate FiO2 04/11/19 04:21 98.9 86 20 132/76 (94) 95 04/11/19 00:00 99.1 87 20 137/56 (83) 97 04/10/19 22:53 Room Air 04/10/19 20:00 99.0 75 19 133/85 (101) 97 04/10/19 16:00 98.4 73 18 148/70 (96) 98 04/10/19 12:00 97.3 90 18 145/62 (89) 100 Intake and Output 04/10/19 04/11/19 19:00 07:00 Intake Total 120 ml Output Total 1220 ml 800 ml Balance -1100 ml -800 ml Intake Oral 120 ml Output Urine Total 1200 ml 800 ml Gastric Drainage Total 20 ml # Voids 3 Height (Feet): 5 Height (Inches): 1.00 Weight (Pounds): 158 Cardiovascular: normal rate Respiratory/Chest: lungs clear Steve Burr MD Apr 11, 2019 11:50
[2019-04-11 12:00] VITALS: BP 150/70
--- NOTE | 2019-04-11 14:59 | Nephrology Progress Note ---
Assessment/Plan Problem List: (1) Cirrhosis (2) Abdominal pain (3) Anemia (4) Electrolyte abnormality Assessment Chronic Liver Disease / Cirrhosis / Ascitis Low Na Anemia Low Albumin Plan refusing some of meds: lactulose on low Na diet Protonix GI eval Monitor lytes per orders ? Dc planning Subjective ROS Limited/Unobtainable: No Constitutional: Reports: malaise Objective Objective Last 24 Hour Vital Signs Date Time Temp Pulse Resp B/P (MAP) Pulse Ox O2 Delivery O2 Flow Rate FiO2 04/11/19 12:00 97.2 78 18 150/70 (96) 100 04/11/19 09:00 Room Air 04/11/19 08:00 99.1 88 19 125/44 (71) 97 04/11/19 04:21 98.9 86 20 132/76 (94) 95 04/11/19 00:00 99.1 87 20 137/56 (83) 97 04/10/19 22:53 Room Air 04/10/19 20:00 99.0 75 19 133/85 (101) 97 04/10/19 16:00 98.4 73 18 148/70 (96) 98 Intake and Output 04/10/19 04/11/19 19:00 07:00 Intake Total 120 ml Output Total 1220 ml 800 ml Balance -1100 ml -800 ml Intake Oral 120 ml Output Urine Total 1200 ml 800 ml Gastric Drainage Total 20 ml # Voids 3 Height (Feet): 5 Height (Inches): 1.00 Weight (Pounds): 158 General Appearance: no apparent distress Cardiovascular: normal rate Respiratory/Chest: decreased breath sounds Abdomen: distended Objective no change Bao Biggs MD Apr 11, 2019 14:59
--- NOTE | 2019-04-11 15:27 | Pulmonology Progress Note ---
Assessment/Plan Assessment/Plan Pulmonary Progress Note HPI Patient is an 84 year woman with past history of cirrhosis admitted with generalized abdominal pain and distension, she endorses some shortness of breath , generalized discomfort. Denies fevers, no chills no cough no congestion no diarrhea. No new complaints Some drainage at paracentesis site, stable overnight, no new complaints Allergies: No Known Allergies Past Medical History: Cirrhosis, Portal Hypertension, Hypersplenism with thrombocytopenia, Varices, Diabetes, Hypertension Improved s/p paracentesis - no current SOB, LE dupplex negative for DVT Physical Exam Vital Signs Noted General Appearance: chronically ill appearing, no apparent distress, alert, mild jaundice Head: NCAT Eyes: bilateral eye PERRL, bilateral eye EOMI ENT: moist mucus membranes Neck: supple, thyroid normal, supple/symm/no masses Respiratory: lungs clear to auscultation bilaterally Cardiovascular: normal peripheral pulses, regular rate, rhythm, HS1, HS2 normal Gastrointestinal: non tender, no guarding, no rebound, less distended Musculoskeletal: normal inspection Neurologic: alert, oriented x3 Skin: no rash, warm/dry, mild edema Impression: Cirrhosis Ascites Abdominal pain Portal Hypertension Hypersplenism with thrombocytopenia Varices Diabetes 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 No definite hepatic mass. Portal vein appears to be patent. No bowel obstruction. Thickening of the ascending colon is likely due to portal colopathy. Colonic diverticulosis. Large calcified structure in the right lower quadrant, unchanged. No hydronephrosis. Moderate bladder wall thickening, correlate with cystitis versus underdistention. Subjective ROS Limited/Unobtainable: No Allergies: Coded Allergies: No Known Allergies (Unverified , 03/02/19) Objective Last 24 Hour Vital Signs Date Time Temp Pulse Resp B/P (MAP) Pulse Ox O2 Delivery O2 Flow Rate FiO2 04/11/19 12:00 97.2 78 18 150/70 (96) 100 04/11/19 09:00 Room Air 04/11/19 08:00 99.1 88 19 125/44 (71) 97 04/11/19 04:21 98.9 86 20 132/76 (94) 95 04/11/19 00:00 99.1 87 20 137/56 (83) 97 04/10/19 22:53 Room Air 04/10/19 20:00 99.0 75 19 133/85 (101) 97 04/10/19 16:00 98.4 73 18 148/70 (96) 98 Intake and Output 04/10/19 04/11/19 19:00 07:00 Intake Total 120 ml Output Total 1220 ml 800 ml Balance -1100 ml -800 ml Intake Oral 120 ml Output Urine Total 1200 ml 800 ml Gastric Drainage Total 20 ml # Voids 3 Current Medications Medications (Trade) Dose Ordered Sig/Robe Route PRN Reason Start Time Stop Time Status Last Admin Dose Admin Aspirin (Ecotrin) 81 mg DAILY ORAL 04/08/19 09:00 05/08/19 08:59 04/11/19 09:22 Docusate Sodium (Colace) 100 mg THREE TIMES A DAY ORAL 04/07/19 13:00 05/07/19 12:59 04/11/19 09:23 Furosemide (Lasix) 20 mg DAILY ORAL 04/10/19 09:00 05/10/19 08:59 04/11/19 09:23 Lactulose (Cephulac) 15 gm TID ORAL 04/07/19 13:00 05/07/19 12:59 04/11/19 14:52 Pantoprazole (Protonix) 40 mg EVERY 12 HOURS ORAL 04/09/19 21:00 05/09/19 20:59 04/11/19 09:23 Risperidone (RisperDAL) 1 mg BEDTIME PRN ORAL agitation 04/09/19 00:30 05/09/19 00:29 Spironolactone (Aldactone) 50 mg DAILY ORAL 04/10/19 09:00 05/10/19 08:59 04/11/19 09:23 Audie Wilkins MD Apr 11, 2019 15:27
[2019-04-11 16:00] VITALS: BP 147/69
--- NOTE | 2019-04-11 16:22 | Hematology/Onc Progress Note ---
Assessment/Plan Assessment/Plan # Pancytopenia is likely due to underlying cirrhosis, splenomegaly, paraesophageal varices, portal HTN. Well known to me from prior admission, she generally requires occasional drainage. AT BASELINE LIKELY IS 30-60k --> at this time, imaging of liver reviewed, no e/o malignancy --> hepatitis panel and hiv are both negative --> plt trend: 58-->75k-->67k-->50k-->38k --> AFP is 2.5 --> given age, cea is 6.3, as per gi recs --> smear has been reviewed, r/o schistocytes --> neupogen on prn basis --> plts as needed presurg, goal >50k if procedure --> 03/04: EGD--> atrophic gastritis noted --> ppi as needed --> paracentesis on prn basis --> plt trend 61-->50-->37k # Anemia of chronic disease --> no evidence of iron deficiency --> hgb goal >7, transfuse prn --> less of a role for iron and epogen --> hgb trend: 9.3-->10.3-->9.8 # Coagulopathy is related to liver disease --> preprocedure GIVE vit K --> improved # Thickening of wall of gallbladder with pericholecystic fluid --> hida neg before # hx UTI (urinary tract infection) --> history of, sp treatment # Liver cirrhosis --> distended ab, r/o sbp --> on abx --> 5.2L removed 04/08 # Dvt ppx scds Greatly appreciate consultation and juan manuel RN Subjective HEENT: Denies: no symptoms, eye pain, blurred vision, tearing, double vision, ear pain, ear discharge, nose pain, nose congestion, throat pain, throat swelling, mouth pain, mouth swelling, other Cardiovascular: Denies: no symptoms, chest pain, edema, irregular heart rate, lightheadedness, palpitations, syncope, other Respiratory: Denies: no symptoms, cough, shortness of breath, SOB with excertion, SOB at rest, sputum, wheezing, other Gastrointestinal/Abdominal: Denies: no symptoms, abdomen distended, abdominal pain, black stools, tarry stools, blood in stool, constipated, diarrhea, difficulty swallowing, nausea, poor appetite, poor fluid intake, rectal bleeding , vomiting, other Genitourinary: Denies: no symptoms, burning, discharge, frequency, flank pain, hematuria, incontinence, pain, urgency, other Neurologic/Psychiatric: Denies: no symptoms, anxiety, depressed, emotional problems, headache, numbness, paresthesia, pre-existing deficit, seizure, tingling, tremors, weakness, other Endocrine: Denies: no symptoms, excessive sweating, flushing, intolerance to cold, intolerance to heat, increased hunger, increased thirst, increased urine, unexplained weight gain, unexplained weight loss, other Allergies: Coded Allergies: No Known Allergies (Unverified , 03/02/19) Subjective 04/07: no major changes, for para, plt 50k, will review inr/ptt preprocedure, gi aware 04/08: no bleeding or chills, no night sweats, no major changes, for para 04/09: no major changes, no bleeding or chills, plt is lower, still with abd pain 04/11: no events to note, cbc reviewed, no major changes, renal recs noted Objective Objective Current Medications Medications (Trade) Dose Ordered Sig/Robe Route PRN Reason Start Time Stop Time Status Last Admin Dose Admin Aspirin (Ecotrin) 81 mg DAILY ORAL 04/08/19 09:00 05/08/19 08:59 04/11/19 09:22 Docusate Sodium (Colace) 100 mg THREE TIMES A DAY ORAL 04/07/19 13:00 05/07/19 12:59 04/11/19 09:23 Furosemide (Lasix) 20 mg DAILY ORAL 04/10/19 09:00 05/10/19 08:59 04/11/19 09:23 Lactulose (Cephulac) 15 gm TID ORAL 04/07/19 13:00 05/07/19 12:59 04/11/19 14:52 Pantoprazole (Protonix) 40 mg EVERY 12 HOURS ORAL 04/09/19 21:00 05/09/19 20:59 04/11/19 09:23 Risperidone (RisperDAL) 1 mg BEDTIME PRN ORAL agitation 04/09/19 00:30 05/09/19 00:29 Spironolactone (Aldactone) 50 mg DAILY ORAL 04/10/19 09:00 05/10/19 08:59 04/11/19 09:23 Last 24 Hour Vital Signs Date Time Temp Pulse Resp B/P (MAP) Pulse Ox O2 Delivery O2 Flow Rate FiO2 04/11/19 12:00 97.2 78 18 150/70 (96) 100 04/11/19 09:00 Room Air 04/11/19 08:00 99.1 88 19 125/44 (71) 97 04/11/19 04:21 98.9 86 20 132/76 (94) 95 04/11/19 00:00 99.1 87 20 137/56 (83) 97 04/10/19 22:53 Room Air 04/10/19 20:00 99.0 75 19 133/85 (101) 97 04/10/19 16:00 98.4 73 18 148/70 (96) 98 04/10/19 12:00 97.3 90 18 145/62 (89) 100 04/10/19 09:00 Room Air 04/10/19 08:00 98.4 78 18 153/64 (93) 97 04/10/19 04:00 98.6 80 20 147/62 (90) 100 04/10/19 00:00 98.0 79 20 139/72 (94) 99 04/09/19 21:00 Room Air 04/09/19 20:00 98.7 81 20 156/60 (92) 100 Intake and Output 04/10/19 04/11/19 19:00 07:00 Intake Total 120 ml Output Total 1220 ml 800 ml Balance -1100 ml -800 ml Intake Oral 120 ml Output Urine Total 1200 ml 800 ml Gastric Drainage Total 20 ml # Voids 3 Labs Test 04/09/19 05:14 04/10/19 06:03 White Blood Count 3.4 K/UL (4.8-10.8) 4.0 K/UL (4.8-10.8) Red Blood Count 2.47 M/UL (4.20-5.40) 2.62 M/UL (4.20-5.40) Hemoglobin 8.1 G/DL (12.0-16.0) 8.7 G/DL (12.0-16.0) Hematocrit 23.8 % (37.0-47.0) 25.5 % (37.0-47.0) Mean Corpuscular Volume 97 FL (80-99) 98 FL (80-99) Mean Corpuscular Hemoglobin 32.8 PG (27.0-31.0) 33.4 PG (27.0-31.0) Mean Corpuscular Hemoglobin Concent 34.0 G/DL (32.0-36.0) 34.2 G/DL (32.0-36.0) Red Cell Distribution Width 14.4 % (11.6-14.8) 14.5 % (11.6-14.8) Platelet Count 38 K/UL (150-450) 37 K/UL (150-450) Mean Platelet Volume 7.6 FL (6.5-10.1) 7.1 FL (6.5-10.1) Neutrophils (%) (Auto) % (45.0-75.0) % (45.0-75.0) Lymphocytes (%) (Auto) % (20.0-45.0) % (20.0-45.0) Monocytes (%) (Auto) % (1.0-10.0) % (1.0-10.0) Eosinophils (%) (Auto) % (0.0-3.0) % (0.0-3.0) Basophils (%) (Auto) % (0.0-2.0) % (0.0-2.0) Differential Total Cells Counted 100 100 Neutrophils % (Manual) 57 % (45-75) 46 % (45-75) Lymphocytes % (Manual) 28 % (20-45) 40 % (20-45) Monocytes % (Manual) 12 % (1-10) 8 % (1-10) Eosinophils % (Manual) 3 % (0-3) 6 % (0-3) Basophils % (Manual) 0 % (0-2) 0 % (0-2) Band Neutrophils 0 % (0-8) 0 % (0-8) Platelet Estimate Decreased Decreased Platelet Morphology Normal Normal Anisocytosis 1+ 1+ Sodium Level 141 MMOL/L (136-145) 143 MMOL/L (136-145) Potassium Level 3.8 MMOL/L (3.5-5.1) 4.0 MMOL/L (3.5-5.1) Chloride Level 110 MMOL/L (98-107) 112 MMOL/L (98-107) Carbon Dioxide Level 24 MMOL/L (21-32) 24 MMOL/L (21-32) Anion Gap 7 mmol/L (5-15) 7 mmol/L (5-15) Blood Urea Nitrogen 12 mg/dL (7-18) 10 mg/dL (7-18) Creatinine 1.2 MG/DL (0.55-1.30) 1.0 MG/DL (0.55-1.30) Estimat Glomerular Filtration Rate mL/min (>60) mL/min (>60) Glucose Level 131 MG/DL (74-106) 107 MG/DL (74-106) Hemoglobin A1c 6.2 % (4.3-6.0) Calcium Level 7.9 MG/DL (8.5-10.1) 8.1 MG/DL (8.5-10.1) Phosphorus Level 2.3 MG/DL (2.5-4.9) Magnesium Level 1.6 MG/DL (1.8-2.4) Total Bilirubin 2.6 MG/DL (0.2-1.0) 2.2 MG/DL (0.2-1.0) Direct Bilirubin 0.8 MG/DL (0.0-0.3) 0.7 MG/DL (0.0-0.3) Gamma Glutamyl Transpeptidase 57 U/L (5-85) Aspartate Amino Transf (AST/SGOT) 30 U/L (15-37) 38 U/L (15-37) Alanine Aminotransferase (ALT/SGPT) 17 U/L (12-78) 16 U/L (12-78) Alkaline Phosphatase 99 U/L (46-116) 91 U/L (46-116) Total Protein 6.2 G/DL (6.4-8.2) 5.8 G/DL (6.4-8.2) Albumin 2.9 G/DL (3.4-5.0) 2.4 G/DL (3.4-5.0) Globulin 3.3 g/dL 3.4 g/dL Albumin/Globulin Ratio 0.9 (1.0-2.7) 0.7 (1.0-2.7) Height (Feet): 5 Height (Inches): 1.00 Weight (Pounds): 158 Objective GeN: NAd Pulm: ctab, some crackles at base CV: Rrr, no mgr Abd: distended but soft, nt Ext: 1+edema Jose Antonio Zhang MD Apr 11, 2019 16:22
--- NOTE | 2019-04-11 16:42 | General Progress Note ---
Assessment/Plan Status: progressing Assessment/Plan: Assessment - Cirrhosis, ? etiology - No esophageal varicies, per recent EGD - Ascites - s/p 5 liter tap - paracentesis site leak Recommendations - paracentesis PRN - surgical consult for suture closure of leak site - diuretics - PPI qd - check AFP - check auto-immune markers - Poor prognosis Subjective Allergies: Coded Allergies: No Known Allergies (Unverified , 03/02/19) Subjective feels OK no new complaints Objective Last 24 Hour Vital Signs Date Time Temp Pulse Resp B/P (MAP) Pulse Ox O2 Delivery O2 Flow Rate FiO2 04/11/19 12:00 97.2 78 18 150/70 (96) 100 04/11/19 09:00 Room Air 04/11/19 08:00 99.1 88 19 125/44 (71) 97 04/11/19 04:21 98.9 86 20 132/76 (94) 95 04/11/19 00:00 99.1 87 20 137/56 (83) 97 04/10/19 22:53 Room Air 04/10/19 20:00 99.0 75 19 133/85 (101) 97 Intake and Output 04/10/19 04/11/19 19:00 07:00 Intake Total 120 ml Output Total 1220 ml 800 ml Balance -1100 ml -800 ml Intake Oral 120 ml Output Urine Total 1200 ml 800 ml Gastric Drainage Total 20 ml # Voids 3 Height (Feet): 5 Height (Inches): 1.00 Weight (Pounds): 158 Objective Thin, frail woman NCAT supple CTA RR abd soft distended (+) Ascites trace edema Negrita Clancy MD Apr 11, 2019 16:42
--- NOTE | 2019-04-11 19:32 | NUR ---
HAND-OFF: Report given to DEBBIE Gilliland and DEBBIE Molina.
[2019-04-11 20:00] VITALS: BP 144/72
--- NOTE | 2019-04-11 20:00 | NUR ---
NURSE NOTES: received pt. in bed. Caceres catheter via gravity. Colostomy bag placed over parecentesis site. no c/o pain. no acute distress present. call light within reach. the bed is lowest position. will continue to provide plan of care.
[2019-04-12 00:39] VITALS: BP 141/65
[2019-04-12 04:00] VITALS: BP 132/60
[2019-04-12 07:25] LABS: HEMATOCRIT 23.5 % (37.0-47.0); HEMOGLOBIN 8.3 G/DL (12.0-16.0); MEAN CORPUSCULAR VOLUME 95 FL (80-99); PLATELET COUNT 42 K/UL (150-450); RED BLOOD COUNT 2.48 M/UL (4.20-5.40); RED CELL DISTRIBUTION WIDTH 14.5 % (11.6-14.8)
[2019-04-12 07:44] LABS: AMMONIA 20 umol/L (11-32)
--- NOTE | 2019-04-12 07:53 | NUR ---
HAND-OFF: Report given to Georgia LEWIS.
--- NOTE | 2019-04-12 07:54 | NUR ---
NURSE NOTES: Received patient sitting up in bed awake. No SOB or cardiac distress. With colostomy bag to paracentesis site, clear yellow fluid draining to bag. Abdomen distended. IV line intact and patent, no s/s of infiltration. HOB elevated. Bed locked in lowest position. Will continue plan of care.
[2019-04-12 07:58] LABS: ALANINE AMINOTRANSFERASE 13 U/L (12-78); ALBUMIN 2.1 G/DL (3.4-5.0); ALBUMIN/GLOBULIN RATIO 0.6 (1.0-2.7); ALKALINE PHOSPHATASE 85 U/L (46-116); ANION GAP 2 mmol/L (5-15); ASPARTATE AMINO TRANSFERASE 35 U/L (15-37); BILIRUBIN,TOTAL 2.6 MG/DL (0.2-1.0); BLOOD UREA NITROGEN 11 mg/dL (7-18); CALCIUM 7.9 MG/DL (8.5-10.1); CARBON DIOXIDE 27 MMOL/L (21-32); CHLORIDE 111 MMOL/L (98-107); CREATININE 1.2 MG/DL (0.55-1.30); POTASSIUM 3.6 MMOL/L (3.5-5.1); SODIUM 140 MMOL/L (136-145)
[2019-04-12 08:00] VITALS: BP 124/63
[2019-04-12 08:00] LABS: BILIRUBIN,DIRECT 0.7 MG/DL (0.0-0.3)
[2019-04-12 08:22] LABS: INR 1.8 (0.9-1.1)
[2019-04-12] MEDS: Aspirin EC 81mg tab ORAL SCH (08:27)
[2019-04-12] MEDS: Spironolactone 50mg tab ORAL SCH (08:27)
[2019-04-12] MEDS: Docusate 100mg cap ORAL SCH ×3 (08:28→18:00)
[2019-04-12] MEDS: Lactulose 10gm/15ml UDC ORAL SCH ×3 (08:29→18:00)
--- NOTE | 2019-04-12 09:00 | General Progress Note ---
Assessment/Plan Status: progressing Assessment/Plan: Assessment - Cirrhosis, ? etiology - No esophageal varicies, per recent EGD - Ascites - s/p 5 liter tap - paracentesis site leak Recommendations - paracentesis PRN - surgical consult for suture closure of leak site - diuretics - PPI qd - check AFP - check auto-immune markers - Poor prognosis Subjective Allergies: Coded Allergies: No Known Allergies (Unverified , 03/02/19) Subjective feels OK no new complaints still with paracentesis site leak Objective Last 24 Hour Vital Signs Date Time Temp Pulse Resp B/P (MAP) Pulse Ox O2 Delivery O2 Flow Rate FiO2 04/12/19 08:00 98.4 83 20 124/63 (83) 99 04/12/19 04:00 97.4 80 20 132/60 (84) 97 04/12/19 00:39 98.9 80 23 141/65 (90) 96 04/11/19 20:39 Room Air 04/11/19 20:00 99.3 88 20 144/72 (96) 96 04/11/19 16:00 99.3 81 18 147/69 (95) 100 04/11/19 12:00 97.2 78 18 150/70 (96) 100 04/11/19 09:00 Room Air Intake and Output 04/11/19 04/12/19 19:00 07:00 Output Total 1000 ml Balance -1000 ml Output Urine Total 1000 ml Laboratory Tests 04/12/19 05:45: White Blood Count 5.0, Red Blood Count 2.48L, Hemoglobin 8.3L, Hematocrit 23.5L , Mean Corpuscular Volume 95, Mean Corpuscular Hemoglobin 33.2H, Mean Corpuscular Hemoglobin Concent 35.1, Red Cell Distribution Width 14.5, Platelet Count 42L, Mean Platelet Volume 7.9, Neutrophils (%) (Auto) , Lymphocytes (%) ( Auto) , Monocytes (%) (Auto) , Eosinophils (%) (Auto) , Basophils (%) (Auto) , Neutrophils % (Manual) [Pending], Lymphocytes % (Manual) [Pending], Platelet Estimate [Pending], Platelet Morphology [Pending], Prothrombin Time 18.3H, Prothromb Time International Ratio 1.8H, Sodium Level 140, Potassium Level 3.6, Chloride Level 111H, Carbon Dioxide Level 27, Anion Gap 2L, Blood Urea Nitrogen 11, Creatinine 1.2, Estimat Glomerular Filtration Rate , Glucose Level 101, Calcium Level 7.9L, Total Bilirubin 2.6H, Direct Bilirubin 0.7H, Aspartate Amino Transf (AST/SGOT) 35, Alanine Aminotransferase (ALT/SGPT) 13, Alkaline Phosphatase 85, Ammonia 20, Total Protein 5.5L, Albumin 2.1L, Globulin 3.4, Albumin/Globulin Ratio 0.6L Height (Feet): 5 Height (Inches): 1.00 Weight (Pounds): 158 Objective Thin, frail woman NCAT supple CTA RR abd soft distended (+) Ascites trace edema Negrita Clancy MD Apr 12, 2019 09:00
--- NOTE | 2019-04-12 11:19 | NUR ---
*-* INSURANCE /*-* ALL CLINICALS HAVE BEEN FAXED TO: [facility] Coordinator: Ev Hutchinson#[phone] fax#[phone]
--- NOTE | 2019-04-12 11:24 | Consultation ---
History of Present Illness General Date patient seen: Apr 12, 2019 Reason for Hospitalization: Abdominal Pain Present Illness HPI 84-year-old female with multiple medical comorbidities and history of liver cirrhosis presented to [facility] with generalized abdominal pain/distention. Patient reports that her abdomen has been getting grossly enlarged and she states that she was drained in the past, which tends to help her abdominal pain. no n/v/f/ c. labs noted. admitted for care and had paracentesis on 04/08 removing 5.1L. continues to drain and had ostomy appliance applied with notes lots of output. surgery called to evaluate and assist with care. patient seen, chart reviewed, patient examined. Allergies: Coded Allergies: No Known Allergies (Unverified , 03/02/19) Medication History Scheduled Aspirin (Aspirin EC), 81 MG ORAL DAILY, (Reported) Aspirin* (Aspir 81*), 81 MG ORAL DAILY, (Reported) Carvedilol (Coreg), 25 MG ORAL EVERY 12 HOURS, (Reported) Carvedilol (Coreg), 25 MG ORAL EVERY 12 HOURS, (Reported) Ferrous Sulfate* (Ferrous Sulfate*), 325 MG ORAL DAILY, (Reported) Lactulose (Lactulose), 15 GM PO TID, (Reported) Levofloxacin* (Levaquin*), 500 MG ORAL DAILY, (Reported) Metformin Hcl* (Metformin Hcl*), 1,000 MG ORAL TWICE A DAY, (Reported) Metformin Hcl* (Metformin Hcl*), 1,000 MG ORAL BID, (Reported) No Known Medications* (NKM - No Known Medications*), 0 ., (Reported) Miscellaneous Medications Unable to Obtain Medications (Unable To Obtain Meds), (Reported) Patient History Limited by: medical condition History Provided By: Patient, Medical Record, PMD Healthcare decision maker SELF Resuscitation status Full Code Advanced Directive on File Past Medical/Surgical History Past Medical/Surgical History: (1) Thrombocytopenia (2) Cirrhosis (3) Abdominal pain (4) Anemia (5) Electrolyte abnormality (6) Diabetes mellitus (7) Ascites (8) Cholecystitis (9) HTN (hypertension) Review of Systems Review of Symptoms General ROS: no weight loss or fever Psychological ROS: no depression or mood changes, no memory loss Ophthalmic ROS: no visual changes or eye irritation ENT ROS: no nasal congestion, hearing loss, dizziness Allergy and Immunology ROS: no allergic symptoms or urticaria Hematological and Lymphatic ROS: no swollen glands, unusual bleeding or bruising Endocrine ROS: no polyuria, polydipsia, weight changes, temperature intolerance Respiratory ROS: no cough, shortness of breath, or wheezing Cardiovascular ROS: no chest pain or dyspnea on exertion Gastrointestinal ROS: mild abdominal pain, bright red blood in stool. Musculoskeletal ROS: no myalgias or arthralgias Neurological ROS: no TIA or stroke symptoms Dermatological ROS: no new or changing skin lesions, rashes or pruritis Physical Exam Physical Exam General appearance: alert, cooperative, no distress, appears stated age Head: Normocephalic, without obvious abnormality, atraumatic Eyes: conjunctivae/corneas clear. PERRL, EOM's intact. Fundi benign Throat: Lips, mucosa, and tongue normal. Teeth and gums normal Neck: supple, symmetrical, trachea midline, no adenopathy, thyroid: not enlarged, symmetric, no tenderness/mass/nodules, no carotid bruit and no JVD Lungs: clear to auscultation bilaterally Heart: regular rate and rhythm, S1, S2 normal, no murmur, click, rub or gallop Abdomen: soft, non-tender. Distended, fluid filled, RLQ site of prior para with leaking of serous fluid Bowel sounds normal. No masses, no organomegaly Extremities: extremities normal, atraumatic, no cyanosis or edema Pulses: 2+ and symmetric Skin: Skin color, texture, turgor normal. No rashes or lesions Neurologic: Grossly normal Last 24 Hour Vital Signs Date Time Temp Pulse Resp B/P (MAP) Pulse Ox O2 Delivery O2 Flow Rate FiO2 04/12/19 08:00 98.4 83 20 124/63 (83) 99 04/12/19 04:00 97.4 80 20 132/60 (84) 97 04/12/19 00:39 98.9 80 23 141/65 (90) 96 04/11/19 20:39 Room Air 04/11/19 20:00 99.3 88 20 144/72 (96) 96 04/11/19 16:00 99.3 81 18 147/69 (95) 100 04/11/19 12:00 97.2 78 18 150/70 (96) 100 Intake and Output 04/11/19 04/12/19 19:00 07:00 Output Total 1000 ml Balance -1000 ml Output Urine Total 1000 ml Laboratory Tests Test 04/12/19 05:45 White Blood Count 5.0 K/UL (4.8-10.8) Red Blood Count 2.48 M/UL (4.20-5.40) L Hemoglobin 8.3 G/DL (12.0-16.0) L Hematocrit 23.5 % (37.0-47.0) L Mean Corpuscular Volume 95 FL (80-99) Mean Corpuscular Hemoglobin 33.2 PG (27.0-31.0) H Mean Corpuscular Hemoglobin Concent 35.1 G/DL (32.0-36.0) Red Cell Distribution Width 14.5 % (11.6-14.8) Platelet Count 42 K/UL (150-450) L Mean Platelet Volume 7.9 FL (6.5-10.1) Neutrophils (%) (Auto) % (45.0-75.0) Lymphocytes (%) (Auto) % (20.0-45.0) Monocytes (%) (Auto) % (1.0-10.0) Eosinophils (%) (Auto) % (0.0-3.0) Basophils (%) (Auto) % (0.0-2.0) Differential Total Cells Counted 100 Neutrophils % (Manual) 54 % (45-75) Lymphocytes % (Manual) 32 % (20-45) Monocytes % (Manual) 9 % (1-10) Eosinophils % (Manual) 5 % (0-3) H Basophils % (Manual) 0 % (0-2) Band Neutrophils 0 % (0-8) Platelet Estimate Decreased L Platelet Morphology Normal Prothrombin Time 18.3 SEC (9.30-11.50) H Prothromb Time International Ratio 1.8 (0.9-1.1) H Sodium Level 140 MMOL/L (136-145) Potassium Level 3.6 MMOL/L (3.5-5.1) Chloride Level 111 MMOL/L (98-107) H Carbon Dioxide Level 27 MMOL/L (21-32) Anion Gap 2 mmol/L (5-15) L Blood Urea Nitrogen 11 mg/dL (7-18) Creatinine 1.2 MG/DL (0.55-1.30) Estimat Glomerular Filtration Rate mL/min (>60) Glucose Level 101 MG/DL (74-106) Calcium Level 7.9 MG/DL (8.5-10.1) L Total Bilirubin 2.6 MG/DL (0.2-1.0) H Direct Bilirubin 0.7 MG/DL (0.0-0.3) H Aspartate Amino Transf (AST/SGOT) 35 U/L (15-37) Alanine Aminotransferase (ALT/SGPT) 13 U/L (12-78) Alkaline Phosphatase 85 U/L (46-116) Ammonia 20 umol/L (11-32) Total Protein 5.5 G/DL (6.4-8.2) L Albumin 2.1 G/DL (3.4-5.0) L Globulin 3.4 g/dL Albumin/Globulin Ratio 0.6 (1.0-2.7) L Height (Feet): 5 Height (Inches): 1.00 Weight (Pounds): 158 Medications Current Medications Medications (Trade) Dose Ordered Sig/Robe Route PRN Reason Start Time Stop Time Status Last Admin Dose Admin Aspirin (Ecotrin) 81 mg DAILY ORAL 04/08/19 09:00 05/08/19 08:59 04/12/19 08:27 Docusate Sodium (Colace) 100 mg THREE TIMES A DAY ORAL 04/07/19 13:00 05/07/19 12:59 04/12/19 08:28 Furosemide (Lasix) 20 mg DAILY ORAL 04/10/19 09:00 05/10/19 08:59 04/12/19 08:28 Lactulose (Cephulac) 15 gm TID ORAL 04/07/19 13:00 05/07/19 12:59 04/12/19 08:29 Pantoprazole (Protonix) 40 mg EVERY 12 HOURS ORAL 04/09/19 21:00 05/09/19 20:59 04/12/19 08:28 Risperidone (RisperDAL) 1 mg BEDTIME PRN ORAL agitation 04/09/19 00:30 05/09/19 00:29 Spironolactone (Aldactone) 50 mg DAILY ORAL 04/10/19 09:00 05/10/19 08:59 04/12/19 08:27 Assessment/Plan Problem List: (1) Abdominal pain Assessment & Plan: 84-year-old female with abdominal pain secondary to distention from excessive ascites. Recently had drainage and 5.2 L removed. Since has had significant amount of output from the paracentesis site and has been unable to stop straining. Ostomy bag placed and continues to be draining. Surgery called to evaluate. On examination patient continues to have a very distended fluid-filled abdomen. There is considerations for closing the prior drain site with a suture. Would recommend considerations for repeat paracentesis prior to attempting this. Paracentesis ordered Will discuss with GI in follow-up. Thank you for allowing me to participate in patient's care ICD Codes: R10.9 - Unspecified abdominal pain SNOMED: 20520441 Qualifiers: Qualified Codes: R10.84 - Generalized abdominal pain (2) Cirrhosis Assessment & Plan: Decompensated liver cirrhosis etiology unknown. Labs noted. Exam is noted. Recommend follow-up with liver center upon discharge. ICD Codes: K74.60 - Unspecified cirrhosis of liver SNOMED: 41687964 Qualifiers: Qualified Codes: K74.60 - Unspecified cirrhosis of liver; R18.8 - Other ascites (3) Anemia ICD Codes: D64.9 - Anemia, unspecified SNOMED: 652881730 (4) Electrolyte abnormality ICD Codes: E87.8 - Other disorders of electrolyte and fluid balance, not elsewhere classified SNOMED: 991490160 (5) Diabetes mellitus ICD Codes: E11.9 - Type 2 diabetes mellitus without complications SNOMED: 55176592 (6) Ascites ICD Codes: R18.8 - Other ascites SNOMED: 048722628 Qualifiers: Qualified Codes: R18.8 - Other ascites (7) Cholecystitis ICD Codes: K81.9 - Cholecystitis, unspecified SNOMED: 73265431 (8) HTN (hypertension) ICD Codes: I10 - Essential (primary) hypertension SNOMED: 61758926 (9) Thrombocytopenia ICD Codes: D69.6 - Thrombocytopenia, unspecified SNOMED: 522037585 Vini Reyes Apr 12, 2019 11:24
--- NOTE | 2019-04-12 11:48 | NUR ---
RD ASSESSMENT & RECOMMENDATIONS SEE CARE ACTIVITY FOR COMPLETE ASSESSMENT DAILY ESTIMATED NEEDS: Needs based on Cirrhosis, 53.8kg abw 25-30 kcals/kg 0050-4475 total kcals 1-1.5 g protein/kg 54-81 g total protein Fluid per MD mL/kg total fluid mLs NUTRITION DIAGNOSIS: Decreased sodium needs r/t cirrhosis and ascites as evidenced by pt s/p paracentesis w/ 5+L removed, large abdomen, w/ portal HTN. PO DIET RECOMMENDATIONS: LOW NA / Soft as tolerated ADDITIONAL RECOMMENDATIONS: 1) Add snacks in b/w meals 2) On lasix + lactulose, monitor lytes daily, replete as needed 3) A1C 6.2, rec carb control diet w/ consistent >75% po intake -> Currently w/ variable po intake 4) Ensure Enlive 1 bottle daily / 4oz BID
[2019-04-12 12:00] VITALS: BP 128/58
--- NOTE | 2019-04-12 12:27 | NUR ---
NURSE NOTES: For paracentesis today around 12:30pm, consent obtained. Placed on NPO this lunch.
[2019-04-12] MEDS ORDERED: Phytonadione 10 MG in D5W 55 ML IVPB SCH (15:00)
--- NOTE | 2019-04-12 15:12 | Diagnostic Imaging Report ---
Indication: Abdominal pain Technique: Grayscale and duplex Doppler imaging of the abdomen performed. Comparison: None Findings: Study was performed for evaluation of ascites. There is moderate ascites demonstrated in all 4 quadrants. IMPRESSION: Moderate ascites.
--- NOTE | 2019-04-12 15:42 | Nephrology Progress Note ---
Assessment/Plan Problem List: (1) Cirrhosis (2) Abdominal pain (3) Anemia (4) Electrolyte abnormality Assessment Chronic Liver Disease / Cirrhosis / Ascitis Low Na Anemia Low Albumin Plan refusing some of meds: lactulose on low Na diet Protonix GI eval Monitor lytes per orders ? Dc planning Subjective ROS Limited/Unobtainable: No Constitutional: Reports: weakness Objective Objective Last 24 Hour Vital Signs Date Time Temp Pulse Resp B/P (MAP) Pulse Ox O2 Delivery O2 Flow Rate FiO2 04/12/19 08:00 98.4 83 20 124/63 (83) 99 04/12/19 04:00 97.4 80 20 132/60 (84) 97 04/12/19 00:39 98.9 80 23 141/65 (90) 96 04/11/19 20:39 Room Air 04/11/19 20:00 99.3 88 20 144/72 (96) 96 04/11/19 16:00 99.3 81 18 147/69 (95) 100 Intake and Output 04/11/19 04/12/19 19:00 07:00 Output Total 1000 ml Balance -1000 ml Output Urine Total 1000 ml Laboratory Tests 04/12/19 05:45: White Blood Count 5.0, Red Blood Count 2.48L, Hemoglobin 8.3L, Hematocrit 23.5L , Mean Corpuscular Volume 95, Mean Corpuscular Hemoglobin 33.2H, Mean Corpuscular Hemoglobin Concent 35.1, Red Cell Distribution Width 14.5, Platelet Count 42L, Mean Platelet Volume 7.9, Neutrophils (%) (Auto) , Lymphocytes (%) ( Auto) , Monocytes (%) (Auto) , Eosinophils (%) (Auto) , Basophils (%) (Auto) , Differential Total Cells Counted 100, Neutrophils % (Manual) 54, Lymphocytes % ( Manual) 32, Monocytes % (Manual) 9, Eosinophils % (Manual) 5H, Basophils % ( Manual) 0, Band Neutrophils 0, Platelet Estimate DecreasedL, Platelet Morphology Normal, Prothrombin Time 18.3H, Prothromb Time International Ratio 1.8H, Sodium Level 140, Potassium Level 3.6, Chloride Level 111H, Carbon Dioxide Level 27, Anion Gap 2L, Blood Urea Nitrogen 11, Creatinine 1.2, Estimat Glomerular Filtration Rate , Glucose Level 101, Calcium Level 7.9L, Total Bilirubin 2.6H, Direct Bilirubin 0.7H, Aspartate Amino Transf (AST/SGOT) 35, Alanine Aminotransferase (ALT/SGPT) 13, Alkaline Phosphatase 85, Ammonia 20, Total Protein 5.5L, Albumin 2.1L, Globulin 3.4, Albumin/Globulin Ratio 0.6L Height (Feet): 5 Height (Inches): 1.00 Weight (Pounds): 158 General Appearance: no apparent distress Cardiovascular: normal rate Respiratory/Chest: decreased breath sounds Abdomen: distended Objective no change Bao Biggs MD Apr 12, 2019 15:41
--- NOTE | 2019-04-12 15:53 | Hematology/Onc Progress Note ---
Assessment/Plan Assessment/Plan # Pancytopenia is likely due to underlying cirrhosis, splenomegaly, paraesophageal varices, portal HTN. Well known to me from prior admission, she generally requires occasional drainage. AT BASELINE LIKELY IS 30-60k --> at this time, imaging of liver reviewed, no e/o malignancy --> hepatitis panel and hiv are both negative --> plt trend: 58-->75k-->67k-->50k-->38k -->42k --> AFP is 2.5 --> given age, cea is 6.3, as per gi recs --> smear has been reviewed, r/o schistocytes --> neupogen on prn basis --> plts as needed presurg, goal >50k if procedure --> 03/04: EGD--> atrophic gastritis noted --> ppi as needed --> paracentesis on prn basis --> plt trend 61-->50-->37k->42 --> FOR PLATELETS, VIT K, FFP for tunneled cath insertion 04/13 # Anemia of chronic disease --> no evidence of iron deficiency --> hgb goal >7, transfuse prn --> less of a role for iron and epogen --> hgb trend: 9.3-->10.3-->9.8-->8.3 # Coagulopathy is related to liver disease --> preprocedure GIVE vit K --> improved # Thickening of wall of gallbladder with pericholecystic fluid --> hida neg before # hx UTI (urinary tract infection) --> history of, sp treatment # Liver cirrhosis --> distended ab, r/o sbp --> on abx --> 5.2L removed 04/08 # Dvt ppx scds Greatly appreciate consultation and juan manuel RN Subjective HEENT: Denies: no symptoms, eye pain, blurred vision, tearing, double vision, ear pain, ear discharge, nose pain, nose congestion, throat pain, throat swelling, mouth pain, mouth swelling, other Cardiovascular: Denies: no symptoms, chest pain, edema, irregular heart rate, lightheadedness, palpitations, syncope, other Respiratory: Denies: no symptoms, cough, shortness of breath, SOB with excertion, SOB at rest, sputum, wheezing, other Gastrointestinal/Abdominal: Denies: no symptoms, abdomen distended, abdominal pain, black stools, tarry stools, blood in stool, constipated, diarrhea, difficulty swallowing, nausea, poor appetite, poor fluid intake, rectal bleeding , vomiting, other Genitourinary: Denies: no symptoms, burning, discharge, frequency, flank pain, hematuria, incontinence, pain, urgency, other Endocrine: Denies: no symptoms, excessive sweating, flushing, intolerance to cold, intolerance to heat, increased hunger, increased thirst, increased urine, unexplained weight gain, unexplained weight loss, other Allergies: Coded Allergies: No Known Allergies (Unverified , 03/02/19) Subjective 04/07: no major changes, for para, plt 50k, will review inr/ptt preprocedure, gi aware 04/08: no bleeding or chills, no night sweats, no major changes, for para 04/09: no major changes, no bleeding or chills, plt is lower, still with abd pain 04/11: no events to note, cbc reviewed, no major changes, renal recs noted 04/12: for tunneled cath insertion tomorrow, inr correction, ffp and vit k and plt today Objective Objective Current Medications Medications (Trade) Dose Ordered Sig/Robe Route PRN Reason Start Time Stop Time Status Last Admin Dose Admin Docusate Sodium (Colace) 100 mg THREE TIMES A DAY ORAL 04/07/19 13:00 05/07/19 12:59 04/12/19 08:28 Furosemide (Lasix) 20 mg DAILY ORAL 04/10/19 09:00 05/10/19 08:59 04/12/19 08:28 Lactulose (Cephulac) 15 gm TID ORAL 04/07/19 13:00 05/07/19 12:59 04/12/19 08:29 Pantoprazole (Protonix) 40 mg EVERY 12 HOURS ORAL 04/09/19 21:00 05/09/19 20:59 04/12/19 08:28 Phytonadione 10 mg/Dextrose 56 ml @ 112 mls/hr ONCE IVPB 04/12/19 15:00 04/12/19 17:00 Risperidone (RisperDAL) 1 mg BEDTIME PRN ORAL agitation 04/09/19 00:30 05/09/19 00:29 Spironolactone (Aldactone) 50 mg DAILY ORAL 04/10/19 09:00 05/10/19 08:59 04/12/19 08:27 Last 24 Hour Vital Signs Date Time Temp Pulse Resp B/P (MAP) Pulse Ox O2 Delivery O2 Flow Rate FiO2 04/12/19 08:00 98.4 83 20 124/63 (83) 99 04/12/19 04:00 97.4 80 20 132/60 (84) 97 04/12/19 00:39 98.9 80 23 141/65 (90) 96 04/11/19 20:39 Room Air 04/11/19 20:00 99.3 88 20 144/72 (96) 96 04/11/19 16:00 99.3 81 18 147/69 (95) 100 04/11/19 12:00 97.2 78 18 150/70 (96) 100 04/11/19 09:00 Room Air 04/11/19 08:00 99.1 88 19 125/44 (71) 97 04/11/19 04:21 98.9 86 20 132/76 (94) 95 04/11/19 00:00 99.1 87 20 137/56 (83) 97 04/10/19 22:53 Room Air 04/10/19 20:00 99.0 75 19 133/85 (101) 97 04/10/19 16:00 98.4 73 18 148/70 (96) 98 Intake and Output 04/11/19 04/12/19 19:00 07:00 Output Total 1000 ml Balance -1000 ml Output Urine Total 1000 ml Labs Test 04/10/19 06:03 04/12/19 05:45 White Blood Count 4.0 K/UL (4.8-10.8) 5.0 K/UL (4.8-10.8) Red Blood Count 2.62 M/UL (4.20-5.40) 2.48 M/UL (4.20-5.40) Hemoglobin 8.7 G/DL (12.0-16.0) 8.3 G/DL (12.0-16.0) Hematocrit 25.5 % (37.0-47.0) 23.5 % (37.0-47.0) Mean Corpuscular Volume 98 FL (80-99) 95 FL (80-99) Mean Corpuscular Hemoglobin 33.4 PG (27.0-31.0) 33.2 PG (27.0-31.0) Mean Corpuscular Hemoglobin Concent 34.2 G/DL (32.0-36.0) 35.1 G/DL (32.0-36.0) Red Cell Distribution Width 14.5 % (11.6-14.8) 14.5 % (11.6-14.8) Platelet Count 37 K/UL (150-450) 42 K/UL (150-450) Mean Platelet Volume 7.1 FL (6.5-10.1) 7.9 FL (6.5-10.1) Neutrophils (%) (Auto) % (45.0-75.0) % (45.0-75.0) Lymphocytes (%) (Auto) % (20.0-45.0) % (20.0-45.0) Monocytes (%) (Auto) % (1.0-10.0) % (1.0-10.0) Eosinophils (%) (Auto) % (0.0-3.0) % (0.0-3.0) Basophils (%) (Auto) % (0.0-2.0) % (0.0-2.0) Differential Total Cells Counted 100 100 Neutrophils % (Manual) 46 % (45-75) 54 % (45-75) Lymphocytes % (Manual) 40 % (20-45) 32 % (20-45) Monocytes % (Manual) 8 % (1-10) 9 % (1-10) Eosinophils % (Manual) 6 % (0-3) 5 % (0-3) Basophils % (Manual) 0 % (0-2) 0 % (0-2) Band Neutrophils 0 % (0-8) 0 % (0-8) Platelet Estimate Decreased Decreased Platelet Morphology Normal Normal Anisocytosis 1+ Sodium Level 143 MMOL/L (136-145) 140 MMOL/L (136-145) Potassium Level 4.0 MMOL/L (3.5-5.1) 3.6 MMOL/L (3.5-5.1) Chloride Level 112 MMOL/L (98-107) 111 MMOL/L (98-107) Carbon Dioxide Level 24 MMOL/L (21-32) 27 MMOL/L (21-32) Anion Gap 7 mmol/L (5-15) 2 mmol/L (5-15) Blood Urea Nitrogen 10 mg/dL (7-18) 11 mg/dL (7-18) Creatinine 1.0 MG/DL (0.55-1.30) 1.2 MG/DL (0.55-1.30) Estimat Glomerular Filtration Rate mL/min (>60) mL/min (>60) Glucose Level 107 MG/DL (74-106) 101 MG/DL (74-106) Calcium Level 8.1 MG/DL (8.5-10.1) 7.9 MG/DL (8.5-10.1) Total Bilirubin 2.2 MG/DL (0.2-1.0) 2.6 MG/DL (0.2-1.0) Direct Bilirubin 0.7 MG/DL (0.0-0.3) 0.7 MG/DL (0.0-0.3) Aspartate Amino Transf (AST/SGOT) 38 U/L (15-37) 35 U/L (15-37) Alanine Aminotransferase (ALT/SGPT) 16 U/L (12-78) 13 U/L (12-78) Alkaline Phosphatase 91 U/L (46-116) 85 U/L (46-116) Total Protein 5.8 G/DL (6.4-8.2) 5.5 G/DL (6.4-8.2) Albumin 2.4 G/DL (3.4-5.0) 2.1 G/DL (3.4-5.0) Globulin 3.4 g/dL 3.4 g/dL Albumin/Globulin Ratio 0.7 (1.0-2.7) 0.6 (1.0-2.7) Alpha Fetoprotein 1.9 ng/mL (0.0-8.3) Prothrombin Time 18.3 SEC (9.30-11.50) Prothromb Time International Ratio 1.8 (0.9-1.1) Ammonia 20 umol/L (11-32) Height (Feet): 5 Height (Inches): 1.00 Weight (Pounds): 158 Objective GeN: NAd Pulm: ctab, some crackles at base CV: Rrr, no mgr Abd: distended but soft, nt Ext: 1+edema Jose Antonio Zhang MD Apr 12, 2019 15:53
[2019-04-12 16:00] VITALS: BP 128/56
[2019-04-12] MEDS ORDERED: Phytonadione 10 mg/mL 1ml amp ONE (16:02)
--- NOTE | 2019-04-12 18:35 | NUR ---
NURSE NOTES: Transfusion of one unit FFP started.
--- NOTE | 2019-04-12 19:30 | NUR ---
HAND-OFF: Report given to Chao.
--- NOTE | 2019-04-12 19:43 | NUR ---
NURSE NOTES: Fresh frozen plasma administration ongoing. VSS. Family at the bedside. Addendum: 04/12/19 at 2353 by Clary Garcia RN Started by EDILMA nurse.
--- NOTE | 2019-04-12 19:44 | NUR ---
NURSE NOTES: Received patient awake in bed. No SOB or cardiac distress. With colostomy bag to paracentesis site, clear yellow fluid draining to bag. Abdomen distended. HOB elevated. Bed locked in lowest position, yellow socks on.
[2019-04-12 20:00] VITALS: BP 137/61
--- NOTE | 2019-04-12 21:36 | General Progress Note ---
Assessment/Plan Problem List: (1) Diabetes mellitus ICD Codes: E11.9 - Type 2 diabetes mellitus without complications SNOMED: 82260644 (2) HTN (hypertension) ICD Codes: I10 - Essential (primary) hypertension SNOMED: 31510990 (3) Cholecystitis ICD Codes: K81.9 - Cholecystitis, unspecified SNOMED: 14445623 (4) Cirrhosis ICD Codes: K74.60 - Unspecified cirrhosis of liver SNOMED: 36503453 Qualifiers: Qualified Codes: K74.60 - Unspecified cirrhosis of liver; R18.8 - Other ascites (5) Ascites ICD Codes: R18.8 - Other ascites SNOMED: 877199998 Qualifiers: Qualified Codes: R18.8 - Other ascites (6) Abdominal pain ICD Codes: R10.9 - Unspecified abdominal pain SNOMED: 42295606 Qualifiers: Qualified Codes: R10.84 - Generalized abdominal pain (7) Anemia ICD Codes: D64.9 - Anemia, unspecified SNOMED: 650159851 (8) Electrolyte abnormality ICD Codes: E87.8 - Other disorders of electrolyte and fluid balance, not elsewhere classified SNOMED: 040790402 Status: progressing Assessment/Plan: cirohsis still leaking from paracentesis site consulted dr claudia [place] TO PUT DRAIN Subjective ROS Limited/Unobtainable: Yes Allergies: Coded Allergies: No Known Allergies (Unverified , 03/02/19) Objective Last 24 Hour Vital Signs Date Time Temp Pulse Resp B/P (MAP) Pulse Ox O2 Delivery O2 Flow Rate FiO2 04/12/19 20:00 98.3 79 20 137/61 (86) 98 04/12/19 16:00 98.4 75 20 128/56 (80) 98 04/12/19 09:00 Room Air 04/12/19 08:00 98.4 83 20 124/63 (83) 99 04/12/19 04:00 97.4 80 20 132/60 (84) 97 04/12/19 00:39 98.9 80 23 141/65 (90) 96 Intake and Output 04/11/19 04/12/19 19:00 07:00 Output Total 1000 ml Balance -1000 ml Output Urine Total 1000 ml Laboratory Tests 04/12/19 05:45: White Blood Count 5.0, Red Blood Count 2.48L, Hemoglobin 8.3L, Hematocrit 23.5L , Mean Corpuscular Volume 95, Mean Corpuscular Hemoglobin 33.2H, Mean Corpuscular Hemoglobin Concent 35.1, Red Cell Distribution Width 14.5, Platelet Count 42L, Mean Platelet Volume 7.9, Neutrophils (%) (Auto) , Lymphocytes (%) ( Auto) , Monocytes (%) (Auto) , Eosinophils (%) (Auto) , Basophils (%) (Auto) , Differential Total Cells Counted 100, Neutrophils % (Manual) 54, Lymphocytes % ( Manual) 32, Monocytes % (Manual) 9, Eosinophils % (Manual) 5H, Basophils % ( Manual) 0, Band Neutrophils 0, Platelet Estimate DecreasedL, Platelet Morphology Normal, Prothrombin Time 18.3H, Prothromb Time International Ratio 1.8H, Sodium Level 140, Potassium Level 3.6, Chloride Level 111H, Carbon Dioxide Level 27, Anion Gap 2L, Blood Urea Nitrogen 11, Creatinine 1.2, Estimat Glomerular Filtration Rate , Glucose Level 101, Calcium Level 7.9L, Total Bilirubin 2.6H, Direct Bilirubin 0.7H, Aspartate Amino Transf (AST/SGOT) 35, Alanine Aminotransferase (ALT/SGPT) 13, Alkaline Phosphatase 85, Ammonia 20, Total Protein 5.5L, Albumin 2.1L, Globulin 3.4, Albumin/Globulin Ratio 0.6L Height (Feet): 5 Height (Inches): 1.00 Weight (Pounds): 158 Abdomen: tender Steve Burr MD Apr 12, 2019 21:36
--- NOTE | 2019-04-12 22:13 | Pulmonology Progress Note ---
Assessment/Plan Assessment/Plan Pulmonary Progress Note HPI Patient is an 84 year woman with past history of cirrhosis admitted with generalized abdominal pain and distension, she endorses some shortness of breath , generalized discomfort. Denies fevers, no chills no cough no congestion no diarrhea. No new complaints Some drainage at paracentesis site, stable overnight, no new complaints Persistentt moderate ascites on US Allergies: No Known Allergies Past Medical History: Cirrhosis, Portal Hypertension, Hypersplenism with thrombocytopenia, Varices, Diabetes, Hypertension Improved s/p paracentesis - no current SOB, LE dupplex negative for DVT Physical Exam Vital Signs Noted General Appearance: chronically ill appearing, no apparent distress, alert, mild jaundice Head: NCAT Eyes: bilateral eye PERRL, bilateral eye EOMI ENT: moist mucus membranes Neck: supple, thyroid normal, supple/symm/no masses Respiratory: lungs clear to auscultation bilaterally Cardiovascular: normal peripheral pulses, regular rate, rhythm, HS1, HS2 normal Gastrointestinal: non tender, no guarding, no rebound, less distended Musculoskeletal: normal inspection Neurologic: alert, oriented x3 Skin: no rash, warm/dry, mild edema Impression: Cirrhosis Ascites Abdominal pain 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 No definite hepatic mass. Portal vein appears to be patent. No bowel obstruction. Thickening of the ascending colon is likely due to portal colopathy. Colonic diverticulosis. Large calcified structure in the right lower quadrant, unchanged. No hydronephrosis. Moderate bladder wall thickening, correlate with cystitis versus underdistention. Subjective ROS Limited/Unobtainable: No Allergies: Coded Allergies: No Known Allergies (Unverified , 03/02/19) Objective Last 24 Hour Vital Signs Date Time Temp Pulse Resp B/P (MAP) Pulse Ox O2 Delivery O2 Flow Rate FiO2 04/12/19 21:34 Room Air 04/12/19 20:00 98.3 79 20 137/61 (86) 98 04/12/19 16:00 98.4 75 20 128/56 (80) 98 04/12/19 09:00 Room Air 04/12/19 08:00 98.4 83 20 124/63 (83) 99 04/12/19 04:00 97.4 80 20 132/60 (84) 97 04/12/19 00:39 98.9 80 23 141/65 (90) 96 Intake and Output 04/11/19 04/12/19 18:59 06:59 Output Total 1000 ml Balance -1000 ml Output Urine Total 1000 ml Laboratory Tests 04/12/19 05:45: White Blood Count 5.0, Red Blood Count 2.48L, Hemoglobin 8.3L, Hematocrit 23.5L , Mean Corpuscular Volume 95, Mean Corpuscular Hemoglobin 33.2H, Mean Corpuscular Hemoglobin Concent 35.1, Red Cell Distribution Width 14.5, Platelet Count 42L, Mean Platelet Volume 7.9, Neutrophils (%) (Auto) , Lymphocytes (%) ( Auto) , Monocytes (%) (Auto) , Eosinophils (%) (Auto) , Basophils (%) (Auto) , Differential Total Cells Counted 100, Neutrophils % (Manual) 54, Lymphocytes % ( Manual) 32, Monocytes % (Manual) 9, Eosinophils % (Manual) 5H, Basophils % ( Manual) 0, Band Neutrophils 0, Platelet Estimate DecreasedL, Platelet Morphology Normal, Prothrombin Time 18.3H, Prothromb Time International Ratio 1.8H, Sodium Level 140, Potassium Level 3.6, Chloride Level 111H, Carbon Dioxide Level 27, Anion Gap 2L, Blood Urea Nitrogen 11, Creatinine 1.2, Estimat Glomerular Filtration Rate , Glucose Level 101, Calcium Level 7.9L, Total Bilirubin 2.6H, Direct Bilirubin 0.7H, Aspartate Amino Transf (AST/SGOT) 35, Alanine Aminotransferase (ALT/SGPT) 13, Alkaline Phosphatase 85, Ammonia 20, Total Protein 5.5L, Albumin 2.1L, Globulin 3.4, Albumin/Globulin Ratio 0.6L Current Medications Medications (Trade) Dose Ordered Sig/Robe Route PRN Reason Start Time Stop Time Status Last Admin Dose Admin Docusate Sodium (Colace) 100 mg THREE TIMES A DAY ORAL 04/07/19 13:00 05/07/19 12:59 04/12/19 08:28 Furosemide (Lasix) 20 mg DAILY ORAL 04/10/19 09:00 05/10/19 08:59 04/12/19 08:28 Lactulose (Cephulac) 15 gm TID ORAL 04/07/19 13:00 05/07/19 12:59 04/12/19 08:29 Pantoprazole (Protonix) 40 mg EVERY 12 HOURS ORAL 04/09/19 21:00 05/09/19 20:59 04/12/19 20:14 Risperidone (RisperDAL) 1 mg BEDTIME PRN ORAL agitation 04/09/19 00:30 05/09/19 00:29 Spironolactone (Aldactone) 50 mg DAILY ORAL 04/10/19 09:00 05/10/19 08:59 04/12/19 08:27 Audie Wilkins MD Apr 12, 2019 22:13
[2019-04-13] VITALS: BP 143/77
[2019-04-13 04:00] VITALS: BP 132/78
--- NOTE | 2019-04-13 06:05 | Hematology/Onc Progress Note ---
Assessment/Plan Assessment/Plan # Pancytopenia is likely due to underlying cirrhosis, splenomegaly, paraesophageal varices, portal HTN. Well known to me from prior admission, she generally requires occasional drainage. AT BASELINE LIKELY IS 30-60k --> at this time, imaging of liver reviewed, no e/o malignancy --> hepatitis panel and hiv are both negative --> plt trend: 58-->75k-->67k-->50k-->38k -->42k --> AFP is 2.5 --> given age, cea is 6.3, as per gi recs --> smear has been reviewed, r/o schistocytes --> neupogen on prn basis --> plts as needed presurg, goal >50k if procedure --> 03/04: EGD--> atrophic gastritis noted --> ppi as needed --> paracentesis on prn basis --> plt trend 61-->50-->37k->42 --> FOR PLATELETS, VIT K, FFP for tunneled cath insertion 04/13 # Anemia of chronic disease --> no evidence of iron deficiency --> hgb goal >7, transfuse prn --> less of a role for iron and epogen --> hgb trend: 9.3-->10.3-->9.8-->8.3 # Coagulopathy is related to liver disease --> preprocedure GIVE vit K --> improved # Thickening of wall of gallbladder with pericholecystic fluid --> hida neg before # hx UTI (urinary tract infection) --> history of, sp treatment # Liver cirrhosis --> distended ab, r/o sbp --> on abx --> 5.2L removed 04/08 # Dvt ppx scds Greatly appreciate consultation and juan manuel RN Subjective Constitutional: Denies: no symptoms, chills, fever, malaise, weakness, other HEENT: Denies: no symptoms, eye pain, blurred vision, tearing, double vision, ear pain, ear discharge, nose pain, nose congestion, throat pain, throat swelling, mouth pain, mouth swelling, other Cardiovascular: Denies: no symptoms, chest pain, edema, irregular heart rate, lightheadedness, palpitations, syncope, other Respiratory: Denies: no symptoms, cough, shortness of breath, SOB with excertion, SOB at rest, sputum, wheezing, other Gastrointestinal/Abdominal: Denies: no symptoms, abdomen distended, abdominal pain, black stools, tarry stools, blood in stool, constipated, diarrhea, difficulty swallowing, nausea, poor appetite, poor fluid intake, rectal bleeding , vomiting, other Genitourinary: Denies: no symptoms, burning, discharge, frequency, flank pain, hematuria, incontinence, pain, urgency, other Endocrine: Denies: no symptoms, excessive sweating, flushing, intolerance to cold, intolerance to heat, increased hunger, increased thirst, increased urine, unexplained weight gain, unexplained weight loss, other Allergies: Coded Allergies: No Known Allergies (Unverified , 03/02/19) Subjective 04/07: no major changes, for para, plt 50k, will review inr/ptt preprocedure, gi aware 04/08: no bleeding or chills, no night sweats, no major changes, for para 04/09: no major changes, no bleeding or chills, plt is lower, still with abd pain 04/11: no events to note, cbc reviewed, no major changes, renal recs noted 04/12: for tunneled cath insertion tomorrow, inr correction, ffp and vit k and plt today 04/13: still leaking from para site, labs reviewed, ffp transfusing per rnjuan manuel Objective Objective Current Medications Medications (Trade) Dose Ordered Sig/Robe Route PRN Reason Start Time Stop Time Status Last Admin Dose Admin Docusate Sodium (Colace) 100 mg THREE TIMES A DAY ORAL 04/07/19 13:00 05/07/19 12:59 04/12/19 08:28 Furosemide (Lasix) 20 mg DAILY ORAL 04/10/19 09:00 05/10/19 08:59 04/12/19 08:28 Lactulose (Cephulac) 15 gm TID ORAL 04/07/19 13:00 05/07/19 12:59 04/12/19 08:29 Pantoprazole (Protonix) 40 mg EVERY 12 HOURS ORAL 04/09/19 21:00 05/09/19 20:59 04/12/19 20:14 Risperidone (RisperDAL) 1 mg BEDTIME PRN ORAL agitation 04/09/19 00:30 05/09/19 00:29 Spironolactone (Aldactone) 50 mg DAILY ORAL 04/10/19 09:00 05/10/19 08:59 04/12/19 08:27 Last 24 Hour Vital Signs Date Time Temp Pulse Resp B/P (MAP) Pulse Ox O2 Delivery O2 Flow Rate FiO2 04/13/19 04:00 98.7 77 18 132/78 (96) 98 04/13/19 00:00 97.9 82 19 143/77 (99) 98 04/12/19 21:34 Room Air 04/12/19 20:00 98.3 79 20 137/61 (86) 98 04/12/19 16:00 98.4 75 20 128/56 (80) 98 04/12/19 09:00 Room Air 04/12/19 08:00 98.4 83 20 124/63 (83) 99 04/12/19 04:00 97.4 80 20 132/60 (84) 97 04/12/19 00:39 98.9 80 23 141/65 (90) 96 04/11/19 20:39 Room Air 04/11/19 20:00 99.3 88 20 144/72 (96) 96 04/11/19 16:00 99.3 81 18 147/69 (95) 100 04/11/19 12:00 97.2 78 18 150/70 (96) 100 04/11/19 09:00 Room Air 04/11/19 08:00 99.1 88 19 125/44 (71) 97 Intake and Output 04/12/19 04/13/19 19:00 07:00 Intake Total 230 ml 250 ml Output Total 1100 ml 550 ml Balance -870 ml -300 ml Intake Oral 230 ml 250 ml Output Urine Total 1100 ml 550 ml Labs Test 04/12/19 05:45 White Blood Count 5.0 K/UL (4.8-10.8) Red Blood Count 2.48 M/UL (4.20-5.40) Hemoglobin 8.3 G/DL (12.0-16.0) Hematocrit 23.5 % (37.0-47.0) Mean Corpuscular Volume 95 FL (80-99) Mean Corpuscular Hemoglobin 33.2 PG (27.0-31.0) Mean Corpuscular Hemoglobin Concent 35.1 G/DL (32.0-36.0) Red Cell Distribution Width 14.5 % (11.6-14.8) Platelet Count 42 K/UL (150-450) Mean Platelet Volume 7.9 FL (6.5-10.1) Neutrophils (%) (Auto) % (45.0-75.0) Lymphocytes (%) (Auto) % (20.0-45.0) Monocytes (%) (Auto) % (1.0-10.0) Eosinophils (%) (Auto) % (0.0-3.0) Basophils (%) (Auto) % (0.0-2.0) Differential Total Cells Counted 100 Neutrophils % (Manual) 54 % (45-75) Lymphocytes % (Manual) 32 % (20-45) Monocytes % (Manual) 9 % (1-10) Eosinophils % (Manual) 5 % (0-3) Basophils % (Manual) 0 % (0-2) Band Neutrophils 0 % (0-8) Platelet Estimate Decreased Platelet Morphology Normal Prothrombin Time 18.3 SEC (9.30-11.50) Prothromb Time International Ratio 1.8 (0.9-1.1) Sodium Level 140 MMOL/L (136-145) Potassium Level 3.6 MMOL/L (3.5-5.1) Chloride Level 111 MMOL/L (98-107) Carbon Dioxide Level 27 MMOL/L (21-32) Anion Gap 2 mmol/L (5-15) Blood Urea Nitrogen 11 mg/dL (7-18) Creatinine 1.2 MG/DL (0.55-1.30) Estimat Glomerular Filtration Rate mL/min (>60) Glucose Level 101 MG/DL (74-106) Calcium Level 7.9 MG/DL (8.5-10.1) Total Bilirubin 2.6 MG/DL (0.2-1.0) Direct Bilirubin 0.7 MG/DL (0.0-0.3) Aspartate Amino Transf (AST/SGOT) 35 U/L (15-37) Alanine Aminotransferase (ALT/SGPT) 13 U/L (12-78) Alkaline Phosphatase 85 U/L (46-116) Ammonia 20 umol/L (11-32) Total Protein 5.5 G/DL (6.4-8.2) Albumin 2.1 G/DL (3.4-5.0) Globulin 3.4 g/dL Albumin/Globulin Ratio 0.6 (1.0-2.7) Height (Feet): 5 Height (Inches): 1.00 Weight (Pounds): 158 Objective GeN: NAd Pulm: ctab, some crackles at base CV: Rrr, no mgr Abd: distended but soft, nt Ext: 1+edema Jose Antonio Zhang MD Apr 13, 2019 06:05
--- NOTE | 2019-04-13 07:26 | NUR ---
NURSE NOTES: Received patient on bed awake. No SOB or cardiac distress. FC intact and patent. Paracentesis site draining clear yellow fluid to colostomy bag. With ongoing transfusion of fresh frozen plasma. HOB elevated. Bed locked in lowest position. Will continue plan of care.
--- NOTE | 2019-04-13 07:27 | NUR ---
HAND-OFF: Report given to DEBBIE Ho. FFP infusion ongoing. Patient stable.
[2019-04-13 08:00] VITALS: BP 163/67
--- NOTE | 2019-04-13 08:00 | NUR ---
NURSE NOTES: Transfusion of FFP ended, no adverse reactions noted. Bags returned to lab.
[2019-04-13] MEDS: Spironolactone 50mg tab ORAL SCH (08:50)
[2019-04-13] MEDS: Lactulose 10gm/15ml UDC ORAL SCH ×3 (08:51→18:00)
[2019-04-13] MEDS: Docusate 100mg cap ORAL SCH ×3 (08:52→18:30)
--- NOTE | 2019-04-13 09:39 | NUR ---
NURSE NOTES: Patient ok for paracentesis today accordign to ultrasound dept. Dr Reyes made aware, agrees to paracentesis.
[2019-04-13 11:48] LABS: INR 1.3 (0.9-1.1)
[2019-04-13 11:51] VITALS: BP 158/76
[2019-04-13 12:05] LABS: HEMATOCRIT 29.5 % (37.0-47.0); MEAN CORPUSCULAR VOLUME 99 FL (80-99); PLATELET COUNT 50 K/UL (150-450); RED CELL DISTRIBUTION WIDTH 15.2 % (11.6-14.8); WHITE BLOOD COUNT 4.9 K/UL (4.8-10.8)
[2019-04-13 12:25] LABS: ALANINE AMINOTRANSFERASE 23 U/L (12-78); ALBUMIN 2.8 G/DL (3.4-5.0); ALBUMIN/GLOBULIN RATIO 0.7 (1.0-2.7); ALKALINE PHOSPHATASE 112 U/L (46-116); ANION GAP 13 mmol/L (5-15); ASPARTATE AMINO TRANSFERASE 47 U/L (15-37); BILIRUBIN,TOTAL 2.8 MG/DL (0.2-1.0); BLOOD UREA NITROGEN 11 mg/dL (7-18); CALCIUM 8.4 MG/DL (8.5-10.1); CARBON DIOXIDE 21 MMOL/L (21-32); CHLORIDE 107 MMOL/L (98-107); POTASSIUM 4.2 MMOL/L (3.5-5.1); SODIUM 141 MMOL/L (136-145)
[2019-04-13 12:30] LABS: BILIRUBIN,DIRECT 0.7 MG/DL (0.0-0.3)
--- NOTE | 2019-04-13 13:04 | Pre-Procedure Note/Attestation ---
Pre-Procedure Note/Attestation Complete Prior to Procedure Planned Procedure: not applicable Procedure Narrative: lap miguel Indications for Procedure Pre-Operative Diagnosis: acute cholecystitis Attestation I attest that I discussed the nature of the procedure; its benefits; risks and complications; and alternatives (and the risks and benefits of such alternatives ), prior to the procedure, with the patient (or the patient's legal advertising account representative). I attest that, if there was a reasonable possibility of needing a blood transfusion, the patient (or the patient's legal advertising account representative) was given the [facility] standardized written summary, pursuant to the Misha Sherrie Blood Safety Act ([place] Health and Safety Code # 1645, as amended). I attest that I re-evaluated the patient just prior to the surgery and that there has been no change in the patient's H&P, except as documented below: Vini Reyes Apr 13, 2019 13:04
--- NOTE | 2019-04-13 13:06 | Surgery Progress Note ---
Surgery Progress Note Subjective Additional Comments no acute events cont to drain from prior site discussed care plan with family at bedside plan for drainage today will suture closed after thank you Objective Last 24 Hour Vital Signs Date Time Temp Pulse Resp B/P (MAP) Pulse Ox O2 Delivery O2 Flow Rate FiO2 04/13/19 11:51 97.5 83 19 158/76 (103) 97 04/13/19 10:58 Room Air 04/13/19 08:00 99.2 84 16 163/67 (99) 99 04/13/19 04:00 98.7 77 18 132/78 (96) 98 04/13/19 00:00 97.9 82 19 143/77 (99) 98 04/12/19 21:34 Room Air 04/12/19 20:00 98.3 79 20 137/61 (86) 98 04/12/19 16:00 98.4 75 20 128/56 (80) 98 I&O Intake and Output 04/12/19 04/13/19 19:00 07:00 Intake Total 230 ml 250 ml Output Total 1100 ml 550 ml Balance -870 ml -300 ml Intake Oral 230 ml 250 ml Output Urine Total 1100 ml 550 ml Dressing: saturated Wound: other Drains: other Cardiovascular: RSR Respiratory: decreased breath sounds Abdomen: soft, distended, non-tender, present bowel sounds Extremities: no tenderness, no cyanosis Laboratory Tests Test 04/13/19 10:38 White Blood Count 4.9 K/UL (4.8-10.8) Red Blood Count 3.00 M/UL (4.20-5.40) L Hemoglobin 10.0 G/DL (12.0-16.0) L Hematocrit 29.5 % (37.0-47.0) L Mean Corpuscular Volume 99 FL (80-99) Mean Corpuscular Hemoglobin 33.5 PG (27.0-31.0) H Mean Corpuscular Hemoglobin Concent 34.0 G/DL (32.0-36.0) Red Cell Distribution Width 15.2 % (11.6-14.8) H Platelet Count 50 K/UL (150-450) L Mean Platelet Volume 8.2 FL (6.5-10.1) Neutrophils (%) (Auto) % (45.0-75.0) Lymphocytes (%) (Auto) % (20.0-45.0) Monocytes (%) (Auto) % (1.0-10.0) Eosinophils (%) (Auto) % (0.0-3.0) Basophils (%) (Auto) % (0.0-2.0) Differential Total Cells Counted 100 Neutrophils % (Manual) 63 % (45-75) Lymphocytes % (Manual) 18 % (20-45) L Monocytes % (Manual) 15 % (1-10) H Eosinophils % (Manual) 4 % (0-3) H Basophils % (Manual) 0 % (0-2) Band Neutrophils 0 % (0-8) Platelet Estimate Decreased L Platelet Morphology Normal Anisocytosis 1+ Prothrombin Time 13.7 SEC (9.30-11.50) H Prothromb Time International Ratio 1.3 (0.9-1.1) H Activated Partial Thromboplast Time 29 SEC (23-33) Sodium Level 141 MMOL/L (136-145) Potassium Level 4.2 MMOL/L (3.5-5.1) Chloride Level 107 MMOL/L (98-107) Carbon Dioxide Level 21 MMOL/L (21-32) Anion Gap 13 mmol/L (5-15) Blood Urea Nitrogen 11 mg/dL (7-18) Creatinine 1.0 MG/DL (0.55-1.30) Estimat Glomerular Filtration Rate mL/min (>60) Glucose Level 167 MG/DL (74-106) H Calcium Level 8.4 MG/DL (8.5-10.1) L Total Bilirubin 2.8 MG/DL (0.2-1.0) H Direct Bilirubin 0.7 MG/DL (0.0-0.3) H Aspartate Amino Transf (AST/SGOT) 47 U/L (15-37) H Alanine Aminotransferase (ALT/SGPT) 23 U/L (12-78) Alkaline Phosphatase 112 U/L (46-116) Total Protein 7.1 G/DL (6.4-8.2) Albumin 2.8 G/DL (3.4-5.0) L Globulin 4.3 g/dL Albumin/Globulin Ratio 0.7 (1.0-2.7) L Plan Problems: (1) Abdominal pain Assessment & Plan: 84-year-old female with abdominal pain secondary to distention from excessive ascites. Recently had drainage and 5.2 L removed. Since has had significant amount of output from the paracentesis site and has been unable to stop straining. Ostomy bag placed and continues to be draining. Surgery called to evaluate. On examination patient continues to have a very distended fluid-filled abdomen. There is considerations for closing the prior drain site with a suture. Would recommend considerations for repeat paracentesis prior to attempting this. Paracentesis ordered Will discuss with GI in follow-up. Thank you for allowing me to participate in patient's care (2) Cirrhosis Assessment & Plan: Decompensated liver cirrhosis etiology unknown. Labs noted. Exam is noted. Recommend follow-up with liver center upon discharge. (3) Anemia (4) Electrolyte abnormality (5) Diabetes mellitus (6) Ascites (7) Cholecystitis (8) HTN (hypertension) (9) Thrombocytopenia Vini Reyes Apr 13, 2019 13:06
--- NOTE | 2019-04-13 13:50 | NUR ---
NURSE NOTES: Paracentesis done at bedside by Dr. Grigsby.
--- NOTE | 2019-04-13 14:34 | NUR ---
*-* INSURANCE /*-* ALL CLINICALS HAVE BEEN FAXED TO: [facility] Coordinator: Ev Hutchinson#[phone] fax#[phone]
--- NOTE | 2019-04-13 15:03 | Nephrology Progress Note ---
Assessment/Plan Problem List: (1) Cirrhosis (2) Abdominal pain (3) Anemia (4) Electrolyte abnormality Assessment Chronic Liver Disease / Cirrhosis / Ascitis Low Na Anemia Low Albumin Plan need periodic ascitic tap - can be done as OP. refusing some of meds: lactulose on low Na diet Protonix GI eval Monitor lytes per orders ? Dc planning Subjective ROS Limited/Unobtainable: No Constitutional: Reports: malaise, weakness Objective Objective Last 24 Hour Vital Signs Date Time Temp Pulse Resp B/P (MAP) Pulse Ox O2 Delivery O2 Flow Rate FiO2 04/13/19 11:51 97.5 83 19 158/76 (103) 97 04/13/19 10:58 Room Air 04/13/19 08:00 99.2 84 16 163/67 (99) 99 04/13/19 04:00 98.7 77 18 132/78 (96) 98 04/13/19 00:00 97.9 82 19 143/77 (99) 98 04/12/19 21:34 Room Air 04/12/19 20:00 98.3 79 20 137/61 (86) 98 04/12/19 16:00 98.4 75 20 128/56 (80) 98 Intake and Output 04/12/19 04/13/19 19:00 07:00 Intake Total 230 ml 250 ml Output Total 1100 ml 550 ml Balance -870 ml -300 ml Intake Oral 230 ml 250 ml Output Urine Total 1100 ml 550 ml Laboratory Tests 04/13/19 10:38: White Blood Count 4.9, Red Blood Count 3.00L, Hemoglobin 10.0L, Hematocrit 29.5L , Mean Corpuscular Volume 99, Mean Corpuscular Hemoglobin 33.5H, Mean Corpuscular Hemoglobin Concent 34.0, Red Cell Distribution Width 15.2H, Platelet Count 50L, Mean Platelet Volume 8.2, Neutrophils (%) (Auto) , Lymphocytes (%) (Auto) , Monocytes (%) (Auto) , Eosinophils (%) (Auto) , Basophils (%) (Auto) , Differential Total Cells Counted 100, Neutrophils % ( Manual) 63, Lymphocytes % (Manual) 18L, Monocytes % (Manual) 15H, Eosinophils % (Manual) 4H, Basophils % (Manual) 0, Band Neutrophils 0, Platelet Estimate DecreasedL, Platelet Morphology Normal, Anisocytosis 1+, Prothrombin Time 13.7H , Prothromb Time International Ratio 1.3H, Activated Partial Thromboplast Time 29, Sodium Level 141, Potassium Level 4.2, Chloride Level 107, Carbon Dioxide Level 21, Anion Gap 13, Blood Urea Nitrogen 11, Creatinine 1.0, Estimat Glomerular Filtration Rate , Glucose Level 167H, Calcium Level 8.4L, Total Bilirubin 2.8H, Direct Bilirubin 0.7H, Aspartate Amino Transf (AST/SGOT) 47H, Alanine Aminotransferase (ALT/SGPT) 23, Alkaline Phosphatase 112, Total Protein 7.1, Albumin 2.8L, Globulin 4.3, Albumin/Globulin Ratio 0.7L Height (Feet): 5 Height (Inches): 1.00 Weight (Pounds): 158 General Appearance: no apparent distress Cardiovascular: normal rate Respiratory/Chest: decreased breath sounds Abdomen: distended Objective no change Bao Biggs MD Apr 13, 2019 15:03
[2019-04-13 16:00] VITALS: BP 111/89
--- NOTE | 2019-04-13 16:00 | NUR ---
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 99.1 HR 88 RR 20 B/P 137/56 IS: LASIX PO ALDACTONE PO PROTONIX MED/SURG STATUS 04/12/19 SI; CIRRHOSIS,ASCITES, THROMBOCYTOPENIA T. 98.3 HR 79 RR 20 B/P 137/61 H/H 8.3/23.5 PLT 42 IS: VITAMIN K VITAMIN K IV LASIX PO ALDACTONE PO PROTONIX PLATELETPHERESIS MED/SURG STATUS 04/13/19 SI: CIRRHOSIS,ASCITES,THROMBOCYTOPENIA T. 97.5 HR 83 RR 19 B/P 158/76 H/H 10.0/29.5 PLT 50 IS: LASIX PO ALDACTONE PO PROTONIX PARACENTESIS MED/SURG STATUS
--- NOTE | 2019-04-13 16:13 | NUR ---
*-* INSURANCE /*-* ALL CLINICALS and reviewsv HAVE BEEN FAXED TO: [facility] Coordinator: Ev Hutchinson#[phone] fax#[phone]
--- NOTE | 2019-04-13 18:01 | Brief Operative Note ---
Immediate Post Operative Note Operative Note Pre-op Diagnosis: ascites Procedure: paracentesis Post-op Diagnosis: same as pre-op Surgeon: Ying Donohue Anesthesia: local Specimen: none Complications: none Condition: stable Fluids: none Implant(s) used?: No Ej Donohue MD Apr 13, 2019 18:01
--- NOTE | 2019-04-13 18:01 | Pre-Procedure Note/Attestation ---
Pre-Procedure Note/Attestation Complete Prior to Procedure Planned Procedure: not applicable Procedure Narrative: paracentesis Indications for Procedure Pre-Operative Diagnosis: ascites Attestation I attest that I discussed the nature of the procedure; its benefits; risks and complications; and alternatives (and the risks and benefits of such alternatives ), prior to the procedure, with the patient (or the patient's legal contracts representative). I attest that, if there was a reasonable possibility of needing a blood transfusion, the patient (or the patient's legal contracts representative) was given the [facility] standardized written summary, pursuant to the Misha Sherrie Blood Safety Act ([place] Health and Safety Code # 1645, as amended). I attest that I re-evaluated the patient just prior to the surgery and that there has been no change in the patient's H&P, except as documented below: Ej Grigsby MD Apr 13, 2019 18:01
--- NOTE | 2019-04-13 18:11 | Diagnostic Imaging Report ---
Indications: Ascites Technique: Ultrasound used to localize optimal puncture site. Sterile prepping and draping . Local anesthesia with 1% lidocaine. Under real-time ultrasound guidance, puncture peritoneal space using paracentesis needle. Stylet removed. Catheter placed to vacuum bottle suction. Total 4.7 liters of fluid aspirated. Patient tolerated procedure well, without immediate complication. Findings: Followup sonography demonstrates complete resolution of peritoneal fluid. Impression: Successful ultrasound-guided paracentesis, yielding 4.7 liters of 30 fluid
--- NOTE | 2019-04-13 19:43 | NUR ---
HAND-OFF: Report given to Chao.
--- NOTE | 2019-04-13 19:44 | General Progress Note ---
Assessment/Plan Status: progressing Assessment/Plan: Assessment - Cirrhosis, ? etiology - No esophageal varicies, per recent EGD - Ascites - s/p 5 liter tap - paracentesis site leak Recommendations - paracentesis - surgical suture closure of leak site - diuretics - PPI qd - check AFP - check auto-immune markers - Poor prognosis Subjective Allergies: Coded Allergies: No Known Allergies (Unverified , 03/02/19) Subjective feels OK no new complaints still with paracentesis site leak for tap and suturing today Objective Last 24 Hour Vital Signs Date Time Temp Pulse Resp B/P (MAP) Pulse Ox O2 Delivery O2 Flow Rate FiO2 04/13/19 16:00 98.2 80 18 111/89 (96) 97 04/13/19 11:51 97.5 83 19 158/76 (103) 97 04/13/19 10:58 Room Air 04/13/19 08:00 99.2 84 16 163/67 (99) 99 04/13/19 04:00 98.7 77 18 132/78 (96) 98 04/13/19 00:00 97.9 82 19 143/77 (99) 98 04/12/19 21:34 Room Air 04/12/19 20:00 98.3 79 20 137/61 (86) 98 Intake and Output 04/12/19 04/13/19 19:00 07:00 Intake Total 230 ml 250 ml Output Total 1100 ml 550 ml Balance -870 ml -300 ml Intake Oral 230 ml 250 ml Output Urine Total 1100 ml 550 ml Laboratory Tests 04/13/19 10:38: White Blood Count 4.9, Red Blood Count 3.00L, Hemoglobin 10.0L, Hematocrit 29.5L , Mean Corpuscular Volume 99, Mean Corpuscular Hemoglobin 33.5H, Mean Corpuscular Hemoglobin Concent 34.0, Red Cell Distribution Width 15.2H, Platelet Count 50L, Mean Platelet Volume 8.2, Neutrophils (%) (Auto) , Lymphocytes (%) (Auto) , Monocytes (%) (Auto) , Eosinophils (%) (Auto) , Basophils (%) (Auto) , Differential Total Cells Counted 100, Neutrophils % ( Manual) 63, Lymphocytes % (Manual) 18L, Monocytes % (Manual) 15H, Eosinophils % (Manual) 4H, Basophils % (Manual) 0, Band Neutrophils 0, Platelet Estimate DecreasedL, Platelet Morphology Normal, Anisocytosis 1+, Prothrombin Time 13.7H , Prothromb Time International Ratio 1.3H, Activated Partial Thromboplast Time 29, Sodium Level 141, Potassium Level 4.2, Chloride Level 107, Carbon Dioxide Level 21, Anion Gap 13, Blood Urea Nitrogen 11, Creatinine 1.0, Estimat Glomerular Filtration Rate , Glucose Level 167H, Calcium Level 8.4L, Total Bilirubin 2.8H, Direct Bilirubin 0.7H, Aspartate Amino Transf (AST/SGOT) 47H, Alanine Aminotransferase (ALT/SGPT) 23, Alkaline Phosphatase 112, Total Protein 7.1, Albumin 2.8L, Globulin 4.3, Albumin/Globulin Ratio 0.7L Height (Feet): 5 Height (Inches): 1.00 Weight (Pounds): 158 Objective Thin, frail woman NCAT supple CTA RR abd soft distended (+) Ascites, (+) leaking paracentesis site trace edema Negrita Clancy MD Apr 13, 2019 19:44
[2019-04-13 20:00] VITALS: BP 118/57
--- NOTE | 2019-04-13 20:00 | NUR ---
NURSE NOTES: Paracenthesis drainage left at bedside, measured 4.5L. Received patient awake in bed. No SOB or cardiac distress. Paracenthesis site covered with gauze, dry, asymptomatic. Abdomen distended. HOB elevated. Bed locked in lowest position, yellow socks on.
--- NOTE | 2019-04-13 20:59 | Pulmonology Progress Note ---
Assessment/Plan Assessment/Plan Pulmonary Progress Note HPI Patient is an 84 year woman with past history of cirrhosis admitted with generalized abdominal pain and distension, she endorses some shortness of breath , generalized discomfort. Denies fevers, no chills no cough no congestion no diarrhea. No new complaints Some drainage at paracentesis site, stable overnight, no new complaints Persistent moderate ascites on US Allergies: No Known Allergies Past Medical History: Cirrhosis, Portal Hypertension, Hypersplenism with thrombocytopenia, Varices, Diabetes, Hypertension Improved s/p paracentesis - no current SOB, LE dupplex negative for DVT Physical Exam Vital Signs Noted General Appearance: chronically ill appearing, no apparent distress, alert, mild jaundice Head: NCAT Eyes: bilateral eye PERRL, bilateral eye EOMI ENT: moist mucus membranes Neck: supple, thyroid normal, supple/symm/no masses Respiratory: lungs clear to auscultation bilaterally Cardiovascular: normal peripheral pulses, regular rate, rhythm, HS1, HS2 normal Gastrointestinal: non tender, no guarding, no rebound, less distended Musculoskeletal: normal inspection Neurologic: alert, oriented x3 Skin: no rash, warm/dry, mild edema Impression: Cirrhosis Ascites Abdominal pain Portal Hypertension Hypersplenism with thrombocytopenia Varices Diabetes Plan: [employer] medications O2 PRN Incentive 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 No definite hepatic mass. Portal vein appears to be patent. No bowel obstruction. Thickening of the ascending colon is likely due to portal colopathy. Colonic diverticulosis. Large calcified structure in the right lower quadrant, unchanged. No hydronephrosis. Moderate bladder wall thickening, correlate with cystitis versus underdistention. Subjective ROS Limited/Unobtainable: No Allergies: Coded Allergies: No Known Allergies (Unverified , 03/02/19) Objective Last 24 Hour Vital Signs Date Time Temp Pulse Resp B/P (MAP) Pulse Ox O2 Delivery O2 Flow Rate FiO2 04/13/19 20:00 98.6 84 18 118/57 (77) 97 04/13/19 16:00 98.2 80 18 111/89 (96) 97 04/13/19 11:51 97.5 83 19 158/76 (103) 97 04/13/19 10:58 Room Air 04/13/19 08:00 99.2 84 16 163/67 (99) 99 04/13/19 04:00 98.7 77 18 132/78 (96) 98 04/13/19 00:00 97.9 82 19 143/77 (99) 98 04/12/19 21:34 Room Air Intake and Output 04/12/19 04/13/19 19:00 07:00 Intake Total 230 ml 250 ml Output Total 1100 ml 550 ml Balance -870 ml -300 ml Intake Oral 230 ml 250 ml Output Urine Total 1100 ml 550 ml Laboratory Tests 04/13/19 10:38: White Blood Count 4.9, Red Blood Count 3.00L, Hemoglobin 10.0L, Hematocrit 29.5L , Mean Corpuscular Volume 99, Mean Corpuscular Hemoglobin 33.5H, Mean Corpuscular Hemoglobin Concent 34.0, Red Cell Distribution Width 15.2H, Platelet Count 50L, Mean Platelet Volume 8.2, Neutrophils (%) (Auto) , Lymphocytes (%) (Auto) , Monocytes (%) (Auto) , Eosinophils (%) (Auto) , Basophils (%) (Auto) , Differential Total Cells Counted 100, Neutrophils % ( Manual) 63, Lymphocytes % (Manual) 18L, Monocytes % (Manual) 15H, Eosinophils % (Manual) 4H, Basophils % (Manual) 0, Band Neutrophils 0, Platelet Estimate DecreasedL, Platelet Morphology Normal, Anisocytosis 1+, Prothrombin Time 13.7H , Prothromb Time International Ratio 1.3H, Activated Partial Thromboplast Time 29, Sodium Level 141, Potassium Level 4.2, Chloride Level 107, Carbon Dioxide Level 21, Anion Gap 13, Blood Urea Nitrogen 11, Creatinine 1.0, Estimat Glomerular Filtration Rate , Glucose Level 167H, Calcium Level 8.4L, Total Bilirubin 2.8H, Direct Bilirubin 0.7H, Aspartate Amino Transf (AST/SGOT) 47H, Alanine Aminotransferase (ALT/SGPT) 23, Alkaline Phosphatase 112, Total Protein 7.1, Albumin 2.8L, Globulin 4.3, Albumin/Globulin Ratio 0.7L Current Medications Medications (Trade) Dose Ordered Sig/Robe Route PRN Reason Start Time Stop Time Status Last Admin Dose Admin Docusate Sodium (Colace) 100 mg THREE TIMES A DAY ORAL 04/07/19 13:00 05/07/19 12:59 04/13/19 18:30 Furosemide (Lasix) 20 mg DAILY ORAL 04/10/19 09:00 05/10/19 08:59 04/13/19 08:55 Lactulose (Cephulac) 15 gm TID ORAL 04/07/19 13:00 05/07/19 12:59 04/13/19 08:51 Pantoprazole (Protonix) 40 mg EVERY 12 HOURS ORAL 04/09/19 21:00 05/09/19 20:59 04/13/19 20:44 Risperidone (RisperDAL) 1 mg BEDTIME PRN ORAL agitation 04/09/19 00:30 05/09/19 00:29 Spironolactone (Aldactone) 50 mg DAILY ORAL 04/10/19 09:00 05/10/19 08:59 04/13/19 08:50 Audie Wilkins MD Apr 13, 2019 20:59
--- NOTE | 2019-04-13 21:12 | General Progress Note ---
Assessment/Plan Problem List: (1) Diabetes mellitus ICD Codes: E11.9 - Type 2 diabetes mellitus without complications SNOMED: 40697664 (2) HTN (hypertension) ICD Codes: I10 - Essential (primary) hypertension SNOMED: 55359727 (3) Cholecystitis ICD Codes: K81.9 - Cholecystitis, unspecified SNOMED: 16545245 (4) Cirrhosis ICD Codes: K74.60 - Unspecified cirrhosis of liver SNOMED: 67978159 Qualifiers: Qualified Codes: K74.60 - Unspecified cirrhosis of liver; R18.8 - Other ascites (5) Ascites ICD Codes: R18.8 - Other ascites SNOMED: 113370203 Qualifiers: Qualified Codes: R18.8 - Other ascites (6) Abdominal pain ICD Codes: R10.9 - Unspecified abdominal pain SNOMED: 96258478 Qualifiers: Qualified Codes: R10.84 - Generalized abdominal pain (7) Anemia ICD Codes: D64.9 - Anemia, unspecified SNOMED: 398875239 (8) Electrolyte abnormality ICD Codes: E87.8 - Other disorders of electrolyte and fluid balance, not elsewhere classified SNOMED: 972865943 Status: progressing Assessment/Plan: cirohsis ascites s/p paracenesis and repair for leak Subjective ROS Limited/Unobtainable: Yes Allergies: Coded Allergies: No Known Allergies (Unverified , 03/02/19) Objective Last 24 Hour Vital Signs Date Time Temp Pulse Resp B/P (MAP) Pulse Ox O2 Delivery O2 Flow Rate FiO2 04/13/19 20:00 98.6 84 18 118/57 (77) 97 04/13/19 16:00 98.2 80 18 111/89 (96) 97 04/13/19 11:51 97.5 83 19 158/76 (103) 97 04/13/19 10:58 Room Air 04/13/19 08:00 99.2 84 16 163/67 (99) 99 04/13/19 04:00 98.7 77 18 132/78 (96) 98 04/13/19 00:00 97.9 82 19 143/77 (99) 98 04/12/19 21:34 Room Air Intake and Output 04/12/19 04/13/19 19:00 07:00 Intake Total 230 ml 250 ml Output Total 1100 ml 550 ml Balance -870 ml -300 ml Intake Oral 230 ml 250 ml Output Urine Total 1100 ml 550 ml Laboratory Tests 04/13/19 10:38: White Blood Count 4.9, Red Blood Count 3.00L, Hemoglobin 10.0L, Hematocrit 29.5L , Mean Corpuscular Volume 99, Mean Corpuscular Hemoglobin 33.5H, Mean Corpuscular Hemoglobin Concent 34.0, Red Cell Distribution Width 15.2H, Platelet Count 50L, Mean Platelet Volume 8.2, Neutrophils (%) (Auto) , Lymphocytes (%) (Auto) , Monocytes (%) (Auto) , Eosinophils (%) (Auto) , Basophils (%) (Auto) , Differential Total Cells Counted 100, Neutrophils % ( Manual) 63, Lymphocytes % (Manual) 18L, Monocytes % (Manual) 15H, Eosinophils % (Manual) 4H, Basophils % (Manual) 0, Band Neutrophils 0, Platelet Estimate DecreasedL, Platelet Morphology Normal, Anisocytosis 1+, Prothrombin Time 13.7H , Prothromb Time International Ratio 1.3H, Activated Partial Thromboplast Time 29, Sodium Level 141, Potassium Level 4.2, Chloride Level 107, Carbon Dioxide Level 21, Anion Gap 13, Blood Urea Nitrogen 11, Creatinine 1.0, Estimat Glomerular Filtration Rate , Glucose Level 167H, Calcium Level 8.4L, Total Bilirubin 2.8H, Direct Bilirubin 0.7H, Aspartate Amino Transf (AST/SGOT) 47H, Alanine Aminotransferase (ALT/SGPT) 23, Alkaline Phosphatase 112, Total Protein 7.1, Albumin 2.8L, Globulin 4.3, Albumin/Globulin Ratio 0.7L Height (Feet): 5 Height (Inches): 1.00 Weight (Pounds): 158 Cardiovascular: normal rate Respiratory/Chest: lungs clear Abdomen: soft Steve Burr MD Apr 13, 2019 21:11
[2019-04-13] MEDS ORDERED: NS 275ml ONE (22:43)
[2019-04-13] MEDS ORDERED: Tubing IV Secondary IV ONE (22:43)
[2019-04-13] MEDS ORDERED: Tubing IV Blood Pump IV ONE (22:43)
[2019-04-13] MEDS ORDERED: NS 500ML ONE (22:43)
[2019-04-14] VITALS: BP 126/56
[2019-04-14 04:00] VITALS: BP 116/61
--- NOTE | 2019-04-14 07:22 | NUR ---
HAND-OFF: Report given to DEBBIE Hdez.
--- NOTE | 2019-04-14 08:08 | NUR ---
NURSE NOTES: Patient is alert and oriented. Puncture site s/p paracentesis is dry and intact. No reports of discomfort. Will continue to monitor.
[2019-04-14 08:09] VITALS: BP 129/55
[2019-04-14] MEDS: Spironolactone 50mg tab ORAL SCH (09:04)
[2019-04-14] MEDS: Lactulose 10gm/15ml UDC ORAL SCH ×2 (09:05→14:14)
[2019-04-14] MEDS: Docusate 100mg cap ORAL SCH ×2 (09:06→14:14)
--- NOTE | 2019-04-14 09:47 | NUR ---
NURSE NOTES: Dr. Biggs rounded on patient. Patient ambulatory, dowd still in. Physician notified. New order received.
--- NOTE | 2019-04-14 11:41 | Hematology/Onc Progress Note ---
Assessment/Plan Assessment/Plan # Pancytopenia is likely due to underlying cirrhosis, splenomegaly, paraesophageal varices, portal HTN. Well known to me from prior admission, she generally requires occasional drainage. AT BASELINE LIKELY IS 30-60k --> at this time, imaging of liver reviewed, no e/o malignancy --> hepatitis panel and hiv are both negative --> plt trend: 58-->75k-->67k-->50k-->38k -->42k->50 --> AFP is 2.5 --> given age, cea is 6.3, as per gi recs --> smear has been reviewed, r/o schistocytes --> neupogen on prn basis --> plts as needed presurg, goal >50k if procedure --> 03/04: EGD--> atrophic gastritis noted --> ppi as needed --> paracentesis on prn basis --> FOR PLATELETS, VIT K, FFP for tunneled cath insertion 04/13 # Anemia of chronic disease --> no evidence of iron deficiency --> hgb goal >7, transfuse prn --> less of a role for iron and epogen --> hgb trend: 9.3-->10.3-->9.8-->8.3-->10 # Coagulopathy is related to liver disease --> preprocedure GIVE vit K --> improved # Thickening of wall of gallbladder with pericholecystic fluid --> hida neg before # hx UTI (urinary tract infection) --> history of, sp treatment # Liver cirrhosis --> distended ab, r/o sbp --> on abx --> 5.2L removed 04/08, 4L on 04/13 # Dvt ppx scds Greatly appreciate consultation and juan manuel RN Subjective Cardiovascular: Denies: no symptoms, chest pain, edema, irregular heart rate, lightheadedness, palpitations, syncope, other Respiratory: Denies: no symptoms, cough, shortness of breath, SOB with excertion, SOB at rest, sputum, wheezing, other Gastrointestinal/Abdominal: Denies: no symptoms, abdomen distended, abdominal pain, black stools, tarry stools, blood in stool, constipated, diarrhea, difficulty swallowing, nausea, poor appetite, poor fluid intake, rectal bleeding , vomiting, other Genitourinary: Denies: no symptoms, burning, discharge, frequency, flank pain, hematuria, incontinence, pain, urgency, other Neurologic/Psychiatric: Denies: no symptoms, anxiety, depressed, emotional problems, headache, numbness, paresthesia, pre-existing deficit, seizure, tingling, tremors, weakness, other Endocrine: Denies: no symptoms, excessive sweating, flushing, intolerance to cold, intolerance to heat, increased hunger, increased thirst, increased urine, unexplained weight gain, unexplained weight loss, other Hematologic/Lymphatic: Denies: no symptoms, anemia, easy bleeding, easy bruising, adenopathy, other Allergies: Coded Allergies: No Known Allergies (Unverified , 03/02/19) Subjective 04/07: no major changes, for para, plt 50k, will review inr/ptt preprocedure, gi aware 04/08: no bleeding or chills, no night sweats, no major changes, for para 04/09: no major changes, no bleeding or chills, plt is lower, still with abd pain 04/11: no events to note, cbc reviewed, no major changes, renal recs noted 04/12: for tunneled cath insertion tomorrow, inr correction, ffp and vit k and plt today 04/13: still leaking from para site, labs reviewed, ffp transfusing per rnjuan manuel 04/14: comfortable, is s/p para, site is c/d/i, no major changes, no bleeding Objective Objective Current Medications Medications (Trade) Dose Ordered Sig/Robe Route PRN Reason Start Time Stop Time Status Last Admin Dose Admin Docusate Sodium (Colace) 100 mg THREE TIMES A DAY ORAL 04/07/19 13:00 05/07/19 12:59 04/14/19 09:06 Furosemide (Lasix) 20 mg DAILY ORAL 04/10/19 09:00 05/10/19 08:59 04/14/19 09:07 Lactulose (Cephulac) 15 gm TID ORAL 04/07/19 13:00 05/07/19 12:59 04/14/19 09:05 Pantoprazole (Protonix) 40 mg EVERY 12 HOURS ORAL 04/09/19 21:00 05/09/19 20:59 04/14/19 09:07 Risperidone (RisperDAL) 1 mg BEDTIME PRN ORAL agitation 04/09/19 00:30 05/09/19 00:29 Spironolactone (Aldactone) 50 mg DAILY ORAL 04/10/19 09:00 05/10/19 08:59 04/14/19 09:04 Last 24 Hour Vital Signs Date Time Temp Pulse Resp B/P (MAP) Pulse Ox O2 Delivery O2 Flow Rate FiO2 04/14/19 08:30 Room Air 04/14/19 08:09 97.9 76 17 129/55 (79) 100 04/14/19 04:00 98.6 80 18 116/61 (79) 97 04/14/19 00:00 98.4 82 18 126/56 (79) 97 04/13/19 21:35 Room Air 04/13/19 20:00 98.6 84 18 118/57 (77) 97 04/13/19 16:00 98.2 80 18 111/89 (96) 97 04/13/19 11:51 97.5 83 19 158/76 (103) 97 04/13/19 10:58 Room Air 04/13/19 08:00 99.2 84 16 163/67 (99) 99 04/13/19 04:00 98.7 77 18 132/78 (96) 98 04/13/19 00:00 97.9 82 19 143/77 (99) 98 04/12/19 21:34 Room Air 04/12/19 20:00 98.3 79 20 137/61 (86) 98 04/12/19 16:00 98.4 75 20 128/56 (80) 98 Intake and Output 04/13/19 04/14/19 19:00 07:00 Intake Total 240 ml Output Total 4100 ml 450 ml Balance -4100 ml -210 ml Intake Oral 240 ml Output Urine Total 450 ml Other 4100 ml # Voids 1 # Bowel Movements 1 Labs Test 04/12/19 05:45 04/13/19 10:38 White Blood Count 5.0 K/UL (4.8-10.8) 4.9 K/UL (4.8-10.8) Red Blood Count 2.48 M/UL (4.20-5.40) 3.00 M/UL (4.20-5.40) Hemoglobin 8.3 G/DL (12.0-16.0) 10.0 G/DL (12.0-16.0) Hematocrit 23.5 % (37.0-47.0) 29.5 % (37.0-47.0) Mean Corpuscular Volume 95 FL (80-99) 99 FL (80-99) Mean Corpuscular Hemoglobin 33.2 PG (27.0-31.0) 33.5 PG (27.0-31.0) Mean Corpuscular Hemoglobin Concent 35.1 G/DL (32.0-36.0) 34.0 G/DL (32.0-36.0) Red Cell Distribution Width 14.5 % (11.6-14.8) 15.2 % (11.6-14.8) Platelet Count 42 K/UL (150-450) 50 K/UL (150-450) Mean Platelet Volume 7.9 FL (6.5-10.1) 8.2 FL (6.5-10.1) Neutrophils (%) (Auto) % (45.0-75.0) % (45.0-75.0) Lymphocytes (%) (Auto) % (20.0-45.0) % (20.0-45.0) Monocytes (%) (Auto) % (1.0-10.0) % (1.0-10.0) Eosinophils (%) (Auto) % (0.0-3.0) % (0.0-3.0) Basophils (%) (Auto) % (0.0-2.0) % (0.0-2.0) Differential Total Cells Counted 100 100 Neutrophils % (Manual) 54 % (45-75) 63 % (45-75) Lymphocytes % (Manual) 32 % (20-45) 18 % (20-45) Monocytes % (Manual) 9 % (1-10) 15 % (1-10) Eosinophils % (Manual) 5 % (0-3) 4 % (0-3) Basophils % (Manual) 0 % (0-2) 0 % (0-2) Band Neutrophils 0 % (0-8) 0 % (0-8) Platelet Estimate Decreased Decreased Platelet Morphology Normal Normal Prothrombin Time 18.3 SEC (9.30-11.50) 13.7 SEC (9.30-11.50) Prothromb Time International Ratio 1.8 (0.9-1.1) 1.3 (0.9-1.1) Sodium Level 140 MMOL/L (136-145) 141 MMOL/L (136-145) Potassium Level 3.6 MMOL/L (3.5-5.1) 4.2 MMOL/L (3.5-5.1) Chloride Level 111 MMOL/L (98-107) 107 MMOL/L (98-107) Carbon Dioxide Level 27 MMOL/L (21-32) 21 MMOL/L (21-32) Anion Gap 2 mmol/L (5-15) 13 mmol/L (5-15) Blood Urea Nitrogen 11 mg/dL (7-18) 11 mg/dL (7-18) Creatinine 1.2 MG/DL (0.55-1.30) 1.0 MG/DL (0.55-1.30) Estimat Glomerular Filtration Rate mL/min (>60) mL/min (>60) Glucose Level 101 MG/DL (74-106) 167 MG/DL (74-106) Calcium Level 7.9 MG/DL (8.5-10.1) 8.4 MG/DL (8.5-10.1) Total Bilirubin 2.6 MG/DL (0.2-1.0) 2.8 MG/DL (0.2-1.0) Direct Bilirubin 0.7 MG/DL (0.0-0.3) 0.7 MG/DL (0.0-0.3) Aspartate Amino Transf (AST/SGOT) 35 U/L (15-37) 47 U/L (15-37) Alanine Aminotransferase (ALT/SGPT) 13 U/L (12-78) 23 U/L (12-78) Alkaline Phosphatase 85 U/L (46-116) 112 U/L (46-116) Ammonia 20 umol/L (11-32) Total Protein 5.5 G/DL (6.4-8.2) 7.1 G/DL (6.4-8.2) Albumin 2.1 G/DL (3.4-5.0) 2.8 G/DL (3.4-5.0) Globulin 3.4 g/dL 4.3 g/dL Albumin/Globulin Ratio 0.6 (1.0-2.7) 0.7 (1.0-2.7) Anisocytosis 1+ Activated Partial Thromboplast Time 29 SEC (23-33) Height (Feet): 5 Height (Inches): 1.00 Weight (Pounds): 160 Objective GeN: NAd Pulm: ctab, some crackles at base CV: Rrr, no mgr Abd: distended but soft, nt Ext: 1+edema Jose Antonio Zhang MD Apr 14, 2019 11:40
[2019-04-14 12:00] VITALS: BP 152/76
--- NOTE | 2019-04-14 12:23 | Nephrology Progress Note ---
Assessment/Plan Problem List: (1) Cirrhosis (2) Abdominal pain (3) Anemia (4) Electrolyte abnormality Assessment Chronic Liver Disease / Cirrhosis / Ascitis Low Na Anemia Low Albumin Plan no labs today- DC dowd need periodic ascitic tap - can be done as OP. refusing some of meds: lactulose on low Na diet Protonix GI eval Monitor lytes per orders ? Dc planning Subjective ROS Limited/Unobtainable: No Constitutional: Reports: malaise Objective Objective Last 24 Hour Vital Signs Date Time Temp Pulse Resp B/P (MAP) Pulse Ox O2 Delivery O2 Flow Rate FiO2 04/14/19 11:24 Room Air 04/14/19 08:30 Room Air 04/14/19 08:09 97.9 76 17 129/55 (79) 100 04/14/19 04:00 98.6 80 18 116/61 (79) 97 04/14/19 00:00 98.4 82 18 126/56 (79) 97 04/13/19 21:35 Room Air 04/13/19 20:00 98.6 84 18 118/57 (77) 97 04/13/19 16:00 98.2 80 18 111/89 (96) 97 Intake and Output 04/13/19 04/14/19 19:00 07:00 Intake Total 240 ml Output Total 4100 ml 450 ml Balance -4100 ml -210 ml Intake Oral 240 ml Output Urine Total 450 ml Other 4100 ml # Voids 1 # Bowel Movements 1 Height (Feet): 5 Height (Inches): 1.00 Weight (Pounds): 160 General Appearance: no apparent distress Abdomen: distended Objective no change Bao Biggs MD Apr 14, 2019 12:23
--- NOTE | 2019-04-14 14:56 | NUR ---
NURSE NOTES: Dowd discontinued this AM at 1030. Patient voided after dowd removed. Will continue to monitor.
--- NOTE | 2019-04-14 15:34 | Cardiology Report ---
APPROVED REPORT EKG Measurement Heart [id number] Normal sinus rhythm Cannot rule out Anterior infarct, age undetermined Abnormal ECG
[2019-04-14 16:00] VITALS: BP 149/76
--- NOTE | 2019-04-14 17:17 | Surgery Progress Note ---
Surgery Progress Note Subjective Additional Comments Patient seen and examined bedside. Doing well. Much improved. States abdominal pain improved. Abdominal much less distended today. Paracentesis yesterday and afterwards site sutured closed. No drainage since. Wounds healing well. Sutures absorbable. Patient doing better. Labs noted. Objective Last 24 Hour Vital Signs Date Time Temp Pulse Resp B/P (MAP) Pulse Ox O2 Delivery O2 Flow Rate FiO2 04/14/19 12:00 97.3 72 18 152/76 (101) 100 04/14/19 11:24 Room Air 04/14/19 08:30 Room Air 04/14/19 08:09 97.9 76 17 129/55 (79) 100 04/14/19 04:00 98.6 80 18 116/61 (79) 97 04/14/19 00:00 98.4 82 18 126/56 (79) 97 04/13/19 21:35 Room Air 04/13/19 20:00 98.6 84 18 118/57 (77) 97 I&O Intake and Output 04/13/19 04/14/19 19:00 07:00 Intake Total 240 ml Output Total 4100 ml 450 ml Balance -4100 ml -210 ml Intake Oral 240 ml Output Urine Total 450 ml Other 4100 ml # Voids 1 # Bowel Movements 1 Dressing: dry Wound: clean Cardiovascular: RSR Respiratory: clear Abdomen: soft, distended, non-tender, present bowel sounds Extremities: no tenderness, no cyanosis Plan Problems: (1) Abdominal pain Assessment & Plan: 84-year-old female with abdominal pain secondary to distention from excessive ascites. Recently had drainage and 5.2 L removed. Since has had significant amount of output from the paracentesis site and has been unable to stop straining. Ostomy bag placed and continues to be draining. Surgery called to evaluate. On examination patient continues to have a very distended fluid-filled abdomen. There is considerations for closing the prior drain site with a suture. Would recommend considerations for repeat paracentesis prior to attempting this. Paracentesis ordered Will discuss with GI in follow-up. Thank you for allowing me to participate in patient's care P paracentesis repeated doing well since Abdomen improved but will likely distended again with fluid soon. Will need likely repeat loni (2) Cirrhosis Assessment & Plan: Decompensated liver cirrhosis etiology unknown. Labs noted. Exam is noted. Recommend follow-up with liver center upon discharge. Sutures are dissolvable and will dissolve on their own. Site is clean. Discharge planning. (3) Anemia (4) Electrolyte abnormality (5) Diabetes mellitus (6) Ascites (7) Cholecystitis (8) HTN (hypertension) (9) Thrombocytopenia Vini Reyes Apr 14, 2019 17:17
--- NOTE | 2019-04-14 17:19 | NUR ---
NURSE NOTES: Dr. Clancy's office called for clearance for discharge. Per Dr. Clancy, he will se patient today before he discharges her.
--- NOTE | 2019-04-14 18:49 | NUR ---
NURSE NOTES: Patient discharged Home with Home Health via private vehicle. Discharge instructions given to patient. IV removed. Patient stable upon discharge.
--- NOTE | 2019-04-14 21:15 | Progress Note ---
DATE: 04/14/2019 SUBJECTIVE: The patient is doing fine, less confused, calmer, more manageable, redirectable, able to answer the questions appropriately. She is not endorsing any psychotic or manic symptoms. She is able to answer the questions rationally. MENTAL STATUS EXAMINATION: The patient is alert, oriented times self, place, situation. Mood is neutral. Affect is flat. Thought process is concrete. Thought content, no suicidal or homicidal ideation. Cognition is impaired. Insight and judgment is impaired. ASSESSMENT: Stable. PLAN: The patient will be discharged with a followup plan with home health. Bibi Mijares M.D. DR: Ronit JOB#: [id number] CC:
--- NOTE | 2019-04-14 23:16 | General Progress Note ---
Assessment/Plan Status: progressing Assessment/Plan: Assessment - Cirrhosis, ? etiology - No esophageal varicies, per recent EGD - Ascites - s/p 5 liter tap - paracentesis site leak - resolved Recommendations - paracentesis PRN - diuretics - PPI qd - check AFP - check auto-immune markers - Poor prognosis Subjective Allergies: Coded Allergies: No Known Allergies (Unverified , 03/02/19) Subjective feels OK no new complaints paracentesis site closed Objective Last 24 Hour Vital Signs Date Time Temp Pulse Resp B/P (MAP) Pulse Ox O2 Delivery O2 Flow Rate FiO2 04/14/19 16:00 98.7 78 20 149/76 (100) 100 04/14/19 12:00 97.3 72 18 152/76 (101) 100 04/14/19 11:24 Room Air 04/14/19 08:30 Room Air 04/14/19 08:09 97.9 76 17 129/55 (79) 100 04/14/19 04:00 98.6 80 18 116/61 (79) 97 04/14/19 00:00 98.4 82 18 126/56 (79) 97 Intake and Output 04/13/19 04/14/19 19:00 07:00 Intake Total 240 ml Output Total 4100 ml 450 ml Balance -4100 ml -210 ml Intake Oral 240 ml Output Urine Total 450 ml Other 4100 ml # Voids 1 # Bowel Movements 1 Height (Feet): 5 Height (Inches): 1.00 Weight (Pounds): 160 Objective Thin, frail woman NCAT supple CTA RR abd soft distended (+) Ascites, (+) leaking paracentesis site trace edema Negrita Clancy MD Apr 14, 2019 23:16
--- NOTE | 2019-04-15 08:42 | Discharge Summary ---
Discharge Summary Discharge Summary _ DATE OF ADMISSION: 04/07/2019 DATE OF DISCHARGE: 04/14/2019 DISCHARGED BY: REASON FOR ADMISSION: 84 years old female with past medical history of hypertension, diabetes mellitus , cirrhosis, presented with generalized abdominal pain: moderate in severity , constant. Patient reported shortness of breath , increasingly enlarged abdomen and generalized aches. No fever or chills. No cough or congestion. No diarrhea. Patient reported that she had fluid drained from abdomen in the past , which helped with abdominal pain. Upon evaluation in emergency department patient had low-grade fever and blood pressure was 180/80. Laboratory work-up revealed no leukocytosis ,hemoglobin 11.2, hematocrit 31.9 , platelet count 61. Sodium 134, potassium 5.8. BUN 15, creatinine 1.1. Glucose 144. Lactic acid 2.1. Total bilirubin 3, direct bilirubin 0.5. AST 87 , ALT 29. Total CK 187. Ammonia 26. Troponin negative. Pro BNP 1328.EKG revealed sinus rhythm no acute ischemic changes. Albumin 1.9. Chest x-ray revealed no acute cardiopulmonary pathology. CT of the abdomen and pelvis demonstrated chronic liver disease/cirrhosis with signs of portal hypertension, including moderate to severe ascites, portosystemic varices and splenomegaly. Atherosclerotic vascular disease , moderate in degree. Anasarca. In the emergency department patient pancultured , started on broad-spectrum antibiotic and provided with fluid resuscitation . Patient subsequently admitted for further management. CONSULTANTS: pulmonary Dr. Wilkins GI specialist Dr. Clancy finance associate Dr. Biggs heating technician/oncologist Dr. Zhang surgery Dr. Reyes psychiatrist [facility] COURSE: Patient admitted and initially was on empiric antibiotic. Patient was started on lactulose. GI specialist closely followed. Patient with decompensated liver cirrhosis of unclear etiology. Recent EGD did not show any esophageal varices. Patient undergone twice ultrasound-guided paracentesis yielding 5.2 L of ascitic fluid on 04/08 and 4.7 L on ascitic fluid on 04/13. Patient was started on diuretic and GI prophylaxis with PPI. Ammonia level was stable. Alpha-fetoprotein was within normal limits Patient had evidence of paracentesis site leak after first paracentesis. Ostomy bag was placed. There was a consideration for closing the prior drain site with suture. Surgeon followed. Surgeon recommended another paracentesis pror to closing, Patient subsequently undergone second paracentesis on 04/14 and afterwards the site was sutured. Patient was on empiric antibiotics. Blood cultures were negative. Ascitic fluid culture was negative. Urine culture were negative. No leukocytosis . Low-grade fever resolved. Supplemental oxygen provided as needed to keep pulse oximetry above 92%. Venous duplex bilateral lower extremity revealed no evidence of acute DVT. Incentive spirometry was encouraged . After paracentesis respiratory status improved , and prior to discharge pulse oximetry was stable on room air. Importer Exporter closely followed. Renal parameters and electrolytes were closely monitored. Electrolytes corrected as needed. Nephrotoxic's were avoided. Patient provided with low-sodium diet. Albumin boluses provided. Stock Letterer followed for pancytopenia, which was likely due to underlying cirrhosis. Counts were closely monitored. Patient undergone transfusion of 1 unit of fresh frozen plasma and 1 unit of platelet pheresis for platelets 37 prior to procedure/paracentesis. Platelet count -50 prior to discharge. Patient had evidence of anemia of chronic disease. Hemoglobin and hematocrit were closely monitored with goal to keep hemoglobin above 7. Prior to discharge hemoglobin 10, hematocrit 29.5, Coagulopathy was likely related to liver disease. Vitamin K given once, INR 1.3 upon discharge. Psychiatrist followed. Per psychiatrist, patient initially had acute encephalopathy , which improved. Patient was started on risperidone. Reality orientation and supportive therapy provided . Blood pressure remained stable with diuretics. Blood sugar was closely monitored, remained stable. Hemoglobin A1c 6.2. Patient clinically stabilized and was ready for discharge home with home health services. Per GI specialist, overall prognosis was poor. GI specialist recommended periodic paracentesis, follow up with liver center and check inflammatory markers , which can be done as outpatient. FINAL DIAGNOSES: Decompensated liver cirrhosis of unclear etiology Acute encephalopathy Ascites, status post paracentesis x2 Paracentesis site leak- resolved Anemia of chropnuic disease Thrombocytopenia Coagulopathy Electrolyte abnormality Diabetes mellitus Hypertension Hypoalbuminemia DISCHARGE MEDICATIONS: See Medication Reconciliation list. DISCHARGE INSTRUCTIONS: Patient was discharged home with home health services. Follow up with primary care provider in one week. I have been assigned to dictate discharge summary for this account. I was not involved in the patient's management. Rima Lopez NP Apr 15, 2019 08:42
--- NOTE | 2019-04-15 15:53 | NUR ---
*-* INSURANCE /*-* DISCHARGE SUMMARY HAS BEEN FAXED [facility] Phys Coordinator: Ev Hutchinson#[phone] fax#[phone]
== END 2019-04-14 18:40 | disposition home health service (06) | DRG 433 ==
LOC: EDBD 21:34 → EMR 22:00 → 4E 04-07 00:32 → EDBEDREQ 04-07 00:46 → 4E 04-07 01:16
PROC: 0W9G3ZZ Drainage of Peritoneal Cavity, Percutaneous Approach (ICD-10-PCS; principal; 2019-04-08)
PROC: 30233K1 Transfusion of Nonautologous Frozen Plasma into Peripheral Vein, Percutaneous Approach (ICD-10-PCS; 2019-04-12)
PROC: 30233R1 Transfusion of Nonautologous Platelets into Peripheral Vein, Percutaneous Approach (ICD-10-PCS; 2019-04-12)
PROC: 0W9G3ZZ Drainage of Peritoneal Cavity, Percutaneous Approach (ICD-10-PCS; 2019-04-13)
DX: K74.60 Unspecified cirrhosis of liver (principal); R18.8 Other ascites; D61.818 Other pancytopenia; K76.6 Portal hypertension; G93.40 Encephalopathy, unspecified; D68.4 Acquired coagulation factor deficiency; D73.1 Hypersplenism; D69.6 Thrombocytopenia, unspecified; I10 Essential (primary) hypertension; E11.9 Type 2 diabetes mellitus without complications; D63.8 Anemia in other chronic diseases classified elsewhere; E87.8 Other disorders of electrolyte and fluid balance, not elsewhere classified; E88.09 Other disorders of plasma-protein metabolism, not elsewhere classified; I70.90 Unspecified atherosclerosis; Z79.84 Long term (current) use of oral hypoglycemic drugs; Z79.82 Long term (current) use of aspirin; K81.9 Cholecystitis, unspecified; F41.8 Other specified anxiety disorders
CPT/HCPCS: 36415; 71045; 74177; 76705; 76942; 80053; 80061; 81001; 82105; 82140; 82248; 82378; 82550; 82553; 82607; 82728; 82746; 82977; 83036; 83540; 83550; 83605; 83690; 83735; 83880; 83935; 84100; 84300; 84443; 84484; 84550; 85007; 85025; 85610; 85730; 86140; 86850; 86900; 86901; 86927; 87040; 87070; 87086; 87205; 89051; 93005; 93970; 96365; 96366; 96367; 96368; 99285; C9399; J7030

== ENCOUNTER 2019-09-24 10:34 | Emergency (ER) | payer OTHER ==
[~2019-09-24] VITALS: Ht 149.9 cm; Wt 59.0 kg
[~2019-09-24 10:34] MED LIST changes: +ASPIR 8181 MG ORAL
[2019-09-24 10:37] VITALS: BP 185/79
--- NOTE | 2019-09-24 10:40 | NUR ---
ED Nurse Note: Patient brought in by ambulance from home due to abdominal distension and pain. per pt, she went to [facility] but nothing was done and pain and distension got worse overnight. pt aao x4 and ambulatory with assist but weak. calm and cooperative but grimacing for pain. however, severe abdominal distension noted. high blood pressure noted from Triage. pt is in gown and on moisture meter operator.
[2019-09-24] MEDS ORDERED: Omnipaque-300 100ml vial INJ PRN (11:00)
--- NOTE | 2019-09-24 11:16 | Emergency Room Report ---
History of Present Illness General Chief Complaint: Abdominal Pain Source: Patient Present Illness HPI The patient has a history of cirrhosis. She has been seen at this facility previously for paracentesis. This patient states that she has had abdominal pain and a distended abdomen for the past 3 days. She denies fever or chills. She denies nausea or vomiting. She has no other complaints. She states she was seen at another hospital yesterday and was sent home. Allergies: Coded Allergies: No Known Allergies (Unverified , 03/02/19) COVID-19 Screening Contact w/high risk pt: No Recent Travel to affected area: No Experienced COVID-19 symptoms?: No Patient History Past Medical History: see triage record, DM, HTN, other - Cirrhosis Social History: Denies: smoking, alcohol use, drug use Now: No Reviewed Nursing Documentation: PMH: Agreed; PSxH: Agreed Nursing Documentation-PMH Past Medical History: No History, Except For Hx Cardiac Problems: Yes Hx Hypertension: Yes Hx Diabetes: Yes Hx Cancer: No Hx Gastrointestinal Problems: Yes Hx Neurological Problems: No Review of Systems All Other Systems: negative except mentioned in HPI Physical Exam Vital Signs Date Time Temp Pulse Resp B/P (MAP) Pulse Ox O2 Delivery O2 Flow Rate FiO2 09/24/19 10:27 98.8 90 18 190/80 (116) 98 Room Air Sp02 EP Interpretation: reviewed, normal General Appearance: no apparent distress, alert, GCS 15, non-toxic Head: normocephalic, atraumatic Eyes: bilateral eye normal inspection, bilateral eye PERRL ENT: hearing grossly normal, normal pharynx, no angioedema, normal voice Neck: full range of motion, supple/symm/no masses Respiratory: chest non-tender, lungs clear, normal breath sounds, no respiratory distress, no retraction, no accessory muscle use, speaking full sentences Cardiovascular #1: regular rate, rhythm, no edema Gastrointestinal: non tender, soft, no guarding, no rebound, distended, other - +distended abdomen with fluid wave. Rectal: deferred Musculoskeletal: back normal, normal range of motion, gait/station normal, non- tender Neurologic: alert, motor strength/tone normal, oriented x3, sensory intact, responsive, speech normal Psychiatric: judgement/insight normal, memory normal, mood/affect normal, no suicidal/homicidal ideation Skin: no rash Medical Decision Making Diagnostic Impression: Primary Impression: Ascites Additional Impressions: Cirrhosis Renal insufficiency ER Course This patient has known cirrhosis with significant amount of ascites. The patient underwent ultrasound-guided paracentesis with significant relief in her symptoms. She has no physical exam or symptoms that would make me concerned for SBP. She had significant relief of her symptoms after paracentesis and was discharged home. She is given close return precautions and follow-up instructions. Labs Test 09/24/19 10:30 09/24/19 11:40 White Blood Count 8.3 K/UL (4.8-10.8) Red Blood Count 3.07 M/UL (4.20-5.40) Hemoglobin 9.8 G/DL (12.0-16.0) Hematocrit 28.4 % (37.0-47.0) Mean Corpuscular Volume 92 FL (80-99) Mean Corpuscular Hemoglobin 31.8 PG (27.0-31.0) Mean Corpuscular Hemoglobin Concent 34.5 G/DL (32.0-36.0) Red Cell Distribution Width 14.4 % (11.6-14.8) Platelet Count 83 K/UL (150-450) Mean Platelet Volume 6.4 FL (6.5-10.1) Neutrophils (%) (Auto) % (45.0-75.0) Lymphocytes (%) (Auto) % (20.0-45.0) Monocytes (%) (Auto) % (1.0-10.0) Eosinophils (%) (Auto) % (0.0-3.0) Basophils (%) (Auto) % (0.0-2.0) Differential Total Cells Counted 100 Neutrophils % (Manual) 69 % (45-75) Lymphocytes % (Manual) 21 % (20-45) Monocytes % (Manual) 8 % (1-10) Eosinophils % (Manual) 2 % (0-3) Basophils % (Manual) 0 % (0-2) Band Neutrophils 0 % (0-8) Platelet Estimate Decreased Platelet Morphology Normal Red Blood Cell Morphology Normal Prothrombin Time 14.7 SEC (9.30-11.50) Prothromb Time International Ratio 1.4 (0.9-1.1) Activated Partial Thromboplast Time 36 SEC (23-33) Sodium Level 140 MMOL/L (136-145) Potassium Level 4.4 MMOL/L (3.5-5.1) Chloride Level 105 MMOL/L (98-107) Carbon Dioxide Level 23 MMOL/L (21-32) Anion Gap 12 mmol/L (5-15) Blood Urea Nitrogen 37 mg/dL (7-18) Creatinine 2.5 MG/DL (0.55-1.30) Estimat Glomerular Filtration Rate 18.4 mL/min (>60) Glucose Level 127 MG/DL (74-106) Calcium Level 8.4 MG/DL (8.5-10.1) Total Bilirubin 2.4 MG/DL (0.2-1.0) Direct Bilirubin 1.3 MG/DL (0.0-0.3) Aspartate Amino Transf (AST/SGOT) 56 U/L (15-37) Alanine Aminotransferase (ALT/SGPT) 25 U/L (12-78) Alkaline Phosphatase 136 U/L (46-116) Total Protein 7.7 G/DL (6.4-8.2) Albumin 1.9 G/DL (3.4-5.0) Globulin 5.8 g/dL Albumin/Globulin Ratio 0.3 (1.0-2.7) Lipase 275 U/L (73-393) Urine Color Brown Urine Appearance Clear Urine pH 5 (4.5-8.0) Urine Specific [place] 1.025 (1.005-1.035) Urine Protein Negative (NEGATIVE) Urine Glucose (UA) Negative (NEGATIVE) Urine Ketones 1+ (NEGATIVE) Urine Blood 1+ (NEGATIVE) Urine Nitrite Negative (NEGATIVE) Urine Bilirubin 1+ (NEGATIVE) Urine Ictotest Negative (NEGATIVE) Urine Urobilinogen 1 MG/DL (0.0-1.0) Urine Leukocyte Esterase 1+ (NEGATIVE) Urine RBC 0-2 /HPF (0 - 2) Urine WBC 0-2 /HPF (0 - 2) Urine Squamous Epithelial Cells Few /LPF (NONE/OCC) Urine Bacteria Few /HPF (NONE) CT/MRI/US Diagnostic Results CT/MRI/US Diagnostic Results : Imaging Test Ordered: US guided paracentesis Impression Impression: Successful ultrasound-guided paracentesis, yielding 6.05 liters of fluid Last Vital Signs Date Time Temp Pulse Resp B/P (MAP) Pulse Ox O2 Delivery O2 Flow Rate FiO2 09/24/19 10:37 90 18 Room Air 09/24/19 10:37 98.8 185/79 98 Status: improved Disposition: HOME, SELF-CARE Condition: Improved Referrals: NON PHYSICIAN (PCP) Laura Beckett DO Sep 24, 2019 11:16
[2019-09-24 11:24] LABS: HEMATOCRIT 28.4 % (37.0-47.0); HEMOGLOBIN 9.8 G/DL (12.0-16.0); MEAN CORPUSCULAR VOLUME 92 FL (80-99); PLATELET COUNT 83 K/UL (150-450); RED BLOOD COUNT 3.07 M/UL (4.20-5.40); RED CELL DISTRIBUTION WIDTH 14.4 % (11.6-14.8); WHITE BLOOD COUNT 8.3 K/UL (4.8-10.8)
[2019-09-24 11:25] LABS: ANION GAP 12 mmol/L (5-15); BLOOD UREA NITROGEN 37 mg/dL (7-18); CALCIUM 8.4 MG/DL (8.5-10.1); CARBON DIOXIDE 23 MMOL/L (21-32); CHLORIDE 105 MMOL/L (98-107); CREATININE 2.5 MG/DL (0.55-1.30); POTASSIUM 4.4 MMOL/L (3.5-5.1); SODIUM 140 MMOL/L (136-145)
[2019-09-24 11:38] LABS: ALANINE AMINOTRANSFERASE 25 U/L (12-78); ALBUMIN 1.9 G/DL (3.4-5.0); ALBUMIN/GLOBULIN RATIO 0.3 (1.0-2.7); ALKALINE PHOSPHATASE 136 U/L (46-116); ASPARTATE AMINO TRANSFERASE 56 U/L (15-37); BILIRUBIN,TOTAL 2.4 MG/DL (0.2-1.0)
[2019-09-24 11:39] LABS: BILIRUBIN,DIRECT 1.3 MG/DL (0.0-0.3)
[2019-09-24 11:42] LABS: INR 1.4 (0.9-1.1)
--- NOTE | 2019-09-24 11:43 | NUR ---
ED Nurse Note: BP went down to 160/94mmHg.
[2019-09-24 12:44] LABS: APPEARANCE,URINE CLEAR; BILIRUBIN, URINE 1+ (NEGATIVE); COLOR,URINE BROWN; GLUCOSE, URINE (UA) NEGATIVE (NEGATIVE); KETONES,URINE 1+ (NEGATIVE); LEUKOCYTE ESTERASE ,URINE 1+ (NEGATIVE); NITRITE,URINE NEGATIVE (NEGATIVE); PH,URINE 5 (4.5-8.0); PROTEIN,URINE NEGATIVE (NEGATIVE); UROBILINOGEN,URINE 1 MG/DL (0.0-1.0)
--- NOTE | 2019-09-24 13:46 | NUR ---
ED Nurse Note: paracenthesis being done at bedside.
--- NOTE | 2019-09-24 14:13 | NUR ---
patients daughter called updated the condition instructed to call back in 1 hr. or i will call her [phone] sue alexander
--- NOTE | 2019-09-24 15:31 | NUR ---
ED Nurse Note: 6005cc of drainage came out during paracentesis. pt tolerated well.
--- NOTE | 2019-09-24 16:15 | Pre-Procedure Note/Attestation ---
Pre-Procedure Note/Attestation Complete Prior to Procedure Planned Procedure: not applicable Procedure Narrative: Paracentesis Indications for Procedure Pre-Operative Diagnosis: ascites Attestation I attest that I discussed the nature of the procedure; its benefits; risks and complications; and alternatives (and the risks and benefits of such alternatives ), prior to the procedure, with the patient (or the patient's legal territory account representative). I attest that, if there was a reasonable possibility of needing a blood transfusion, the patient (or the patient's legal territory account representative) was given the [facility] standardized written summary, pursuant to the Misha Sherrie Blood Safety Act ([place] Health and Safety Code # 1645, as amended). I attest that I re-evaluated the patient just prior to the surgery and that there has been no change in the patient's H&P, except as documented below: Ej Grigsby MD Sep 24, 2019 16:15
--- NOTE | 2019-09-24 16:19 | Brief Operative Note ---
Immediate Post Operative Note Operative Note Pre-op Diagnosis: ascites Procedure: paracentesis Post-op Diagnosis: same as pre-op Surgeon: Ying Grigsby Anesthesia: local Specimen: yes - 50 ml fluid sent to lab Complications: none Fluids: none Implant(s) used?: No Ej Grigsby MD Sep 24, 2019 16:19
--- NOTE | 2019-09-24 16:22 | Diagnostic Imaging Report ---
Indications: Ascites Technique: Ultrasound used to localize optimal puncture site. Sterile prepping and draping right lower quadrant. Local anesthesia with 1% lidocaine. Under real-time ultrasound guidance, puncture peritoneal space using paracentesis needle. Stylet removed. Catheter placed to vacuum bottle suction. Total 6.05 liters of fluid aspirated. Usp through the evacuation of ascites, the catheter became inadvertently pulled out. This necessitated reinsertion under sterile technique as described above. Patient otherwise tolerated procedure well, without immediate complication. Findings: Followup sonography demonstrates some residual but resolution of most of the peritoneal fluid Impression: Successful ultrasound-guided paracentesis, yielding 6.05 liters of fluid
--- NOTE | 2019-09-24 16:41 | NUR ---
ED Nurse Note: spoke to daughter on the phone and updated on pt's condition. pt is waiting for a ride which will arrive in 40 minutes per family.
[2019-09-24 16:55] VITALS: BP 144/75
--- NOTE | 2019-09-24 16:56 | NUR ---
ED Nurse Note: Pt cleared by health care Provider for discharge. RUQ paracentesis site clean and intact. pt verbalized improved condition. DC instructions/prescription was given and explained to pt and verbalized understanding of teachings. All medical deviecs such as ID band removed. Pt is AAO x4, ambulatory and left with all personal belongings. Family came to pick pt up by a vehicle.
== END 2019-09-24 16:57 | disposition home or self-care (01) ==
LOC: EDBD 10:34 → EMR 10:49
DX: K70.31 Alcoholic cirrhosis of liver with ascites (principal); N28.9 Disorder of kidney and ureter, unspecified; E11.9 Type 2 diabetes mellitus without complications; I10 Essential (primary) hypertension
CPT/HCPCS: 36415; 76942; 80053; 81003; 82248; 83690; 85007; 85025; 85610; 85730; 99284

== ENCOUNTER 2019-10-09 11:26 | Inpatient (IN) | payer OTHER ==
[2019-10-09] VITALS (7 sets, daily range): BP systolic 103–166; BP diastolic 68–88
[~2019-10-09] VITALS: Ht 142.2 cm; Wt 73.0 kg
--- NOTE | 2019-10-09 11:26 | NUR ---
ED Nurse Note: Pt arrived with RA [id number] due to upper left quadrant abdominal pain. pt coming from home. iv line etablished, patent and intact. pt placed on monitor and pt gown. pt appears slightly jaundiced.
--- NOTE | 2019-10-09 12:10 | NUR ---
ED Nurse Note: dowd cath inserted per ermd to, patent and draining. urine specimen sent to lab
[2019-10-09 12:26] LABS: APPEARANCE,URINE SLIGHTLY CLOUDY; BILIRUBIN, URINE 1+ (NEGATIVE); GLUCOSE, URINE (UA) NEGATIVE (NEGATIVE); KETONES,URINE 1+ (NEGATIVE); LEUKOCYTE ESTERASE ,URINE 1+ (NEGATIVE); NITRITE,URINE NEGATIVE (NEGATIVE); PH,URINE 5 (4.5-8.0); PROTEIN,URINE 1+ (NEGATIVE); UROBILINOGEN,URINE 1 MG/DL (0.0-1.0)
[2019-10-09 12:34] LABS: HEMATOCRIT 35.8 % (37.0-47.0); HEMOGLOBIN 11.9 G/DL (12.0-16.0); MEAN CORPUSCULAR VOLUME 95 FL (80-99); PLATELET COUNT 88 K/UL (150-450); RED BLOOD COUNT 3.77 M/UL (4.20-5.40); RED CELL DISTRIBUTION WIDTH 15.4 % (11.6-14.8); WHITE BLOOD COUNT 4.7 K/UL (4.8-10.8)
[2019-10-09 13:03] LABS: ALANINE AMINOTRANSFERASE 31 U/L (12-78); ALBUMIN 1.6 G/DL (3.4-5.0); ALBUMIN/GLOBULIN RATIO 0.3 (1.0-2.7); ALKALINE PHOSPHATASE 122 U/L (46-116); ANION GAP 13 mmol/L (5-15); ASPARTATE AMINO TRANSFERASE 71 U/L (15-37); BILIRUBIN,TOTAL 2.4 MG/DL (0.2-1.0); BLOOD UREA NITROGEN 58 mg/dL (7-18); CALCIUM 8.7 MG/DL (8.5-10.1); CARBON DIOXIDE 20 MMOL/L (21-32); CHLORIDE 100 MMOL/L (98-107); CREATININE 3.2 MG/DL (0.55-1.30); POTASSIUM 4.6 MMOL/L (3.5-5.1); SODIUM 133 MMOL/L (136-145)
--- NOTE | 2019-10-09 13:05 | NUR ---
ED Nurse Note: Pt has critically low glucose 29, pt given d50 TO. vss. pt given juice.
[2019-10-09 13:06] LABS: BILIRUBIN,DIRECT 1.5 MG/DL (0.0-0.3)
[2019-10-09 13:12] LABS: COLOR,URINE YELLOW
[2019-10-09] MEDS ORDERED: D5 1/2NS 1,000 ML IV SCH (13:15)
--- NOTE | 2019-10-09 13:49 | NUR ---
ED Nurse Note:for any reports and information [facility] [phone]
[2019-10-09] MEDS ORDERED: Morphine Sulfate 2mg/ml Inj(IV/IM USE ONLY) IVP ONE ×3 (14:00→16:45)
--- NOTE | 2019-10-09 14:08 | Emergency Room Report ---
History of Present Illness General Chief Complaint: Abdominal Pain Source: Patient, EMS Present Illness HPI 84-year-old female presents with abdominal pain and distention x1 day. Brought in by EMS from home. History of cirrhosis. Abdomen distended. Pain is dull, 7 out of 10, nonradiating. Denies chest pain or shortness of breath. Denies fevers or chills. Denies nausea or vomiting. No other aggravating relieving factors. Denies any other associated symptoms Allergies: Coded Allergies: No Known Allergies (Unverified , 03/02/19) COVID-19 Screening Contact w/high risk pt: No Recent Travel to affected area: No Experienced COVID-19 symptoms?: No Patient History Past Medical History: DM, HTN, other - cirrhosis Past Surgical History: none Pertinent Family History: none Social History: Denies: smoking, alcohol use, drug use Now: No Immunizations: UTD Reviewed Nursing Documentation: PMH: Agreed; PSxH: Agreed Nursing Documentation-PMH Hx Cardiac Problems: Yes Hx Hypertension: Yes Hx Diabetes: Yes Hx Cancer: Yes - liver cirrhosis Hx Gastrointestinal Problems: Yes Hx Neurological Problems: No Review of Systems All Other Systems: negative except mentioned in HPI Physical Exam Vital Signs Date Time Temp Pulse Resp B/P (MAP) Pulse Ox O2 Delivery O2 Flow Rate FiO2 20 11:19 97.5 80 20 126/72 (90) 96 Room Air Sp02 EP Interpretation: reviewed, normal General Appearance: alert, GCS 15, non-toxic, mild distress Head: normocephalic, atraumatic Eyes: bilateral eye normal inspection, bilateral eye PERRL ENT: hearing grossly normal, normal pharynx, no angioedema, normal voice Neck: full range of motion, supple/symm/no masses Respiratory: chest non-tender, lungs clear, normal breath sounds, speaking full sentences Cardiovascular #1: regular rate, rhythm, no edema Cardiovascular #2: 2+ carotid (R), 2+ carotid (L), 2+ radial (R), 2+ radial (L) , 2+ dorsalis pedis (R), 2+ dorsalis pedis (L) Gastrointestinal: normal bowel sounds, soft, non-distended, no guarding, no rebound, distended Rectal: deferred Genitourinary: normal inspection, no CVA tenderness Musculoskeletal: back normal, normal range of motion, gait/station normal, non- tender Neurologic: alert, motor strength/tone normal, oriented x3, sensory intact, responsive, speech normal Psychiatric: judgement/insight normal, memory normal, mood/affect normal, no suicidal/homicidal ideation Reflexes: 3+ bicep (R), 3+ bicep (L), 3+ tricep (R), 3+ tricep (L), 3+ knee (R) , 3+ knee (L) Skin: no rash Lymphatic: no adenopathy Procedures Critical Care Time Critical Care Time i. I feel this is a highly complex case requiring extensive working including EKG/Rhythm strip, Xray/CT/US, Blood/urine lab work, repeat exams while in ED, and administration of strong opiates/narcotics for pain control, admission to hospital or close patient follow up. Total time: 30 min bedside evaluation and treatment excludes procedures (EKG). Reason for critical care: hypoglycemia Possible complications: hypotension, hypertension, NC, shock, arrhythmias, metabolic acidosis, end organ damage, respiratory failure. Interventions: D50, D51/2NS Course: Presenting with abdominal distention. History of cirrhosis. Labs show glucose 29. Given D50. Started on D5 half-normal saline. Consultations: nursing staff, EMS, family Performed by: Dr Aponte Tolerated well condition = serious j. because of unstable vital signs this patient had a condition that could potentially threaten life or limb. I feel this is a critical patient who required my full attention while patient was considered critical. Total Critical Care Time excluding procedures was greater than 35 minutes Medical Decision Making Diagnostic Impression: Primary Impression: Ascites Qualified Codes: R18.8 - Other ascites Additional Impressions: Cirrhosis Qualified Codes: K74.60 - Unspecified cirrhosis of liver; R18.8 - Other ascites Hypoglycemia Renal insufficiency ER Course Hospital Course 84-year-old female presenting to ED with abdominal distension, history of cirrhosis Differential diagnoses include: SBP, sepsis, ascites Clinical course Patient placed on stretcher. On alarm security or surveillance monitor. After initial history and physical I ordered labs, IV fluids Labs-glucose 29, BUN/Cr elevated, LFTs elevated, no leukocytosis, hb/hct stable Patient given D50. started on D5 fluids. patient will require paracentesis; no respiratory distress, vitals stable, no signs of SBP Case discussed with Dr. Coronel and he agreed to accept the patient to his service for further care and support i. I feel this is a highly complex case requiring extensive working including EKG/Rhythm strip, Xray/CT/US, Blood/urine lab work, repeat exams while in ED, and administration of strong opiates/narcotics for pain control, admission to hospital or close patient follow up. diagnosis - hypoglycemia, ascites, hypoglycemia, renal insufficiency admitted to floor in serious condition Labs Test 10/09/19 11:40 10/09/19 12:00 10/09/19 12:35 White Blood Count 4.7 K/UL (4.8-10.8) Red Blood Count 3.77 M/UL (4.20-5.40) Hemoglobin 11.9 G/DL (12.0-16.0) Hematocrit 35.8 % (37.0-47.0) Mean Corpuscular Volume 95 FL (80-99) Mean Corpuscular Hemoglobin 31.6 PG (27.0-31.0) Mean Corpuscular Hemoglobin Concent 33.3 G/DL (32.0-36.0) Red Cell Distribution Width 15.4 % (11.6-14.8) Platelet Count 88 K/UL (150-450) Mean Platelet Volume 12.3 FL (6.5-10.1) Neutrophils (%) (Auto) % (45.0-75.0) Lymphocytes (%) (Auto) % (20.0-45.0) Monocytes (%) (Auto) % (1.0-10.0) Eosinophils (%) (Auto) % (0.0-3.0) Basophils (%) (Auto) % (0.0-2.0) Differential Total Cells Counted 100 Neutrophils % (Manual) 77 % (45-75) Lymphocytes % (Manual) 13 % (20-45) Monocytes % (Manual) 7 % (1-10) Eosinophils % (Manual) 0 % (0-3) Basophils % (Manual) 0 % (0-2) Band Neutrophils 3 % (0-8) Platelet Estimate Decreased Platelet Morphology Normal Red Blood Cell Morphology Normal Prothrombin Time 21.0 SEC (9.30-11.50) Prothromb Time International Ratio 2.0 (0.9-1.1) Activated Partial Thromboplast Time 44 SEC (23-33) Urine Color Yellow Urine Appearance Slightly cloudy Urine pH 5 (4.5-8.0) Urine Specific [place] 1.015 (1.005-1.035) Urine Protein 1+ (NEGATIVE) Urine Glucose (UA) Negative (NEGATIVE) Urine Ketones 1+ (NEGATIVE) Urine Blood Negative (NEGATIVE) Urine Nitrite Negative (NEGATIVE) Urine Bilirubin 1+ (NEGATIVE) Urine Ictotest Negative (NEGATIVE) Urine Urobilinogen 1 MG/DL (0.0-1.0) Urine Leukocyte Esterase 1+ (NEGATIVE) Urine RBC 0-2 /HPF (0 - 2) Urine WBC 5-10 /HPF (0 - 2) Urine Squamous Epithelial Cells Few /LPF (NONE/OCC) Urine Bacteria Few /HPF (NONE) Sodium Level 133 MMOL/L (136-145) Potassium Level 4.6 MMOL/L (3.5-5.1) Chloride Level 100 MMOL/L (98-107) Carbon Dioxide Level 20 MMOL/L (21-32) Anion Gap 13 mmol/L (5-15) Blood Urea Nitrogen 58 mg/dL (7-18) Creatinine 3.2 MG/DL (0.55-1.30) Estimat Glomerular Filtration Rate 13.8 mL/min (>60) Glucose Level 29 MG/DL (74-106) Calcium Level 8.7 MG/DL (8.5-10.1) Total Bilirubin 2.4 MG/DL (0.2-1.0) Direct Bilirubin 1.5 MG/DL (0.0-0.3) Aspartate Amino Transf (AST/SGOT) 71 U/L (15-37) Alanine Aminotransferase (ALT/SGPT) 31 U/L (12-78) Alkaline Phosphatase 122 U/L (46-116) Total Protein 7.5 G/DL (6.4-8.2) Albumin 1.6 G/DL (3.4-5.0) Globulin 5.9 g/dL Albumin/Globulin Ratio 0.3 (1.0-2.7) Lipase 163 U/L (73-393) Last Vital Signs Date Time Temp Pulse Resp B/P (MAP) Pulse Ox O2 Delivery O2 Flow Rate FiO2 10/09/19 13:26 97.5 110 23 166/72 100 Room Air Status: improved Disposition: ADMITTED INPATIENT Condition: Serious Referrals: NOT CHOSEN IPA/,REFERRING (PCP) Jaleel Aponte MD October 09, 2019 14:08
--- NOTE | 2019-10-09 14:54 | Consultation ---
Consult Note Consult Note I am asked to evaluate the patient at the request of Dr. Coronel Patient was seen in emergency room room 1. Patient is . Patient examined. Discussed with the ER physician. Patient is known to me from her previous admission in April 2019. Current data and also the old data are reviewed. Patient was discharged with normal renal parameters in April 2019. ER note today: 84-year-old female presents with abdominal pain and distention x1 day. Brought in by EMS from home. History of cirrhosis. Abdomen distended. Pain is dull, 7 out of 10, nonradiating. Denies chest pain or shortness of breath. Denies fevers or chills. Denies nausea or vomiting. No other aggravating relieving factors. Denies any other associated symptoms No Known Allergies (Unverified , 03/02/19) COVID-19 Screening Contact w/high risk pt: No Recent Travel to affected area: No Experienced COVID-19 symptoms?: No Past Medical History: DM, HTN, other - cirrhosis Hx Cardiac Problems: Yes Hx Hypertension: Yes Hx Diabetes: Yes Hx Cancer: Yes - liver cirrhosis Hx Gastrointestinal Problems: Yes Assessment/Plan Acute renal failure, possible hepatorenal, Liver cirrhosis, ascites, hypoalbuminemia Anemia Possible UTI Hypoglycemia on presentation to ER Plan: Hold metformin Blood pressure medication Caceres catheter Urine studies, urine culture N.p.o. except medications Paracentesis IV Protonix To renal parameters Bao Biggs MD October 09, 2019 14:54
--- NOTE | 2019-10-09 15:38 | NUR ---
ED Nurse Note: ERMD aware of pt tachcardyia
--- NOTE | 2019-10-09 15:51 | NUR ---
ED Nurse Note: TO D50W per ermd
--- NOTE | 2019-10-09 17:43 | NUR ---
ED Nurse Note: informed ermd of pt blood pressure decreasing
--- NOTE | 2019-10-09 19:04 | NUR ---
HAND-OFF: Report given to Justino Jacobo.
--- NOTE | 2019-10-09 19:05 | NUR ---
ED Nurse Note: Received report from Talia LEWIS. Pt awake and alert. Not in any distress. Pt HR 118, ERMD aware. Will cont to monitor.
[2019-10-09] MEDS ORDERED: Lactulose 20gm/30ml UDC ORAL SCH (19:12)
--- NOTE | 2019-10-09 19:21 | NUR ---
ED Nurse Note: DOMINGA accucheck 107. ERMD notified.
--- NOTE | 2019-10-09 19:40 | NUR ---
ED Nurse Note: Report given to Liudmila LEWIS.
--- NOTE | 2019-10-09 19:50 | NUR ---
TRANSFER TO FLOOR: Patient transferred to [facility]. Report given to Liudmila LEWIS. Pt awake, alert. No SOB. Not in any acute distress. Sinus tachy. IV line on right upper arm 20g patent and intact. No skin issues. Med recon done. All belongings sent with the patient.
--- NOTE | 2019-10-09 20:38 | NUR ---
Patient was admitted from the ER, received report from DEBBIE Jacobo. Patient belongings brought with the patient. Patient initial BP was 145/88. HR 139. 95% on RA. 97.4 T. Facial grimacing noted from abdominal pain. Caceres catheter 16 Fr noted, draining well and intact. IV access noted on the MYLES [address] Coronel informed for admission orders. Will continue to monitor.
[2019-10-09] MEDS ORDERED: Carvedilol 25mg Tab ORAL SCH (21:00)
[2019-10-09] MEDS ORDERED: Pantoprazole Inj IVP SCH (21:00)
[2019-10-09] MEDS ORDERED: Dextrose 10% 1,000 ML IV SCH (21:00)
--- NOTE | 2019-10-10 00:24 | Emergency Room Report ---
History of Present Illness General Chief Complaint: Abdominal Pain Source: Medical Record Present Illness HPI This an 84-year-old female with history of diabetes, cirrhosis and has large volume ascites. Patient was admitted to the floor for abdominal pain with ascites hypoglycemia. A CODE BLUE was called. I responded to the code. On arrival CPR was in progress. Per nursing staff, patient was moaning admitted prior to becoming unresponsive. She was asystolic and a CODE BLUE was called. On arrival CPR was in progress. Patient was intubated and 3 epinephrine given in total. Her initial Accu-Chek was in the 50s so D50 was given. She remained in asystole psychotic code at 12:05 AM and pronounced the patient at that time. Please see the code sheet for full information. Allergies: Coded Allergies: No Known Allergies (Unverified , 03/02/19) COVID-19 Screening Contact w/high risk pt: No Recent Travel to affected area: No Experienced COVID-19 symptoms?: No Patient History Past Medical History: see triage record, old chart reviewed Past Surgical History: other Pertinent Family History: none Social History: Denies: smoking Now: No Immunizations: other Reviewed Nursing Documentation: PMH: Agreed; PSxH: Agreed Nursing Documentation-PMH Hx Cardiac Problems: Yes Hx Hypertension: Yes Hx Diabetes: Yes Hx Cancer: Yes - liver cirrhosis Hx Gastrointestinal Problems: Yes Hx Neurological Problems: No Review of Systems All Other Systems: limited - Unable to assess secondary to her condition Physical Exam Vital Signs Date Time Temp Pulse Resp B/P (MAP) Pulse Ox O2 Delivery O2 Flow Rate FiO2 5/2/20 11:19 97.5 80 20 126/72 (90) 96 Room Air Sp02 EP Interpretation: abnormal General Appearance: other - Unresponsive ENT: dry mucus membranes Neck: supple Respiratory: other - No spontaneous respiration Cardiovascular #1: other - No pulse Gastrointestinal: other - Distended with ascites Musculoskeletal: swelling - 1+ Neurologic: other - unResponsive Procedures CPR/Code Blue CPR/Code Blue Narrative See code sheet for full information. Total of 3 mg epinephrine given. 1 amp of D50 given. No spontaneous return of pulse. Code was called at 12:05 AM. Intubation Intubation : Consent: Emergent Intubation Method: orotracheal Tube Size (cm): 7.5 Medications: Etomidate, Succinylcholine Breath Sounds after Intubation: equal Intubation Complications: no complications Post Intubation Xray: No Attempts: One Patient Tolerated: Well Complications: None Medical Decision Making Diagnostic Impression: Primary Impression: Ascites Qualified Codes: R18.8 - Other ascites Additional Impressions: Cirrhosis Qualified Codes: K74.60 - Unspecified cirrhosis of liver; R18.8 - Other ascites Hypoglycemia Renal insufficiency Cardiac arrest ER Course Patient had cardiac arrest and unsuccessful code. Last Vital Signs Date Time Temp Pulse Resp B/P (MAP) Pulse Ox O2 Delivery O2 Flow Rate FiO2 10/09/19 23:42 Room Air 10/09/19 21:15 139 145/88 10/09/19 19:50 98.0 18 94 Status: worsened Disposition: ADMITTED INPATIENT Condition: Referrals: NOT CHOSEN IPA/,REFERRING (PCP) Mark Merino MD October 10, 2019 00:24
--- NOTE | 2019-10-10 00:29 | History and Physical Report ---
DATE OF ADMISSION: 10/09/2019 HISTORY OF PRESENT ILLNESS: This is an 84-year-old female with history of liver cirrhosis. She was brought to the hospital with abdominal pain and distention. She also found to be hypoglycemic the hospital for consideration of paracentesis. The patient denies shortness of breath, fever, chills, nausea, or vomiting. PAST MEDICAL HISTORY: Diabetes mellitus, hypertension, and liver cirrhosis. HOME MEDICATIONS: Reviewed and reconciled in chart. REVIEW OF SYSTEMS: Denies any headaches, hematemesis, melena, hematochezia, or weight loss. PHYSICAL EXAMINATION: GENERAL: Reveals an 84-year-old female. HEENT: Unremarkable. LUNGS: Clear breath sounds bilaterally. ABDOMEN: Soft. Distended. EXTREMITIES: There is no edema. VITAL SIGNS: Blood pressure is 140/60, heart rate is 110, respirations are 20. She is afebrile. O2 saturation ___% on room air. LABORATORY DATA: Lab testing shows hemoglobin 11.9, platelet count is 88,000, white count 4.7. Creatinine is 3.2 and BUN 58. Coags show INR of 2. Urinalysis is negative. IMAGING STUDIES: None. IMPRESSION: 1. Liver cirrhosis. 2. Significant ascites. 3. Diabetes mellitus. 4. Hypertension. 5. Tachycardia. DISCUSSION: Admit to the hospital. Nephrology consult for renal insufficiency/failure with new paracentesis. We will consult GI. Continue medications. Blood pressure control. We will follow carefully. Pawel Coronel M.D. DR: ABIODUN JOB#: [id number] CC:
--- NOTE | 2019-10-10 01:00 | NUR ---
NURSE NOTES: Patient was found unresponsive at 0000, called [facility] and started chest compressions. [facility] team responded with Dr. Merino. nurse emergency applied to the patient. Asystole noted. Patient's blood sugar was 38. Patient was given Epinephrine x3, with concurrent chest compressions. Informed Dr Coronel about patient's condition. Doctor ordered to transfer patient to ICU. Patient was intubated. Asystole noted. Time of pronounced by ED doctor at [address] Stephenson was informed of patient passing away. Family was also informed. [facility] and writing manager were called. [facility] denies eligibility for organ donation. [place] Clerk was also called and denies that patient is a writing manager's case.
--- NOTE | 2019-10-10 01:18 | NUR ---
NURSE NOTES: Patient was admitted from the ER, received report from DEBBIE Jacobo. Patient belongings brought with the patient. Patient initial BP was 145/88. HR 139. 95% on RA. 97.4 T. Facial grimacing noted from abdominal pain. Caceres catheter 16 Fr noted, draining well and intact. IV access noted on the MYLES [address] Coronel informed for admission orders. Will continue to monitor. Addendum: 10/10/19 at 0250 by Liudmila Campos RN disregard this note.
[2019-10-10] MEDS ORDERED: NovoLOG Insulin Flexpen SUBQ SCH (06:30)
[2019-10-10] MEDS ORDERED: Levofloxacin 500mg tab ORAL SCH (09:00)
[2019-10-10] MEDS ORDERED: Aspirin EC 81mg tab ORAL SCH ×2 (09:00)
[2019-10-10] MEDS ORDERED: metFORMIN 500mg tab ORAL SCH (09:00)
--- NOTE | 2019-10-11 11:56 | NUR ---
*-* INSURANCE *-* ALL CLINICALS HAVE BEEN FAXED TO: Bebeto Parker [facility] office closed only able to leave voicemail fax# [phone]
--- NOTE | 2019-10-11 15:30 | NUR ---
*-* INSURANCE *-* ALL AVAILABLE CLINICALS HAVE BEEN FAXED TO: [employer] tracking# [id number] ; Stella # [phone] ext [phone] fax# [phone] Addendum: 10/12/19 at 1156 by DOMONIQUE GALLEGOS CM DOCUMENTED IN ERROR
--- NOTE | 2019-10-12 09:02 | Discharge Summary ---
Discharge Summary Discharge Summary _ SUMMARY DATE OF ADMISSION: 10/09/2019 DATE OF EXPIRATION: 10/10/2019 REASON FOR ADMISSION: [] 84 years old female with history of liver cirrhosis brought to the hospital for abdominal pain and distention for 1 day. Pain reported as dull ,nonradiating ,7 out of 10. Patient denied chest pain or shortness of breath. Patient denied fever and chills. Patient denied nausea and vomiting. Vital signs were stable. Pulse oximetry was stable on room air. Laboratory work-up revealed no leukocytosis ,stable hemoglobin, hematocrit , platelets 88. INR 2.0. Urinalysis with +1 leukocyte esterase , pyuria and few bacteria, +1 protein. Sodium 133. BUN 58, creatinine 3.2. Blood sugar 29. Total bilirubin 2.4, direct bilirubin 1.5. AST 71, ALT 31. Patient received D50 and started on IV fluids with dextrose. Patient subsequently admitted for hypoglycemia, ascites ,renal failure, cirrhosis. CONSULTANTS: steam box operator Dr Biggs [facility] COURSE: Patient admitted and started on IV fluids with dextrose. GI consulted. Patient was kept n.p.o. Metformin was hold. Caceres catheter inserted. Urine studies were done . Urine culture was pending . Paracentesis was ordered , and GI specialist consulted. GI prophylaxis provided On 10/09 patient was found unresponsive at 00:00. CODE BLUE was called . Patient was in asystole. Blood sugar was 38. ACLS protocol initiated . Patient was intubated . Ampule of D50 given, Unfortunately all resuscitative efforts failed. Patient was pronounced at 00:25 on 10/09. Cause of : cardiopulmonary arrest FINAL DIAGNOSES: s/p cardiopulmonary arrest Acute respiratory failure, requiring intubation ( during cardiopulmonary arrest ) Acute renal failure possible hepatorenal Liver cirrhosis with ascites Hypoglycemia Diabetes mellitus Hypoalbuminemia Hypertension Anemia I have been assigned to dictate discharge summary for this account. I was not involved in the patient's management. Rima Lopez NP October 12, 2019 09:02
--- NOTE | 2019-10-12 11:53 | NUR ---
*-* INSURANCE *-* DISCHARGE SUMMARY HAS BEEN FAXED TO: [employer] tracking# [id number] Fiedl Stella # [phone] ext [phone] fax# [phone] Addendum: 10/12/19 at 1156 by DOMONIQUE GALLEGOS CM DOCUMENTED IN ERROR
--- NOTE | 2019-10-12 11:54 | NUR ---
*-* INSURANCE *-* ALL CLINICALS HAVE BEEN FAXED TO: Francyclaribeldorina Parker [facility] office closed only able to leave voicemail fax# [phone] Addendum: 10/12/19 at 1155 by DOMONIQUE GALLEGOS CM ALONG WITH DISCHARGE SUMMARY HAS BEEN FAXED.
== END 2019-10-10 00:14 | disposition expired | DRG 683 ==
LOC: EDBD 11:26 → EMR 12:05 → EDBEDREQ 18:53 → 3E 19:11
DX: N17.9 Acute kidney failure, unspecified (principal); R18.8 Other ascites; N39.0 Urinary tract infection, site not specified; R10.9 Unspecified abdominal pain; E11.649 Type 2 diabetes mellitus with hypoglycemia without coma; I10 Essential (primary) hypertension; R00.0 Tachycardia, unspecified; K74.60 Unspecified cirrhosis of liver; D64.9 Anemia, unspecified; Z79.84 Long term (current) use of oral hypoglycemic drugs; E88.09 Other disorders of plasma-protein metabolism, not elsewhere classified
CPT/HCPCS: 36415; 80053; 81003; 82248; 82962; 83690; 84300; 85007; 85025; 85610; 85730; 86850; 86900; 86901; 87086; 96361; 96374; 96375; 99291; J1815